=== PATIENT | male | born 1990 | race Caucasian/White ===

== ENCOUNTER 2019-08-15 08:26 | Emergency (ER) | payer MEDICARE, MEDICAID, SELFPAY ==
[2019-08-15 08:29] VITALS: BP 182/83; PULSE 82; RESP 18; TEMP 36.8; O2SAT 100; BMI 33.0
--- NOTE | 2019-08-15 08:30 | W.ED.ABDPA2 ---
HPI - Abdominal Pain General: Chief Complaint: Urogenital-Male Stated Complaint: LEFT SIDE LOW BACK PAIN Time Seen by Provider: 08/15/19 08:27 Source: patient Mode of arrival: ambulatory Limitations: no limitations History of Present Illness: HPI narrative: Patient is a nice 29-year-old male who presents to ED today with complaints of left-sided flank pain with radiation into his left abdomen that began around 5 AM this morning fairly suddenly and awoke patient from sleep. Patient tells me he does have a history of kidney stones although states this one feels abnormal. He has associated nausea without vomiting. He tells me he is having darker than normal urine and states it is difficult to urinate. He has not been running fevers. No changes in defecation habits. MD elicited complaint: abdominal pain and flank pain Pertinent past history: kidney stones Onset (ago): hour(s) Pain Consistency: constant Location: LUQ, LLQ and L flank Severity: moderate Quality: sharp Exacerbating factors: other (urinating ) Relieving factors: nothing Associated Symptoms: Reports nausea; Denies change in bowel habits, change in stool character, chills, diarrhea, dysuria, fever(s), heartburn, hematochezia, hematemesis, melena and vomiting Review of Systems Const: Denies: fever(s), chills, body aches, fatigue or malaise Card: Denies: chest pain, palpitations or lightheadedness Resp: Denies: dyspnea or chest congestion GI: Reports: abdominal pain and nausea; Denies: vomiting, hematemesis, heartburn, diarrhea, change in bowel habits, change in stool character, hematochezia or melena : Reports: flank pain, difficulty urinating and difficulty starting urination; Denies: dysuria, urinary frequency, urinary urgency, urinary hesitancy, genital pain, genital lesions, penile discharge, testicular pain or testicular mass Musc: Reports: back pain (L flank); Denies: neck pain, extremity pain, extremity swelling, joint pain or joint swelling Skin/Breast: Denies: rash Neuro: Denies: headache(s), numbness in extremities, weakness in extremities or sensory changes Physical Exam Const: COMMON NORMALS: no acute distress, patient oriented x3, no limitations and alert HENMT: COMMON NORMALS: normocephalic and atraumatic HEAD & SCALP: normocephalic and atraumatic Resp: COMMON NORMALS: normal respiratory effort and clear to auscultation bilaterally AUSCULTATION: clear to auscultation bilaterally Cardio: COMMON NORMALS: regular rate and regular rhythm RATE: regular rate RHYTHM: regular rhythm GI: COMMON NORMALS: Normal to inspection, nondistended, normoactive bowel sounds present, Soft to palpation, No hepatosplenomegaly present and no masses PALPATION: Yes Soft to palpation, Yes Tenderness to palpation present (GI) (throughout L side of abdomen) and Yes No hepatosplenomegaly present : BLADDER/KIDNEY EXAM: Yes CVA tenderness on the left Back/Pelvis: GENERAL BACK: Yes CVA tenderness Extremity: COMMON NORMALS: no clubbing, cyanosis or edema and no pedal edema Neuro: COMMON NORMALS: patient oriented x3 SENSORIUM/ORIENTATION: Yes alert Skin: COMMON NORMALS: no rashes or lesions noted GENERAL SKIN EXAM: no rashes or lesions noted Course Vital Signs: Vital signs: Vital Signs Temperature 98.2 F 08/15/19 08:29 Pulse Rate 94 08/15/19 08:52 Respiratory Rate 18 08/15/19 08:57 Blood Pressure 175/88 08/15/19 08:52 Pulse Oximetry 98 08/15/19 08:57 MDM - Abdominal Pain MDM Narrative: Medical decision making narrative: Patient here with a left 4 mm ureter stone causing moderate to severe hydroureteronephrosis. Patient will be placed on flomax and pain/nausea medications, given urinary strainer, and case management will set him up to see urology for follow-up. Return to ED precautions given. Lab Data: Labs: Lab Results 08/15/19 08/15/19 08/15/19 Range/Units 08:15 08:15 08:55 WBC 10.7 H (4.0-10.0) 10^3/ uL RBC 4.66 (4.1-5.3) 10^6/u L Hgb 14.6 (11.7-16.6) g/dL Hct 43.9 (42.0-52.0) % MCV 94.2 H (80-94) fL MCH 31.3 (28.0-34.0) pg MCHC 33.3 (30.0-36.0) g/dL RDW 11.8 L (12.1-15.1) % Plt Count 246 (130-400) 10^3/c mm MPV 9.9 (7.4-10.4) fL Neut % (Auto) 86.0 % Lymph % (Auto) 9.3 % [place] % (Auto) 3.9 % Eos % (Auto) 0.1 % Baso % (Auto) 0.2 % Neut # (Auto) 9.2 H (1.8-7.7) 10^3/u L Lymph # (Auto) 1.0 (0.8-4.8) 10^3/u L [place] # (Auto) 0.4 (0.2-0.9) 10^3/u L Eos # (Auto) 0.0 (0.0-0.8) 10^3/u L Baso # (Auto) 0.0 (0.0-0.1) 10^3/u L Nucleated RBC % (a uto) 0 % Nucleated RBCs # 0.0 /100WBC Sodium 138 (136-145) mmol/L Potassium 3.6 (3.5-5.1) mmol/L Chloride 102 (98-107) mmol/L Carbon Dioxide 24 (22-29) mmol/L Anion Gap 15.6 (5-19) BUN 16 (6-20) mg/dL Creatinine 0.9 (0.7-1.2) mg/dL GFR Calculation 101.2 (90-130) mL/min Glucose 145 H (65-115) mg/dL Calculated Osmolal ity 285 (285-295) mOsm/k g Calcium 9.5 (8.5-10.5) mg/dL Total Bilirubin 0.5 (0.15-1.2) mg/dL AST 24 (0-40) U/L ALT 35 (0-41) U/L Alkaline Phosphata se 83 (40-130) IU/L Total Protein 7.9 (6.6-8.7) g/dL Albumin 4.6 (3.5-5.2) g/dL Globulin 3.3 (1.3-4.6) g/dL Urine Color [place] (Yellow) Urine Appearance Cloudy (CLEAR) Urine pH 5.0 (5-7) Ur Specific Gravit y 1.020 (1.005-1.030) Urine Protein 1+ H (Negative) Urine Glucose (UA) Trace H (Normal) Urine Ketones 1+ H (Negative) Urine Blood 3+ H (Negative) Urine Nitrate Negative (Negative) Urine Bilirubin Neg (NEGATIVE) Urine Urobilinogen 1 H (Negative) mg/dL Ur Leukocyte Merline ase Trace H (Negative) Urine RBC >100 H (0-2) /hpf Urine WBC 5-10 H (0-5) /hpf Ur Squamous Epith Cells 5-10 H (0-5) Amorphous Sediment Not Reportable Urine Bacteria Trace (NONE) Imaging Data ^: CT Abd/Pel: Radiologist's impression: [facility] [address] [place] [address] CT Scan Report Signed Patient: George Lopez Unit #: [id number] : 1990 Age/Sex: 29 / M ADM Date: 08/15/19 Loc: ER Room/Bed: Attending Dr: Ordering Provider/Ordering MD: Karma Hillman Date of Service: 08/15/19 Procedure(s): CT kidney stone 05414 Accession Number(s): [id number] Report Number: [id number] WS: [id number] CT ABDOMEN AND PELVIS NONCONTRAST HISTORY: L flank/abdominal pain TECHNIQUE: Imaging performed through the abdomen and pelvis. Coronal and sagittal reformats are submitted. All CT scans at [facility] use at least one of these dose optimization techniques: automated exposure control; mA and/or kV adjustment per patient size (includes targeted exams where dose is matched to clinical indication); or iterative reconstruction. DLP: 1625.71 mGy.cm COMPARISON: 02/04/2017 Lower thorax: Dependent changes at the lung bases. There is also motion artifact. Heart size is normal. No hiatal hernia. Liver: Normal, no mass or intrahepatic dilatation. Gallbladder: Unremarkable. Pancreas: Normal. Spleen: Normal. Adrenal glands: Normal. Right kidney: Normal size kidney. 2 mm calcification lower pole is nonobstructing. Left kidney: Enlarged edematous kidney with moderate to severe LEFT hydroureteronephrosis. Ureter is significantly dilated secondary to a 4 mm distal LEFT ureter calcification. Calcification is approximately 2 cm from the urinary bladder. Additional nonobstructing 6 mm stone in the lower pole. Abdominal aorta and IVC are unremarkable. No free fluid, intraperitoneal air or significant lymphadenopathy. GI tract: Prior appendectomy. Mild constipation. No obstruction. Abdominal wall: Intact. Pelvis: Well-distended urinary bladder. No free fluid. Osseous structures: Unremarkable. CT/CT kidney stone [id number] IMPRESSION: 1. Moderate to severe LEFT hydroureteronephrosis secondary to a 4 mm distal ureteral calcification. 2. Additional bilateral lower pole nephrolithiasis. 3. Prior appendectomy. Dictated By: Gloria Yoder DO Signed By: Gloria Yoder DO Signed Date/Time: 08/15/19923 DD/ 9 Discharge Plan Discharge Patient Disposition: Home, Self-Care Clinical Impression: Left ureteral calculus Condition: Stable Prescriptions: New Flomax 0.4 mg capsule 0.4 mg PO DAILY Qty: 10 RF: 0 Zofran 4 mg tablet 4 mg PO Q6H PRN (Reason: nausea and vomiting) Qty: 14 RF: 0 tramadol 50 mg tablet 50 mg PO Q6H PRN (Reason: pain) Qty: 14 RF: 0 No Action citalopram 40 mg tablet 40 mg PO DAILY RF: 0 trazodone 50 mg tablet 50 mg PO BEDTIME RF: 0 Tylenol Extra Strength 500 mg Tablet 1,000 mg PO PRN RF: 0 lorazepam 0.5 mg tablet 0.5 mg PO TID RF: 0 ibuprofen 200 mg Tablet 600 mg PO PRN RF: 0 risperidone 1 mg tablet 1 mg PO BID RF: 0 atomoxetine 80 mg capsule 80 mg PO DAILY RF: 0 Vimpat 200 mg tablet 200 mg PO DAILY RF: 0 Discharge Orders: Discharge Order (Routine); Ordered 08/15/19 Ordered By: Karma Hillman Referrals: Real Catalan Jr, MD [Primary Care Provider] - Papo Topete MD [Physician] - Patient Instructions: Kidney Stones (ED), How to Strain Your Urine (ED), Flank Pain (ED), Hydronephrosis (ED) Activity Restrictions/Additional Instructions: As discussed case management should contact you shortly to set you up with your urology follow-up. Strain your urine as instructed. I have written you for pain and nausea medications you may use as needed. Please return to the emergency department for worsening pain, fevers, inability to urinate, any other concerns you may have. I hope you begin to feel better soon. 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 Care Code ED Classified Copy Control Clerk for Chg Fwd Exam Comprehensive
--- NOTE | 2019-08-15 08:38 | CT_ITS ---
WS: [id number] CT ABDOMEN AND PELVIS NONCONTRAST HISTORY: L flank/abdominal pain TECHNIQUE: Imaging performed through the abdomen and pelvis. Coronal and sagittal reformats are submi tted. All CT scans at [facility] use at least one of these dose optimization techniques: automated exposure control; mA and/or kV adjustment per patient size (includes targeted exams where d ose is matched to clinical indication); or iterative reconstruction. DLP: 1625.71 mGy.cm COMPARISON: 02/04/2017 Lower thorax: Dependent changes at the lung bases. There is also motion artifact. Heart size is saniya l. No hiatal hernia. Liver: Normal, no mass or intrahepatic dilatation. Gallbladder: Unremarkable. Pancreas: Normal. Spleen: Normal. Adrenal glands: Normal. Right kidney: Normal size kidney. 2 mm calcification lower pole is nonobstructing. Left kidney: Enlarged edematous kidney with moderate to severe LEFT hydroureteronephrosis. Ureter is significantly dilated secondary to a 4 mm distal LEFT ureter calcification. Calcification is approxim ately 2 cm from the urinary bladder. Additional nonobstructing 6 mm stone in the lower pole. Abdominal aorta and IVC are unremarkable. No free fluid, intraperitoneal air or significant lymphadenopathy. GI tract: Prior appendectomy. Mild constipation. No obstruction. Abdominal wall: Intact. Pelvis: Well-distended urinary bladder. No free fluid. Osseous structures: Unremarkable. CT/CT kidney stone [id number] IMPRESSION: 1. Moderate to severe LEFT hydroureteronephrosis secondary to a 4 mm distal ur eteral calcification. 2. Additional bilateral lower pole nephrolithiasis. 3. Prior appendectomy.
[2019-08-15 08:52] VITALS: BP 175/88; PULSE 94; RESP 18; O2SAT 96
[2019-08-15 08:57] VITALS: RESP 18; O2SAT 98
[2019-08-15 08:57] LABS: Basophils % 0.2 %; Eosinophils % 0.1 %; Hematocrit 43.9 % (42.0-52.0); Hemoglobin 14.6 g/dL (11.7-16.6); Lymphocytes % 9.3 %; Mean Corpuscular HGB Conc 33.3 g/dL (30.0-36.0); Mean Corpuscular Hemoglobin 31.3 pg (28.0-34.0); Mean Corpuscular Volume 94.2 fL (80-94); Mean Platelet Volume 9.9 fL (7.4-10.4); Monocytes # 0.4 10^3/uL (0.2-0.9); Monocytes % 3.9 %; Neutrophils # 9.2 10^3/uL (1.8-7.7); Nucleated Red Blood Cells % 0 %; Platelet Count 246 10^3/cmm (130-400); Red Blood Count 4.66 10^6/uL (4.1-5.3); Red Cell Distribution Width 11.8 % (12.1-15.1); White Blood Count 10.7 10^3/uL (4.0-10.0)
[2019-08-15] MEDS: sodium chloride 0.9% 1,000 ML 999 ML IV (08:57)
[2019-08-15] MEDS: morphine 4 mg/mL SDV 1 mL IVP (08:57)
[2019-08-15] MEDS: ondansetron 2 mg/ML SDV 2 mL 4 MG IVP (08:58)
[2019-08-15 09:09] LABS: Alanine Aminotransferase 35 U/L (0-41); Albumin Level 4.6 g/dL (3.5-5.2); Alkaline Phosphatase 83 IU/L (40-130); Anion Gap 15.6 (5-19); Aspartate Amino Transferase 24 U/L (0-40); Blood Urea Nitrogen 16 mg/dL (6-20); Calcium 9.5 mg/dL (8.5-10.5); Carbon Dioxide 24 mmol/L (22-29); Chloride 102 mmol/L (98-107); Creatinine Clr Calc Pharmacy 149.1502; Globulin 3.3 g/dL (1.3-4.6); Glomerular Filtration Rate 101.2 mL/min (90-130); Glucose 145 mg/dL (65-115); Osmolality Calculated 285 mOsm/kg (285-295); Potassium 3.6 mmol/L (3.5-5.1); Sodium 138 mmol/L (136-145); Total Bilirubin 0.5 mg/dL (0.15-1.2); Total Protein 7.9 g/dL (6.6-8.7)
[2019-08-15 09:30] LABS: Add Urine Microscopic? YES; Bilirubin Urine Neg (NEGATIVE); Blood Urine 3+ (Negative); Glucose Urine UA Trace (Normal); Ketones Urine 1+ (Negative); Leukocyte Esterase Urine Trace (Negative); Nitrate Urine Negative (Negative); Protein Urine 1+ (Negative); Urine Appearance Cloudy (CLEAR); Urine Color Amber (Yellow); Urobilinogen Urine 1 mg/dL (Negative)
[2019-08-15 09:31] LABS: Add Urine Culture? Yes; Bacteria Urine TRACE; RBC Urine >100 /hpf (0-2)
[2019-08-15 10:12] VITALS: BP 157/104; PULSE 100; RESP 18; O2SAT 97
--- NOTE | 2019-08-15 10:19 | PC.NURSE ---
informed chuyita kidd of bp of 154/107 vo to continue with dc with read back.
--- NOTE | 2019-08-16 09:59 | DCPLANNER ---
manager adult had message to schedule a follow up appointment for patient with Dr. Topete. manager adult called the office of Dr. Topete, spoke with Rafaela, gave clinic patients information. manager adult was told that patients information would be printed and reviewed. Clinic will call patient with appointment information.
--- NOTE | 2019-08-17 08:23 | DCPLANNER ---
Patient has an appointment scheduled for Saturday, August 17, [address] at 8:[address] Topete. Clinic will call patient with appointment information.
--- NOTE | 2019-08-21 11:18 | DCPLANNER ---
Patient did not attend appointment scheduled for 08.17.[address] Topete.
== END 2019-08-15 10:53 | disposition home or self-care (01) ==
PROVIDERS: Emergency Provider Physician Assistant; Family Provider Family Medicine; PCP Family Medicine
DX: N20.1 Calculus of ureter (principal)
CPT/HCPCS: 12345; 74176; 80053; 81001; 81003; 85025; 87086; 96361; 96374; 96375; 99283; J2270; J2405; J7030

== ENCOUNTER 2019-08-30 07:42 | Outpatient (CLI) | payer MEDICARE, MEDICAID, SELFPAY ==
--- NOTE | 2019-08-30 09:00 | XR_ITS ---
WS: [id number] ABDOMEN: SUPINE FILM HISTORY: STONES COMPARISON: 08/15/2019 and 10/25/2018 Moderate fecal retention. There is a large amount of bowel gas and fecal content obscuring the kidney s. Right kidney: No renal or ureteral stone identified. Left kidney: Cluster of renal calcifications projects over the LEFT kidney with the largest measuring 5 mm. Distal LEFT ureteral calcification is not identified radiographically with certainty. There ar e some calcifications in the pelvis which are phleboliths. XR/XR KUB 64745 IMPRESSION: Cannot identify the distal LEFT ureteral calcification radiographically. May be obscured by bowel gas content or extruded.
== END 2019-08-30 07:43 | disposition home or self-care (01) ==
PROVIDERS: PCP Family Medicine; Visit Provider Urology
DX: N20.1 Calculus of ureter (principal); N20.0 Calculus of kidney
CPT/HCPCS: 74018; 81001; 82365

== ENCOUNTER 2019-11-08 09:26 | Emergency (ER) | payer MEDICARE, MEDICAID, SELFPAY ==
[2019-11-08 09:28] VITALS: BP 142/67; PULSE 76; RESP 18; TEMP 36.3; O2SAT 100; BMI 30.1
--- NOTE | 2019-11-08 09:43 | ED_ITS ---
HPI - Male Genitourinary General: Chief complaint: Urogenital-Male Stated complaint: back pain Time Seen by Provider: 11/08/19 09:28 Source: patient Mode of arrival: ambulatory Limitations: no limitations History of Present Illness: HPI Narrative: Patient is a 29-year-old male who presents to ED today with a complaint of left flank pain that began yesterday. Patient tells me he had a kidney stone that was diagnosed back in August. I actually saw patient for this visit in the emergency department. Patient states he followed up with Dr. Topete and reported prior to that appointment he did pass the stone. X-ray was performed prior to appointment with Dr. Topete which did not show a stone. Patient tells me he had been feeling good until yesterday when he began developing left flank pain. He is having difficulty with urination, hematuria, urinary frequency. He has not been running fevers. No vomiting. No abdominal pain. Onset (ago): hour(s) Duration: constant Location: left flank Quality: sharp Relieving factors: none Exacerbating factors: urination Associated symptoms: Reports dysuria and hematuria; Deny nausea or vomiting Review of Systems Const: Denies: fever(s) or chills Card: Denies: chest pain Resp: Denies: dyspnea GI: Denies: abdominal pain, nausea, vomiting or diarrhea : Reports: flank pain, difficulty urinating, dysuria, urinary frequency, urinary hesitancy and hematuria; Denies: genital pain, genital lesions, penile discharge, testicular mass or scrotal swelling Musc: Denies: neck pain or back pain Neuro: Denies: headache(s) PFS ED PFSH: Medical History (Updated 11/08/19 @ 11:31 by COURTNEY Hidalgo) Autism Depression Epilepsy PTSD (post-traumatic stress disorder) Renal calculi Status post extracorporeal shock wave therapy Surgical History Hx of appendectomy Family History Unknown Adopted Social History Smoking and tobacco status: never smoked Alcohol intake: never Adopted: Yes Marital status: Single Current occupational status: employed and unemployed 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 History of recent travel: No Physical Exam Const: COMMON NORMALS: no acute distress, patient oriented x3, no limitations and alert Resp: COMMON NORMALS: normal respiratory effort and clear to auscultation bilaterally AUSCULTATION: clear to auscultation bilaterally Cardio: COMMON NORMALS: regular rate and regular rhythm RATE: regular rate RHYTHM: regular rhythm GI: COMMON NORMALS: Normal to inspection, nondistended, normoactive bowel sounds present, Soft to palpation, non-tender, No hepatosplenomegaly present and no masses PALPATION: Yes Soft to palpation and Yes No hepatosplenomegaly present : BLADDER/KIDNEY EXAM: Yes CVA tenderness on the left Back/Pelvis: GENERAL BACK: Yes CVA tenderness Extremity: COMMON NORMALS: normal to inspection and no pedal edema Neuro: COMMON NORMALS: patient oriented x3 SENSORIUM/ORIENTATION: Yes alert Skin: COMMON NORMALS: no rashes or lesions noted GENERAL SKIN EXAM: no rashes or lesions noted Course Vital Signs: Vital signs: Vital Signs Temperature 97.4 F L 11/08/19 09:28 Pulse Rate 82 11/08/19 11:42 Respiratory Rate 18 11/08/19 11:42 Blood Pressure 119/90 11/08/19 11:42 Pulse Oximetry 100 11/08/19 11:42 MDM - Male MDM Narrative: Medical decision making narrative: Patient has a 4.7 mm stone to his left distal ureter. The stone appears to be a different stone then was diagnosed back in August as he states he passed the stone and had a negative follow-up XR. Previous stone that he passed was not similar size so hopefully patient will be able to pass this one without intervention. Patient has not had any vomiting. His pain is controlled in the emergency department. He will be placed on pain medications/nausea medications and flomax and will have him follow up with Dr. Topete. Return to ED precautions given. Lab Data: Labs: Lab Results 11/08/19 11/08/19 11/08/19 Range/Units 10:11 10:11 11:00 WBC 9.1 (4.0-10.0) 10^3/ uL RBC 4.77 (4.1-5.3) 10^6/u L Hgb 14.9 (11.7-16.6) g/dL Hct 43.7 (42.0-52.0) % MCV 91.6 (80-94) fL MCH 31.2 (28.0-34.0) pg MCHC 34.1 (30.0-36.0) g/dL RDW 11.6 L (12.1-15.1) % Plt Count 248 (130-400) 10^3/c mm MPV 9.9 (7.4-10.4) fL Neut % (Auto) 84.2 % Lymph % (Auto) 11.2 % [place] % (Auto) 4.0 % Eos % (Auto) 0.1 % Baso % (Auto) 0.3 % Neut # (Auto) 7.69 (1.8-7.7) 10^3/u L Lymph # (Auto) 1.0 (0.8-4.8) 10^3/u L [place] # (Auto) 0.4 (0.2-0.9) 10^3/u L Eos # (Auto) 0.0 (0.0-0.8) 10^3/u L Baso # (Auto) 0.0 (0.0-0.1) 10^3/u L Nucleated RBC % (a uto) 0 % Nucleated RBCs # 0.0 /100WBC Sodium 135 L (136-145) mmol/L Potassium 3.4 L (3.5-5.1) mmol/L Chloride 102 (98-107) mmol/L Carbon Dioxide 21 L (22-29) mmol/L Anion Gap 15.4 (5-19) BUN 10 (6-20) mg/dL Creatinine 1.0 (0.7-1.2) mg/dL GFR Calculation 89.6 L (90-130) mL/min Glucose 174 H (65-115) mg/dL Calculated Osmolal ity 283 L (285-295) mOsm/k g Calcium 9.9 (8.5-10.5) mg/dL Total Bilirubin 0.5 (0.15-1.2) mg/dL AST 28 (0-40) U/L ALT 31 (0-41) U/L Alkaline Phosphata se 71 (40-130) IU/L Total Protein 7.5 (6.6-8.7) g/dL Albumin 4.6 (3.5-5.2) g/dL Globulin 2.9 (1.3-4.6) g/dL Urine Color Dark yellow (Yellow) Urine Appearance Cloudy (CLEAR) Urine pH 8 H (5-7) Ur Specific Gravit y 1.015 (1.005-1.030) Urine Protein Neg (Negative) Urine Glucose (UA) 1+ (Normal) Urine Ketones 1+ H (Negative) Urine Blood 3+ H (Negative) Urine Nitrate Negative (Negative) Urine Bilirubin Neg (Negative) Prot Sulfosalicyli c Acd Negative (Negative) Urine Urobilinogen Norm (Negative) mg/dL Ur Leukocyte Merline ase Negative (Negative) Urine RBC >100 H (0-2) /hpf Urine WBC 0-4 H (0-5) /hpf Ur Squamous Epith Cells 0-4 H (0-5) /hpf Amorphous Sediment Not Reportable Urine Bacteria 2+ H (NONE) /hpf Imaging Data: CT Abd/Pel: Radiologist's impression: [place] [address] CT Scan Report Signed Patient: George Lopez Unit #: [id number] : 1990 Age/Sex: 29 / M ADM Date: 11/08/19 Loc: ER Room/Bed: Attending Dr: Ordering Provider/Ordering MD: Karma Hillman Date of Service: 11/08/19 Procedure(s): CT kidney stone [id number] Accession Number(s): [id number] Report Number: [id number] WS: [id number] CT ABDOMEN AND PELVIS NONCONTRAST HISTORY: L flank pain TECHNIQUE: Imaging performed through the abdomen and pelvis. Coronal and sagittal reformats are submitted. All CT scans at [facility] use at least one of these dose optimization techniques: automated exposure control; mA and/or kV adjustment per patient size (includes targeted exams where dose is matched to clinical indication); or iterative reconstruction. DLP: 1889.86 mGy.cm COMPARISON: 08/15/2019 Lower thorax: Lung bases are clear. Visualized heart is normal. No hiatal hernia. Liver: Normal size liver. No mass or bile duct dilatation. Gallbladder: Normal gallbladder. Pancreas: Normal size and attenuation. Normal pancreatic duct. No pancreatitis or mass. Spleen: Normal. Adrenal glands: Normal. No mass. Right kidney: Nonobstructing 2 mm calcification lower pole. No mass or obstruction. Normal RIGHT ureter. Left kidney: Severe enlargement and moderate perinephric stranding. There is marked dilatation of the central pelvis and the calyces. Marked dilatation of the renal pelvis and the entire LEFT ureter. Again noted is a 4.7 mm calcification in the distal LEFT ureter. Similar in position at the 08/15/2019. LEFT ureter diameter measures 11 mm. Aorta: Normal abdominal aorta, no aneurysm or atherosclerosis. No free fluid, intraperitoneal air or significant lymphadenopathy. GI tract: Prior appendectomy. Otherwise negative GI tract. Abdominal wall: Negative. No hernia. Pelvis: Phleboliths. Normally distended urinary bladder. No ascites. Osseous structures: Unremarkable. CT/CT kidney stone [id number] IMPRESSION: 1. Severe LEFT hydroureteronephrosis secondary to a 4.7 mm calcification in the distal LEFT ureter. 2. Since the prior study LEFT kidney has become more enlarged and edematous with increasing LEFT obstructive pattern. 3. Prior appendectomy. Dictated By: Gloria Yoder DO Signed By: Gloria Yoder DO Signed Date/Time: 11/08/19 1050 DD/ 1044 Discharge Plan Discharge Patient Disposition: Home Clinical Impression: Calculus of distal left ureter Condition: Stable Prescriptions: New hydrocodone-acetaminophen 5-325 mg tablet 1 tab PO Q6H PRN (Reason: pain) Qty: 14 RF: 0 Zofran 4 mg tablet 4 mg PO Q6H PRN (Reason: nausea and vomiting) Qty: 14 RF: 0 Flomax 0.4 mg capsule 0.4 mg PO DAILY Qty: 10 RF: 0 No Action citalopram 40 mg tablet 40 mg PO DAILY RF: 0 trazodone 50 mg tablet 50 mg PO BEDTIME RF: 0 acetaminophen [Tylenol Extra Strength] 500 mg Tablet 1,000 mg PO PRN RF: 0 lorazepam 0.5 mg tablet 0.5 mg PO TID RF: 0 ibuprofen 200 mg Tablet 600 mg PO PRN RF: 0 risperidone 1 mg tablet 1 mg PO BID RF: 0 atomoxetine 80 mg capsule 80 mg PO DAILY RF: 0 Vimpat 200 mg tablet 200 mg PO DAILY RF: 0 Discharge Orders: Discharge Order (Routine); Ordered 11/08/19 Ordered By: Karma Hillman Referrals: Grace Holliday FNP [Primary Care Provider] - Papo Topete MD [Physician] - Patient Instructions: Kidney Stones (ED), Flank Pain (ED) Activity Restrictions/Additional Instructions: As discussed case management will be contacting your mother which is the number you provided to set you up with a follow-up appointment with Dr. Topete. You need to return to the emergency department for worsening pain, inability to hold down your medications, vomiting, inability to urinate, fevers greater than 100.4, or any other concerns you may have. Discharge Date/Time: 11/08/19 11:42 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 Care Code ED Pharmaceutical Specialty Representative for Chg Fwd Exam Detailed
--- NOTE | 2019-11-08 10:06 | CT_ITS ---
WS: [id number] CT ABDOMEN AND PELVIS NONCONTRAST HISTORY: L flank pain TECHNIQUE: Imaging performed through the abdomen and pelvis. Coronal and sagittal reformats are submi tted. All CT scans at [facility] use at least one of these dose optimization techniques: automated exposure control; mA and/or kV adjustment per patient size (includes targeted exams where d ose is matched to clinical indication); or iterative reconstruction. DLP: 1889.86 mGy.cm COMPARISON: 08/15/2019 Lower thorax: Lung bases are clear. Visualized heart is normal. No hiatal hernia. Liver: Normal size liver. No mass or bile duct dilatation. Gallbladder: Normal gallbladder. Pancreas: Normal size and attenuation. Normal pancreatic duct. No pancreatitis or mass. Spleen: Normal. Adrenal glands: Normal. No mass. Right kidney: Nonobstructing 2 mm calcification lower pole. No mass or obstruction. Normal RIGHT uret er. Left kidney: Severe enlargement and moderate perinephric stranding. There is marked dilatation of the central pelvis and the calyces. Marked dilatation of the renal pelvis and the entire LEFT ureter. Ag ain noted is a 4.7 mm calcification in the distal LEFT ureter. Similar in position at the 08/15/2019. L EFT ureter diameter measures 11 mm. Aorta: Normal abdominal aorta, no aneurysm or atherosclerosis. No free fluid, intraperitoneal air or significant lymphadenopathy. GI tract: Prior appendectomy. Otherwise negative GI tract. Abdominal wall: Negative. No hernia. Pelvis: Phleboliths. Normally distended urinary bladder. No ascites. Osseous structures: Unremarkable. CT/CT kidney stone [id number] IMPRESSION: 1. Severe LEFT hydroureteronephrosis secondary to a 4.7 mm calcification in th e distal LEFT ureter. 2. Since the prior study LEFT kidney has become more enlarged and edematous wi th increasing LEFT obstructive pattern. 3. Prior appendectomy.
[2019-11-08 10:21] LABS: Basophils % 0.3 %; Eosinophils % 0.1 %; Hematocrit 43.7 % (42.0-52.0); Hemoglobin 14.9 g/dL (11.7-16.6); Lymphocytes % 11.2 %; Mean Corpuscular HGB Conc 34.1 g/dL (30.0-36.0); Mean Corpuscular Hemoglobin 31.2 pg (28.0-34.0); Mean Corpuscular Volume 91.6 fL (80-94); Mean Platelet Volume 9.9 fL (7.4-10.4); Monocytes # 0.4 10^3/uL (0.2-0.9); Neutrophils # 7.69 10^3/uL (1.8-7.7); Neutrophils % 84.2 %; Nucleated Red Blood Cells % 0 %; Platelet Count 248 10^3/cmm (130-400); Red Blood Count 4.77 10^6/uL (4.1-5.3); Red Cell Distribution Width 11.6 % (12.1-15.1); White Blood Count 9.1 10^3/uL (4.0-10.0)
[2019-11-08 10:38] LABS: Alanine Aminotransferase 31 U/L (0-41); Albumin Level 4.6 g/dL (3.5-5.2); Alkaline Phosphatase 71 IU/L (40-130); Anion Gap 15.4 (5-19); Aspartate Amino Transferase 28 U/L (0-40); Blood Urea Nitrogen 10 mg/dL (6-20); Calcium 9.9 mg/dL (8.5-10.5); Carbon Dioxide 21 mmol/L (22-29); Chloride 102 mmol/L (98-107); Globulin 2.9 g/dL (1.3-4.6); Glomerular Filtration Rate 89.6 mL/min (90-130); Glucose 174 mg/dL (65-115); Osmolality Calculated 283 mOsm/kg (285-295); Potassium 3.4 mmol/L (3.5-5.1); Sodium 135 mmol/L (136-145); Total Bilirubin 0.5 mg/dL (0.15-1.2); Total Protein 7.5 g/dL (6.6-8.7)
[2019-11-08] MEDS: sodium chloride 0.9% 1,000 ML 999 ML IV (10:44)
[2019-11-08] MEDS: ondansetron 2 mg/ML SDV 2 mL 4 MG IVP (10:48)
[2019-11-08 10:50] VITALS: RESP 18; O2SAT 100
[2019-11-08] MEDS: morphine 4 mg/mL SDV 1 mL IVP (10:50)
[2019-11-08 10:54] VITALS: BP 144/94; PULSE 64; RESP 18; O2SAT 100
[2019-11-08 11:21] LABS: Add Urine Microscopic? YES; Bilirubin Urine Neg (Negative); Blood Urine 3+ (Negative); Glucose Urine UA 1+ (Normal); Ketones Urine 1+ (Negative); Leukocyte Esterase Urine Negative (Negative); Nitrate Urine Negative (Negative); Protein Urine Neg (Negative); Specific Gravity, Urine 1.015 (1.005-1.030); Sulfosalicylic Acid Urine Negative (Negative); Urine Appearance Cloudy (CLEAR); Urine Color Dark Yellow (Yellow); Urobilinogen Urine Norm (Negative); pH Urine 8 (5-7)
[2019-11-08 11:29] LABS: RBC Urine >100 /hpf (0-2)
[2019-11-08 11:30] LABS: Bacteria Urine 2+ /hpf; Squamous Epithelial Cell Urine 0-4 /hpf (0-5); WBC Urine 0-4 /hpf (0-5)
[2019-11-08 11:32] LABS: Add Urine Culture? Yes
--- NOTE | 2019-11-08 11:38 | DCPLANNER ---
manager product management was asked to schedule a follow up appointment for patient with Dr. Topete. manager product management called the office of Dr. Topete, spoke with Rafaela, gave clinic patients information. Case manger was told that patients information would be printed and reviewed. Clinic will call patient with appointment information.
[2019-11-08 11:42] VITALS: BP 119/90; PULSE 82; RESP 18; O2SAT 100
--- NOTE | 2019-11-09 13:50 | DCPLANNER ---
Patient had a follow up appointment scheduled for 11.09.[address] Topete - patient did attend appointment.
== END 2019-11-08 11:42 | disposition home or self-care (01) ==
PROVIDERS: Emergency Provider Physician Assistant; PCP Nurse Practitioner Family
DX: N20.1 Calculus of ureter (principal); F84.0 Autistic disorder; Z87.442 Personal history of urinary calculi
CPT/HCPCS: 12345; 74176; 80053; 81001; 85025; 87086; 96361; 96365; 96374; 96375; 99283; J2270; J2405; J7030

== ENCOUNTER 2019-11-09 09:26 | Outpatient (CLI) | payer MEDICAID, SELFPAY ==
--- NOTE | 2019-11-09 09:15 | XR_ITS ---
WS: [id number] KUB, 11/09/2019 Clinical Data: URETERAL STONE Comparison: KUB, 08/30/2019. Findings: There is a calcification in the region of the left ureterovesical junction which could represent a di stal left ureteral calculus. Numerous phleboliths are seen in the true pelvis bilaterally. Fecal mate rial obscures some detail over both kidneys and no definite renal calculi are seen. XR/XR KUB [id number] Impression: 1. Probable distal ureteral vesicle junction calculus. 2. No definite renal calculi are seen.
== END 2019-11-09 09:27 | disposition home or self-care (01) ==
LOC: RAD 09:26
PROVIDERS: PCP Nurse Practitioner Family; Visit Provider Urology
DX: N20.1 Calculus of ureter (principal)
CPT/HCPCS: 74018; 81001; 87635

== ENCOUNTER 2019-11-13 09:09 | Outpatient (CLI) | payer MEDICARE, MEDICAID, SELFPAY ==
--- NOTE | 2019-11-13 09:00 | XR_ITS ---
WS: [id number] XR KUB [id number] REASON FOR EXAM: URETERAL STONE FINDINGS: Compared to previous examination of 11/09/2019, the previously demonstrated left distal ureteral calcu devi is no longer identifiable along the course of the left ureter or overlying the urinary bladder. No other interval changes identified. XR/XR KUB [id number] IMPRESSION: Presumed passage of previously described distal left ureteral stone.
== END 2019-11-13 09:10 | disposition home or self-care (01) ==
LOC: RAD 09:11
PROVIDERS: PCP Nurse Practitioner Family; Visit Provider Urology
DX: N20.1 Calculus of ureter (principal)
CPT/HCPCS: 74018; 81001; 82365; 88300

== ENCOUNTER 2020-06-29 19:54 | Inpatient (IN) | payer MEDICARE, MEDICAID, SELFPAY ==
[2020-06-29 20:03] VITALS: BP 153/93; PULSE 95; RESP 16; TEMP 36.9; O2SAT 96; BMI 34.4
[2020-06-29 20:09] VITALS: PULSE 96; RESP 17; O2SAT 98
[2020-06-29 20:21] LABS: Add Urine Microscopic? NO; Charge for UA Resulting for Rev
[2020-06-29 20:25] LABS: Basophils # 0.1 10^3/uL (0.0-0.1); Basophils % 0.7 %; Eosinophils % 0.4 %; Hematocrit 41.3 % (42.0-52.0); Lymphocytes # 1.7 10^3/uL (0.8-4.8); Lymphocytes % 22.6 %; Mean Corpuscular HGB Conc 33.9 g/dL (30.0-36.0); Mean Corpuscular Hemoglobin 31.3 pg (28.0-34.0); Mean Corpuscular Volume 92.4 fL (80-94); Mean Platelet Volume 9.5 fL (7.4-10.4); Monocytes # 0.4 10^3/uL (0.2-0.9); Neutrophils # 5.11 10^3/uL (1.8-7.7); Neutrophils % 69.6 %; Nucleated Red Blood Cells % 0 %; Platelet Count 248 10^3/cmm (130-400); Red Blood Count 4.47 10^6/uL (4.1-5.3); Red Cell Distribution Width 11.8 % (12.1-15.1); White Blood Count 7.3 10^3/uL (4.0-10.0)
[2020-06-29 20:33] LABS: Bilirubin Urine Neg (Negative); Blood Urine Neg (Negative); Glucose Urine UA Norm (Normal); Ketones Urine Negative (Negative); Leukocyte Esterase Urine Negative (Negative); Nitrate Urine Negative (Negative); Protein Urine Neg (Negative); Specific Gravity, Urine 1.005 (1.005-1.030); Urine Appearance Clear (CLEAR); Urine Color Yellow (Yellow); Urobilinogen Urine Norm (Negative); pH Urine 6 (5-7)
[2020-06-29 20:42] LABS: Amphetamines Screen Urine Negative (Negative); Barbiturates Screen Urine Negative (Negative); Benzodiazepines Screen Urine Negative (Negative); Cocaine Screen Urine Negative (Negative); Opiate Screen Urine Negative (Negative); PCP Screen Urine Negative (Negative); THC Screen Urine Negative (Negative)
[2020-06-29 20:54] LABS: Acetaminophen < 5.0 ug/mL (10-30); Alanine Aminotransferase 20 U/L (0-41); Albumin Level 4.5 g/dL (3.5-5.2); Alcohol Level < 10 mg/dL (0-10); Alkaline Phosphatase 78 IU/L (40-130); Anion Gap 16.7 (5-19); Aspartate Amino Transferase 18 U/L (0-40); Blood Urea Nitrogen 8 mg/dL (6-20); Calcium 8.6 mg/dL (8.5-10.5); Carbon Dioxide 23 mmol/L (22-29); Chloride 104 mmol/L (98-107); Globulin 2.2 g/dL (1.3-4.6); Glomerular Filtration Rate 135.3 mL/min (90-130); Glucose 111 mg/dL (65-115); Osmolality Calculated 289 mOsm/kg (285-295); Potassium 3.7 mmol/L (3.5-5.1); Salicylate < 0.3 mg/dL (3-10); Sodium 140 mmol/L (136-145); Thyroid Stimulating Hormone 1.45 uIU/mL (0.27-4.20); Total Bilirubin 0.3 mg/dL (0.15-1.2); Total Protein 6.7 g/dL (6.6-8.7)
[2020-06-29 22:26] VITALS: BP 145/90; PULSE 87; RESP 17; TEMP 36.7; O2SAT 99
[2020-06-29 22:44] VITALS: BP 153/93; PULSE 97; RESP 18; TEMP 37.2; O2SAT 96
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
[2020-06-29] MEDS: LORazepam 0.5 mg Tablet PO (23:49)
[2020-06-29] MEDS: trazodone 50 mg Tablet PO (23:49)
[2020-06-30 06:00] VITALS: BP 139/86; PULSE 68; RESP 15; TEMP 36.4; O2SAT 98
[2020-06-30] MEDS: lacosamide 50 mg Tablet 200 MG PO (08:36)
[2020-06-30] MEDS: LORazepam 0.5 mg Tablet PO ×3 (08:36→21:27)
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
[2020-06-30 13:08] VITALS: BP 129/73; PULSE 99; RESP 16; TEMP 36.8; O2SAT 96
[2020-06-30 20:04] VITALS: BP 136/75; PULSE 81; RESP 16; TEMP 36.9; O2SAT 98
[2020-06-30] MEDS: trazodone 50 mg Tablet PO (21:27)
[2020-07-01 06:00] VITALS: BP 129/81; PULSE 75; RESP 15; TEMP 36.9; O2SAT 98
[2020-07-01] MEDS: LORazepam 0.5 mg Tablet PO (08:12)
[2020-07-01] MEDS: lacosamide 50 mg Tablet 200 MG PO (08:12)
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
[2020-07-01 14:51] VITALS: BP 129/81; PULSE 75; RESP 15; TEMP 36.9; O2SAT 98
== END 2020-07-01 15:20 | disposition home or self-care (01) | DRG 881 ==
LOC: ER 20:32 → NP 22:15
PROVIDERS: Admitting Provider Psychiatry & Neurology Psychiatry; Emergency Provider Family Medicine; PCP Nurse Practitioner Family; Visit Provider Psychiatry & Neurology Psychiatry
DX: F32.9 Major depressive disorder, single episode, unspecified (principal); R45.851 Suicidal ideations; R62.50 Unspecified lack of expected normal physiological development in childhood; Q86.0 Fetal alcohol syndrome (dysmorphic); F84.0 Autistic disorder; G40.909 Epilepsy, unspecified, not intractable, without status epilepticus; F43.10 Post-traumatic stress disorder, unspecified; N20.0 Calculus of kidney; F79 Unspecified intellectual disabilities
CPT/HCPCS: 80053; 80306; 80307; 81003; 84443; 85025; 99285

== ENCOUNTER 2020-07-17 17:28 | Emergency (ER) | payer MEDICARE, MEDICAID, SELFPAY ==
[2020-07-17 17:42] VITALS: BP 167/80; PULSE 79; RESP 18; TEMP 36.8; O2SAT 98; BMI 27.2
--- NOTE | 2020-07-17 17:52 | XRR_ITS ---
PROCEDURE INFORMATION: Exam: XR Left Ankle Exam date and time: 07/17/2020 5:56 PM Age: 29 years old Clinical indication: Pain; Ankle; Left TECHNIQUE: Imaging protocol: XR Left ankle. Views: 3 or more views. COMPARISON: No relevant prior studies available. FINDINGS: Bones/joints: Normal. Soft tissues: Normal. XR/XR ankle LT min 3V* [id number] IMPRESSION: No acute findings.
--- NOTE | 2020-07-17 17:53 | ED_ITS ---
HPI - Extremity Problem General: Chief complaint: Extremity Problem,Nontraumatic Stated complaint: L ANKLE PAIN Time Seen by Provider: 07/17/20 17:49 History of Present Illness: HPI Narrative: Patient says his left ankle been hurting for couple months. Denies any known injury decided to come in tonight to get checked out. Not discussed with his primary care provider at [facility]. Says he just hurts and aches on the outside hurts to walk denies any swe lling Complaint: joint pain Onset (ago): month(s) Pain Consistency: intermittent Location: left and lower extremity Severity scale (1-10): 1 Quality: aching Radiation: proximal Relieving factors: immobilization Exacerbating factors: weight bearing Associated symptoms: Reports no associated symptoms; Deny chest pain, fever(s) or rash Review of Systems Const: Denies: fever(s), chills or body aches Eyes: Denies: change in vision or blurry vision ENMT: Denies: throat pain or nasal congestion Card: Denies: chest pain or dyspnea on exertion Resp: Denies: dyspnea, productive cough or non-productive cough GI: Denies: abdominal pain, nausea or vomiting : Denies: difficulty urinating Musc: Reports: joint pain (Left ankle x2 months); Denies: extremity pain Skin/Breast: Denies: rash Neuro: Denies: headache(s) Psych: Denies: anxiety or depression Jacky/Lymph: Denies: easy bruising PFS ED PFSH: Medical History (Updated 07/02/20 @ 00:02 by ) Autism Depression Epilepsy PTSD (post-traumatic stress disorder) Renal calculi Status post extracorporeal shock wave therapy Surgical History Hx of appendectomy Family History Unknown Adopted Social History Smoking and tobacco status: never smoked Alcohol intake: never Adopted: Yes Marital status: Single Current occupational status: employed and unemployed 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 History of recent travel: No Physical Exam Const: COMMON NORMALS: no acute distress, average body habitus and patient oriented x3 HENMT: COMMON NORMALS: normocephalic HEAD & SCALP: normal to inspection and normocephalic FACE & SINUS: normal facial exam Eye: COMMON NORMALS: conjunctivae normal GENERAL EYE: appearance normal, both eyes and all related structures CONJUNCTIVA: Yes conjunctivae normal Neck/C-Spine: COMMON NORMALS: no JVD Chest: COMMONS NORMALS: normal inspection of the chest Resp: COMMON NORMALS: normal respiratory effort Cardio: COMMON NORMALS: no JVD Extremity: COMMON NORMALS: normal to inspection and full ROM LEFT LOWER EXTREMITY: Yes ankle joint (Tender lateral malleus no swelling does have full range of motion. Neurova) Neuro: COMMON NORMALS: patient oriented x3 Course Vital Signs: Vital signs: Vital Signs Temperature 98.3 F 07/17/20 17:42 Pulse Rate 79 07/17/20 17:42 Respiratory Rate 18 07/17/20 17:42 Blood Pressure 167/80 07/17/20 17:42 Pulse Oximetry 98 07/17/20 17:42 Discharge Plan Discharge Prescriptions: No Action omeprazole 20 mg Tablet,Delayed Release (Dr/Ec) 20 mg PO DAILY PRN (Reason: Heartburn) RF: 0 trazodone 50 mg tablet 50 mg PO BEDTIME RF: 0 lorazepam 0.5 mg tablet 0.5 mg PO TID RF: 0 Vimpat 200 mg tablet 200 mg PO DAILY RF: 0 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 Care Code ED Lead Neurodiagnostic Technologist for [facility] Rubin
[2020-07-17 17:57] VITALS: BP 167/80; PULSE 78; O2SAT 99
== END 2020-07-17 18:24 | disposition home or self-care (01) ==
PROVIDERS: Emergency Provider Nurse Practitioner Family; PCP Nurse Practitioner Family
DX: M25.572 Pain in left ankle and joints of left foot (principal); F84.0 Autistic disorder
CPT/HCPCS: 73610; 99282

== ENCOUNTER 2020-12-13 14:36 | Inpatient (IN) | payer MEDICARE, MEDICAID, SELFPAY ==
[2020-12-13 14:37] VITALS: BP 173/107; PULSE 95; RESP 15; TEMP 36.4; O2SAT 95; BMI 22.5
--- NOTE | 2020-12-13 14:57 | W.ED.GENADLT ---
HPI - General Adult General: Chief complaint: Psychiatric Symptoms Stated complaint: SI Time Seen by Provider: 12/13/20 14:41 History of Present Illness: HPI narrative: 30-year-old male with history depression on medicine comes into the emergency room with concerns for acute suicidal ideation and plan. Patient tells me that he would slit his wrist until he bleed to . Patient has no other focal complaints including hallucination, homicidal ideation. No other medical complaints at this time. Onset:1 day Duration:1 day Location:ongoing Severity:severe Review of Systems Narrative: Constitutional: No fever, no chills. HEENT: No vision changes CV: No chest pain, no palpitations PULM: no cough, no dyspnea. GI: No abdominal pain, no N/V/D. : No dysuria MSKEL: No muscle pain SKIN: No new rashes, no lesions. NEURO: No headache, no focal weakness. 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 History of recent travel: No Physical Exam Narrative: EXAM NARRATIVE: Head: Atraumatic Eyes: PERRL, conjunctiva without injection ENT: Mucous membrane moist NECK: Supple, ROM intact LUNGS: LCTAB, no crackles/rhonchi CV: RRR ABDOMEN: Soft, nontender in all quadrants EXTREMITY: Normal ROM SKIN: No rash or erythema NEURO: Awake and alert, no focal motor deficits PSYCH: Depressed mood, + SI Course Vital Signs: Vital signs: Vital Signs Temperature 97.6 F 12/13/20 14:37 Pulse Rate 95 12/13/20 14:37 Respiratory Rate 15 12/13/20 14:37 Blood Pressure 173/107 12/13/20 14:37 Pulse Oximetry 95 12/13/20 14:37 MDM - General Adult MDM Narrative: Medical decision making narrative: [30]yo patient w/ hx of depression presenting for SI. HDS, exam within normal limit Thoughts are linear and organized, and the patient has no AH/VH, or HI. Clinically the patient displays no overt toxidrome; they are well appearing, with low suspicion for toxic ingestion given history and exam. Symptoms unlikely 2/2 anemia, hypothyroidism, infection, or ICH. Workup: CBC, CMP, Lipase, salicylate/tylenol, serum ethanol, UDS Lab findings: wnl [3:01pm] On reassessment, labs and workup wnl. Patient is hemodynamically stable with no acute medical complaints. Case discussed with psychiatric provider Dr. Hargrove at [facility] psych inpatient with recommendation for admission Disposition: Psych Lab Data: Labs: Lab Results 12/13/20 14:56 Urine Opiates Scre en Negative ng/mL ng /mL (Negative) Ur Barbiturates Sc reen Negative ng/mL ng /mL (Negative) Ur Phencyclidine S crn Negative ng/mL ng /mL (Negative) Ur Amphetamines Sc reen Negative ng/mL ng /mL (Negative) U Benzodiazepines Scrn Positive ng/mL H ng/mL (Negative) Urine Cocaine Scre en Negative ng/mL ng /mL (Negative) U Marijuana (THC) Screen Negative ng/mL ng /mL (Negative) Discharge Plan Discharge Patient Disposition: Admitted As Inpatient Clinical Impression: Suicide ideation, Depression Condition: Stable 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 Care Code ED Electric Plater for [place]
[2020-12-13 15:33] LABS: Amphetamines Screen Urine Negative (Negative); Barbiturates Screen Urine Negative (Negative); Benzodiazepines Screen Urine Positive (Negative); Cocaine Screen Urine Negative (Negative); Opiate Screen Urine Negative (Negative); PCP Screen Urine Negative (Negative); THC Screen Urine Negative (Negative)
[2020-12-13] MEDS: LORazepam 1 mg Tablet PO (16:14)
[2020-12-13 16:21] LABS: Basophils # 0.1 10^3/uL (0.0-0.1); Basophils % 0.5 %; Eosinophils % 0.3 %; Hematocrit 42.7 % (42.0-52.0); Hemoglobin 15.1 g/dL (11.7-16.6); Lymphocytes # 1.5 10^3/uL (0.8-4.8); Lymphocytes % 13.2 %; Mean Corpuscular HGB Conc 35.4 g/dL (30.0-36.0); Mean Corpuscular Hemoglobin 31.9 pg (28.0-34.0); Mean Corpuscular Volume 90.3 fl (80-94); Mean Platelet Volume 9.4 fL (7.4-10.4); Monocytes # 0.5 10^3/uL (0.2-0.9); Monocytes % 4.2 %; Neutrophils # 8.99 10^3/uL (1.8-7.7); Neutrophils % 81.3 %; Nucleated Red Blood Cells % 0 %; Platelet Count 292 10^3/cmm (130-400); Red Blood Count 4.73 10^6/uL (4.1-5.3); Red Cell Distribution Width 11.7 % (12.1-15.1)
[2020-12-13 16:42] LABS: Anion Gap 13.8 (5-19); Blood Urea Nitrogen 12 mg/dL (6-20); Calcium 9.2 mg/dL (8.5-10.5); Carbon Dioxide 25 mmol/L (22-29); Chloride 101 mmol/L (98-107); Glomerular Filtration Rate 134.3 mL/min (90-130); Glucose 94 mg/dL (65-115); Osmolality Calculated 282 mOsm/kg (285-295); Potassium 3.8 mmol/L (3.5-5.1); Sodium 136 mmol/L (136-145)
[2020-12-13 16:45] LABS: Acetaminophen < 5.0 ug/mL (10-30); Salicylate < 0.3 mg/dL (3-10)
[2020-12-13] MEDS: trazodone 50 mg Tablet PO (20:18)
[2020-12-13 22:48] VITALS: BP 120/65; PULSE 79; RESP 18; TEMP 36.7; O2SAT 98
[2020-12-14 06:00] VITALS: BP 134/80; PULSE 70; RESP 17; TEMP 36.6; O2SAT 97
[2020-12-14] MEDS: risperiDONE 1 mg Tablet PO ×2 (08:46→18:22)
[2020-12-14] MEDS: atomoxetine 40 mg Capsule 80 MG PO (08:47)
[2020-12-14] MEDS: lacosamide 50 mg Tablet 200 MG PO (08:47)
[2020-12-14] MEDS: silver sulfadiazine cream 1% 50 gm 1 APPLIC TOPICAL ×2 (08:47→18:22)
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
[2020-12-14 14:00] VITALS: BP 118/75; PULSE 106; RESP 18; TEMP 36.3; O2SAT 98
[2020-12-14] MEDS: acetaminophen 325 mg Tablet 650 MG PO (16:17)
[2020-12-14] MEDS: trazodone 50 mg Tablet PO (20:21)
[2020-12-14 20:58] VITALS: BP 102/87; PULSE 74; RESP 15; TEMP 36.7; O2SAT 97
[2020-12-15 06:00] VITALS: BP 143/85; PULSE 105; RESP 16; TEMP 36.7; O2SAT 97
[2020-12-15] MEDS: risperiDONE 1 mg Tablet PO ×2 (08:34→20:21)
[2020-12-15] MEDS: atomoxetine 40 mg Capsule 80 MG PO (08:34)
[2020-12-15] MEDS: lacosamide 50 mg Tablet 200 MG PO (08:34)
--- NOTE | 2020-12-15 08:35 | PC.NURSE ---
refused Silvadene ointment this morning
--- NOTE | 2020-12-15 11:46 | NPU.GN ---
[facility] Topic:Stressors Psych Education Worksheet General Mood of Group: George did attend group therapy this morning. He participated with others in the group and shared experiences with others in the group and this report writer. George and this report writer discussed more about his situation and he was educated how important it is to be medication compliant with his mental psychosis. George did sign up for [facility] services with [facility] [place] as this report writer aided patient in completing the paperwork. Intake packet completed.
[2020-12-15 14:00] VITALS: BP 115/75; PULSE 103; RESP 20; TEMP 36.7; O2SAT 96
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
[2020-12-15] MEDS: acetaminophen 325 mg Tablet 650 MG PO (18:20)
[2020-12-15] MEDS: trazodone 50 mg Tablet PO (20:20)
[2020-12-15] MEDS: silver sulfadiazine cream 1% 50 gm 1 APPLIC TOPICAL (20:21)
[2020-12-15 20:48] VITALS: BP 124/74; PULSE 91; RESP 15; TEMP 36.9; O2SAT 97
[2020-12-16 05:55] VITALS: BP 116/81; PULSE 74; RESP 15; TEMP 37.1; O2SAT 97
[2020-12-16] MEDS: atomoxetine 40 mg Capsule 80 MG PO (07:47)
[2020-12-16] MEDS: risperiDONE 1 mg Tablet PO (07:47)
[2020-12-16] MEDS: lacosamide 50 mg Tablet 200 MG PO (07:47)
--- NOTE | 2020-12-16 11:20 | DCPLANNER ---
IMM completed with pt on 12/16/20 @ 11:12am. Pt given a copy of rights.
--- NOTE | 2020-12-16 11:49 | NPU.GN ---
[facility] Topic:Grounding Thoughts, Coping Skills General Mood of Group: George did very well and attended group today. George was social and in a good mood today.
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
[2020-12-16 13:01] VITALS: BP 116/81; PULSE 74; RESP 15; TEMP 37.1; O2SAT 97
== END 2020-12-16 14:15 | disposition home or self-care (01) | DRG 881 ==
LOC: ER 14:57 → NP 12-14 07:18
PROVIDERS: Admitting Provider Psychiatry & Neurology Psychiatry; Emergency Provider Emergency Medicine; PCP Nurse Practitioner Family; Visit Provider Psychiatry & Neurology Psychiatry
DX: F32.A Depression, unspecified (principal); R45.851 Suicidal ideations; F84.0 Autistic disorder; F43.10 Post-traumatic stress disorder, unspecified; G40.909 Epilepsy, unspecified, not intractable, without status epilepticus; L60.3 Nail dystrophy; Z81.3 Family history of other psychoactive substance abuse and dependence; Z62.810 Personal history of physical and sexual abuse in childhood; Z62.811 Personal history of psychological abuse in childhood; Z81.8 Family history of other mental and behavioral disorders
CPT/HCPCS: 80048; 80306; 80307; 85025; 97150; 97165; 99285

== ENCOUNTER 2021-11-30 15:40 | Emergency (ER) | payer MEDICARE, MEDICAID, SELFPAY ==
[2021-11-30 15:47] VITALS: BP 159/99; PULSE 78; RESP 16; TEMP 36.7; O2SAT 99; BMI 31.5
--- NOTE | 2021-11-30 16:18 | ED.C_ITS ---
HPI - Psych General: Chief Complaint: Psychiatric Symptoms Stated Complaint: brian crane Time Seen by Provider: 11/30/21 15:49 Source: patient Mode of arrival: ambulatory History of Present Illness: 31-year-old male presents emergency room complaining of auditory hallucinations. He says for months he has had problems with with auditory hallucinations encouraging him to do specific things. He denies any suicidal homicidal ideation. The auditory hallucinations are not encouraging him to do anything unsafe or dangerous. He is concerned that it may get worse however. Reviewing his old chart he had previously been on Risperdal and tells me he is no longer taking it. I asked him several times about any suicidal 5 and had previously been admitted for suicide he denies repeatedly. He is seen at [facility] [place]. MD complaint: other (Auditory hallucinations) Onset (ago): month(s) Duration: intermittent History of same: Yes Relieving factors: none Exacerbating factors: none Associated psychiatric symptoms: auditory hallucinations Associated symptoms: Reports auditory hallucinations; Deny visual hallucinations, delusions, depression, homicidal ideation, suicidal ideation or racing thoughts Treatments prior to arrival: none Review of Systems Const: Denies: fever(s), chills, body aches, change in appetite, fatigue or malaise ENMT: Denies: throat pain, ear or mastoid pain, nasal discharge or nasal congestion Card: Denies: chest pain, edema, dyspnea on exertion or orthopnea Resp: Denies: dyspnea, productive cough or non-productive cough GI: Denies: abdominal pain, nausea, vomiting, hematemesis, coffee ground emesis, diarrhea, constipation, bloating, hematochezia or melena : Denies: flank pain, dysuria, urinary frequency or urinary urgency Skin/Breast: Denies: rash or pruritus Psych: Reports: auditory hallucinations; Denies: depression, visual hallucinations, suicidal ideation or homicidal ideation PFS ED PFSH: Medical History Autism Depression Epilepsy Psychiatric care PTSD (post-traumatic stress disorder) Renal calculi Status post extracorporeal shock wave therapy Surgical History Hx of appendectomy Family History Unknown Adopted Social History Alcohol intake: never Adopted: Yes Marital status: Single Current occupational status: employed and unemployed 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 History of recent travel: No Physical Exam Const: GENERAL APPEARANCE: cooperative and comfortable ORIENTATION/CONSCIOUSNESS: Yes awake, Yes oriented to person, Yes oriented to place and Yes oriented to time HENMT: COMMON NORMALS: normocephalic, atraumatic and hearing grossly normal bilaterally HEAD & SCALP: normocephalic and atraumatic Resp: COMMON NORMALS: normal respiratory effort, No retractions, No use of accessory muscles and clear to auscultation bilaterally AUSCULTATION: clear to auscultation bilaterally Cardio: COMMON NORMALS: regular rate, regular rhythm and No murmurs present (Cardio) RATE: regular rate RHYTHM: regular rhythm GI: COMMON NORMALS: Soft to palpation and No hepatosplenomegaly present AUSCULTATION: Yes normoactive bowel sounds PALPATION: Yes Soft to palpation, No Tenderness to palpation present (GI), No Guarding due to palpation present (GI) and Yes No hepatosplenomegaly present Extremity: COMMON NORMALS: normal to inspection, capillary refill normal, no clubbing, cyanosis or edema, no calf tenderness and no pedal edema Neuro: SENSORIUM/ORIENTATION: Yes oriented to person, Yes oriented to place and Yes oriented to time Psych: THOUGHT CONTENT: No delusions Skin: COMMON NORMALS: no rashes or lesions noted GENERAL SKIN EXAM: no rashes or lesions noted Course Vital Signs: Vital signs: Vital Signs Temperature 98.1 F 11/30/21 15:47 Pulse Rate 78 11/30/21 15:47 Respiratory Rate 16 11/30/21 15:47 Blood Pressure 159/99 11/30/21 15:47 Pulse Oximetry 99 11/30/21 15:47 Oxygen Delivery Me thod 11/30/21 15:47 MDM - Psych Medical Decision Making No homicidal or suicidal ideation. We will restart Risperdal take 1 mg at at bedtime for the next 3 days if symptoms not improving increase to twice daily. Case management make arrangements for short-term follow-up with [facility] [place]. Medical Records I reviewed the patient's medical records. Lab Data I reviewed the patient's lab results. Discharge Plan Discharge Patient Disposition: Home Clinical Impression: Chronic psychosis, Intellectual disability, PTSD (post-traumatic stress disorder) Condition: Stable Prescriptions: New Risperdal 1 mg tablet 1 mg PO DAILY Qty: 20 0RF Rx Instructions: 1 pill nightly for 3 days if symptoms do not improve increase to 1 pill twice daily. Discontinued risperidone 1 mg tablet 1 mg PO BID No Action silver sulfadiazine 1 % cream 1 applic topical BID Qty: 50 0RF Rx Instructions: apply a 1.5 mm thickness omeprazole 20 mg Tablet,Delayed Release (Dr/Ec) 20 mg PO DAILY PRN (Reason: Heartburn) trazodone 50 mg tablet 50 mg PO BEDTIME lorazepam 0.5 mg tablet 0.5 mg PO TID PRN (Reason: Anxiety) Vimpat 200 mg tablet 200 mg PO DAILY atomoxetine 80 mg capsule 80 mg PO DAILY Discharge Orders: Discharge ED (Routine); Ordered 11/30/21 Ordered By: Salvador King Referrals: Grace Holliday FNP [Primary Care Provider] - Discharge Diet: Usual diet Discharge Activity: Resume usual activity Patient Instructions: Opioid Safety, Pain Management Activity Restrictions/Additional Instructions: Start Risperdal 1 pill at bedtime for the next 3 nights. If symptoms are not improving increase to 1 pill twice daily. Case management will make arrangements for short-term follow-up at [facility] [place]. 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 Care Code ED Electric Meter Tester Helper for Ky Conklin
== END 2021-11-30 16:30 | disposition home or self-care (01) ==
PROVIDERS: Emergency Provider Family Medicine; PCP Nurse Practitioner Family
DX: F29 Unspecified psychosis not due to a substance or known physiological condition (principal); F43.10 Post-traumatic stress disorder, unspecified; F79 Unspecified intellectual disabilities
CPT/HCPCS: 99283

== ENCOUNTER 2022-01-31 17:50 | Emergency (ER) | payer MEDICARE, MEDICAID, SELFPAY ==
[2022-01-31 18:12] VITALS: BP 137/79; PULSE 88; RESP 14; TEMP 37.1; O2SAT 97
[2022-01-31 20:43] LABS: Influenza A by IFA negative (Negative); Influenza B by IFA negative (Negative); SARS Covid-2 Antigen negative (Negative)
[2022-01-31 20:45] LABS: Rapid Strep A Test Negative (Negative)
[2022-01-31 22:03] VITALS: PULSE 65; RESP 18; O2SAT 97
--- NOTE | 2022-01-31 22:04 | W.ED.URI ---
HPI - URI/Sore Throat General: Chief Complaint: Upper Respiratory Infection Stated Complaint: FLU LIKE SYMPTOMS Time Seen by Provider: 01/31/22 20:11 Source: patient Mode of arrival: EMS (Per triage note) Limitations: no limitations History of Present Illness: Patient presents emergency department today for evaluation treatment of upper respiratory symptoms including sore throat, chest congestion, nasal congestion and chills for the last 3 days. Patient denies any other known ill contacts. He is not any vomiting or diarrhea. He reports some cough is productive and congestion with some yellow mucus. Associated symptoms: Reports ear or mastoid pain and nasal congestion Review of Systems General: Reports: 10 or more systems reviewed and unremarkable except in HPI and below ENMT: Reports: throat pain, ear or mastoid pain and nasal congestion Resp: Reports: productive cough (minimal) and chest congestion PFSH ED PFSH: Medical History (Updated 01/31/22 @ 21:38 by COURTNEY Knight) Autism Depression Epilepsy History of ADHD Major depressive disorder with psychotic features Psychiatric care PTSD (post-traumatic stress disorder) Renal calculi Status post extracorporeal shock wave therapy Surgical History Hx of appendectomy Family History Unknown Adopted Social History Alcohol intake: never Adopted: Yes Marital status: Single Current occupational status: employed and unemployed 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 Nasal passages are erythematous and boggy but no signs of significant nasal accumulation. Pharynx is nonerythematous and without exudate. Airway is patent. Eye: COMMON NORMALS: Equal, round and reactive pupils present, EOMs intact bilaterally and conjunctivae normal CONJUNCTIVA: Yes conjunctivae normal PUPIL: Yes Equal, round and reactive pupils present Neck/C-Spine: COMMON NORMALS: no JVD Lymph: LYMPHATIC: no lymphadenopathy noted Resp: COMMON NORMALS: normal respiratory effort, No retractions and No use of accessory muscles Cardio: COMMON NORMALS: no JVD and regular rate RATE: regular rate : COMMON NORMALS: Yes no CVA tenderness BLADDER/KIDNEY EXAM: Yes no CVA tenderness Back/Pelvis: COMMON NORMALS: no CVA tenderness, thoracic and lumbar spine normal to inspection and thoraco-lumbar ROM normal Extremity: COMMON NORMALS: normal to inspection, full ROM and no pedal edema Neuro: COMMON NORMALS: patient oriented x3 SENSORIUM/ORIENTATION: Yes alert Skin: COMMON NORMALS: no rashes or lesions noted and turgor normal GENERAL SKIN EXAM: no rashes or lesions noted and turgor normal Course Vital Signs: Vital signs: Vital Signs Temperature 98.8 F 01/31/22 18:12 Pulse Rate 65 01/31/22 22:03 Respiratory Rate 18 01/31/22 22:03 Blood Pressure 137/79 01/31/22 18:12 Pulse Oximetry 97 01/31/22 22:03 Oxygen Delivery Me thod 01/31/22 18:12 MDM - URI/Sore Throat Medical Decision Making Patient presented to the ER today for various upper respiratory symptoms for the last 3 days. Patient had no acute findings on his physical examination and he tested negative for flu, COVID, and strep. We discussed other viral URIs and encouraged him to continue [id number] symptomatic treatments in addition to Tylenol and ibuprofen for his discomfort but also went over the importance of him staying hydrated. He is to rest the next few days and continue to monitor his symptoms at home. Lab Data Laboratory Results Influenza Type A Ag negative (Negative) 01/31/22 20:20 Influenza Type B Ag negative (Negative) 01/31/22 20:20 SARS-CoV-2 Ag (Rapid) negative (Negative) 01/31/22 20:20 Group A Strep Rapid Negative (Negative) 01/31/22 20:20 Discharge Plan Discharge Patient Disposition: Home Clinical Impression: URI (upper respiratory infection) Condition: Stable Prescriptions: No Action silver sulfadiazine 1 % cream 1 applic topical BID Qty: 50 0RF Rx Instructions: apply a 1.5 mm thickness omeprazole 20 mg Tablet,Delayed Release (Dr/Ec) 20 mg PO DAILY PRN (Reason: Heartburn) trazodone 50 mg tablet 50 mg PO BEDTIME lorazepam 0.5 mg tablet 0.5 mg PO TID PRN (Reason: Anxiety) Vimpat 200 mg tablet 200 mg PO DAILY atomoxetine 80 mg capsule 80 mg PO DAILY Risperdal 1 mg tablet 1 mg PO DAILY Qty: 20 0RF Rx Instructions: 1 pill nightly for 3 days if symptoms do not improve increase to 1 pill twice daily. Discharge Orders: Discharge ED (Routine); Ordered 01/31/22 Ordered By: Tamiko John Referrals: Grace Holliday FNP [Primary Care Provider] - Discharge Diet: Usual diet Discharge Activity: Increase activity as tolerated Patient Instructions: Upper Respiratory Infection (ED) Activity Restrictions/Additional Instructions: You tested negative for flu, COVID, and strep throat today. Based on your symptoms, you still most likely have a viral infection and needs some time to recover. He can use [id number] cough and cold medicines as needed but I highly encourage you to use Tylenol and ibuprofen for your discomfort and to increase your clear fluid intake such as Gatorade and water for the next couple of days. Watch for any sudden influx in body temperature, productive cough green or yellow sputum, difficulty breathing, or new onset vomiting preventing you from being able to drink your fluids. If that occurs need to be seen and reevaluated. 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 Care Code ED Glass Sander Belt for Ky Conklin
== END 2022-01-31 22:04 | disposition home or self-care (01) ==
PROVIDERS: Emergency Medicine; Emergency Provider Physician Assistant; PCP Nurse Practitioner Family
DX: J06.9 Acute upper respiratory infection, unspecified (principal); Z20.822 Contact with and (suspected) exposure to COVID-19; F84.0 Autistic disorder
CPT/HCPCS: 87081; 87426; 87804; 87880; 99283

== ENCOUNTER 2022-02-15 18:52 | Emergency (ER) | payer MEDICARE, MEDICAID, SELFPAY ==
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
[2022-02-15 18:58] VITALS: BP 137/79; PULSE 72; RESP 18; TEMP 36.6; O2SAT 97; BMI 28.0
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
[2022-02-15 19:27] LABS: Basophils # 0.1 10^3/uL (0.0-0.1); Basophils % 0.7 %; Eosinophils # 0.1 10^3/uL (0.0-0.8); Eosinophils % 0.7 %; Hemoglobin 15.1 g/dL (11.7-16.6); Lymphocytes # 2.4 10^3/uL (0.8-4.8); Lymphocytes % 26.5 %; Mean Corpuscular HGB Conc 33.6 g/dL (30.0-36.0); Mean Corpuscular Hemoglobin 31.1 pg (28.0-34.0); Mean Corpuscular Volume 92.8 fl (80-94); Mean Platelet Volume 9.4 fL (7.4-10.4); Monocytes # 0.6 10^3/uL (0.2-0.9); Monocytes % 6.1 %; Neutrophils # 5.89 10^3/uL (1.8-7.7); Neutrophils % 65.6 %; Nucleated Red Blood Cells % 0 %; Platelet Count 274 10^3/cmm (130-400); Red Blood Count 4.85 10^6/uL (4.1-5.3); Red Cell Distribution Width 11.4 % (12.1-15.1)
[2022-02-15 19:43] LABS: Alanine Aminotransferase 27 U/L (0-41); Albumin Level 4.5 g/dL (3.5-5.2); Alkaline Phosphatase 75 U/L (40-130); Anion Gap 15.1 (5-19); Aspartate Amino Transferase 28 U/L (0-40); Blood Urea Nitrogen 13 mg/dL (6-20); Calcium 9.8 mg/dL (8.5-10.5); Carbon Dioxide 25 mmol/L (22-29); Chloride 102 mmol/L (98-107); Globulin 2.8 g/dL (1.3-4.6); Glomerular Filtration Rate 133.3 mL/min (90-130); Glucose 91 mg/dL (65-115); Osmolality Calculated 286 mOsm/kg (285-295); Potassium 4.1 mmol/L (3.5-5.1); Sodium 138 mmol/L (136-145); Total Bilirubin 0.5 mg/dL (0.15-1.2); Total Protein 7.3 g/dL (6.6-8.7)
[2022-02-15 19:45] LABS: Acetaminophen < 5.0 ug/mL (10-30); Salicylate < 0.3 mg/dL (3-10)
[2022-02-15 20:09] LABS: Alcohol Level < 10 mg/dL (0-10)
[2022-02-15 20:11] VITALS: PULSE 78; RESP 16; O2SAT 98
[2022-02-15 20:13] LABS: Add Urine Microscopic? NO; Charge for UA Resulting for Rev
[2022-02-15 20:15] LABS: Bilirubin Urine Neg (Negative); Blood Urine Neg (Negative); Glucose Urine UA Norm (Normal); Ketones Urine Negative (Negative); Leukocyte Esterase Urine Negative (Negative); Nitrate Urine Negative (Negative); Protein Urine Neg (Negative); Specific Gravity, Urine 1.015 (1.005-1.030); Urine Appearance Clear (CLEAR); Urine Color Colorless (Yellow); Urobilinogen Urine Neg (Negative); pH Urine 7 (5-7)
[2022-02-15 20:26] LABS: Amphetamines Screen Urine Negative (Negative); Barbiturates Screen Urine Negative (Negative); Benzodiazepines Screen Urine Negative (Negative); Cocaine Screen Urine Negative (Negative); Opiate Screen Urine Negative (Negative); PCP Screen Urine Negative (Negative); THC Screen Urine Negative (Negative)
== END 2022-02-15 20:12 | disposition left against medical advice (07) ==
LOC: ER 19:35 → NP 20:04
PROVIDERS: Emergency Provider Emergency Medicine; PCP Nurse Practitioner Family
DX: R44.0 Auditory hallucinations (principal); F32.A Depression, unspecified; Z91.14 Patient's other noncompliance with medication regimen; F84.0 Autistic disorder; Z53.21 Procedure and treatment not carried out due to patient leaving prior to being seen by health care provider
CPT/HCPCS: 73130; 73140; 80053; 80306; 80307; 81003; 85025; 99284

== ENCOUNTER 2022-03-23 17:25 | Inpatient (IN) | payer MEDICARE, MEDICAID, SELFPAY ==
[2022-03-23 17:40] VITALS: BP 153/106; PULSE 115; RESP 18; TEMP 36.5; O2SAT 98
--- NOTE | 2022-03-23 17:53 | ECG_ITS ---
[facility] Test Date: 2022-03-23 Pat Name: George Lopez Department: Room: Gender: Male [employer] Cook: : 1990 Requested By: Dariusz Phillips Order Number: [id number] Jacinda MD: Willian Santos M.D. Measurements Intervals Halliday Rate: 94 P: 49 VA: 185 QRS: 49 QRSD: 85 T: 23 QT: 323 QTc: 404 Interpretive Statements SINUS RHYTHM POSSIBLE LEFT ATRIAL ENLARGEMENT [-0.1mV P-WAVE IN V1/V2] No previous ECG available for comparison Electronically Signed On 03-23-2022 22:46:16 FIRST LINE SUPERVISOR by Willian Santos M.D. [id number]
--- NOTE | 2022-03-23 17:54 | ED.C_ITS ---
HPI - Psych General: Chief Complaint: Psychiatric Symptoms Stated Complaint: psych eval Time Seen by Provider: 03/23/22 17:45 Source: patient and family (Father) Limitations: no limitations History of Present Illness: See nursing assessment. Patient states he started feeling suicidal and had plans of harming self by cutting himself with a knife last night. He states his symptoms of depression and suicidal thoughts have continued throughout the day. Patient states he would like help with his depression. He states he is a voluntary patient at this time. He denies any hallucinations. Denies any homicidal thoughts. Possible history includes depression. He states has been no change in his routine medications. He states he is allergic to Tegretol and IV dye. Denies tobacco or alcohol use or drug use. Associated symptoms: Reports depression and suicidal ideation; Deny auditory hallucinations, visual hallucinations or homicidal ideation Review of Systems Const: Denies: fever(s) or chills Eyes: Denies: change in vision ENMT: Denies: throat pain Card: Denies: chest pain or palpitations Resp: Denies: dyspnea or wheezing GI: Denies: abdominal pain, nausea or vomiting : Denies: flank pain Musc: Denies: neck pain or back pain Skin/Breast: Denies: rash or pruritus Neuro: Denies: headache(s) or numbness in extremities Psych: Reports: depression and suicidal ideation; Denies: anxiety, panic attacks, visual hallucinations, auditory hallucinations or homicidal ideation Jacky/Lymph: Denies: enlarged lymph nodes PFSH ED PFSH: Medical History Autism Depression Epilepsy History of ADHD Major depressive disorder with psychotic features Psychiatric care PTSD (post-traumatic stress disorder) Renal calculi Status post extracorporeal shock wave therapy Surgical History Hx of appendectomy Family History Unknown Adopted Social History Alcohol intake: never Adopted: Yes Marital status: Single Current occupational status: employed and unemployed 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 History of recent travel: No Physical Exam Const: COMMON NORMALS: no acute distress, patient oriented x3, no limitations and well nourished GENERAL APPEARANCE: cooperative HENMT: COMMON NORMALS: normocephalic and atraumatic HEAD & SCALP: normocephalic and atraumatic FACE & SINUS: normal facial exam Eye: COMMON NORMALS: EOMs intact bilaterally Neck/C-Spine: COMMON NORMALS: full ROM, no lymphadenopathy, supple, no meningeal signs and Thyroid normal GENERAL: Yes normal visual inspection THYROID: Thyroid normal Lymph: LYMPHATIC: no lymphadenopathy noted Chest: COMMONS NORMALS: normal inspection of the chest and normal palpation of entire chest wall CHEST: No Ecchymosis present and No rash Resp: COMMON NORMALS: normal respiratory effort, No retractions and clear to auscultation bilaterally EFFORT & INSPECTION: No respiratory distress AUSCULTATION: clear to auscultation bilaterally Cardio: COMMON NORMALS: regular rate, regular rhythm and Peripheral pulses 2+ throughout JUGULAR VENOUS DISTENTION: no JVD RATE: regular rate RHYTHM: regular rhythm PERIPHERAL PULSES: Peripheral pulses 2+ throughout GI: COMMON NORMALS: Normal to inspection, nondistended, normoactive bowel sounds present and non-tender : COMMON NORMALS: Yes no CVA tenderness BLADDER/KIDNEY EXAM: Yes no CVA tenderness Back/Pelvis: COMMON NORMALS: no CVA tenderness Extremity: COMMON NORMALS: normal to inspection, full ROM and capillary refill normal Neuro: COMMON NORMALS: patient oriented x3, CN's II-XII intact bilaterally, no focal motor deficits and no sensory deficits noted MENINGEAL SIGNS: Yes no meningeal signs Psych: COMMON NORMALS: mental status grossly normal and Normal thought process present THOUGHT PROCESS: Normal thought process present OTHER: Patient with depression and suicidal ideations. Patient also with intent on harming himself. Skin: COMMON NORMALS: no rashes or lesions noted and no wounds GENERAL SKIN EXAM: no rashes or lesions noted Course Vital Signs: Vital signs: Vital Signs Temperature 97.7 F 03/23/22 17:40 Pulse Rate 115 H 03/23/22 17:40 Respiratory Rate 18 03/23/22 17:40 Blood Pressure 153/106 03/23/22 17:40 Pulse Oximetry 98 03/23/22 17:40 MDM - Psych Medical Decision Making Patient states he is presently suicidal and wants to harm himself by cutting himself with a knife. Affidavit was filled out by me. However, patient is presently a voluntary admission. If patient becomes involuntary admission, patient will require 96-hour involuntary hold 1943: Discussed with Dr. Sibley psychiatry. Will admit as an inpatient to behavioral health unit Lab Data 03/23/22 18:24 03/23/22 18: Laboratory Results WBC 8.4 10^3/uL (4.0-10.0) 03/23/22 18: RBC 4.75 10^6/uL (4.1-5.3) 03/23/22 18: Hgb 14.7 g/dL (11.7-16.6) 03/23/22 18: Hct 44.0 % (42.0-52.0) 03/23/22 18: MCV 92.6 fl (80-94) 03/23/22 18: MCH 30.9 pg (28.0-34.0) 03/23/22 18: MCHC 33.4 g/dL (30.0-36.0) 03/23/22 18: RDW 11.8 % (12.1-15.1) L 03/23/22: Plt Count 220 10^3/cmm (130-400) 03/23/22: MPV 9.7 fL (7.4-10.4) 03/23/22 18: Neut % (Auto) 76.1 % 03/23/22 18: Lymph % (Auto) 18.1 % 03/23/22 18: [place] % (Auto) 4.3 % 03/23/22 18: Eos % (Auto) 0.4 % 03/23/22 18: Baso % (Auto) 0.7 % 03/23/22: Neut # (Auto) 6.40 10^3/uL (1.8-7.7) 03/23/22 18: Lymph # (Auto) 1.5 10^3/uL (0.8-4.8) 03/23/22 18: [place] # (Auto) 0.4 10^3/uL (0.2-0.9) 03/23/22 18: Eos # (Auto) 0.0 10^3/uL (0.0-0.8) 02/14/23 18:24 Baso # (Auto) 0.1 10^3/uL (0.0-0.1) 03/23/22 18:24 Nucleated RBC % (auto) 0 % 03/23/22 18:24 Nucleated RBCs # 0.0 /100WBC 03/23/22 18:24 Sodium 141 mmol/L (136-145) 03/23/22 18:24 Potassium 4.3 mmol/L (3.5-5.1) 03/23/22 18:24 Chloride 103 mmol/L (98-107) 03/23/22 18:24 Carbon Dioxide 27 mmol/L (22-29) 03/23/22 18:24 Anion Gap 15.3 (5-19) 03/23/22 18:24 BUN 11 mg/dL (6-20) 03/23/22 18:24 Creatinine 0.7 mg/dL (0.7-1.2) 03/23/22 18:24 GFR Calculation 133.3 mL/min (90-130) H 03/23/22 18:24 Glucose 104 mg/dL (65-115) 03/23/22 18:24 Calculated Osmolality 292 mOsm/kg (285-295) 03/23/22 18:24 Calcium 9.7 mg/dL (8.5-10.5) 03/23/22 18:24 Total Bilirubin 0.3 mg/dL (0.15-1.2) 03/23/22 18:24 AST 33 U/L (0-40) 03/23/22 18:24 ALT 36 U/L (0-41) 03/23/22 18:24 Alkaline Phosphatase 77 U/L (40-130) 03/23/22 18:24 Total Protein 7.2 g/dL (6.6-8.7) 03/23/22 18:24 Albumin 4.4 g/dL (3.5-5.2) 03/23/22 18:24 Globulin 2.8 g/dL (1.3-4.6) 03/23/22 18:24 Urine Color Yellow (Yellow) 03/23/22 18:24 Urine Appearance Hazy (CLEAR) A 03/23/22 18:24 Urine pH 8 (5-7) H 03/23/22 18:24 Ur Specific [place] 1.015 (1.005-1.030) 03/23/22 18:24 Urine Protein Neg (Negative) 03/23/22 18:24 Urine Glucose (UA) Norm (Normal) 03/23/22 18:24 Urine Ketones Negative (Negative) 03/23/22 18:24 Urine Blood Neg (Negative) 03/23/22 18:24 Urine Nitrate Negative (Negative) 03/23/22 18:24 Urine Bilirubin Neg (Negative) 03/23/22 18:24 Prot Sulfosalicylic Acd Negative (Negative) 03/23/22 18:24 Urine Urobilinogen Neg mg/dL (Negative) 03/23/22 18:24 Ur Leukocyte Esterase Negative (Negative) 03/23/22 18:24 Urine RBC None /hpf (0-2) 03/23/22 18:24 Urine WBC None /hpf (0-5) 03/23/22 18:24 Ur Squamous Epith Cells None /hpf (0-5) 03/23/22 18:24 Amorphous Sediment 1+ /hpf 03/23/22 18:24 Urine Bacteria None /hpf (NONE) 03/23/22 18:24 Salicylates < 0.3 mg/dL (3-10) L 03/23/22 18:24 Urine Opiates Screen Negative ng/mL (Negative) 03/23/22 18:24 Acetaminophen < 5.0 ug/mL (10-30) L 03/23/22 18:24 Ur Barbiturates Screen Negative ng/mL (Negative) 03/23/22 18:24 Ur Phencyclidine Scrn Negative ng/mL (Negative) 03/23/22 18:24 Ur Amphetamines Screen Negative ng/mL (Negative) 03/23/22 18:24 U Benzodiazepines Scrn Negative ng/mL (Negative) 03/23/22 18:24 Urine Cocaine Screen Negative ng/mL (Negative) 03/23/22 18:24 U Marijuana (THC) Screen Negative ng/mL (Negative) 03/23/22 18:24 Ethyl Alcohol < 10 mg/dL (0-10) 03/23/22 18:24 Influenza Type A Ag negative (Negative) 03/23/22 18:24 Influenza Type B Ag negative (Negative) 03/23/22 18:24 SARS-CoV-2 Ag (Rapid) negative (Negative) 03/23/22 18:24 EKG Data EKG 1: I personally reviewed and interpreted this EKG as follows: EKG interpretation date: 03/23/22 EKG interpretation time: 18:45 Interpretation: Impression normal sinus rhythm heart rate 94. Normal axis, normal QRS, normal [place] interval, normal QT interval, normal P waves, normal T waves. Normal ST segment. Normal EKG. Discharge Plan Discharge Patient Disposition: Admitted As Inpatient Clinical Impression: Suicidal ideation Depression Qualifiers: Depression Type: major depressive disorder Major depression recurrence: recurrent Active/Remission status: currently active Major depression episode severity: severe Psychotic features: without psychotic features Qualified Code(s): F33.2 - Major depressive disorder, recurrent severe without psychotic features Condition: Stable 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 Care Code ED [employer]ile [employer]man for Ky Conklin
[2022-03-23 18:38] LABS: Basophils # 0.1 10^3/uL (0.0-0.1); Basophils % 0.7 %; Eosinophils % 0.4 %; Hemoglobin 14.7 g/dL (11.7-16.6); Lymphocytes # 1.5 10^3/uL (0.8-4.8); Lymphocytes % 18.1 %; Mean Corpuscular HGB Conc 33.4 g/dL (30.0-36.0); Mean Corpuscular Hemoglobin 30.9 pg (28.0-34.0); Mean Corpuscular Volume 92.6 fl (80-94); Mean Platelet Volume 9.7 fL (7.4-10.4); Monocytes # 0.4 10^3/uL (0.2-0.9); Monocytes % 4.3 %; Neutrophils % 76.1 %; Nucleated Red Blood Cells % 0 %; Platelet Count 220 10^3/cmm (130-400); Red Blood Count 4.75 10^6/uL (4.1-5.3); Red Cell Distribution Width 11.8 % (12.1-15.1); White Blood Count 8.4 10^3/uL (4.0-10.0)
[2022-03-23 18:46] LABS: Add Urine Culture? No; Add Urine Microscopic? YES; Amorphous Sediment Urine 1+ /hpf; Amphetamines Screen Urine Negative (Negative); Barbiturates Screen Urine Negative (Negative); Benzodiazepines Screen Urine Negative (Negative); Bilirubin Urine Neg (Negative); Blood Urine Neg (Negative); Cocaine Screen Urine Negative (Negative); Glucose Urine UA Norm (Normal); Ketones Urine Negative (Negative); Leukocyte Esterase Urine Negative (Negative); Nitrate Urine Negative (Negative); Opiate Screen Urine Negative (Negative); PCP Screen Urine Negative (Negative); Protein Urine Neg (Negative); Specific Gravity, Urine 1.015 (1.005-1.030); Sulfosalicylic Acid Urine Negative (Negative); THC Screen Urine Negative (Negative); Urine Appearance Hazy (CLEAR); Urine Color Yellow (Yellow); Urobilinogen Urine Neg (Negative); pH Urine 8 (5-7)
[2022-03-23 18:54] LABS: Alanine Aminotransferase 36 U/L (0-41); Albumin Level 4.4 g/dL (3.5-5.2); Alkaline Phosphatase 77 U/L (40-130); Aspartate Amino Transferase 33 U/L (0-40); Blood Urea Nitrogen 11 mg/dL (6-20); Calcium 9.7 mg/dL (8.5-10.5); Carbon Dioxide 27 mmol/L (22-29); Chloride 103 mmol/L (98-107); Globulin 2.8 g/dL (1.3-4.6); Glomerular Filtration Rate 133.3 mL/min (90-130); Glucose 104 mg/dL (65-115); Influenza A by IFA negative (Negative); Influenza B by IFA negative (Negative); Osmolality Calculated 292 mOsm/kg (285-295); SARS Covid-2 Antigen negative (Negative); Sodium 141 mmol/L (136-145); Total Bilirubin 0.3 mg/dL (0.15-1.2); Total Protein 7.2 g/dL (6.6-8.7)
[2022-03-23 18:57] LABS: Acetaminophen < 5.0 ug/mL (10-30); Alcohol Level < 10 mg/dL (0-10); Salicylate < 0.3 mg/dL (3-10)
[2022-03-23 18:58] LABS: Anion Gap 15.3 (5-19); Potassium 4.3 mmol/L (3.5-5.1)
[2022-03-23 19:28] LABS: Slide Review Slide Review Perform
[2022-03-23 20:24] VITALS: BP 145/76; PULSE 89; RESP 16; O2SAT 96
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
[2022-03-23 20:58] VITALS: BP 122/88; PULSE 104; RESP 20; TEMP 36.9; O2SAT 99
[2022-03-23] MEDS: trazodone 50 mg Tablet PO (21:07)
--- NOTE | 2022-03-23 21:10 | PC.NURSE ---
Patient given Trazodone for sleep per patient request.
[2022-03-23 21:37] LABS: Thyroid Stimulating Hormone 2.32 uIU/mL (0.27-4.20)
[2022-03-23 22:00] VITALS: BP 122/88; PULSE 104; RESP 20; TEMP 36.9; O2SAT 99
--- NOTE | 2022-03-23 23:28 | PC.NURSE ---
Patient resting quietly with no signs of distress noted. Continues with 15 minute safety checks.
[2022-03-24 06:00] VITALS: BP 154/119; PULSE 98; RESP 18; TEMP 36.3
--- NOTE | 2022-03-24 06:22 | PC.NURSE ---
pt was startled when this nurse woke him up. when recheck in 30 min after pt has been awake for awhile.
[2022-03-24 06:34] VITALS: BP 140/82
--- NOTE | 2022-03-24 06:35 | PC.NURSE ---
pt BP recheck:140/82
[2022-03-24] MEDS: lacosamide 50 mg Tablet 200 MG PO (08:42)
[2022-03-24] MEDS: citalopram 20 mg Tablet 40 MG PO (08:42)
[2022-03-24] MEDS: atomoxetine 40 mg Capsule 80 MG PO (08:42)
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
[2022-03-24] MEDS: hyDROXYzine 25 mg Capsule 50 MG PO (13:21)
[2022-03-24 14:00] VITALS: BP 140/91; PULSE 81; RESP 16; TEMP 36.5; O2SAT 96
[2022-03-24 20:40] VITALS: BP 139/87; PULSE 116; RESP 18; TEMP 36.8; O2SAT 98
[2022-03-24] MEDS: trazodone 50 mg Tablet PO (21:28)
[2022-03-24] MEDS: risperiDONE 1 mg Tablet PO (21:28)
[2022-03-25 06:00] VITALS: BP 136/91; PULSE 109; RESP 18; TEMP 36.6; O2SAT 94
[2022-03-25] MEDS: lacosamide 50 mg Tablet 200 MG PO (10:09)
[2022-03-25] MEDS: atomoxetine 40 mg Capsule 80 MG PO (10:10)
[2022-03-25] MEDS: citalopram 20 mg Tablet 40 MG PO (10:10)
[2022-03-25] MEDS: hyDROXYzine 25 mg Capsule 50 MG PO (10:12)
[2022-03-25 14:00] VITALS: BP 149/79; PULSE 99; RESP 18; TEMP 36.6; O2SAT 98
--- NOTE | 2022-03-25 15:21 | P.NPUPN_ITS ---
Subjective NPU Subjective: Haseeb is a 31-year-old white male with a history of autistic disorder along with borderline personality traits, and Psychotic Disorder NOS admitted with depressed mood and suicidal ideation. The patient had reported that he had felt much better today. And stated that he no longer felt like hu rting himself. He had reported some improvement with the auditory hallucinations with the initiation of risperidone. It appeared that the patient had not been taking the risperidone over the past month. He reported having chronic struggles with engaging in socially appropriate behaviors since ldh. He had reported feeling like he had disappointed others at not being able to manage and control his moods and attend work. He had described having significant stress while in his work situation and struggled with being around people in general. He had reported having preference to engaging in more solo activities including work situation. Mental Status Exam MSE Comments: He is a casually dressed tall white male with normal hygiene and normal gait. He was pacing throughout the rivero. There is no evidence of any abnormal involuntary motor movements tics or tremors appreciated. His speech was regular in regards to rate monotone and quality and normal in regards to volume. His eye contact was intermittent throughout the examination. There was evidence of psychomotor retardation. There is no evidence of any stereotypies. His mood was described as better. His affect was mood incongruent and restricted in range. His thought process was linear logical and goal-directed. His thought content showed evidence of suicidal ideation with no evidence of homicidal ideation. He did not appear to be responding to internal stimuli and denied any auditory hallucinations currently. He minimized any visual hallucinations. There was no clear evidence of delusional thinking. His inte lligence appeared commensurate with mild cognitive impairment. His insight was poor. His judgment is poor. His impulse control is poor as well. His attention span also appeared poor. Vitals/I&O/Wt Last Vital Signs Temp 98 F 03/25/22 14:00 Pulse 99 03/25/22 14:00 Resp 18 03/25/22 14:00 BP 149/79 03/25/22 14:00 Pulse Ox 98 03/25/22 14:00 O2 Del Method 03/25/22 14:00 Weight last 48 hrs Weight 99.79 kg Data NPU 03/23/22 18:24 03/23/22 18:24 A&P Assessment and plan (1) Depression: Qualifiers: Active/Remission status: currently active Depression Type: major depr essive disorder Major depression episode severity: severe Major depression recurrence: recurrent Psychotic features: without psychotic features Qualified Code(s): F33.2 - Major depressive disorder, recurrent severe without psychotic features (2) Generalized anxiety disorder: (3) Borderline personality disorder: (4) Psychotic disorder: (5) History of ADHD: Plan This is a 31-year-old white male with intellectual disability with borderline personality traits who reports depressed mood and suicidal ideation with past reports of auditory hallucinations. He would likely benefit from acute inpatient hospitalization while adjusting his medications. 1.Continue Risperidal 1mg at night, Strattera 80mg daily, and Celexa 40mg daily. #2. Engage patient in individual milieu and group therapy. #3. Continue every 15 minute checks for safety on the unit #4 we will attempt to gather collateral information. Involuntary Hold Information 96 Hour Hold: 96 Hour Involuntary Admission: No Attestations NPU Medical Necessity Statement*: Inpatient hospitalization is medically necessary and the clinically appropriate intervention at this time. We will monitor medications and make changes as indicated. Patient will be in the hospital over 2 midnights with a likely length of stay of 2 to 4 days. 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 Care Code Acute Code for [facility] Diagnoses Depression F33.2 Active/Remission status: currently active Depression Type: major depressive disorder Major depression episode severity: severe Major depression recurrence: recurrent Psychotic features: without psychotic features Generalized anxiety disorder F41.1 Borderline personality disorder F60.3 Psychotic disorder F29 History of ADHD Z86.59
[2022-03-25 20:25] VITALS: BP 137/85; PULSE 105; RESP 17; TEMP 36.6; O2SAT 95
[2022-03-25] MEDS: trazodone 50 mg Tablet PO (21:27)
[2022-03-25] MEDS: risperiDONE 1 mg Tablet PO (21:27)
[2022-03-26] MEDS: citalopram 20 mg Tablet 40 MG PO (09:10)
[2022-03-26] MEDS: atomoxetine 40 mg Capsule 80 MG PO (09:10)
[2022-03-26] MEDS: lacosamide 50 mg Tablet 200 MG PO (09:10)
--- NOTE | 2022-03-26 12:23 | DCPLANNER ---
Imm was given to pt and explained to guardian and copy placed in pt's file.
[2022-03-26 14:36] VITALS: BP 137/85; PULSE 105; RESP 17; TEMP 36.6; O2SAT 95
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
== END 2022-03-26 15:28 | disposition home or self-care (01) | DRG 885 ==
LOC: ER 19:45 → NP 20:12
PROVIDERS: Admitting Provider Psychiatry & Neurology Psychiatry; Emergency Provider Family Medicine; PCP Nurse Practitioner Family; Visit Provider Psychiatry & Neurology Psychiatry
DX: F33.2 Major depressive disorder, recurrent severe without psychotic features (principal); R45.851 Suicidal ideations; F90.9 Attention-deficit hyperactivity disorder, unspecified type; F79 Unspecified intellectual disabilities; F41.1 Generalized anxiety disorder; G40.909 Epilepsy, unspecified, not intractable, without status epilepticus; F84.0 Autistic disorder; F43.10 Post-traumatic stress disorder, unspecified; F60.3 Borderline personality disorder
CPT/HCPCS: 80053; 80306; 80307; 81001; 84443; 85025; 87426; 87804; 93005; 97150; 97165; 99238; 99285

== ENCOUNTER 2022-06-16 12:44 | Emergency (ER) | payer MEDICARE, MEDICAID, SELFPAY ==
[2022-06-16 12:47] VITALS: BP 154/76; PULSE 67; RESP 18; TEMP 36.9; O2SAT 100; BMI 24.3
[2022-06-16] MEDS: sodium chloride 0.9% 1,000 ML 999 ML IV (12:55)
[2022-06-16 13:09] LABS: Basophils # 0.1 10^3/uL (0.0-0.1); Basophils % 0.8 %; Eosinophils # 0.1 10^3/uL (0.0-0.8); Eosinophils % 1.8 %; Hematocrit 47.6 % (42.0-52.0); Hemoglobin 15.7 g/dL (11.7-16.6); Lymphocytes # 2.3 10^3/uL (0.8-4.8); Lymphocytes % 38.2 %; Mean Corpuscular Volume 93.9 fl (80-94); Mean Platelet Volume 9.8 fL (7.4-10.4); Monocytes # 0.4 10^3/uL (0.2-0.9); Monocytes % 6.2 %; Neutrophils # 3.23 10^3/uL (1.8-7.7); Neutrophils % 52.7 %; Nucleated Red Blood Cells % 0 %; Platelet Count 248 10^3/cmm (130-400); Red Blood Count 5.07 10^6/uL (4.1-5.3); Red Cell Distribution Width 12.1 % (12.1-15.1); White Blood Count 6.1 10^3/uL (4.0-10.0)
--- NOTE | 2022-06-16 13:13 | W.ED.DIZZY ---
HPI - Dizziness General: Chief Complaint: Dizziness Stated Complaint: dizzy Time Seen by Provider: 06/16/22 12:45 Source: patient Mode of arrival: ambulatory History of Present Illness: HPI Narrative: 31-year-old male presents to the emergency room with complaint of feeling dizzy and lightheaded. He admits to moderate anxiety as well. He is not had any fever sweats chills cough shortness of breath denies chest or abdominal pain. EMS thought they identified atrial fibrillation on his monitor prior to arrival here. He is not sinus bradycardia when he arrives he is not having any other symptoms at this time. States he is last eaten yesterday. MD elicited complaint: dizziness and lightheadedness Exacerbating factors: nothing Relieving factors: nothing Associated symptoms: Denies change in hearing, chest pain, chills, cough, diaphoresis, ear discharge, ear pressure, fevers/chills, headache(s), malaise, nausea, nasal congestion, palpitations, rash, short of breath, syncope, tinnitus, vomiting or weakness Review of Systems Const: Denies: fever(s), chills, malaise or diaphoresis ENMT: Denies: ear discharge, change in hearing, tinnitus or nasal congestion Card: Denies: chest pain, palpitations or syncope Resp: Denies: dyspnea, productive cough or non-productive cough GI: Reports: abdominal pain; Denies: nausea, vomiting or diarrhea : Denies: flank pain, dysuria, urinary frequency or urinary urgency Skin/Breast: Denies: rash or pruritus Neuro: Denies: headache(s) PFS ED PFSH: Medical History Autism Depression Epilepsy History of ADHD Major depressive disorder with psychotic features Psychiatric care PTSD (post-traumatic stress disorder) Renal calculi Status post extracorporeal shock wave therapy Surgical History Hx of appendectomy Family History Unknown Adopted Social History Alcohol intake: never Adopted: Yes Marital status: Single Current occupational status: employed and unemployed 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 Physical Exam Const: COMMON NORMALS: no acute distress GENERAL APPEARANCE: cooperative and comfortable ORIENTATION/CONSCIOUSNESS: Yes awake, Yes oriented to person, Yes oriented to place and Yes oriented to time HENMT: COMMON NORMALS: normocephalic, atraumatic and hearing grossly normal bilaterally HEAD & SCALP: normocephalic and atraumatic Resp: COMMON NORMALS: normal respiratory effort, No retractions, No use of accessory muscles and clear to auscultation bilaterally AUSCULTATION: clear to auscultation bilaterally Cardio: COMMON NORMALS: regular rate, regular rhythm and No murmurs present (Cardio) RATE: regular rate RHYTHM: regular rhythm GI: COMMON NORMALS: Soft to palpation and No hepatosplenomegaly present AUSCULTATION: Yes normoactive bowel sounds PALPATION: Yes Soft to palpation, No Tenderness to palpation present (GI), No Guarding due to palpation present (GI) and Yes No hepatosplenomegaly present Extremity: COMMON NORMALS: normal to inspection, capillary refill normal, no clubbing, cyanosis or edema, no calf tenderness and no pedal edema Neuro: SENSORIUM/ORIENTATION: Yes oriented to person, Yes oriented to place and Yes oriented to time Skin: COMMON NORMALS: no rashes or lesions noted GENERAL SKIN EXAM: no rashes or lesions noted Course Vital Signs: Vital signs: Vital Signs Temperature 98.5 F 06/16/22 12:47 Pulse Rate 90 06/16/22 14:38 Respiratory Rate 12 06/16/22 14:00 Blood Pressure 136/88 06/16/22 14:38 Pulse Oximetry 100 06/16/22 14:38 Oxygen Delivery Me thod Room Air 06/16/22 12:47 MDM - Dizziness Medical Decision Making Labs and exam unremarkable patient is stable no acute processes noted. His repeat exam is remains unremarkable vital signs good. Discharge patient home follow-up with his primary care doctor. There is no sign of A-fib while he was in the emergency room he has recurrent of symptoms can return to the emergency room or see primary care. Medical Records I reviewed the patient's medical records. Lab Data I reviewed the patient's lab results. 06/16/22 12:56 06/16/22 12:56 Laboratory Results WBC 6.1 10^3/uL (4.0-10.0) 06/16/22 12:56 RBC 5.07 10^6/uL (4.1-5.3) 06/16/22 12:56 Hgb 15.7 g/dL (11.7-16.6) 06/16/22 12:56 Hct 47.6 % (42.0-52.0) 06/16/22 12:56 MCV 93.9 fl (80-94) 06/16/22 12:56 MCH 31.0 pg (28.0-34.0) 06/16/22 12:56 MCHC 33.0 g/dL (30.0-36.0) 06/16/22 12:56 RDW 12.1 % (12.1-15.1) 06/16/22 12:56 Plt Count 248 10^3/cmm (130-400) 06/16/22 12:56 MPV 9.8 fL (7.4-10.4) 06/16/22 12:56 Neut % (Auto) 52.7 % 06/16/22 12:56 Lymph % (Auto) 38.2 % 06/16/22 12:56 [place] % (Auto) 6.2 % 06/16/22 12:56 Eos % (Auto) 1.8 % 06/16/22 12:56 Baso % (Auto) 0.8 % 06/16/22 12:56 Neut # (Auto) 3.23 10^3/uL (1.8-7.7) 06/16/22 12:56 Lymph # (Auto) 2.3 10^3/uL (0.8-4.8) 06/16/22 12:56 [place] # (Auto) 0.4 10^3/uL (0.2-0.9) 06/16/22 12:56 Eos # (Auto) 0.1 10^3/uL (0.0-0.8) 06/16/22 12:56 Baso # (Auto) 0.1 10^3/uL (0.0-0.1) 06/16/22 12:56 Nucleated RBC % (auto) 0 % 06/16/22 12:56 Nucleated RBCs # 0.0 /100WBC 06/16/22 12:56 Sodium 142 mmol/L (136-145) 06/16/22 12:56 Potassium 4.0 mmol/L (3.5-5.1) 06/16/22 12:56 Chloride 104 mmol/L (98-107) 06/16/22 12:56 Carbon Dioxide 28 mmol/L (22-29) 06/16/22 12:56 Anion Gap 14.0 (5-19) 06/16/22 12:56 BUN 9 mg/dL (6-20) 06/16/22 12:56 Creatinine 0.8 mg/dL (0.7-1.2) 06/16/22 12:56 GFR Calculation 114.3 mL/min (90-130) 06/16/22 12:56 Glucose 80 mg/dL (65-115) 06/16/22 12:56 Calculated Osmolality 292 mOsm/kg (285-295) 06/16/22 12:56 Calcium 9.9 mg/dL (8.5-10.5) 06/16/22 12:56 Total Bilirubin 0.6 mg/dL (0.15-1.2) 06/16/22 12:56 AST 18 U/L (0-40) 06/16/22 12:56 ALT 16 U/L (0-41) 06/16/22 12:56 Alkaline Phosphatase 69 U/L (40-130) 06/16/22 12:56 Total Protein 7.4 g/dL (6.6-8.7) 06/16/22 12:56 Albumin 4.6 g/dL (3.5-5.2) 06/16/22 12:56 Globulin 2.8 g/dL (1.3-4.6) 06/16/22 12:56 Urine Color Yellow (Yellow) 06/16/22 13:23 Urine Appearance Clear (CLEAR) 06/16/22 13:23 Urine pH 8 (5-7) H 06/16/22 13:23 Ur Specific [place] 1.015 (1.005-1.030) 06/16/22 13:23 Urine Protein Neg (Negative) 06/16/22 13:23 Urine Glucose (UA) Norm (Normal) 06/16/22 13:23 Urine Ketones Negative (Negative) 06/16/22 13:23 Urine Blood Neg (Negative) 06/16/22 13:23 Urine Nitrate Negative (Negative) 06/16/22 13:23 Urine Bilirubin Neg (Negative) 06/16/22 13:23 Prot Sulfosalicylic Acd Negative (Negative) 06/16/22 13:23 Urine Urobilinogen Neg mg/dL (Negative) 06/16/22 13:23 Ur Leukocyte Esterase Negative (Negative) 06/16/22 13:23 Discharge Plan Discharge Patient Disposition: Home Clinical Impression: Dizziness Condition: Stable Prescriptions: No Action ibuprofen 800 mg tablet 800 mg PO Q8H PRN (Reason: pain) Qty: 10 0RF trazodone 50 mg tablet 50 mg PO BEDTIME lacosamide [Vimpat] 200 mg tablet 200 mg PO DAILY atomoxetine 80 mg capsule 80 mg PO DAILY citalopram 40 mg Tablet 40 mg PO DAILY risperidone 1 mg Tablet 1 mg PO BEDTIME 30 Days Qty: 30 1RF Discharge Orders: Discharge ED (Routine); Ordered 06/16/22 Ordered By: Salvador King Referrals: Grace Holliday FNP [Primary Care Provider] - Discharge Diet: Usual diet Discharge Activity: Increase activity as tolerated Patient Instructions: Opioid Safety, Pain Management Activity Restrictions/Additional Instructions: You are seen today for dizziness. Your labs and exam were normal. 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
--- NOTE | 2022-06-16 13:16 | ECG_ITS ---
[facility] Test Date: 2022-06-16 Pat Name: George Lopez Department: Room: Gender: Male Family Worker: : 1990 Requested By: Salvador Faria Order Number: [id number] Jacinda MD: Halima Phillips M.D. Measurements Intervals [place] Rate: 60 P: 61 MD: 194 QRS: 55 QRSD: 92 T: 18 QT: 368 QTc: 369 Interpretive Statements SINUS RHYTHM POSSIBLE LEFT ATRIAL ENLARGEMENT [-0.1mV P-WAVE IN V1/V2] MINIMAL ST DEPRESSION [0.025+ mV ST DEPRESSION] Compared to ECG 03/23/2022 18:42:41 ST (T wave) deviation now present Electronically Signed On 06-16-2022 21:01:52 CDT by Halima Phillips M.D. [id number]
--- NOTE | 2022-06-16 13:21 | PC.NURSE ---
Pt on bedside media monitor
[2022-06-16 13:33] LABS: Add Urine Microscopic? NO; Charge for UA Resulting for Rev
--- NOTE | 2022-06-16 13:38 | PC.NURSE ---
Pt hooked up to continuous bedside cardiac monitoring.
[2022-06-16 13:39] LABS: Alanine Aminotransferase 16 U/L (0-41); Albumin Level 4.6 g/dL (3.5-5.2); Alkaline Phosphatase 69 U/L (40-130); Aspartate Amino Transferase 18 U/L (0-40); Blood Urea Nitrogen 9 mg/dL (6-20); Calcium 9.9 mg/dL (8.5-10.5); Carbon Dioxide 28 mmol/L (22-29); Chloride 104 mmol/L (98-107); Globulin 2.8 g/dL (1.3-4.6); Glomerular Filtration Rate 114.3 mL/min (90-130); Glucose 80 mg/dL (65-115); Osmolality Calculated 292 mOsm/kg (285-295); Sodium 142 mmol/L (136-145); Total Bilirubin 0.6 mg/dL (0.15-1.2); Total Protein 7.4 g/dL (6.6-8.7)
[2022-06-16 13:43] VITALS: BP 154/76; PULSE 61; RESP 15; O2SAT 97
[2022-06-16 14:00] VITALS: BP 154/76; PULSE 92; RESP 12; O2SAT 98
[2022-06-16 14:03] LABS: Blood Urine Neg (Negative); Glucose Urine UA Norm (Normal); Ketones Urine Negative (Negative); Protein Urine Neg (Negative); Specific Gravity, Urine 1.015 (1.005-1.030); Urine Appearance Clear (CLEAR); Urine Color Yellow (Yellow); pH Urine 8 (5-7)
[2022-06-16 14:04] LABS: Bilirubin Urine Neg (Negative); Leukocyte Esterase Urine Negative (Negative); Nitrate Urine Negative (Negative); Sulfosalicylic Acid Urine Negative (Negative); Urobilinogen Urine Neg (Negative)
--- NOTE | 2022-06-16 14:05 | PC.NURSE ---
Pt states he ate cereal this morning, does not remember if he ate supper last night. Provided pt with a sandwich to eat and clear soda.
[2022-06-16 14:10] VITALS: BP 146/94; BP 154/79; BP 157/86; PULSE 68; PULSE 77
[2022-06-16 14:38] VITALS: BP 136/88; PULSE 90; O2SAT 100
== END 2022-06-16 14:39 | disposition home or self-care (01) ==
PROVIDERS: Emergency Provider Family Medicine; PCP Nurse Practitioner Family
DX: R42 Dizziness and giddiness (principal); F84.0 Autistic disorder
CPT/HCPCS: 80053; 81003; 85025; 93005; 96360; 96361; 99284; J7030

== ENCOUNTER 2022-07-11 15:00 | Inpatient (IN) | payer MEDICARE, MEDICAID, SELFPAY ==
[2022-07-11 15:02] VITALS: BP 167/95; PULSE 73; RESP 16; TEMP 36.7; O2SAT 100
--- NOTE | 2022-07-11 15:18 | W.ED.PSYCHS ---
HPI - Psych General: Chief Complaint: Psychiatric Symptoms Stated Complaint: SI Time Seen by Provider: 07/11/22 15:03 History of Present Illness: Patient arrived via EMS with complaints of suicidal ideation. Patient says this started several days ago when he was plan was to slit his wrist with a pair scissors. Patient is also had these approximately 1 month ago and was hospitalized here. complaint: suicidal ideation Onset (ago): day(s) (Several days ago) Duration: constant History of same: Yes Relieving factors: none Exacerbating factors: none Associated psychiatric symptoms: suicidal ideation Associated symptoms: Reports suicidal ideation Treatments prior to arrival: none If self harm: admits thoughts of self harm and has plan Details of plan: Was going to take a pair scissors to slice his wrist Review of Systems General: Reports: 10 or more systems reviewed and unremarkable except in HPI and below Psych: Reports: suicidal ideation [facility] ED PFSH: Medical History Autism Depression Epilepsy History of ADHD Major depressive disorder with psychotic features Psychiatric care PTSD (post-traumatic stress disorder) Renal calculi Status post extracorporeal shock wave therapy Surgical History Hx of appendectomy Family History Unknown Adopted Social History Alcohol intake: never Adopted: Yes Marital status: Single Current occupational status: employed and unemployed 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 Physical Exam Const: COMMON NORMALS: no acute distress, average body habitus, patient oriented x3, no limitations, healthy appearing, alert and well nourished HENMT: COMMON NORMALS: normocephalic, atraumatic, hearing grossly normal bilaterally, external ears normal, Normal external nose present and moist oral mucous membranes HEAD & SCALP: normocephalic and atraumatic NOSE: Normal external nose present EXTERNAL EAR: Yes external ears normal Eye: COMMON NORMALS: Equal, round and reactive pupils present, EOMs intact bilaterally, conjunctivae normal and no scleral icterus CONJUNCTIVA: Yes conjunctivae normal PUPIL: Yes Equal, round and reactive pupils present Neck/C-Spine: COMMON NORMALS: full ROM, no lymphadenopathy, supple, no meningeal signs, no JVD and Thyroid normal THYROID: Thyroid normal Lymph: LYMPHATIC: no lymphadenopathy noted Chest: COMMONS NORMALS: normal inspection of the chest and normal palpation of entire chest wall Resp: COMMON NORMALS: normal respiratory effort, No retractions, No use of accessory muscles and clear to auscultation bilaterally AUSCULTATION: clear to auscultation bilaterally Cardio: COMMON NORMALS: no JVD, regular rate, regular rhythm, S1 normal heart sound present, S2 normal heart sound present, No gallops present (Cardio), No clicks present (Cardio), No murmurs present (Cardio) and No rub (Cardio) RATE: regular rate RHYTHM: regular rhythm HEART SOUNDS: S1 normal heart sound present and S2 normal heart sound present GI: COMMON NORMALS: Normal to inspection, nondistended, normoactive bowel sounds present, Soft to palpation, non-tender, No hepatosplenomegaly present and no masses PALPATION: Yes Soft to palpation and Yes No hepatosplenomegaly present : COMMON NORMALS: Yes no CVA tenderness BLADDER/KIDNEY EXAM: Yes no CVA tenderness Back/Pelvis: COMMON NORMALS: no CVA tenderness Neuro: COMMON NORMALS: patient oriented x3 SENSORIUM/ORIENTATION: Yes alert MENINGEAL SIGNS: Yes no meningeal signs Psych: COMMON NORMALS: Normal thought process present APPEARANCE: Yes grossly normal ACTIVITY/MOTOR BEHAVIOR: Yes appropriate eye contact and Yes fidgeting MOOD & AFFECT: Yes euthymic mood and Yes Flat affect present THOUGHT PROCESS: Normal thought process present THOUGHT CONTENT: Yes Suicidality present Course Vital Signs: Vital signs: Vital Signs Temperature 98.0 F 07/11/22 15:02 Pulse Rate 73 07/11/22 15:02 Respiratory Rate 16 07/11/22 15:02 Blood Pressure 167/95 07/11/22 15:02 Pulse Oximetry 100 07/11/22 15:02 Oxygen Delivery Me thod Room Air 07/11/22 15:02 MDM - Psych Medical Decision Making Patient presents to the ER with complaints of suicidal ideation. Patient went to take a pair scissors sliced his wrist. Patient has had inpatient help before and is agreeable and voluntary. Dr. Sibley was consulted who agrees to accept the patient for inpatient admission for further evaluation and treatment. Differential Diagnosis Likely suicidal ideation; Unlikely acute psychosis, chronic schizophrenia, bipolar disorder, depression, drug-induced psychotic disorder or acute anxiety Medical Records I reviewed the patient's medical records. Lab Data I reviewed the patient's lab results. 07/11/22 15:43 07/11/22 15:43 Laboratory Results WBC 8.2 10^3/uL (4.0-10.0) 07/11/22 15:43 RBC 4.68 10^6/uL (4.1-5.3) 07/11/22 15:43 Hgb 14.4 g/dL (11.7-16.6) 07/11/22 15:43 Hct 44.1 % (42.0-52.0) 07/11/22 15:43 MCV 94.2 fl (80-94) H 07/11/22 15:43 MCH 30.8 pg (28.0-34.0) 07/11/22 15:43 MCHC 32.7 g/dL (30.0-36.0) 07/11/22 15:43 RDW 11.9 % (12.1-15.1) L 07/11/22 15:43 Plt Count 235 10^3/cmm (130-400) 07/11/22 15:43 MPV 9.2 fL (7.4-10.4) 07/11/22 15:43 Neut % (Auto) 73.7 % 07/11/22 15:43 Lymph % (Auto) 19.9 % 07/11/22 15:43 [place] % (Auto) 4.9 % 07/11/22 15:43 Eos % (Auto) 0.5 % 07/11/22 15:43 Baso % (Auto) 0.6 % 07/11/22 15:43 Neut # (Auto) 6.04 10^3/uL (1.8-7.7) 07/11/22 15:43 Lymph # (Auto) 1.6 10^3/uL (0.8-4.8) 07/11/22 15:43 [place] # (Auto) 0.4 10^3/uL (0.2-0.9) 07/11/22 15:43 Eos # (Auto) 0.0 10^3/uL (0.0-0.8) 07/11/22 15:43 Baso # (Auto) 0.1 10^3/uL (0.0-0.1) 07/11/22 15:43 Nucleated RBC % (auto) 0 % 07/11/22 15:43 Nucleated RBCs # 0.0 /100WBC 07/11/22 15:43 Sodium 139 mmol/L (136-145) 07/11/22 15:43 Potassium 4.1 mmol/L (3.5-5.1) 07/11/22 15:43 Chloride 102 mmol/L (98-107) 07/11/22 15:43 Carbon Dioxide 26 mmol/L (22-29) 07/11/22 15:43 Anion Gap 15.1 (5-19) 07/11/22 15:43 BUN 9 mg/dL (6-20) 07/11/22 15:43 Creatinine 0.9 mg/dL (0.7-1.2) 07/11/22 15:43 GFR Calculation 99.8 mL/min (90-130) 07/11/22 15:43 Glucose 83 mg/dL (65-115) 07/11/22 15:43 Calculated Osmolality 286 mOsm/kg (285-295) 07/11/22 15:43 Calcium 8.8 mg/dL (8.5-10.5) 07/11/22 15:43 Total Bilirubin 0.5 mg/dL (0.15-1.2) 07/11/22 15:43 AST 19 U/L (0-40) 07/11/22 15:43 ALT 16 U/L (0-41) 07/11/22 15:43 Alkaline Phosphatase 64 U/L (40-130) 07/11/22 15:43 Total Protein 7.1 g/dL (6.6-8.7) 07/11/22 15:43 Albumin 4.4 g/dL (3.5-5.2) 07/11/22 15:43 Globulin 2.7 g/dL (1.3-4.6) 07/11/22 15:43 Urine Color Yellow (Yellow) 07/11/22 15:10 Urine Appearance Clear (CLEAR) 07/11/22 15:10 Urine pH 7 (5-7) 07/11/22 15:10 Ur Specific [place] 1.010 (1.005-1.030) 07/11/22 15:10 Urine Protein Neg (Negative) 07/11/22 15:10 Urine Glucose (UA) Norm (Normal) 07/11/22 15:10 Urine Ketones Negative (Negative) 07/11/22 15:10 Urine Blood 3+ (Negative) H 07/11/22 15:10 Urine Nitrate Negative (Negative) 07/11/22 15:10 Urine Bilirubin Neg (Negative) 07/11/22 15:10 Urine Urobilinogen Norm mg/dL (Negative) 07/11/22 15:10 Ur Leukocyte Esterase Negative (Negative) 07/11/22 15:10 Urine RBC 15-25 /hpf (0-2) H 07/11/22 15:10 Urine WBC None /hpf (0-5) 07/11/22 15:10 Ur Squamous Epith Cells None /hpf (0-5) 07/11/22 15:10 Amorphous Sediment Not Reportable 07/11/22 15:10 Urine Bacteria Trace /hpf (NONE) 07/11/22 15:10 Salicylates < 0.3 mg/dL (3-10) L 07/11/22 15:43 Urine Opiates Screen Negative ng/mL (Negative) 07/11/22 15:10 Acetaminophen < 5.0 ug/mL (10-30) L 07/11/22 15:43 Ur Barbiturates Screen Negative ng/mL (Negative) 07/11/22 15:10 Ur Phencyclidine Scrn Negative ng/mL (Negative) 07/11/22 15:10 Ur Amphetamines Screen Negative ng/mL (Negative) 07/11/22 15:10 U Benzodiazepines Scrn Negative ng/mL (Negative) 07/11/22 15:10 Urine Cocaine Screen Negative ng/mL (Negative) 07/11/22 15:10 U Marijuana (THC) Screen Negative ng/mL (Negative) 07/11/22 15:10 Ethyl Alcohol < 10 mg/dL (0-10) 07/11/22 15:43 Discharge Plan Discharge Patient Disposition: Admitted As Inpatient Clinical Impression: Suicidal ideation Condition: Stable Prescriptions: No Action ibuprofen 800 mg tablet 800 mg PO Q8H PRN (Reason: pain) Qty: 10 0RF trazodone 50 mg tablet 50 mg PO BEDTIME lacosamide [Vimpat] 200 mg tablet 200 mg PO DAILY atomoxetine 80 mg capsule 80 mg PO DAILY citalopram 40 mg Tablet 40 mg PO DAILY risperidone 1 mg Tablet 1 mg PO BEDTIME 30 Days Qty: 30 1RF Tylenol Ex Str Rapid Release 500 mg Tablet 1,000 mg PO Q6H PRN (Reason: Pain) omeprazole 20 mg capsule,delayed release(DR/EC) 20 mg PO DAILY Headache Relief ([id number]-[id number]) 250-250-65 mg Tablet 2 tab PO Q6H PRN (Reason: Migraine Headache) Referrals: Grace Holliday FNP [Primary Care Provider] - 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 Care Code ED Replenishment Associate for [facility]
--- NOTE | 2022-07-11 15:43 | PC.PHAR ---
pt states he knows most of his meds-pt states he is unsure if he takes risperidone 1mg hs ext med history shows last filled 03/26/22 30d/s [facility] not open on sundays to verify last time filled or if rx has refills on it-pt states he still takes vimpat ext med history shows last filled 10/30/22 90d/s pt said to call his dad to verify meds called pts paty jaramillo he said hes on the other side of [facility] and couldnt verify pts meds at this time-medications entered are from what the pt states he takes and from ext med history-
[2022-07-11 15:51] LABS: Basophils # 0.1 10^3/uL (0.0-0.1); Basophils % 0.6 %; Eosinophils % 0.5 %; Hematocrit 44.1 % (42.0-52.0); Hemoglobin 14.4 g/dL (11.7-16.6); Lymphocytes # 1.6 10^3/uL (0.8-4.8); Lymphocytes % 19.9 %; Mean Corpuscular HGB Conc 32.7 g/dL (30.0-36.0); Mean Corpuscular Hemoglobin 30.8 pg (28.0-34.0); Mean Corpuscular Volume 94.2 fl (80-94); Mean Platelet Volume 9.2 fL (7.4-10.4); Monocytes # 0.4 10^3/uL (0.2-0.9); Monocytes % 4.9 %; Neutrophils # 6.04 10^3/uL (1.8-7.7); Neutrophils % 73.7 %; Nucleated Red Blood Cells % 0 %; Platelet Count 235 10^3/cmm (130-400); Red Blood Count 4.68 10^6/uL (4.1-5.3); Red Cell Distribution Width 11.9 % (12.1-15.1); White Blood Count 8.2 10^3/uL (4.0-10.0)
[2022-07-11 15:59] LABS: Add Urine Culture? Yes; Add Urine Microscopic? YES; Bacteria Urine TRACE /hpf; Bilirubin Urine Neg (Negative); Blood Urine 3+ (Negative); Glucose Urine UA Norm (Normal); Ketones Urine Negative (Negative); Leukocyte Esterase Urine Negative (Negative); Nitrate Urine Negative (Negative); Protein Urine Neg (Negative); RBC Urine 15-25 /hpf (0-2); Urine Appearance Clear (CLEAR); Urine Color Yellow (Yellow); Urobilinogen Urine Norm (Negative); pH Urine 7 (5-7)
[2022-07-11 16:01] LABS: Amphetamines Screen Urine Negative (Negative); Barbiturates Screen Urine Negative (Negative); Benzodiazepines Screen Urine Negative (Negative); Cocaine Screen Urine Negative (Negative); Opiate Screen Urine Negative (Negative); PCP Screen Urine Negative (Negative); THC Screen Urine Negative (Negative)
[2022-07-11 16:09] LABS: Alanine Aminotransferase 16 U/L (0-41); Albumin Level 4.4 g/dL (3.5-5.2); Alkaline Phosphatase 64 U/L (40-130); Anion Gap 15.1 (5-19); Aspartate Amino Transferase 19 U/L (0-40); Blood Urea Nitrogen 9 mg/dL (6-20); Calcium 8.8 mg/dL (8.5-10.5); Carbon Dioxide 26 mmol/L (22-29); Chloride 102 mmol/L (98-107); Creatinine Clr Calc Pharmacy 166.9097; Globulin 2.7 g/dL (1.3-4.6); Glomerular Filtration Rate 99.8 mL/min (90-130); Glucose 83 mg/dL (65-115); Osmolality Calculated 286 mOsm/kg (285-295); Potassium 4.1 mmol/L (3.5-5.1); Sodium 139 mmol/L (136-145); Total Bilirubin 0.5 mg/dL (0.15-1.2); Total Protein 7.1 g/dL (6.6-8.7)
[2022-07-11 16:11] LABS: Acetaminophen < 5.0 ug/mL (10-30); Alcohol Level < 10 mg/dL (0-10); Salicylate < 0.3 mg/dL (3-10)
[2022-07-11 17:49] VITALS: BP 141/96; PULSE 72; RESP 18; TEMP 36.3; O2SAT 97
[2022-07-11] MEDS: ibuprofen 800 mg tablet PO (20:20)
[2022-07-11] MEDS: risperiDONE 1 mg Tablet PO (20:20)
[2022-07-11] MEDS: trazodone 50 mg Tablet PO (20:20)
[2022-07-11 22:00] VITALS: BP 127/89; PULSE 127; RESP 18; TEMP 36.8; O2SAT 97
[2022-07-12 06:00] VITALS: BP 128/86; PULSE 87; RESP 18; TEMP 36.4; O2SAT 100
[2022-07-12] MEDS: atomoxetine 40 mg Capsule 80 MG PO (08:27)
[2022-07-12] MEDS: citalopram 20 mg Tablet 40 MG PO (08:27)
[2022-07-12] MEDS: pantoprazole DR 40 mg Tablet PO (08:27)
[2022-07-12] MEDS: lacosamide 50 mg Tablet 200 MG PO (08:27)
[2022-07-12 14:00] VITALS: BP 132/82; PULSE 85; RESP 18; TEMP 36.3; O2SAT 97
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
[2022-07-12] MEDS: trazodone 50 mg Tablet PO (20:30)
[2022-07-12] MEDS: risperiDONE 1 mg Tablet PO (20:30)
[2022-07-12 20:52] VITALS: BP 127/79; PULSE 94; RESP 18; TEMP 36.9; O2SAT 97
[2022-07-13 06:00] VITALS: BP 144/89; PULSE 84; RESP 18; TEMP 36.3; O2SAT 99
[2022-07-13] MEDS: atomoxetine 40 mg Capsule 80 MG PO (08:24)
[2022-07-13] MEDS: citalopram 20 mg Tablet 40 MG PO (08:24)
[2022-07-13] MEDS: pantoprazole DR 40 mg Tablet PO (08:24)
[2022-07-13] MEDS: lacosamide 50 mg Tablet 200 MG PO (08:24)
[2022-07-13] MEDS: ibuprofen 800 mg tablet PO ×2 (12:00→20:19)
[2022-07-13 14:00] VITALS: BP 134/82; PULSE 95; RESP 18; TEMP 36.8; O2SAT 96
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
[2022-07-13] MEDS: risperiDONE 1 mg Tablet PO (20:19)
[2022-07-13] MEDS: risperiDONE 0.25 mg Tablet 0.5 MG PO (20:19)
[2022-07-13] MEDS: trazodone 50 mg Tablet PO (20:20)
[2022-07-13] MEDS: docusate sodium 100 mg Capsule PO (20:56)
[2022-07-13 22:00] VITALS: BP 128/73; PULSE 96; RESP 17; TEMP 36.7; O2SAT 98
[2022-07-14 06:00] VITALS: BP 129/80; PULSE 77; RESP 16; TEMP 36.4; O2SAT 96
[2022-07-14] MEDS: pantoprazole DR 40 mg Tablet PO (09:17)
[2022-07-14] MEDS: citalopram 20 mg Tablet 40 MG PO (09:17)
[2022-07-14] MEDS: ibuprofen 800 mg tablet PO (09:18)
[2022-07-14] MEDS: lacosamide 50 mg Tablet 200 MG PO (09:18)
[2022-07-14] MEDS: atomoxetine 40 mg Capsule 80 MG PO (09:18)
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
[2022-07-14 14:00] VITALS: BP 131/76; PULSE 102; RESP 17; TEMP 36.4; O2SAT 98
--- NOTE | 2022-07-14 15:23 | DCPLANNER ---
IMM was printed and explained and given to pt and informed his gaurdian and copy put in file.
[2022-07-14 16:52] VITALS: BP 131/76; PULSE 102; RESP 17; TEMP 36.4; O2SAT 98
== END 2022-07-14 17:28 | disposition home or self-care (01) | DRG 885 ==
LOC: ER 16:33 → NP 16:45
PROVIDERS: Admitting Provider Psychiatry & Neurology Psychiatry; Emergency Provider Emergency Medicine; PCP Nurse Practitioner Family; Visit Provider Psychiatry & Neurology Psychiatry
DX: F32.3 Major depressive disorder, single episode, severe with psychotic features (principal); R45.851 Suicidal ideations; F90.9 Attention-deficit hyperactivity disorder, unspecified type; F84.0 Autistic disorder; G40.909 Epilepsy, unspecified, not intractable, without status epilepticus; F43.10 Post-traumatic stress disorder, unspecified; F60.3 Borderline personality disorder
CPT/HCPCS: 80053; 80306; 80307; 81001; 85025; 87086; 97150; 97165; 99238; 99285

== ENCOUNTER → 2022-07-27 09:49 | Outpatient (BNVA) | payer MEDICARE, MEDICAID, SELFPAY | PROVIDERS: PCP Nurse Practitioner Family; Visit Provider Psychiatry & Neurology Psychiatry | DX: F43.10 Post-traumatic stress disorder, unspecified (principal); Z79.899 Other long term (current) drug therapy | CPT/HCPCS: 80061; 83036 ==

== ENCOUNTER 2022-08-14 16:08 | Inpatient (IN) | payer MEDICARE, MEDICAID, SELFPAY ==
[2022-07-29 13:59] VITALS: BP 125/75; BMI 27.5
[2022-08-14 16:08] VITALS: BP 154/85; PULSE 61; RESP 18; TEMP 36.9; O2SAT 99; BMI 28.0
[2022-08-14 16:20] VITALS: BP 154/85; PULSE 61; RESP 18; O2SAT 99
[2022-08-14 17:11] LABS: Add Urine Microscopic? NO; Charge for UA Resulting for Rev
[2022-08-14 17:16] LABS: Bilirubin Urine Neg (Negative); Blood Urine Neg (Negative); Glucose Urine UA Norm (Normal); Ketones Urine Negative (Negative); Leukocyte Esterase Urine Negative (Negative); Nitrate Urine Negative (Negative); Protein Urine Neg (Negative); Specific Gravity, Urine 1.005 (1.005-1.030); Urine Appearance Clear (CLEAR); Urine Color Yellow (Yellow); Urobilinogen Urine Norm (Negative); pH Urine 7 (5-7)
[2022-08-14 17:17] LABS: Basophils # 0.1 10^3/uL (0.0-0.1); Basophils % 1.2 %; Eosinophils # 0.1 10^3/uL (0.0-0.8); Eosinophils % 1.7 %; Hemoglobin 14.5 g/dL (11.7-16.6); Lymphocytes # 2.2 10^3/uL (0.8-4.8); Lymphocytes % 36.3 %; Mean Corpuscular Hemoglobin 31.2 pg (28.0-34.0); Mean Corpuscular Volume 94.6 fl (80-94); Mean Platelet Volume 9.8 fL (7.4-10.4); Monocytes # 0.4 10^3/uL (0.2-0.9); Monocytes % 6.2 %; Neutrophils # 3.25 10^3/uL (1.8-7.7); Neutrophils % 54.3 %; Nucleated Red Blood Cells % 0 %; Platelet Count 230 10^3/cmm (130-400); Red Blood Count 4.65 10^6/uL (4.1-5.3); Red Cell Distribution Width 11.9 % (12.1-15.1)
[2022-08-14 17:24] LABS: Amphetamines Screen Urine Negative (Negative); Barbiturates Screen Urine Negative (Negative); Benzodiazepines Screen Urine Negative (Negative); Cocaine Screen Urine Negative (Negative); Opiate Screen Urine Negative (Negative); PCP Screen Urine Negative (Negative); THC Screen Urine Negative (Negative)
[2022-08-14 17:45] LABS: Alanine Aminotransferase 16 U/L (0-41); Albumin Level 4.5 g/dL (3.5-5.2); Alkaline Phosphatase 68 U/L (40-130); Anion Gap 13.1 (5-19); Aspartate Amino Transferase 14 U/L (0-40); Blood Urea Nitrogen 5 mg/dL (6-20); Calcium 8.9 mg/dL (8.5-10.5); Carbon Dioxide 26 mmol/L (22-29); Chloride 101 mmol/L (98-107); Globulin 2.3 g/dL (1.3-4.6); Glomerular Filtration Rate 113.5 mL/min (90-130); Glucose 84 mg/dL (65-115); Osmolality Calculated 278 mOsm/kg (285-295); Potassium 4.1 mmol/L (3.5-5.1); Sodium 136 mmol/L (136-145); Total Bilirubin 0.5 mg/dL (0.15-1.2); Total Protein 6.8 g/dL (6.6-8.7)
[2022-08-14 17:50] LABS: Acetaminophen < 5.0 ug/mL (10-30); Salicylate < 0.3 mg/dL (3-10)
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
[2022-08-14 18:41] VITALS: BP 145/97; PULSE 70; RESP 16; TEMP 36.6; O2SAT 98
[2022-08-14 19:57] VITALS: BP 140/83; PULSE 82; RESP 18; O2SAT 98
[2022-08-14] MEDS: hyDROXYzine 25 mg Capsule 50 MG PO (20:27)
[2022-08-14] MEDS: trazodone 50 mg Tablet PO (21:57)
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
--- NOTE | 2022-08-15 01:10 | PC.NURSE ---
PT REQUESTED MEDICATION FOR ANXIETY AT THE BEGINNING OF SHIFT. VISTARIL 50 MG WAS GIVEN ORDERED, SEE MAR FOR DETAILS. APPROXIMATELY ONE HOUR LATER PT REQUESTED TRAZODONE FOR SLEEP. PT WAS GIVEN 50 MG OF TRAZODONE ORDERED FOR INSOMNIA ONE DOSE. PT HAS RESTED WELL AND MEDICATION WAS EFFECTIVE.
[2022-08-15 06:00] VITALS: BP 110/76; PULSE 84; RESP 14; O2SAT 99; BMI 28.0
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
[2022-08-15] MEDS: lacosamide 50 mg Tablet 200 MG PO (13:13)
--- NOTE | 2022-08-15 13:13 | PC.NURSE ---
vimpat administration delayed due to trying to deescalate another patient that was attempting to elope and make threats to staff
[2022-08-15 14:00] VITALS: BP 117/68; PULSE 69; RESP 16; TEMP 36.4; O2SAT 98
[2022-08-15 19:40] VITALS: BP 133/83; PULSE 80; RESP 18; TEMP 36.6; O2SAT 97
[2022-08-15] MEDS: risperiDONE 1 mg Tablet 1.5 MG PO (20:04)
[2022-08-16 06:00] VITALS: BP 112/70; PULSE 61; RESP 16; TEMP 36.6; O2SAT 98
[2022-08-16 06:30] VITALS: RESP 16
[2022-08-16] MEDS: citalopram 20 mg Tablet 40 MG PO (09:25)
[2022-08-16] MEDS: atomoxetine 40 mg Capsule 80 MG PO (09:25)
[2022-08-16] MEDS: lacosamide 50 mg Tablet 200 MG PO (09:25)
[2022-08-16] MEDS: polyethylene glycol 3350 Pkt 17 gm PO (09:29)
[2022-08-16] MEDS: acetaminophen 325 mg Tablet 650 MG PO (09:58)
[2022-08-16 14:00] VITALS: BP 127/71; PULSE 130; RESP 18; TEMP 36.6; O2SAT 97
[2022-08-16] MEDS: hyDROXYzine 25 mg Capsule 50 MG PO (14:03)
--- NOTE | 2022-08-16 16:51 | W.PM.NPUPNS ---
Subjective NPU Subjective: Haseeb is a 31-year-old white male with a history of autistic disorder along with borderline personality traits, ADHD and Psychotic Disorder NOS, autistic disorder admitted with depressed mood and suicidal ideation. The patient continued to endorse feeling depressed. He had reported having struggles with social engagement. He had stated that he continued to spend time at home isolating himself. He reported that he had been unable to maintain work. He had reported continued problems with sustaining attention. He states that his father is now his guardian and he was okay with changing his medications for depression. Patient remained isolative on the milieu. He reported some feelings of hopelessness. No evidence of seizures on the unit. Mental Status Exam MSE Comments: Patient was alert and oriented to person place and time. He appeared in mild to moderate distress. There was no evidence of any stereotypies, there was no evidence of any abnormal involuntary motor movements tics or tremors. There was some psychomotor retardation noted. His mood was described as depressed. His affect was restricted in range and mood congruent. His thought process was linear logical and goal-directed. His thought content showed no evidence of active homicidal ideation. He endorsed suicidal ideation with a plan to shoot himself. He stated he would need to go get a gun. He endorsed no homicidal ideation. His attention span appeared poor as he was easily distracted. His recent and remote memory appeared at baseline. His speech was monotone and quality but normal in regards to volume and rate. There was no clear evidence of delusional thinking. He did not appear to be responding to internal stimuli. His insight is poor. His judgment is poor. His impulse control appeared limited. Vitals/I&O/Wt Last Vital Signs Temp 97.8 F 08/16/22 14:00 Pulse 130 H 08/16/22 14:00 Resp 18 08/16/22 14:00 BP 127/71 08/16/22 14:00 Pulse Ox 97 08/16/22 14:00 O2 Del Method Room Air 08/15/22 19:40 Weight last 48 hrs Weight 104.326 kg Data NPU 08/14/22 17:10 08/14/22 17:10 A&P Assessment and plan (1) Suicidal ideation: (2) PTSD (post-traumatic stress disorder): (3) ADHD: (4) Psychotic disorder: (5) Autism: Plan This is a 32-year-old white male with a history of depression and ADHD and PTSD endorsing suicidal ideation with a plan. He would likely benefit from intense psychotherapy along with a brief hospitalization with focus on adjustment in medications to target increased irritability and impulsivity. 1.? ? Engage? patient in individual ,milieu, and group therapy ?2. ? We will attempt to gather collateral information from previous providers ?3. ? TO-15 minute checks on the unit. ?4.? Rreduce Celexa to 20mg in am with plan to initiate new antidepressant tommorow, will discuss with guardian. . Involuntary Hold Information 96 Hour Hold: 96 Hour Involuntary Admission: No Attestations NPU Medical Necessity Statement*: Inpatient hospitalization is medically necessary and deemed to be the clinically appropriate intervention at this time. We will monitor initiate medications while making changes as indicated. The patient's likely length of stay is 3 to 5 days. 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 Care Code Acute Code for [facility] Fwd Diagnoses Suicidal ideation R45.851 PTSD (post-traumatic stress disorder) F43.10 ADHD F90.9 Psychotic disorder F29 Autism F84.0
[2022-08-16 19:52] VITALS: BP 146/84; PULSE 103; RESP 18; TEMP 36.9; O2SAT 97
[2022-08-16] MEDS: risperiDONE 1 mg Tablet 1.5 MG PO (20:20)
[2022-08-17 06:00] VITALS: BP 117/73; PULSE 82; RESP 18; O2SAT 95
[2022-08-17] MEDS: lacosamide 50 mg Tablet 200 MG PO (08:50)
[2022-08-17] MEDS: citalopram 20 mg Tablet 40 MG PO (08:50)
[2022-08-17] MEDS: atomoxetine 40 mg Capsule 80 MG PO (08:50)
[2022-08-17] MEDS: acetaminophen 325 mg Tablet 650 MG PO (08:51)
[2022-08-17] MEDS: polyethylene glycol 3350 Pkt 17 gm PO (08:51)
[2022-08-17 13:35] VITALS: BP 118/68; PULSE 115; RESP 16; TEMP 36.9; O2SAT 99
--- NOTE | 2022-08-17 17:38 | W.PM.NPUPNS ---
Subjective NPU Subjective: Haseeb is a 31-year-old white male with a history of autistic disorder along with borderline personality traits, ADHD and Psychotic Disorder NOS, autistic disorder admitted with depressed mood and suicidal ideation. The patient continued to report depressed mood. He reported a lack of support and stated that he struggled with managing his mood as he stated that he felt that everyone was accusing him of inappropriate sexual behavior. He had stated having difficulties with managing intimate social relationships. He reported that he is not getting any psychotherapy at this time. The patient had reported that he had been unable to contact his father. Patient was informed that treatment team would likely want to try an alternative antidepressant given limited improvement with his anxiety and depression on Celexa. The patient was agreeable to trying a different medication for his depression. He had reported some improvement with his focus while taking Strattera at 80 mg daily. Mental Status Exam MSE Comments: Patient was alert and oriented to person place and time. He appeared in mild distress. There was no evidence of any stereotypies, there was no evidence of any abnormal involuntary motor movements tics or tremors. There was some psychomotor retardation noted. His mood remained depressed. His affect was restricted in range and mood congruent. His thought process was linear logical and goal-directed. His thought content showed no evidence of active homicidal ideation. He endorsed suicidal ideation with no plan endorsed today. He endorsed no homicidal ideation. His attention span appeared poor as he was easily distracted. His recent and remote memory appeared at baseline. His speech was monotone and quality but normal in regards to volume and rate. There was no clear evidence of delusional thinking. He did not appear to be responding to internal stimuli. His insight is poor. His judgment is poor. His impulse control appeared limited. Vitals/I&O/Wt Last Vital Signs Temp 98.4 F 08/17/22 13:35 Pulse 115 H 08/17/22 13:35 Resp 16 08/17/22 13:35 BP 118/68 08/17/22 13:35 Pulse Ox 99 08/17/22 13:35 O2 Del Method Room Air 08/17/22 06:00 Data NPU 08/14/22 17:10 08/14/22 17:10 A&P Assessment and plan (1) Generalized anxiety disorder: (2) Major depressive disorder with psychotic features: (3) Autism: (4) Psychotic disorder: Plan This is a 32-year-old white male with a history of depression and ADHD and PTSD endorsing suicidal ideation with a plan. He would likely benefit from intense psychotherapy along with a brief hospitalization with focus on adjustment in medications to target increased irritability and impulsivity. 1.? ? Engage? patient in individual ,milieu, and group therapy ?2. ? We will attempt to gather collateral information from previous providers ?3. ? TO-15 minute checks on the unit. ?4.? Continue Celexa to 20mg in am with plan to initiate new antidepressant, unable to reach guardian at this time. . Involuntary Hold Information 96 Hour Hold: 96 Hour Involuntary Admission: No Attestations NPU Medical Necessity Statement*: Inpatient hospitalization is medically necessary and deemed to be the clinically appropriate intervention at this time. We will monitor initiate medications while making changes as indicated. The patient's likely length of stay is 4-6 days. 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 Care Code Acute Code for [facility] Fwd Diagnoses Generalized anxiety disorder F41.1 Major depressive disorder with psychotic features F32.3 Autism F84.0 Psychotic disorder F29
[2022-08-17 20:18] VITALS: BP 149/83; PULSE 94; RESP 18; TEMP 36.8; O2SAT 94
[2022-08-17] MEDS: risperiDONE 1 mg Tablet 1.5 MG PO (20:33)
[2022-08-17] MEDS: OLANZapine 5 mg ODT PO (21:11)
[2022-08-18 06:00] VITALS: BP 135/95; PULSE 88; RESP 16; O2SAT 99
[2022-08-18] MEDS: atomoxetine 40 mg Capsule 80 MG PO (09:18)
[2022-08-18] MEDS: polyethylene glycol 3350 Pkt 17 gm PO (09:18)
[2022-08-18] MEDS: lacosamide 50 mg Tablet 200 MG PO (09:18)
[2022-08-18] MEDS: citalopram 20 mg Tablet PO (09:19)
[2022-08-18] MEDS: acetaminophen 325 mg Tablet 650 MG PO ×2 (11:08→20:06)
[2022-08-18 14:00] VITALS: BP 114/68; PULSE 124; RESP 15; TEMP 36.5; O2SAT 97
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
[2022-08-18] MEDS: risperiDONE 1 mg Tablet 1.5 MG PO (20:05)
[2022-08-18 21:17] VITALS: BP 126/85; PULSE 103; RESP 18; TEMP 36.8; O2SAT 97
--- NOTE | 2022-08-18 22:22 | PC.NURSE ---
IN DAY AREA ASSESSMENT COMPLETED. DENIES SI/HI AND AVH AT THIS TIME. PT REPORTS PAIN 10/10 IN RIGHT KNEE, TYLENOL GIVEN AND EFFECTIVE. PT STATES HE IS NO LONGER HAVING THOSE BAD THOUGHTS. SUPPORT VOICED.
[2022-08-19 06:00] VITALS: BP 119/84; PULSE 110; RESP 18; O2SAT 98
[2022-08-19] MEDS: fluoxetine 20 mg Capsule PO (09:26)
[2022-08-19] MEDS: polyethylene glycol 3350 Pkt 17 gm PO (09:26)
[2022-08-19] MEDS: atomoxetine 40 mg Capsule 80 MG PO (09:26)
[2022-08-19] MEDS: lacosamide 50 mg Tablet 200 MG PO (09:26)
--- NOTE | 2022-08-19 09:41 | PC.NURSE ---
patient denies all at this time. Patient didn't have any questions for me. Patient appears to be in good spirits today.
[2022-08-19] MEDS: acetaminophen 325 mg Tablet 650 MG PO ×2 (09:44→22:00)
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
[2022-08-19 14:00] VITALS: BP 124/84; PULSE 93; RESP 17; O2SAT 96
[2022-08-19] MEDS: hyDROXYzine 25 mg Capsule 50 MG PO (14:35)
--- NOTE | 2022-08-19 14:36 | PC.NURSE ---
This nurse spent about 10 minutes talking with patient after patient expressed desire to vent . This nurse listened to patient. Patient still experiencing anxiety. This nurse administered Vistaril 50mg PO to patient. Will continue to support and monitor as needed.
[2022-08-19 20:54] VITALS: BP 139/83; PULSE 93; RESP 18; TEMP 36.7; O2SAT 97
[2022-08-19] MEDS: risperiDONE 1 mg Tablet 1.5 MG PO (20:54)
[2022-08-20 06:00] VITALS: BP 121/74; PULSE 86; RESP 18; TEMP 36.3; O2SAT 100
[2022-08-20] MEDS: atomoxetine 40 mg Capsule 80 MG PO (09:28)
[2022-08-20] MEDS: lacosamide 50 mg Tablet 200 MG PO (09:28)
[2022-08-20] MEDS: fluoxetine 20 mg Capsule PO (09:28)
[2022-08-20] MEDS: polyethylene glycol 3350 Pkt 17 gm PO (09:28)
[2022-08-20 14:00] VITALS: BP 130/83; PULSE 87; RESP 16; TEMP 36.6; O2SAT 97
--- NOTE | 2022-08-20 18:35 | W.PM.NPUPNS ---
Subjective NPU Subjective: Patient presented today reporting that he is feeling much better. He reports that his dad reports that the exparte is finally in place and he feels better about his safety when he leaves. He reports he is tolerating the change of the medications fine and we discussed the plan for discharge in the morning. Mental Status Exam MSE Comments: This is an overweight white male in hospital scrubs with adequate grooming and intermittent eye contact. Lateral movement except mild psychomotor retardation. Cooperative with exam in mild distress. Speech was normal rate decreased volume. Mood described as better, affect slightly subdued. Thought process organized. Thought content: Patient denied suicidal or homicidal ideation, there were no delusions reported noted, he denied any auditory or visual hallucinations. Attention concentration appeared intact and memory was mostly reliable but none were formally tested. He alert and oriented x3. Insight and judgment limited impulse control limited. Intellectual ability likely limited. Vitals/I&O/Wt Last Vital Signs Temp 98 F 08/20/22 14:00 Pulse 87 08/20/22 14:00 Resp 16 08/20/22 14:00 BP 130/83 08/20/22 14:00 Pulse Ox 97 08/20/22 14:00 O2 Del Method Room Air 08/20/22 14:00 Data NPU 08/14/22 17:10 08/14/22 17:10 A&P Assessment and plan (1) Generalized anxiety disorder: (2) Major depressive disorder with psychotic features: (3) Autism: (4) Psychotic disorder: Plan This is a 32-year-old white male with a history of depression and ADHD and PTSD endorsing suicidal ideation with a plan. He would likely benefit from intense psychotherapy along with a brief hospitalization with focus on adjustment in medications to target increased irritability and impulsivity. 1.? ? Engage? patient in individual ,milieu, and group therapy ?2. ? We will attempt to gather collateral information from previous providers ?3. ? TO-15 minute checks on the unit. ?4.? D/C'd celexa and began Prozac 20mg daily. Continue risperidal 1.5mg at night, continue strattera 80mg daily. Involuntary Hold Information 96 Hour Hold: 96 Hour Involuntary Admission: No Attestations NPU Medical Necessity Statement*: Inpatient hospitalization is medically necessary and deemed to be the clinically appropriate intervention at this time. We will monitor initiate medications while making changes as indicated. The patient's likely length of stay is 1-3 days. 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 Care Code Acute Code for Chg Fwd Diagnoses Generalized anxiety disorder F41.1 Major depressive disorder with psychotic features F32.3 Autism F84.0 Psychotic disorder F29
[2022-08-20] MEDS: risperiDONE 1 mg Tablet 1.5 MG PO (20:30)
[2022-08-20 20:58] VITALS: BP 131/86; PULSE 95; RESP 17; TEMP 36.6; O2SAT 97
[2022-08-21 06:00] VITALS: BP 131/87; PULSE 89; RESP 17; O2SAT 98
[2022-08-21 08:42] VITALS: BP 131/87; PULSE 89; RESP 17; O2SAT 98
[2022-08-21] MEDS: atomoxetine 40 mg Capsule 80 MG PO (08:51)
[2022-08-21] MEDS: lacosamide 50 mg Tablet 200 MG PO (08:51)
[2022-08-21] MEDS: fluoxetine 20 mg Capsule PO (08:51)
[2022-08-21] MEDS: polyethylene glycol 3350 Pkt 17 gm PO (08:55)
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
== END 2022-08-21 11:09 | disposition home or self-care (01) | DRG 881 ==
LOC: ER 17:56 → NP 17:59
PROVIDERS: Admitting Provider Psychiatry & Neurology Psychiatry; Emergency Provider Family Medicine; PCP Nurse Practitioner Family; Visit Provider Psychiatry & Neurology Psychiatry
DX: F32.A Depression, unspecified (principal); R45.851 Suicidal ideations; G40.802 Other epilepsy, not intractable, without status epilepticus; F84.0 Autistic disorder; F43.10 Post-traumatic stress disorder, unspecified; F90.9 Attention-deficit hyperactivity disorder, unspecified type; F29 Unspecified psychosis not due to a substance or known physiological condition; F41.1 Generalized anxiety disorder
CPT/HCPCS: 36415; 80053; 80306; 80307; 81003; 85025; 97150; 97165; 99238; 99285

== ENCOUNTER 2022-09-25 20:29 | Inpatient (IN) | payer MEDICARE, MEDICAID, SELFPAY ==
[2022-07-29 13:59] VITALS: BP 125/75; BMI 27.5
[2022-09-25 20:31] VITALS: BP 133/81; PULSE 89; RESP 18; TEMP 36.6; O2SAT 97; BMI 30.4
[2022-09-25 21:01] LABS: Basophils # 0.1 10^3/uL (0.0-0.1); Basophils % 1.1 %; Eosinophils # 0.1 10^3/uL (0.0-0.8); Eosinophils % 1.8 %; Hematocrit 41.6 % (42.0-52.0); Hemoglobin 14.5 g/dL (11.7-16.6); Lymphocytes % 32.2 %; Mean Corpuscular HGB Conc 34.9 g/dL (30.0-36.0); Mean Corpuscular Hemoglobin 31.2 pg (28.0-34.0); Mean Corpuscular Volume 89.5 fl (80-94); Mean Platelet Volume 9.1 fL (7.4-10.4); Monocytes # 0.5 10^3/uL (0.2-0.9); Neutrophils # 3.57 10^3/uL (1.8-7.7); Neutrophils % 56.7 %; Nucleated Red Blood Cells % 0 %; Platelet Count 249 10^3/cmm (130-400); Red Blood Count 4.65 10^6/uL (4.1-5.3); Red Cell Distribution Width 11.8 % (12.1-15.1); White Blood Count 6.3 10^3/uL (4.0-10.0)
--- NOTE | 2022-09-25 21:12 | ED.C_ITS ---
HPI - Psych General: Chief Complaint: Psychiatric Symptoms Stated Complaint: SI Time Seen by Provider: 09/25/22 20:38 Source: patient Mode of arrival: ambulatory History of Present Illness: 32-year-old male presents to the emergency room with complaint of suicidal ideation. He is depressed and suicidal stating he may slit his wrist because he went to a friend's houses ex-girlfriend was there there was a little bit of interaction he became upset and went home and began to get suicidal. He has been admitted several times in the past he seen at [facility]. He states he has been taking all of his medications regularly feels like they do not work. He has not missed any doses or changing doses and not do anything to harm himself up to this point. MD complaint: suicidal ideation Relieving factors: none Exacerbating factors: other (Relationship issues) Associated symptoms: Reports depression and suicidal ideation; Deny auditory hallucinations, visual hallucinations, delusions, homicidal ideation or racing thoughts If self harm: admits thoughts of self harm and has plan Review of Systems Const: Denies: fever(s), chills, fatigue or malaise Card: Denies: chest pain, edema, dyspnea on exertion or orthopnea Resp: Denies: dyspnea, productive cough or non-productive cough GI: Denies: abdominal pain, nausea, vomiting, hematemesis, coffee ground emesis, diarrhea, constipation, bloating, hematochezia or melena : Denies: flank pain, dysuria, urinary frequency or urinary urgency Skin/Breast: Denies: rash or pruritus Psych: Reports: depression and suicidal ideation; Denies: visual hallucinations, auditory hallucinations or homicidal ideation [facility] ED PFSH: Medical History Autism Depression Depression Epilepsy History of ADHD Major depressive disorder with psychotic features Psychiatric care PTSD (post-traumatic stress disorder) Renal calculi Status post extracorporeal shock wave therapy Surgical History Hx of appendectomy Family History Unknown Adopted Social History Smoking and tobacco status: former smoker Quit status (tobacco): has quit using tobacco Former quit date comment: quit about 2 months ago Second hand smoke exposure: No Alcohol intake: current Alcohol intake frequency: other Substance/Drug Use: current Substance/Drug use frequency: daily Adopted: Yes Caregiver/support person: Yes (cleans his house, set up meds, general assessment) Lives independently: Yes Household members: none Marital status: Single Highest education level completed: High School Graduate service: No Current occupational status: disabled Pets and animals: No Leisure activites: games and other Estella/Holiness: Episcopal Special estella needs: No Agree to transfusion: Yes Financial difficulty paying for basics: Not Very Hard Physical Exam Const: GENERAL APPEARANCE: cooperative and comfortable ORIENTATION/CONSCIOUSNESS: Yes awake, Yes oriented to person, Yes oriented to place and Yes oriented to time HENMT: COMMON NORMALS: normocephalic, atraumatic and hearing grossly normal bilaterally HEAD & SCALP: normocephalic and atraumatic Resp: COMMON NORMALS: normal respiratory effort, No retractions, No use of accessory muscles and clear to auscultation bilaterally AUSCULTATION: clear to auscultation bilaterally Cardio: COMMON NORMALS: regular rate, regular rhythm and No murmurs present (Cardio) RATE: regular rate RHYTHM: regular rhythm GI: COMMON NORMALS: Soft to palpation and No hepatosplenomegaly present AUSCULTATION: Yes normoactive bowel sounds PALPATION: Yes Soft to palpation, No Tenderness to palpation present (GI), No Guarding due to palpation present (GI) and Yes No hepatosplenomegaly present Extremity: COMMON NORMALS: normal to inspection, capillary refill normal, no clubbing, cyanosis or edema, no calf tenderness and no pedal edema Neuro: SENSORIUM/ORIENTATION: Yes oriented to person, Yes oriented to place and Yes oriented to time Psych: THOUGHT CONTENT: No delusions Skin: COMMON NORMALS: no rashes or lesions noted GENERAL SKIN EXAM: no rashes or lesions noted Course Vital Signs: Vital signs: Vital Signs Temperature 98.7 F 09/26/22 20:12 Pulse Rate 71 09/26/22 20:12 Respiratory Rate 18 09/26/22 20:12 Blood Pressure 111/72 09/26/22 20:12 Pulse Oximetry 98 09/26/22 20:12 Oxygen Delivery Me thod Room Air 09/25/22 23:36 MDM - Psych Medical Decision Making Suicidal ideation with depression. Placed on a 96-hour hold discussed Dr. Sibley admit MPU Medical Records I reviewed the patient's medical records. Lab Data I reviewed the patient's lab results. 09/25/22 20:56 09/25/22 20:56 Laboratory Results WBC 6.3 10^3/uL (4.0-10.0) 09/25/22 20:56 RBC 4.65 10^6/uL (4.1-5.3) 09/25/22 20:56 Hgb 14.5 g/dL (11.7-16.6) 09/25/22 20:56 Hct 41.6 % (42.0-52.0) L 09/25/22 20:56 MCV 89.5 fl (80-94) 09/25/22 20:56 MCH 31.2 pg (28.0-34.0) 09/25/22 20:56 MCHC 34.9 g/dL (30.0-36.0) 09/25/22 20:56 RDW 11.8 % (12.1-15.1) L 09/25/22 20:56 Plt Count 249 10^3/cmm (130-400) 09/25/22 20:56 MPV 9.1 fL (7.4-10.4) 09/25/22 20:56 Neut % (Auto) 56.7 % 09/25/22 20:56 Lymph % (Auto) 32.2 % 09/25/22 20:56 [place] % (Auto) 8.0 % 09/25/22 20:56 Eos % (Auto) 1.8 % 09/25/22 20:56 Baso % (Auto) 1.1 % 09/25/22 20:56 Neut # (Auto) 3.57 10^3/uL (1.8-7.7) 09/25/22 20:56 Lymph # (Auto) 2.0 10^3/uL (0.8-4.8) 09/25/22 20:56 [place] # (Auto) 0.5 10^3/uL (0.2-0.9) 09/25/22 20:56 Eos # (Auto) 0.1 10^3/uL (0.0-0.8) 09/25/22 20:56 Baso # (Auto) 0.1 10^3/uL (0.0-0.1) 09/25/22 20:56 Nucleated RBC % (auto) 0 % 09/25/22 20:56 Nucleated RBCs # 0.0 /100WBC 09/25/22 20:56 Sodium 140 mmol/L (136-145) 09/25/22 20:56 Potassium 4.0 mmol/L (3.5-5.1) 09/25/22 20:56 Chloride 103 mmol/L (98-107) 09/25/22 20:56 Carbon Dioxide 27 mmol/L (22-29) 09/25/22 20:56 Anion Gap 14.0 (5-19) 09/25/22 20:56 BUN 10 mg/dL (6-20) 09/25/22 20:56 Creatinine 0.8 mg/dL (0.7-1.2) 09/25/22 20:56 GFR Calculation 113.5 mL/min (90-130) 09/25/22 20:56 Glucose 89 mg/dL (65-115) 09/25/22 20:56 Calculated Osmolality 289 mOsm/kg (285-295) 09/25/22 20:56 Calcium 9.2 mg/dL (8.5-10.5) 09/25/22 20:56 Total Bilirubin 0.4 mg/dL (0.15-1.2) 09/25/22 20:56 AST 15 U/L (0-40) 09/25/22 20:56 ALT 17 U/L (0-41) 09/25/22 20:56 Alkaline Phosphatase 75 U/L (40-130) 09/25/22 20:56 Total Protein 7.0 g/dL (6.6-8.7) 09/25/22 20:56 Albumin 4.4 g/dL (3.5-5.2) 09/25/22 20:56 Globulin 2.6 g/dL (1.3-4.6) 09/25/22 20:56 Salicylates < 0.3 mg/dL (3-10) L 09/25/22 20:56 Acetaminophen < 5.0 ug/mL (10-30) L 09/25/22 20:56 Discharge Plan Discharge Patient Disposition: Admitted As Inpatient Admit Provider: Macr Sibley Clinical Impression: Suicidal ideation, Depression, Autism Condition: Stable Discharge Diet: Regular Discharge Activity: Resume usual activity 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 Care Code ED [facility] for [facility]
[2022-09-25 21:21] LABS: Alanine Aminotransferase 17 U/L (0-41); Albumin Level 4.4 g/dL (3.5-5.2); Alkaline Phosphatase 75 U/L (40-130); Aspartate Amino Transferase 15 U/L (0-40); Blood Urea Nitrogen 10 mg/dL (6-20); Calcium 9.2 mg/dL (8.5-10.5); Carbon Dioxide 27 mmol/L (22-29); Chloride 103 mmol/L (98-107); Globulin 2.6 g/dL (1.3-4.6); Glomerular Filtration Rate 113.5 mL/min (90-130); Glucose 89 mg/dL (65-115); Osmolality Calculated 289 mOsm/kg (285-295); Sodium 140 mmol/L (136-145); Total Bilirubin 0.4 mg/dL (0.15-1.2)
[2022-09-25 21:23] LABS: Acetaminophen < 5.0 ug/mL (10-30); Salicylate < 0.3 mg/dL (3-10)
[2022-09-25 23:43] VITALS: BP 128/57; PULSE 67; RESP 18; TEMP 36.8; O2SAT 99
[2022-09-26 06:00] VITALS: RESP 15
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
[2022-09-26] MEDS: acetaminophen 325 mg Tablet 650 MG PO (13:48)
[2022-09-26 14:00] VITALS: BP 94/57; PULSE 90; RESP 17; TEMP 36.8; O2SAT 97
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
[2022-09-26 19:34] VITALS: BP 111/72; PULSE 71; RESP 18; TEMP 37.1; O2SAT 98
[2022-09-26 20:12] VITALS: BP 111/72; PULSE 71; RESP 18; TEMP 37.1; O2SAT 98
== END 2022-09-26 20:12 | disposition home or self-care (01) | DRG 881 ==
LOC: ER 21:15 → NP 22:58
PROVIDERS: Admitting Provider Psychiatry & Neurology Psychiatry; Emergency Provider Family Medicine; PCP Nurse Practitioner Family; Visit Provider Psychiatry & Neurology Psychiatry
DX: F32.A Depression, unspecified (principal); R45.851 Suicidal ideations; F84.0 Autistic disorder; Z87.891 Personal history of nicotine dependence
CPT/HCPCS: 36415; 80053; 80307; 85025; 99239; 99285

== ENCOUNTER → 2022-10-22 15:30 | Outpatient (BNVA) | payer MEDICARE, MEDICAID, SELFPAY ==
[2022-07-29 13:59] VITALS: BP 125/75; BMI 27.5
== END ==
PROVIDERS: PCP Nurse Practitioner Family; Visit Provider Emergency Medicine
DX: J02.9 Acute pharyngitis, unspecified (principal); R05.9 Cough, unspecified; U07.1 COVID-19
CPT/HCPCS: 87071; 87426; 87880

== ENCOUNTER 2022-11-01 22:00 | Emergency (ER) | payer MEDICARE, MEDICAID, SELFPAY ==
[2022-07-29 13:59] VITALS: BP 125/75; BMI 27.5
[2022-11-01 22:03] VITALS: BP 148/89; PULSE 71; RESP 16; TEMP 36.6; O2SAT 98; BMI 23.7
--- NOTE | 2022-11-01 22:06 | W.ED.EXTPRO ---
HPI - Extremity Problem General: Chief complaint: Extremity Injury, Lower Stated complaint: LEG PAIN Time Seen by Provider: 11/01/22 22:06 History of Present Illness: 32-year-old male patient comes in today with complaints of pain to the right calf. Patient reports he was climbing into the truck of his friend when he felt a pop in the calf muscle of his right leg. Patient since then has had increased pain and discomfort to the calf. Patient appears nontoxic. Patient appears in mild to moderate pain. Patient has a history of headaches and autism spectrum disorder. Review of Systems General: Reports: 10 or more systems reviewed and unremarkable except in HPI and below Musc: Reports: extremity pain PFSH ED PFSH: Medical History Autism Depression Depression Epilepsy History of ADHD Major depressive disorder with psychotic features Psychiatric care PTSD (post-traumatic stress disorder) Renal calculi Status post extracorporeal shock wave therapy Surgical History Hx of appendectomy Family History Unknown Adopted Social History Smoking and tobacco status: former smoker Quit status (tobacco): has quit using tobacco Former quit date comment: quit about 2 months ago Second hand smoke exposure: No Alcohol intake: current Alcohol intake frequency: other Substance/Drug Use: current Substance/Drug use frequency: daily Adopted: Yes Caregiver/support person: Yes (cleans his house, set up meds, general assessment) Lives independently: Yes Household members: none Marital status: Single Highest education level completed: High School Graduate service: No Current occupational status: disabled Pets and animals: No Leisure activites: games and other Estella/Mormonism: Gnosticist Special estella needs: No Agree to transfusion: Yes Financial difficulty paying for basics: Not Very Hard Physical Exam Const: COMMON NORMALS: alert HENMT: COMMON NORMALS: atraumatic HEAD & SCALP: atraumatic Neck/C-Spine: COMMON NORMALS: full ROM Resp: COMMON NORMALS: normal respiratory effort Cardio: COMMON NORMALS: regular rate RATE: regular rate Back/Pelvis: COMMON NORMALS: thoracic and lumbar spine normal to inspection Extremity: RIGHT LOWER EXTREMITY: Yes lower leg (Right posterior leg pain soft tissue tenderness. No bony abnormality) Neuro: SENSORIUM/ORIENTATION: Yes alert Skin: COMMON NORMALS: turgor normal GENERAL SKIN EXAM: turgor normal Course Vital Signs: Vital signs: Vital Signs Temperature 97.9 F 11/01/22 22:03 Pulse Rate 71 11/01/22 22:03 Respiratory Rate 16 11/01/22 22:03 Blood Pressure 148/89 11/01/22 22:03 Pulse Oximetry 98 11/01/22 22:03 Oxygen Delivery Me thod Room Air 11/01/22 22:03 MDM - Extremity (Nontraumatic) Medical Decision Making Gait [id number] male patient comes in today with reported injury to the right calf. Patient reports he was climbing up into a vehicle and felt a pop in his right calf muscle. Since then he had pain with discomfort with walking which prompted him to call EMS for further evaluation and treatment. Patient was brought into the ER and has some soft tissue tenderness in the right calf muscle. No significant swelling or redness is noted. Distal pulses sensation are intact. Differential diagnosis includes sprain, strain, rupture of muscle/tendon, fracture, compartment syndrome. No sign of compartment syndrome is noted on exam. X-ray noted no fractures. With patient with recommendation for treatment and follow-up. Patient reported understanding agreed to plan. XR interpretation done by ED provider, pending radiology final review Discharge Plan Discharge Patient Disposition: Home Clinical Impression: Strain of right calf muscle Condition: Stable Prescriptions: No Action ibuprofen 800 mg tablet 800 mg PO Q8H PRN (Reason: pain) Qty: 10 0RF ibuprofen 600 mg tablet 600 mg PO Q8H PRN (Reason: pain) Qty: 60 0RF polyethylene glycol 3350 [Miralax] 17 gram/dose powder 4 g PO DAILY PRN (Reason: constipation) atomoxetine 80 mg capsule 80 mg PO DAILY Qty: 30 1RF trazodone 50 mg tablet 50 mg PO BEDTIME Qty: 30 1RF risperidone 1 mg tablet 1.5 mg PO BEDTIME Qty: 45 1RF fluoxetine 20 mg capsule 20 mg PO DAILY 30 Days Qty: 30 1RF acetaminophen 500 mg Tablet 1,000 mg PO Q6H PRN (Reason: Pain) Headache Relief (UDC-[id number]) 250-250-65 mg Tablet 2 tab PO Q6H PRN (Reason: Migraine Headache) omeprazole 20 mg capsule,delayed release(DR/EC) 20 mg PO DAILY PRN (Reason: Heartburn) lacosamide 200 mg tablet 200 mg PO DAILY 30 Days Qty: 30 1RF Discharge Orders: Discharge ED (Routine); Ordered 11/01/22 Ordered By: Eduardo Oakley Referrals: Grace Holliday FNP [Primary Care Provider] - Discharge Diet: Usual diet Discharge Activity: Increase activity as tolerated Patient Instructions: Muscle Strain (ED) Activity Restrictions/Additional Instructions: Activity as tolerated. Increase activity over the next 2 days. Use ice to the area for further comfort. Use acetaminophen ibuprofen for pain as needed. Drink plenty of water with medications. Follow-up with primary care in 3 to 5 days for recheck. Return to ED for new concerns. Stand Alone Forms: Work/School Release 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 Care Code ED Actuarial Assistant for Ky Conklin
--- NOTE | 2022-11-01 22:11 | XRR_ITS ---
PROCEDURE INFORMATION: Exam: XR Right Tibia and Fibula Exam date and time: 11/01/2022 10:17 PM Age: 32 years old Clinical indication: Injury or trauma; Other: Stepped wrong; Sprain or strain; Lower leg; Right TECHNIQUE: Imaging protocol: Radiologic exam of the right tibia and fibula. Views: 2 views. COMPARISON: No relevant prior studies available. FINDINGS: Bones/joints: There is no acute fracture or dislocation. If symptoms persist, follow-up imaging in several days may be useful to exclude an occult or subtle fracture. No other significant acute bone or joint abnormality. Soft tissues: No significant acute finding. XR/XR tibia fibula RT 2V [id number] IMPRESSION: No acute fracture or dislocation.
[2022-11-01] MEDS: ibuprofen 600 mg Tablet PO (22:42)
== END 2022-11-01 23:00 | disposition home or self-care (01) ==
PROVIDERS: Emergency Provider Nurse Practitioner Family; PCP Nurse Practitioner Family
DX: S86.111A Strain of other muscle(s) and tendon(s) of posterior muscle group at lower leg level, right leg, initial encounter (principal); X50.9XXA Other and unspecified overexertion or strenuous movements or postures, initial encounter; F84.0 Autistic disorder; Z87.891 Personal history of nicotine dependence
CPT/HCPCS: 73590; 99283

== ENCOUNTER 2022-11-26 10:50 | Emergency (ER) | payer MEDICARE, MEDICAID, SELFPAY ==
[2022-07-29 13:59] VITALS: BP 125/75; BMI 27.5
[2022-11-26 11:03] VITALS: BP 147/92; PULSE 57; RESP 16; TEMP 36.6; O2SAT 100; BMI 26.7
[2022-11-26 11:07] VITALS: BP 143/97; PULSE 61; RESP 15; O2SAT 100
--- NOTE | 2022-11-26 12:17 | USCV_ITS ---
George Lopez Age: 32 Gender: M : 1990 Exam Date: 11/26/2022 12:51 Ordering Phys: Tamiko John Technologist: Jagdish Rodriguez Exam Location: [facility]_ Indication: right calf pain PROCEDURES: Venous duplex imaging was performed in only the right lower extremity. The following venous structures were evaluated: common femoral vein, profunda vein, proximal portion of the greater saphenous vein, superficial femoral vein, and the popliteal vein. In addition, the posterior tibial and peroneal trunk were evaluated. Serial compression, augmentation maneuvers, and spectral Doppler flow evaluation were performed. FINDINGS: Normal 2-D Doppler and augmentation and compressibility throughout the lower extremity venous structures. Additional imaging through the proximal calf veins also reveals no thrombus. Limited evaluation of the greater saphenous vein is patent with no thrombus. CONCLUSIONS No DVT right lower extremity. Dr. Gloria Yoder DO (Electronically Signed) Final Date: 26 November 2022 15:43 S
--- NOTE | 2022-11-26 13:18 | ED_ITS ---
HPI - Extremity Problem General: Chief complaint: Extremity Injury, Lower Stated complaint: right leg pain Source: patient Mode of arrival: ambulatory Limitations: no limitations History of Present Illness: Patient presents to the emergency department today for evaluation treatment of continued right calf pain. Per patient report and on chart review, patient had injured his right calf region by trying to climb up into a truck. He states that while getting into the vehicle he felt a pop in his right calf and states a knot developed. He has been seen and evaluated prior for this injury without any acute findings. He was given at home RICE therapy recommendations as well as follow-up. Patient has not had any follow-up but states he has been treating conservatively at home without noticeable improvement. He reports he can still palpate a knot in the calf and reports pain with ambulation. He states he was told to be seen and reevaluated if it did not improve. Review of Systems General: Reports: 10 or more systems reviewed and unremarkable except in HPI and below PFSH ED PFSH: Medical History Autism Depression Depression Epilepsy History of ADHD Major depressive disorder with psychotic features Psychiatric care PTSD (post-traumatic stress disorder) Renal calculi Status post extracorporeal shock wave therapy Surgical History Hx of appendectomy Family History Unknown Adopted Social History Smoking and tobacco/nicotine status: former use of tobacco/nicotine Quit status (tobacco/nicotine): has quit using Former quit date comment: quit about 2 months ago Second hand smoke exposure: No Alcohol intake: current Alcohol intake frequency: other Substance/Drug Use: current Substance/Drug use frequency: daily Adopted: Yes Caregiver/support person: Yes (cleans his house, set up meds, general assessment) Lives independently: Yes Household members: none Marital status: Single Highest education level completed: High School Graduate service: No Current occupational status: disabled Pets and animals: No Leisure activites: games and other Estella/Restorationist: Yazidism Special estella needs: No Agree to transfusion: Yes Physical Exam Const: COMMON NORMALS: no acute distress, patient oriented x3 and alert HENMT: COMMON NORMALS: normocephalic, atraumatic and hearing grossly normal bilaterally HEAD & SCALP: normocephalic and atraumatic Eye: COMMON NORMALS: Equal, round and reactive pupils present, EOMs intact bilaterally and conjunctivae normal CONJUNCTIVA: Yes conjunctivae normal PUPIL: Yes Equal, round and reactive pupils present Neck/C-Spine: COMMON NORMALS: full ROM and no JVD Lymph: LYMPHATIC: no lymphadenopathy noted Resp: COMMON NORMALS: normal respiratory effort, No retractions and No use of accessory muscles Cardio: COMMON NORMALS: no JVD and regular rate RATE: regular rate Extremity: OTHER: Patient is independently ambulatory and weightbearing here in the emergency department. Patient is tender on palpation to the right calf with pain on palp ation with plantar and dorsiflexion of the right foot. No obvious calf swelling. No edema. No signs of wound. No signs of increased varicosities. Neuro: COMMON NORMALS: patient oriented x3 SENSORIUM/ORIENTATION: Yes alert Psych: COMMON NORMALS: mental status grossly normal, Normal thought process present, cooperative and normal affect THOUGHT PROCESS: Normal thought process present Skin: COMMON NORMALS: no rashes or lesions noted and turgor normal GENERAL SKIN EXAM: no rashes or lesions noted and turgor normal Course Vital Signs: Vital signs: Vital Signs Temperature 97.9 F 11/26/22 11:03 Pulse Rate 61 11/26/22 11:07 Respiratory Rate 15 11/26/22 11:07 Blood Pressure 143/97 11/26/22 11:07 Pulse Oximetry 100 11/26/22 11:07 Oxygen Delivery Me thod Room Air 11/26/22 11:07 MDM - Extremity (Nontraumatic) Medical Decision Making Patient ultrasound does not show any signs of any vascular clot or signs of abscess/hematoma in the soft tissues. Splane to the patient that this is still mostly muscular in nature and given that it has been sometime since he has been treated for this pain, did provide him a refill on NSAIDs as well as a topical NSAID for pain relief. Explained to him the importance of following up with primary care for continued monitoring as he may need outpatient evaluation, imaging, or testing as needed. Patient verbalized understanding and agreement to treatment plan. Differential Diagnosis Unlikely herpes zoster, gout, cellulitis, superficial thrombophlebitis, lower extremity edema or deep vein thrombosis of lower extremity XR interpretation done by ED provider, pending radiology final review (Notified by solid waste landfill technician that there were no signs of clots and all veins were compressible.) Discharge Plan Discharge Patient Disposition: Home Clinical Impression: Myalgia, lower leg Condition: Stable Prescriptions: George Kee Arthritis Pain 1 % gel 4 g topical QID Qty: 100 0RF Rx Instructions: apply to single knee, ankle, foot; for foot includes sole/toes/top of foot naproxen 500 mg tablet 500 mg PO BID PRN (Reason: pain) Qty: 20 0RF No Action ibuprofen 800 mg tablet 800 mg PO Q8H PRN (Reason: pain) Qty: 10 0RF polyethylene glycol 3350 [Miralax] 17 gram/dose powder 4 g PO DAILY PRN (Reason: constipation) atomoxetine 80 mg capsule 80 mg PO DAILY Qty: 30 1RF trazodone 50 mg tablet 50 mg PO BEDTIME Qty: 30 1RF fluoxetine 20 mg capsule 20 mg PO DAILY 30 Days Qty: 30 1RF risperidone 1 mg tablet See Rx Instructions .ROUTE .COMPLEX Qty: 45 1RF Dose Instruction: TAKE 1 AND 1/2 TABLETS BY MOUTH AT BEDTIME Rx Instructions: TAKE 1 AND 1/2 TABLETS BY MOUTH AT BEDTIME acetaminophen 500 mg Tablet 1,000 mg PO Q6H PRN (Reason: Pain) Headache Relief (GUY-[id number]) 250-250-65 mg Tablet 2 tab PO Q6H PRN (Reason: Migraine Headache) omeprazole 20 mg capsule,delayed release(DR/EC) 20 mg PO DAILY PRN (Reason: Heartburn) citalopram 40 mg tablet 40 mg PO DAILY Discharge Orders: Discharge ED (Routine); Ordered 11/26/22 Ordered By: Tamiko John Referrals: Grace Holliday FNP [Primary Care Provider] - Discharge Diet: Usual diet Discharge Activity: Increase activity as tolerated Activity Restrictions/Additional Instructions: Ultrasound today showed no signs of any continued or acute findings of injury, blood clot, or fluid accumulation in this area muscle. I am getting you back on some medication to help with pain in this area but it is extremely important that you follow-up with your primary care doctor for further work-up of this injury. You may require some physical therapy, outpatient imaging, or further testing on an outpatient basis to address the continued issues and pain you have in this area. 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 Care Code ED Acid Dumper for Ky Conklin
[2022-11-26 14:01] VITALS: BP 143/97; PULSE 61; RESP 15; O2SAT 100
== END 2022-11-26 14:08 | disposition home or self-care (01) ==
PROVIDERS: Emergency Provider Physician Assistant; PCP Nurse Practitioner Family
DX: M79.18 Myalgia, other site (principal); F84.0 Autistic disorder; Z87.891 Personal history of nicotine dependence
CPT/HCPCS: 93971; 99284

== ENCOUNTER 2022-12-04 22:12 | Inpatient (IN) | payer MEDICARE, MEDICAID, SELFPAY ==
[2022-07-29 13:59] VITALS: BP 125/75; BMI 27.5
[2022-12-04 22:16] VITALS: BP 185/111; PULSE 83; RESP 18; TEMP 37.1; O2SAT 99; BMI 30.4
[2022-12-04 22:40] VITALS: BP 130/72; PULSE 90; RESP 14
[2022-12-04 22:45] LABS: Add Urine Microscopic? NO; Charge for UA Resulting for Rev
[2022-12-04 22:45] LABS: Basophils # 0.1 10^3/uL (0.0-0.1); Basophils % 0.9 %; Eosinophils # 0.1 10^3/uL (0.0-0.8); Eosinophils % 0.7 %; Hematocrit 43.4 % (37-53); Lymphocytes # 2.5 10^3/uL (0.8-4.8); Lymphocytes % 28.9 %; Mean Corpuscular HGB Conc 34.8 g/dL (30-55); Mean Corpuscular Hemoglobin 31.7 pg (27-33); Mean Platelet Volume 9.5 fL (7.4-10.4); Monocytes # 0.5 10^3/uL (0.2-0.9); Monocytes % 5.5 %; Neutrophils # 5.39 10^3/uL (1.8-7.7); Neutrophils % 63.8 %; Nucleated Red Blood Cells % 0 %; Platelet Count 293 10^3/cmm (157-399); Red Blood Count 4.77 10^6/uL (3.85-5.65); Red Cell Distribution Width 11.5 % (12.1-15.1); White Blood Count 8.47 10^3/uL (3.29-11.43)
[2022-12-04 22:53] LABS: Bilirubin Urine Neg (Negative); Blood Urine Neg (Negative); Glucose Urine UA Norm (Normal); Ketones Urine Negative (Negative); Leukocyte Esterase Urine Negative (Negative); Nitrate Urine Negative (Negative); Protein Urine Neg (Negative); Urine Appearance Clear (CLEAR); Urine Color Yellow (Yellow); Urobilinogen Urine 1 mg/dL (Negative); pH Urine 7 (5-7)
[2022-12-04 22:56] LABS: Amphetamines Screen Urine Negative (Negative); Barbiturates Screen Urine Negative (Negative); Benzodiazepines Screen Urine Negative (Negative); Cocaine Screen Urine Negative (Negative); Opiate Screen Urine Negative (Negative); PCP Screen Urine Negative (Negative); THC Screen Urine Negative (Negative)
[2022-12-04 23:04] LABS: Alanine Aminotransferase 15 U/L (0-41); Albumin Level 4.7 g/dL (3.5-5.2); Alkaline Phosphatase 68 U/L (40-130); Anion Gap 15.4 (5-19); Aspartate Amino Transferase 15 U/L (0-40); Blood Urea Nitrogen 8 mg/dL (6-20); Calcium 9.1 mg/dL (8.5-10.5); Carbon Dioxide 23 mmol/L (22-29); Chloride 104 mmol/L (98-107); Globulin 2.7 g/dL (1.3-4.6); Glomerular Filtration Rate 113.5 mL/min (90-130); Glucose 127 mg/dL (65-115); Osmolality Calculated 288 mOsm/kg (285-295); Potassium 3.4 mmol/L (3.5-5.1); Sodium 139 mmol/L (136-145); Total Bilirubin 0.7 mg/dL (0.15-1.2); Total Protein 7.4 g/dL (6.6-8.7)
[2022-12-04 23:05] LABS: Acetaminophen < 5.0 ug/mL (10-30); Alcohol Level < 10 mg/dL (0-10); Salicylate < 0.3 mg/dL (3-10)
--- NOTE | 2022-12-04 23:18 | ED.C_ITS ---
HPI - Psych General: Chief Complaint: Psychiatric Symptoms Stated Complaint: SI, Hopeless Time Seen by Provider: 12/04/22 22:19 History of Present Illness: 32-year-old male with a history of depression with psychosis. He presents with worsening depression and feeling hopeless. He is having suicidal thoughts tonight, and had a plan to slit his wrist with a pocket knife. He shows up willingly for help with this. He wishes for admission. No substance use. No other health problems. He has not been ill lately. Review of Systems Const: Denies: fever(s), chills or body aches Eyes: Denies: change in vision Card: Denies: chest pain or palpitations Resp: Denies: dyspnea, productive cough, non-productive cough or wheezing GI: Denies: abdominal pain, nausea, vomiting, diarrhea or hematochezia Skin/Breast: Denies: rash Neuro: Denies: headache(s), weakness in extremities, dizziness or confusion PFSH ED PFSH: Medical History Autism Depression Depression Epilepsy History of ADHD Major depressive disorder with psychotic features Psychiatric care PTSD (post-traumatic stress disorder) Renal calculi Status post extracorporeal shock wave therapy Surgical History Hx of appendectomy Family History Unknown Adopted Social History Smoking and tobacco/nicotine status: former use of tobacco/nicotine Quit status (tobacco/nicotine): has quit using Former quit date comment: quit about 2 months ago Second hand smoke exposure: No Alcohol intake: current Alcohol intake frequency: other Substance/Drug Use: current Substance/Drug use frequency: daily Adopted: Yes Caregiver/support person: Yes (cleans his house, set up meds, general assessment) Lives independently: Yes Household members: none Marital status: Single Highest education level completed: High School Graduate service: No Current occupational status: disabled Pets and animals: No Leisure activites: games and other Estella/Religious: Adventist Special estella needs: No Agree to transfusion: Yes Physical Exam Const: COMMON NORMALS: no acute distress GENERAL APPEARANCE: cooperative; not ill appearing and not frail appearing HENMT: COMMON NORMALS: normocephalic, atraumatic and Normal external nose present HEAD & SCALP: normocephalic and atraumatic FACE & SINUS: normal facial exam and face symmetric NOSE: Normal external nose present Eye: COMMON NORMALS: Equal, round and reactive pupils present and EOMs intact bilaterally PUPIL: Yes Equal, round and reactive pupils present Neck/C-Spine: GENERAL: Yes trachea midline Chest: CHEST: Yes Symmetrical chest wall rise Resp: COMMON NORMALS: normal respiratory effort, No retractions, No use of accessory muscles and clear to auscultation bilaterally AUSCULTATION: clear to auscultation bilaterally Cardio: COMMON NORMALS: regular rate and regular rhythm RATE: regular rate RHYTHM: regular rhythm GI: COMMON NORMALS: Normal to inspection, nondistended, normoactive bowel sounds present Extremity: COMMON NORMALS: no pedal edema Neuro: SANDI COMA SCALE: document GCS findings [place] coma scale eye opening: Spontaneous Sandi coma scale verbal response: Orientated [place] coma scale motor response: Obey commands Sandi coma scale total score: 15 SENSORY EXAM: Yes extremities (intact) Psych: COMMON NORMALS: speech normal SPEECH: Yes normal speech Skin: COMMON NORMALS: no rashes or lesions noted GENERAL SKIN EXAM: no rashes or lesions noted Course Consultations: Consultation #1: Toñito Time: 23:23 Vital Signs: Vital signs: Vital Signs Temperature 98.7 F 12/04/22 22:16 Pulse Rate 90 12/04/22 22:40 Respiratory Rate 14 12/04/22 22:40 Blood Pressure 130/72 12/04/22 22:40 Pulse Oximetry 99 12/04/22 22:16 Oxygen Delivery Me thod Room Air 12/04/22 22:16 MDM - Psych Medical Decision Making 32-year-old medically stable male. Here with suicidal ideation. Labs are nonremarkable. Urinalysis is negative. Urine drug screen and alcohol are negative. He will be admitted. Lab Data 12/04/22 22:35 12/04/22 22:35 Laboratory Results WBC 8.47 10^3/uL (3.29-11.43) 12/04/22 22:35 RBC 4.77 10^6/uL (3.85-5.65) 12/04/22 22:35 Hgb 15.10 g/dL (11.27-16.99) 12/04/22 22: Hct 43.4 % (37-53) 12/04/22 22: MCV 91.0 fl (82-101) 12/04/22 22: MCH 31.7 pg (27-33) 12/04/22 22: MCHC 34.8 g/dL (30-55) 12/04/22 22: RDW 11.5 % (12.1-15.1) L 12/04/22 22: Plt Count 293 10^3/cmm (157-399) 12/04/22 22: MPV 9.5 fL (7.4-10.4) 12/04/22 22: Neut % (Auto) 63.8 % 12/04/22 22: Lymph % (Auto) 28.9 % 12/04/22 22:35 [place] % (Auto) 5.5 % 12/04/22 22: Eos % (Auto) 0.7 % 12/04/22 22: Baso % (Auto) 0.9 % 12/04/22 22: Neut # (Auto) 5.39 10^3/uL (1.8-7.7) 12/04/22 22:35 Lymph # (Auto) 2.5 10^3/uL (0.8-4.8) 12/04/22 22:35 [place] # (Auto) 0.5 10^3/uL (0.2-0.9) 12/04/22 22:35 Eos # (Auto) 0.1 10^3/uL (0.0-0.8) 12/04/22 22: Baso # (Auto) 0.1 10^3/uL (0.0-0.1) 12/04/22 22: Nucleated RBC % (auto) 0 % 12/04/22: Nucleated RBCs # 0.0 /100WBC 12/04/22 22:35 Sodium 139 mmol/L (136-145) 12/04/22 22:35 Potassium 3.4 mmol/L (3.5-5.1) L 12/04/22 22:35 Chloride 104 mmol/L (98-107) 12/04/22 22: Carbon Dioxide 23 mmol/L (22-29) 12/04/22 22:35 Anion Gap 15.4 (5-19) 12/04/22 22:35 BUN 8 mg/dL (6-20) 12/04/22 22:35 Creatinine 0.8 mg/dL (0.7-1.2) 12/04/22 22:35 GFR Calculation 113.5 mL/min (90-130) 12/04/22 22: Glucose 127 mg/dL (65-115) H 12/04/22 22:35 Calculated Osmolality 288 mOsm/kg (285-295) 12/04/22 22: Calcium 9.1 mg/dL (8.5-10.5) 12/04/22 22: Total Bilirubin 0.7 mg/dL (0.15-1.2) 12/04/22 22:35 AST 15 U/L (0-40) 12/04/22 22:35 ALT 15 U/L (0-41) 12/04/22 22:35 Alkaline Phosphatase 68 U/L (40-130) 12/04/22 22:35 Total Protein 7.4 g/dL (6.6-8.7) 12/04/22 22:35 Albumin 4.7 g/dL (3.5-5.2) 12/04/22 22:35 Globulin 2.7 g/dL (1.3-4.6) 12/04/22 22:35 Urine Color Yellow (Yellow) 12/04/22 22: Urine Appearance Clear (CLEAR) 12/04/22 22: Urine pH 7 (5-7) 12/04/22 22: Ur Specific [place] 1.010 (1.005-1.030) 12/04/22 22: Urine Protein Neg (Negative) 12/04/22 22: Urine Glucose (UA) Norm (Normal) 12/04/22 22: Urine Ketones Negative (Negative) 12/04/22: Urine Blood Neg (Negative) 12/04/22: Urine Nitrate Negative (Negative) 12/04/22 22: Urine Bilirubin Neg (Negative) 12/04/22 22: Urine Urobilinogen 1 mg/dL (Negative) H 12/04/22 22: Ur Leukocyte Esterase Negative (Negative) 12/04/22 22: Salicylates < 0.3 mg/dL (3-10) L 12/04/22 22:35 Urine Opiates Screen Negative ng/mL (Negative) 12/04/22 22:27 Acetaminophen < 5.0 ug/mL (10-30) L 12/04/22 22:35 Ur Barbiturates Screen Negative ng/mL (Negative) 12/04/22 22:27 Ur Phencyclidine Scrn Negative ng/mL (Negative) 12/04/22 22:27 Ur Amphetamines Screen Negative ng/mL (Negative) 12/04/22 22:27 U Benzodiazepines Scrn Negative ng/mL (Negative) 12/04/22 22:27 Urine Cocaine Screen Negative ng/mL (Negative) 12/04/22 22:27 U Marijuana (THC) Screen Negative ng/mL (Negative) 12/04/22 22:27 Ethyl Alcohol < 10 mg/dL (0-10) 12/04/22 22:35 No radiology studies performed this visit Discharge Plan Discharge Patient Disposition: Admitted As Inpatient Clinical Impression: Depression, Suicidal ideation Condition: Stable Prescriptions: No Action ibuprofen 800 mg tablet 800 mg PO Q8H PRN (Reason: pain) Qty: 10 0RF polyethylene glycol 3350 [Miralax] 17 gram/dose powder 4 g PO DAILY PRN (Reason: constipation) atomoxetine 80 mg capsule 80 mg PO DAILY Qty: 30 1RF trazodone 50 mg tablet 50 mg PO BEDTIME Qty: 30 1RF fluoxetine 20 mg capsule 20 mg PO DAILY 30 Days Qty: 30 1RF risperidone 1 mg tablet See Rx Instructions .ROUTE .COMPLEX Qty: 45 1RF Dose Instruction: TAKE 1 AND 1/2 TABLETS BY MOUTH AT BEDTIME Rx Instructions: TAKE 1 AND 1/2 TABLETS BY MOUTH AT BEDTIME acetaminophen 500 mg Tablet 1,000 mg PO Q6H PRN (Reason: Pain) Headache Relief (QIX-[id number]) 250-250-65 mg Tablet 2 tab PO Q6H PRN (Reason: Migraine Headache) omeprazole 20 mg capsule,delayed release(DR/EC) 20 mg PO DAILY PRN (Reason: Heartburn) citalopram 40 mg tablet 40 mg PO DAILY Voltaren Arthritis Pain 1 % gel 4 g topical QID Qty: 100 0RF Rx Instructions: apply to single knee, ankle, foot; for foot includes sole/toes/top of foot naproxen 500 mg tablet 500 mg PO BID PRN (Reason: pain) Qty: 20 0RF Referrals: Grace Holliday FNP [Primary Care Provider] - 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 Care Code ED Crimping Press Operator for Ky Conklin
[2022-12-04 23:50] VITALS: RESP 16
[2022-12-05] MEDS: trazodone 50 mg Tablet PO (00:23)
[2022-12-05 00:28] VITALS: BP 157/98; PULSE 72; RESP 16; TEMP 36.7; O2SAT 97
--- NOTE | 2022-12-05 00:37 | PC.ADMIT ---
[email or web address] Admission Note: The patient,George Lopez,32 y/o, was given written information regarding hospital policies, unit procedures and contact persons. Patient's smoking status: former smoker. VAPES DAILY Vital Signs - 8 hr 12/04/22 22:16 12/04/22 22:40 12/04/22 23:50 Temperature 98.7 F Pulse Rate 83 90 Respiratory Rate 18 14 16 Blood Pressure 185/111 130/72 Pulse Oximetry 99 Oxygen Delivery Method Room Air 12/04/22 23:51 12/05/22 00:28 Temperature 98.0 F Pulse Rate 72 Respiratory Rate 16 Blood Pressure 157/98 Pulse Oximetry 97 Oxygen Delivery Method Room Air Room Air ADMITTED FROM ER AT 2345, PT IS VOLUNTARY WITH GUARDIAN WHO IS HIS FATHER AZALIA NUÑEZ WHO WAS NOTIFIED IN THE ER. PT STATES HE IS HERE DUE TO HAVING THOUGHTS OF TAKING A KNIFE TO MY WRIST AND KILLING MYSELF, I STOPPED TAKING MY MEDS OVER A MONTH AGO, PT IS CURRENTLY STILL ENDORSING SUICIDAL THOUGHTS WITH NO PLAN TO HURT MYSELF WHEN I'M IN HERE. PT EDUCATED TO COME AND SPEAK TO STAFF IF THOUGHTS CONTINUE OR FEELS LIKE ACTING ON THEM. PT VERBALIZES UNDERSTANDING. PT WAS DRESSED OUT, SKIN ASSESSMENT UNREMARKABLE, HAS ONE TATTOO TO LEFT FOREARM. PT WAS WANDED PER PROTOCOL. DECLINES FLU SHOT. PT DENIES PAIN. DENIES HI AND AVH AT THIS TIME. PT WAS ORIENTATED TO UNIT, ROOM, SAFETY RULES ETC. VERBALIZED UNDERSTANDING. ALL QUESTIONS ANSWERED AND SUPPORT WAS VOICED.
[2022-12-05 06:00] VITALS: BP 124/82; PULSE 61; RESP 14; TEMP 36.4; O2SAT 97
[2022-12-05] MEDS: acetaminophen 325 mg Tablet 650 MG PO (12:34)
[2022-12-05 14:00] VITALS: BP 118/79; PULSE 70; RESP 16; TEMP 36.6; O2SAT 98
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
[2022-12-05] MEDS: lacosamide 50 mg Tablet 100 MG PO (17:08)
[2022-12-05] MEDS: paliperidone ER 3 mg Tablet PO (20:21)
[2022-12-05 20:47] VITALS: BP 118/69; PULSE 56; RESP 18; TEMP 36.7; O2SAT 96
[2022-12-06 06:00] VITALS: BP 122/82; PULSE 70; RESP 16; O2SAT 99
[2022-12-06] MEDS: lacosamide 50 mg Tablet 100 MG PO ×2 (09:00→17:54)
[2022-12-06] MEDS: escitalopram 10 mg Tablet PO (09:00)
[2022-12-06 13:34] VITALS: BP 107/71; PULSE 84; RESP 16; TEMP 36.9; O2SAT 96
--- NOTE | 2022-12-06 15:34 | W.PM.NPUPNS ---
Subjective NPU Subjective: 32-year-old male with autistic disorder with psychotic features admitted with and major depressive disorder with worsening depression along with auditory hallucinations of command nature. The patient had been noncompliant with his medications for the past 2 months. Patient was restarted on his Vimpat and started back on Invega and Lexapro. He continued to report depressed mood. He reported having continued suicidal thoughts and reported that the voices continue to tell him to hurt himself. He described the voices as being Satan. Patient was isolative on the milieu. He had limited interaction with peers or staff. Mental Status Exam MSE Comments: Patient was alert and oriented to person place and time. He appeared in moderate distress. There was no evidence of any stereotypies, there was no evidence of any abnormal involuntary motor movements tics or tremors. There was some mild psychomotor retardation noted. His mood was described as depressed. His affect was restricted in range and mood congruent. His thought process was linear logical and goal-directed. His thought content showed no evidence of active homicidal ideation. He endorsed suicidal ideation with a plan to slash his wrist. He endorsed no homicidal ideation. His attention span appeared poor as he was easily distracted. His recent and remote memory appeared adequate. His speech was monotone and quality but normal in regards to volume and rate. He did not appear to be responding to internal stimuli although he reported command auditory hallucination of satan telling him to kill himself. His insight is poor. His judgment is poor. His impulse control appeared limited. Vitals/I&O/Wt Last Vital Signs Temp 98.5 F 12/06/22 13:34 Pulse 84 12/06/22 13:34 Resp 16 12/06/22 13:34 BP 107/71 12/06/22 13:34 Pulse Ox 96 12/06/22 13:34 O2 Del Method Room Air 12/06/22 13:34 Weight last 48 hrs Weight 102.058 kg Weight 113.398 kg Data NPU 12/04/22 22:35 12/04/22 22:35 A&P Assessment and plan (1) Major depressive disorder, recurrent severe without psychotic features: (2) PTSD (post-traumatic stress disorder): (3) Suicidal ideation: (4) Autism: (5) Borderline personality disorder: (6) ADHD: Plan This is a 32-year-old white male with a history of major depression with psychotic features, PTSD, Borderline Personality disorder and autism endorsing suicidal ideation with command auditory hallucinations. He has been reporting decline in functioning without his medication for several weeks. 1.? ? Engage? patient in individual ,milieu, and group therapy ?2. ? We will attempt to gather collateral information from previous providers ?3. ? TO-15 minute checks on the unit. ?4.? Continue Lacosamide, INvega 3mg at night and Lexapro at 10mg daily. . Involuntary Hold Information 96 Hour Hold: 96 Hour Involuntary Admission: No Attestations NPU Medical Necessity Statement*: Inpatient hospitalization is medically necessary and deemed to be the clinically appropriate intervention at this time. We will monitor initiate medications while making changes as indicated. He will be in hospital for over 2 midnights. The patient's likely length of stay is 3 to 5 days. 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 Care Code Acute Code for [facility] Fwd Diagnoses Major depressive disorder, recurrent severe without psychotic features F33.2 PTSD (post-traumatic stress disorder) F43.10 Suicidal ideation R45.851 Autism F84.0 Borderline personality disorder F60.3 ADHD F90.9
[2022-12-06] MEDS: trazodone 50 mg Tablet PO (19:57)
[2022-12-06] MEDS: paliperidone ER 3 mg Tablet PO (19:58)
[2022-12-06 20:59] VITALS: BP 121/84; PULSE 70; RESP 18; TEMP 36.7; O2SAT 98
[2022-12-07 06:00] VITALS: BP 144/84; PULSE 80; RESP 16; TEMP 36.5; O2SAT 98
[2022-12-07] MEDS: lacosamide 50 mg Tablet 100 MG PO ×2 (08:29→17:56)
[2022-12-07] MEDS: escitalopram 10 mg Tablet PO (08:29)
[2022-12-07 14:00] VITALS: BP 118/78; PULSE 77; RESP 16; TEMP 36.8; O2SAT 98
--- NOTE | 2022-12-07 16:40 | W.PM.NPUPNS ---
Subjective NPU Subjective: 32-year-old male with autistic disorder with psychotic features admitted with and major depressive disorder with worsening depression along with auditory hallucinations of command nature. The patient today reported that he was having no side effects from his medication. He reported that he was no longer hearing the voice of Satan telling him to hurt himself. He had not contacted his father yet since he had arrived. He reported no feelings of hopelessness, but reports continued depressed mood. Patient reports struggles with concentration and reports chronic problems with completing tasks, low motivation and low energy. He reports struggles with focus and endorsed chronic untreated ADHD. Mental Status Exam MSE Comments: Patient was alert and oriented to person place and time. He appeared in moderate distress. There was no evidence of any stereotypies, there was no evidence of any abnormal involuntary motor movements tics or tremors. There was some mild psychomotor retardation noted. His mood described as better. His affect remained flat. His thought process was linear logical and goal-directed. His thought content showed no evidence of active homicidal ideation or suicidal ideation. His recent and remote memory appeared adequate. His speech was monotone and quality but normal in regards to volume and rate. He did not appear to be responding to internal stimuli and denies any auditory or visual hallucinations. His insight is poor. His judgment is limited. His impulse control appeared poor as well. His attention span was variable as he was easily distracted. Vitals/I&O/Wt Last Vital Signs Temp 98.3 F 12/07/22 14:00 Pulse 77 12/07/22 14:00 Resp 16 12/07/22 14:00 BP 118/78 12/07/22 14:00 Pulse Ox 98 12/07/22 14:00 O2 Del Method Room Air 12/07/22 14:00 Data NPU 12/04/22 22:35 12/04/22 22:35 A&P Assessment and plan (1) Major depressive disorder, recurrent severe without psychotic features: (2) PTSD (post-traumatic stress disorder): (3) Suicidal ideation: (4) Autism: (5) Borderline personality disorder: (6) ADHD: Plan This is a 32-year-old white male with a history of major depression with psychotic features, PTSD, Borderline Personality disorder and autism endorsing suicidal ideation with command auditory hallucinations. He has been reporting decline in functioning without his medication for several weeks. 1.? ? Engage? patient in individual ,milieu, and group therapy ?2. ? We will attempt to gather collateral information from previous providers ?3. ? TO-15 minute checks on the unit. ?4.? Continue Lacosamide, INvega 3mg at night and Lexapro at 10mg daily. . Involuntary Hold Information 96 Hour Hold: 96 Hour Involuntary Admission: No Attestations NPU Medical Necessity Statement*: Inpatient hospitalization is medically necessary and deemed to be the clinically appropriate intervention at this time. We will monitor initiate medications while making changes as indicated. The patient's likely length of stay is 3 to 5 days. 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 Care Code Acute Code for g Fwd Diagnoses Major depressive disorder, recurrent severe without psychotic features F33.2 PTSD (post-traumatic stress disorder) F43.10 Suicidal ideation R45.851 Autism F84.0 Borderline personality disorder F60.3 ADHD F90.9
[2022-12-07] MEDS: paliperidone ER 3 mg Tablet PO (20:16)
[2022-12-07 21:24] VITALS: BP 148/86; PULSE 95; RESP 18; TEMP 36.3; O2SAT 99
[2022-12-08 06:00] VITALS: BP 145/94; PULSE 71; RESP 18; TEMP 36.2; O2SAT 97
[2022-12-08] MEDS: escitalopram 10 mg Tablet PO (09:13)
[2022-12-08] MEDS: acetaminophen 325 mg Tablet 650 MG PO (09:13)
[2022-12-08] MEDS: lacosamide 50 mg Tablet 100 MG PO (09:14)
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
--- NOTE | 2022-12-08 13:25 | DCPLANNER ---
Imm was printed and given to pt with rights explained and place in discharge packet for guardian and copy placed in pts file.
[2022-12-08 13:27] VITALS: BP 145/94; PULSE 71; RESP 18; TEMP 36.2; O2SAT 97
== END 2022-12-08 16:06 | disposition home or self-care (01) | DRG 885 ==
LOC: ER 23:24 → NP 23:33
PROVIDERS: Admitting Provider Psychiatry & Neurology Psychiatry; Emergency Provider Emergency Medicine; PCP Nurse Practitioner Family; Visit Provider Psychiatry & Neurology Psychiatry
DX: F33.2 Major depressive disorder, recurrent severe without psychotic features (principal); R45.851 Suicidal ideations; F84.0 Autistic disorder; G40.909 Epilepsy, unspecified, not intractable, without status epilepticus; F90.9 Attention-deficit hyperactivity disorder, unspecified type; F43.10 Post-traumatic stress disorder, unspecified; Z87.891 Personal history of nicotine dependence; F60.3 Borderline personality disorder; F41.1 Generalized anxiety disorder; F79 Unspecified intellectual disabilities; Z62.810 Personal history of physical and sexual abuse in childhood; Z62.811 Personal history of psychological abuse in childhood
CPT/HCPCS: 80053; 80306; 80307; 81003; 85025; 97150; 97165; 99285

== ENCOUNTER 2023-01-08 17:51 | Emergency (ER) | payer MEDICARE, MEDICAID, SELFPAY ==
[2022-07-29 13:59] VITALS: BP 125/75; BMI 27.5
--- NOTE | 2023-01-08 18:59 | XRR_ITS ---
PROCEDURE INFORMATION: Exam: XR Right Hand Exam date and time: 01/08/2023 8:12 PM Age: 32 years old Clinical indication: Finger(s); Right; Patient HX: C/O of pain to RT third digit afer punching a wall. ; Additional info: 3rd mcp pain TECHNIQUE: Imaging protocol: Radiologic exam of the right hand. Views: 3 or more views. COMPARISON: CR ( EX, ) 02/15/2022 7:07 PM FINDINGS: Bones/joints: Old healed 5th metacarpal fracture. No acute fracture. Soft tissues: Normal. XR/XR hand RT min 3V* [id number] IMPRESSION: No acute findings.
--- NOTE | 2023-01-08 19:00 | W.ED.UPPEXIN ---
HPI - Extremity Injury (Upper) General: Chief Complaint: Extremity Injury, Upper Stated Complaint: MIDDLE RIGHT FINGER PAIN Time Seen by Provider: 01/08/23 18:56 Source: patient Mode of arrival: ambulatory Limitations: no limitations History of Present Illness: This patient presents to the emergency room because of pain in his middle finger have his right, dominant hand. He states that he became upset and struck a wall with his closed fist with his right hand. He states he did not injure himself in any other fashion. complaint: injury to: right, hand and finger (middle) Handedness: right Severity: mild Context: direct blow (hit wall) Associated symptoms: Denies weakness in extremities Review of Systems Const: Denies: fever(s) or chills Musc: Reports: extremity pain and joint pain Skin/Breast: Denies: rash or pruritus Neuro: Denies: numbness in extremities or weakness in extremities Jacky/Lymph: Denies: easy bruising or easy bleeding PFS ED PFSH: Medical History Major depressive disorder with psychotic features History of [facility] Psychiatric care Depression Renal calculi PTSD (post-traumatic stress disorder) Autism Depression Epilepsy Status post extracorporeal shock wave therapy Surgical History Hx of appendectomy Family History Unknown Adopted Social History Smoking and tobacco/nicotine status: former use of tobacco/nicotine Quit status (tobacco/nicotine): has quit using Former quit date comment: quit about 2 months ago Second hand smoke exposure: No Alcohol intake: current Alcohol intake frequency: other Substance/Drug Use: current Substance/Drug use frequency: daily Adopted: Yes Caregiver/support person: Yes (cleans his house, set up meds, general assessment) Lives independently: Yes Household members: none Marital status: Single Highest education level completed: High School Graduate service: No Current occupational status: disabled Pets and animals: No Leisure activites: games and other Estella/Spiritism: Mandaeism Special estella needs: No Agree to transfusion: Yes Physical Exam Narrative: EXAM NARRATIVE: He is alert, makes good eye contact, answers all questions in a goal-directed fashion. Const: COMMON NORMALS: no acute distress, average body habitus and patient oriented x3 GENERAL APPEARANCE: cooperative HENMT: COMMON NORMALS: normocephalic and atraumatic HEAD & SCALP: normocephalic and atraumatic Eye: COMMON NORMALS: Equal, round and reactive pupils present PUPIL: Yes Equal, round and reactive pupils present Neck/C-Spine: COMMON NORMALS: full ROM Cardio: COMMON NORMALS: Peripheral pulses 2+ throughout PERIPHERAL PULSES: Peripheral pulses 2+ throughout Back/Pelvis: COMMON NORMALS: thoraco-lumbar ROM normal Extremity: COMMON NORMALS: capillary refill normal NARRATIVE EXTREMITY EXAM: Examination of the right upper extremity reveals grossly normal in appearance without any obvious deformity, ecchymosis, skin laceration etc. Palpation over the hand and wrist reveals no focal tenderness other than slight tenderness to AP pressure over the MCP of the middle finger. He has normal extension and flexion strength of that finger in addition to normal findings of the remainder of his hand he has intact neurovascular sensation to the middle finger. He does have slightly decreased flexion at extreme flexion at the MCP approximately 90% to that of the other fingers of that hand. Neuro: COMMON NORMALS: patient oriented x3, moves all extremities and no focal motor deficits Psych: COMMON NORMALS: mental status grossly normal Skin: COMMON NORMALS: no rashes or lesions noted and no wounds GENERAL SKIN EXAM: no rashes or lesions noted Course Vital Signs: Vital signs: Vital Signs Temperature 98 F 01/08/23 19:20 Pulse Rate 80 01/08/23 19:20 Respiratory Rate 18 01/08/23 19:20 Blood Pressure 143/76 01/08/23 19:20 Pulse Oximetry 98 01/08/23 19:20 MDM - Extremity Injury (Upper) Medical Decision Making Patient presented to our emergency department for evaluation of his right hand. He apparently hit a wall with a closed fist and anger. He states he had pain in the area of his middle finger. No other injuries claimed. His clinical examination is reassuring without evidence of deformity ecchymosis, skin lacerations or other abnormalities. He had minimal tenderness over the metacarpal phalangeal joint of the middle finger and had approximately 90% of normal range of motion with some limitations to extreme flexion. Neurovascular intact and otherwise reassuring. Radiographs obtained and interpreted by me prior to final radiology evaluation revealed no evidence of fracture dislocation etc. Patient was reassured and advised to practice mindfulness or other techniques to help reduce the likelihood of self-induced trauma. Lab Data I reviewed the patient's lab results. XR interpretation done by ED provider, pending radiology final review (No obvious fracture, dislocation right hand-suggestion of a prior well-healed fifth metacarpal fracture) Discharge Plan Discharge Patient Disposition: Home Clinical Impression: Contusion of hand, right Qualifiers: Encounter type: initial encounter Qualified Code(s): S60.221A - Contusion of right hand, initial encounter Condition: Stable Prescriptions: No Action polyethylene glycol 3350 [Miralax] 17 gram/dose powder 4 g PO DAILY PRN (Reason: constipation) acetaminophen 500 mg Tablet 1,000 mg PO Q6H PRN (Reason: Pain) Headache Relief ([id number]) 250-250-65 mg Tablet 2 tab PO Q6H PRN (Reason: Migraine Headache) diclofenac sodium [Voltaren Arthritis Pain] 1 % gel 4 g topical QID Qty: 100 0RF Rx Instructions: apply to single knee, ankle, foot; for foot includes sole/toes/top of foot escitalopram oxalate 10 mg Tablet 10 mg PO DAILY Qty: 30 1RF Vimpat 50 mg Tablet 100 mg PO BID 30 Days Qty: 120 1RF paliperidone 3 mg Tablet Extended Release 24 Hr 3 mg PO BEDTIME 30 Days Qty: 30 1RF Discharge Orders: Discharge ED (Routine); Ordered 01/08/23 Ordered By: Tank Chung Referrals: Grace Holliday FNP [Primary Care Provider] - Discharge Diet: Usual diet Discharge Activity: Increase activity as tolerated Patient Instructions: Opioid Safety, Pain Management Activity Restrictions/Additional Instructions: As we discussed while you are in the emergency department there was no evidence to suggest a broken hand or dislocation or other serious injury to your hand this evening. We recommend using ice to the area for any swelling or discomfort or Tylenol to help with any pain. If after 5-7 days she still have pain or discomfort we recommend reevaluation of your hand to ensure that there is no new evidence of possible injury. 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 Care Code ED [employer] for [facility] [employer]klin
[2023-01-08 19:20] VITALS: BP 143/76; PULSE 80; RESP 18; TEMP 36.6; O2SAT 98; BMI 24.3
== END 2023-01-08 19:54 | disposition home or self-care (01) ==
PROVIDERS: Emergency Provider Emergency Medicine; PCP Nurse Practitioner Family
DX: S60.221A Contusion of right hand, initial encounter (principal); Z87.891 Personal history of nicotine dependence; F84.0 Autistic disorder; W22.8XXA Striking against or struck by other objects, initial encounter
CPT/HCPCS: 73130; 99283

== ENCOUNTER 2023-03-22 20:18 | Emergency (ER) | payer MEDICARE, MEDICAID, SELFPAY ==
[2022-07-29 13:59] VITALS: BP 125/75; BMI 27.5
[2023-03-22 22:04] VITALS: BP 130/82; PULSE 70; RESP 16; TEMP 36.6; O2SAT 99
[2023-03-22 23:26] LABS: Basophils # 0.1 10^3/uL (0.0-0.1); Basophils % 0.8 %; Eosinophils # 0.1 10^3/uL (0.0-0.8); Eosinophils % 1.5 %; Hematocrit 43.9 % (37-53); Lymphocytes # 3.4 10^3/uL (0.8-4.8); Lymphocytes % 38.1 %; Mean Corpuscular HGB Conc 33.5 g/dL (30-55); Mean Corpuscular Hemoglobin 31.1 pg (27-33); Mean Platelet Volume 9.2 fL (7.4-10.4); Monocytes # 0.6 10^3/uL (0.2-0.9); Neutrophils # 4.64 10^3/uL (1.8-7.7); Neutrophils % 52.2 %; Nucleated Red Blood Cells % 0 %; Platelet Count 272 10^3/cmm (157-399); Red Blood Count 4.72 10^6/uL (3.85-5.65); Red Cell Distribution Width 11.9 % (12.1-15.1); White Blood Count 8.89 10^3/uL (3.29-11.43)
[2023-03-22 23:37] LABS: Alanine Aminotransferase 16 U/L (0-41); Albumin Level 4.3 g/dL (3.5-5.2); Alkaline Phosphatase 61 U/L (40-130); Anion Gap 14.8 (5-19); Aspartate Amino Transferase 17 U/L (0-40); Blood Urea Nitrogen 12 mg/dL (6-20); Calcium 8.7 mg/dL (8.5-10.5); Carbon Dioxide 25 mmol/L (22-29); Chloride 104 mmol/L (98-107); Globulin 2.9 g/dL (1.3-4.6); Glomerular Filtration Rate 132.4 mL/min (90-130); Glucose 89 mg/dL (65-115); Magnesium 1.9 mg/dL (1.7-2.3); Osmolality Calculated 289 mOsm/kg (285-295); Potassium 3.8 mmol/L (3.5-5.1); Sodium 140 mmol/L (136-145); Total Bilirubin 0.7 mg/dL (0.15-1.2); Total Protein 7.2 g/dL (6.6-8.7)
--- NOTE | 2023-03-23 00:46 | ED_ITS ---
HPI - Extremity Problem 2 General: Chief complaint: Extremity Injury, Lower Stated complaint: Rt Leg Injury Time Seen by Provider: 03/22/23 22:37 History of Present Illness: 32-year-old male presents emergency depa rtment with complaints of right calf pain. He states he rolled over in bed tonight and then felt his calf cramp he states he had a hard time getting it to stop cramping and now it is continuing to hurt. He states the pain is a 3 out of 10 and aching. He states that pushing or rubbing on the calf makes the pain worse. He denies nausea vomiting chest pain or shortness of breath. He denies known trauma or physical injury to his calf. Review of Systems 2 General: Reports: 10 or more systems reviewed and unremarkable except in HPI and below Musc: Reports: extremity pain PFSH ED 2 PFSH: Medical History Major depressive disorder with psychotic features History of ADHD Psychiatric care Depression Renal calculi PTSD (post-traumatic stress disorder) Autism Depression Epilepsy Status post extracorporeal shock wave therapy Surgical History Hx of appendectomy Family History Unknown Adopted Social History Smoking and tobacco/nicotine status: former use of tobacco/nicotine Quit status (tobacco/nicotine): has quit using Former quit date comment: quit about 2 months ago Second hand smoke exposure: No Alcohol intake: current Alcohol intake frequency: other Substance/Drug Use: current Substance/Drug use frequency: daily Adopted: Yes Caregiver/support person: Yes (cleans his house, set up meds, general assessment) Lives independently: Yes Household members: none Marital status: Single Highest education level completed: High School Graduate service: No Current occupational status: disabled Pets and animals: No Leisure activites: games and other Estella/Scientologist: Roman Catholic Special estella needs: No Agree to transfusion: Yes Physical Exam 2 Narrative: EXAM NARRATIVE: Constitutional: the patient appears well nourished and of normal development. Vital signs as documented. No acute distress at present. Alert and oriented-to person, place, time and situation. Head, eyes, ears, nose, mouth, throat: Normocephalic, atraumatic. Pupils-equal, round, reactive to light. No scleral icterus. Normal-appearing external ears. Normal appearing nasal turbinates, no drainage. Neck: Supple, trachea is midline, no lymphadenopathy, no jugular venous distension, thyromegaly, or carotid bruits. Carotid upstrokes are brisk bilaterally. Lungs: clear to auscultation to all lung samaniego. Symmetrical rise and fall of chest, no obvious signs of increased work of breathing at present. Cardiac: Regular rate and rhythm, positive S1, S2. No murmurs, rubs or gallops that I can appreciate Abdomen: Soft, non-tender to palpation, normal active bowel sounds to all quadrants. No palpable masses, no organomegaly and abdominal bruits. Extremities: 2+ pulses in the upper extremities that are equal bilaterally, 2+ pulses in the lower extremities that are equal bilaterally. Non-edematous. Moves all extremities well, sensation to all extremities are noted. Skin: Warm, dry, intact. Course 2 Vital Signs: Vital signs: Vital Signs Temperature 98 F 03/22/23 22:04 Pulse Rate 70 03/22/23 22:04 Respiratory Rate 16 03/22/23 22:04 Blood Pressure 130/82 03/22/23 22:04 Pulse Oximetry 99 03/22/23 22:04 Oxygen Delivery Me thod Room Air 03/22/23 22:04 MDM - Extremity (Nontraumatic) Medical Decision Making Physical exam completed and documented I did obtain a CBC and CMP to evaluate electrolyte status. I have provided the patient intramuscular Toradol and have advised him to alternate Tylenol and ibuprofen and drink plenty of water. I will have him follow-up with his primary care provider. Medical Records I reviewed the patient's medical records. Lab Data I reviewed the patient's lab results. 03/22/23 23:04 03/22/23 23:04 Laboratory Results WBC 8.89 10^3/uL (3.29-11.43) 03/22/23 23:04 RBC 4.72 10^6/uL (3.85-5.65) 03/22/23 23:04 Hgb 14.70 g/dL (11.27-16.99) 03/22/23 23:04 Hct 43.9 % (37-53) 03/22/23 23:04 MCV 93.0 fl (82-101) 03/22/23 23:04 MCH 31.1 pg (27-33) 03/22/23 23:04 MCHC 33.5 g/dL (30-55) 03/22/23 23:04 RDW 11.9 % (12.1-15.1) L 03/22/23 23:04 Plt Count 272 10^3/cmm (157-399) 03/22/23 23:04 MPV 9.2 fL (7.4-10.4) 03/22/23 23:04 Neut % (Auto) 52.2 % 03/22/23 23:04 Lymph % (Auto) 38.1 % 03/22/23 23:04 Benson % (Auto) 7.0 % 03/22/23 23:04 Eos % (Auto) 1.5 % 03/22/23 23:04 Baso % (Auto) 0.8 % 03/22/23 23:04 Neut # (Auto) 4.64 10^3/uL (1.8-7.7) 03/22/23 23:04 Lymph # (Auto) 3.4 10^3/uL (0.8-4.8) 03/22/23 23:04 Benson # (Auto) 0.6 10^3/uL (0.2-0.9) 03/22/23 23:04 Eos # (Auto) 0.1 10^3/uL (0.0-0.8) 03/22/23 23:04 Baso # (Auto) 0.1 10^3/uL (0.0-0.1) 03/22/23 23:04 Nucleated RBC % (auto) 0 % 03/22/23 23:04 Nucleated RBCs # 0.0 /100WBC 03/22/23 23:04 Sodium 140 mmol/L (136-145) 03/22/23 23:04 Potassium 3.8 mmol/L (3.5-5.1) 03/22/23 23:04 Chloride 104 mmol/L (98-107) 03/22/23 23:04 Carbon Dioxide 25 mmol/L (22-29) 03/22/23 23:04 Anion Gap 14.8 (5-19) 03/22/23 23:04 BUN 12 mg/dL (6-20) 03/22/23 23:04 Creatinine 0.7 mg/dL (0.7-1.2) 03/22/23 23:04 GFR Calculation 132.4 mL/min (90-130) H 03/22/23 23:04 Glucose 89 mg/dL (65-115) 03/22/23 23:04 Calculated Osmolality 289 mOsm/kg (285-295) 03/22/23 23:04 Calcium 8.7 mg/dL (8.5-10.5) 03/22/23 23:04 Magnesium 1.9 mg/dL (1.7-2.3) 03/22/23 23:04 Total Bilirubin 0.7 mg/dL (0.15-1.2) 03/22/23 23:04 AST 17 U/L (0-40) 03/22/23 23:04 ALT 16 U/L (0-41) 03/22/23 23:04 Alkaline Phosphatase 61 U/L (40-130) 03/22/23 23:04 Total Protein 7.2 g/dL (6.6-8.7) 03/22/23 23:04 Albumin 4.3 g/dL (3.5-5.2) 03/22/23 23:04 Globulin 2.9 g/dL (1.3-4.6) 03/22/23 23:04 No radiology studies performed this visit Discharge Plan Discharge Patient Disposition: Home Clinical Impression: Muscle cramping Condition: Stable Prescriptions: No Action polyethylene glycol 3350 [Miralax] 17 gram/dose powder 4 g PO DAILY PRN (Reason: constipation) acetaminophen 500 mg Tablet 1,000 mg PO Q6H PRN (Reason: Pain) Headache Relief ([id number]) 250-250-65 mg Tablet 2 tab PO Q6H PRN (Reason: Migraine Headache) diclofenac sodium [Voltaren Arthritis Pain] 1 % gel 4 g topical QID Qty: 100 0RF Rx Instructions: apply to single knee, ankle, foot; for foot includes sole/toes/top of foot escitalopram oxalate 10 mg Tablet 10 mg PO DAILY Qty: 30 1RF Vimpat 50 mg Tablet 100 mg PO BID 30 Days Qty: 120 1RF paliperidone 3 mg Tablet Extended Release 24 Hr 3 mg PO BEDTIME 30 Days Qty: 30 1RF Discharge Orders: Discharge ED (Routine); Ordered 03/23/23 Ordered By: Enoc Martin Referrals: Grace Holliday FNP [Primary Care Provider] - Discharge Diet: Usual diet Discharge Activity: Resume usual activity Patient Instructions: Opioid Safety, Pain Management Activity Restrictions/Additional Instructions: Activity Restrictions/Additional Instructions: Thank you for choosing [facility] for your healthcare needs today. Please realize that you were seen in the Emergency Department and that we are providing you with an emergency medical screening exam and this may not be a complete and all inclusive of all the testing and or medical work-up that you may need to determine your ailment or severity of your illness. It is very important that you follow-up as instructed with your Primary care provider or Specialist for additional evaluation and to discuss your medical treatment plan. 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 Care Code ED [employer]inter for Ky Conklin
[2023-03-23] MEDS: ketorolac 60 mg/2 mL INJ IM (00:53)
[2023-03-23 01:01] VITALS: BP 130/82; PULSE 70; RESP 16; TEMP 36.6; O2SAT 99
== END 2023-03-23 01:02 | disposition home or self-care (01) ==
PROVIDERS: Emergency Provider Internal Medicine; PCP Nurse Practitioner Family
DX: R25.2 Cramp and spasm (principal); Z87.891 Personal history of nicotine dependence; F84.0 Autistic disorder
CPT/HCPCS: 36415; 80053; 83735; 85025; 96372; 99284; J1885

== ENCOUNTER 2023-04-16 19:39 | Emergency (ER) | payer MEDICARE, MEDICAID, SELFPAY ==
[2022-07-29 13:59] VITALS: BP 125/75; BMI 27.5
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
[2023-04-16 19:45] VITALS: BP 131/79; PULSE 83; RESP 16; TEMP 37.1; O2SAT 97; BMI 26.7
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
[2023-04-16] MEDS: tetanus-dipt-pertussis 0.5 mL SDV IM (20:06)
[2023-04-16 20:22] VITALS: BP 131/79; PULSE 83; RESP 16; TEMP 37.1; O2SAT 97
== END 2023-04-16 20:24 | disposition home or self-care (01) ==
PROVIDERS: Emergency Provider Emergency Medicine; PCP Nurse Practitioner Family
DX: S60.512A Abrasion of left hand, initial encounter (principal); W22.8XXA Striking against or struck by other objects, initial encounter; F84.0 Autistic disorder; Z87.891 Personal history of nicotine dependence; Z23 Encounter for immunization
CPT/HCPCS: 73130; 90471; 90715; 99283

== ENCOUNTER 2023-04-29 18:14 | Emergency (ER) | payer MEDICARE, MEDICAID, SELFPAY ==
[2022-07-29 13:59] VITALS: BP 125/75; BMI 27.5
[2023-04-29 18:29] VITALS: BP 150/89; PULSE 83; RESP 18; TEMP 37; O2SAT 100
[2023-04-29 19:02] LABS: Basophils # 0.1 10^3/uL (0.0-0.1); Basophils % 0.9 %; Eosinophils # 0.1 10^3/uL (0.0-0.8); Eosinophils % 1.5 %; Hematocrit 47.2 % (37-53); Lymphocytes # 2.9 10^3/uL (0.8-4.8); Lymphocytes % 33.1 %; Mean Corpuscular HGB Conc 34.1 g/dL (30-55); Mean Corpuscular Hemoglobin 31.8 pg (27-33); Mean Corpuscular Volume 93.3 fl (82-101); Mean Platelet Volume 9.4 fL (7.4-10.4); Monocytes # 0.5 10^3/uL (0.2-0.9); Monocytes % 5.4 %; Neutrophils # 5.06 10^3/uL (1.8-7.7); Neutrophils % 58.6 %; Nucleated Red Blood Cells % 0 %; Platelet Count 279 10^3/cmm (157-399); Red Blood Count 5.06 10^6/uL (3.85-5.65); Red Cell Distribution Width 11.8 % (12.1-15.1); White Blood Count 8.64 10^3/uL (3.29-11.43)
[2023-04-29 19:26] LABS: Alanine Aminotransferase 17 U/L (0-41); Albumin Level 4.8 g/dL (3.5-5.2); Alkaline Phosphatase 76 U/L (40-130); Anion Gap 12.4 (5-19); Aspartate Amino Transferase 17 U/L (0-40); Blood Urea Nitrogen 11 mg/dL (6-20); Calcium 9.4 mg/dL (8.5-10.5); Carbon Dioxide 30 mmol/L (22-29); Chloride 103 mmol/L (98-107); Creatinine Clr Calc Pharmacy 175.6868; Glomerular Filtration Rate 113.5 mL/min (90-130); Glucose 81 mg/dL (65-115); Osmolality Calculated 290 mOsm/kg (285-295); Potassium 4.4 mmol/L (3.5-5.1); Sodium 141 mmol/L (136-145); Total Bilirubin 0.5 mg/dL (0.15-1.2); Total Protein 7.8 g/dL (6.6-8.7)
[2023-04-29] MEDS: sodium chloride 0.9% 1,000 ML 999 ML IV (21:31)
[2023-04-29] MEDS: acetaminophen 500 mg Tablet 1000 MG PO (21:32)
--- NOTE | 2023-04-29 21:42 | ED_ITS ---
HPI - Back Pain/Injury 2 General: Chief Complaint: Back Pain/Injury Stated Complaint: rt hamstring pain Time Seen by Provider: 04/29/23 18:15 History of Present Illness: 32-year-old male presents emerged depart ment via EMS personnel. He states that his right leg has been bothering him for the last 2 days. The patient states that the pain radiates down from his buttocks down to the lateral aspect of his right leg. Patient believes he may have strained a muscle at work when he was lifting something up. Currently he states the pain is a 10 out of 10. He states that attempting to walk or put weight on his leg makes the pain worse. He denies numbness or tingling to the extremity. Review of Systems 2 General: Reports: 10 or more systems reviewed and unremarkable except in HPI and below Musc: Reports: extremity pain and joint pain PFSH ED 2 PFSH: Medical History Major depressive disorder with psychotic features History of ADHD Psychiatric care Depression Renal calculi PTSD (post-traumatic stress disorder) Autism Depression Epilepsy Status post extracorporeal shock wave therapy Surgical History Hx of appendectomy Family History Unknown Adopted Social History Smoking and tobacco/nicotine status: former use of tobacco/nicotine Quit status (tobacco/nicotine): has quit using Former quit date comment: quit about 2 months ago Second hand smoke exposure: No Alcohol intake: current Alcohol intake frequency: other Substance/Drug Use: current Substance/Drug use frequency: daily Adopted: Yes Caregiver/support person: Yes (cleans his house, set up meds, general assessment) Lives independently: Yes Household members: none Marital status: Single Highest education level completed: High School Graduate service: No Current occupational status: disabled Pets and animals: No Leisure activites: games and other Estlela/Congregational: Orthodoxy Special estella needs: No Agree to transfusion: Yes Physical Exam 2 Narrative: EXAM NARRATIVE: Constitutional: the patient appears well nourished and with normal development. Vital signs reviewed as documented. HENMT: Normocephalic, atraumatic. External ears normal appearance without drainage. Nose without drainage, normal appearance. Mucus membranes moist. Neck is supple, No jugular venous distension, trachea is midline, no appreciable carotid bruits. No lymphadenopathy. No meningeal signs. Flexion, extension and lateral rotation is without pain. Eyes: Pupils are equal, round, reactive to light and accommodation. No scleral icterus. Extra-ocular movement are intact. Thorax is symmetrical and with equal rise and fall with respirations. Resp: Lungs are clear to auscultation. No wheezes, rales, crackles or ronchi at present. Cardio: Regular rate and rhythm. Positive S1, S2. No appreciable murmurs, rubs or gallops. GI: Abdominal exam reveals normal bowel sounds to all quadrants. No organomegaly. No obvious palpable masses noted. No hepatomegally appreciated. Soft, non-tender to palpation. Extremity: Extremities are non-edematous and both femoral and pedal pulses are 2+ and equal bilaterally. Moves all extremities well, sensation in all extremities. Neuro: Alert and oriented x4, person, place, time and situation. Cranial nerves II through XII are grossly intact, there is no focal neurological deficits that I can appreciate at present. Sensation intact to all extremities. 2-point discrimination intact. Light touch intact to all extremities. Motor strength in the upper and lower extremities are equal and bilateral 5/5. Psych: Cooperative, calm, normal thought process, appropriate judgment. Skin: No lesions, rashes. No gross abnormalities noted. Back: Symmetrical, no obvious deformity, No CVA tenderness. Tenderness to palpation to the right gluteal region specifically the piriformis and it does reproduce the pain down the lateral and posterior aspect consistent with sciatica. Course 2 Vital Signs: Vital signs: Vital Signs Temperature 98.6 F 04/29/23 18:29 Pulse Rate 57 L 04/29/23 22:44 Respiratory Rate 18 04/29/23 18:29 Blood Pressure 107/72 04/29/23 22:44 Pulse Oximetry 98 04/29/23 22:44 Oxygen Delivery Me thod Room Air 04/29/23 18:29 MDM - Back Pain/Injury Medical Decision Making Physical exam completed document I did provide the patient IV fluid rehydration as well as Tylenol and steroid injection as well as Toradol for pain relief. I will prescribe him written prescription for muscle relaxer and requested he follow-up with his occupational medicine physician or human resources. Medical Records I reviewed the patient's medical records. Labs I reviewed the patient's lab results. 04/29/23 18:43 04/29/23 18:43 Radiology Impressions Lumbar Spine X-Ray 04/29/23 21:45 IMPRESSION: No acute findings. Laboratory Results WBC 8.64 10^3/uL (3.29-11.43) 04/29/23 18:43 RBC 5.06 10^6/uL (3.85-5.65) 04/29/23 18:43 Hgb 16.10 g/dL (11.27-16.99) 04/29/23 18:43 Hct 47.2 % (37-53) 04/29/23 18:43 MCV 93.3 fl (82-101) 04/29/23 18:43 MCH 31.8 pg (27-33) 04/29/23 18:43 MCHC 34.1 g/dL (30-55) 04/29/23 18:43 RDW 11.8 % (12.1-15.1) L 04/29/23 18:43 Plt Count 279 10^3/cmm (157-399) 04/29/23 18:43 MPV 9.4 fL (7.4-10.4) 04/29/23 18:43 Neut % (Auto) 58.6 % 04/29/23 18:43 Lymph % (Auto) 33.1 % 04/29/23 18:43 [place] % (Auto) 5.4 % 04/29/23 18:43 Eos % (Auto) 1.5 % 04/29/23 18:43 Baso % (Auto) 0.9 % 04/29/23 18:43 Neut # (Auto) 5.06 10^3/uL (1.8-7.7) 04/29/23 18:43 Lymph # (Auto) 2.9 10^3/uL (0.8-4.8) 04/29/23 18:43 [place] # (Auto) 0.5 10^3/uL (0.2-0.9) 04/29/23 18:43 Eos # (Auto) 0.1 10^3/uL (0.0-0.8) 04/29/23 18:43 Baso # (Auto) 0.1 10^3/uL (0.0-0.1) 04/29/23 18:43 Nucleated RBC % (auto) 0 % 04/29/23 18:43 Nucleated RBCs # 0.0 /100WBC 04/29/23 18:43 Sodium 141 mmol/L (136-145) 04/29/23 18:43 Potassium 4.4 mmol/L (3.5-5.1) 04/29/23 18:43 Chloride 103 mmol/L (98-107) 04/29/23 18:43 Carbon Dioxide 30 mmol/L (22-29) H 04/29/23 18:43 Anion Gap 12.4 (5-19) 04/29/23 18:43 BUN 11 mg/dL (6-20) 04/29/23 18:43 Creatinine 0.8 mg/dL (0.7-1.2) 04/29/23 18:43 GFR Calculation 113.5 mL/min (90-130) 04/29/23 18:43 Glucose 81 mg/dL (65-115) 04/29/23 18:43 Calculated Osmolality 290 mOsm/kg (285-295) 04/29/23 18:43 Calcium 9.4 mg/dL (8.5-10.5) 04/29/23 18:43 Total Bilirubin 0.5 mg/dL (0.15-1.2) 04/29/23 18:43 AST 17 U/L (0-40) 04/29/23 18:43 ALT 17 U/L (0-41) 04/29/23 18:43 Alkaline Phosphatase 76 U/L (40-130) 04/29/23 18:43 Total Protein 7.8 g/dL (6.6-8.7) 04/29/23 18:43 Albumin 4.8 g/dL (3.5-5.2) 04/29/23 18:43 Globulin 3.0 g/dL (1.3-4.6) 04/29/23 18:43 All radiology interpretation(s) finalized by discharge Discharge Plan Discharge Patient Disposition: Home Clinical Impression: Musculoskeletal strain, Sciatica of right side Condition: Stable Prescriptions: New naproxen 500 mg tablet 500 mg PO Q12H PRN (Reason: pain) Qty: 20 0RF cyclobenzaprine 10 mg tablet 10 mg PO Q8H Qty: 14 0RF prednisone 20 mg tablet 40 mg PO DAILY 5 Days Qty: 10 0RF No Action polyethylene glycol 3350 [Miralax] 17 gram/dose powder 4 g PO DAILY PRN (Reason: constipation) acetaminophen 500 mg Tablet 1,000 mg PO Q6H PRN (Reason: Pain) Headache Relief ([id number]) 250-250-65 mg Tablet 2 tab PO Q6H PRN (Reason: Migraine Headache) diclofenac sodium [Voltaren Arthritis Pain] 1 % gel 4 g topical QID Qty: 100 0RF Rx Instructions: apply to single knee, ankle, foot; for foot includes sole/toes/top of foot escitalopram oxalate 10 mg Tablet 10 mg PO DAILY Qty: 30 1RF Vimpat 50 mg Tablet 100 mg PO BID 30 Days Qty: 120 1RF paliperidone 3 mg Tablet Extended Release 24 Hr 3 mg PO BEDTIME 30 Days Qty: 30 1RF Discharge Orders: Discharge ED (Routine); Ordered 04/29/23 Ordered By: Enoc Martin Referrals: Grace Holliday FNP [Primary Care Provider] - Discharge Diet: Usual diet Discharge Activity: Resume usual activity Patient Instructions: Opioid Safety, Pain Management Activity Restrictions/Additional Instructions: Activity Restrictions/Additional Instructions: Thank you for choosing [facility] for your healthcare needs today. Please realize that you were seen in the Emergency Department and that we are providing you with an emergency medical screening exam and this may not be a complete and all inclusive of all the testing and or medical work-up that you may need to determine your ailment or severity of your illness. It is very important that you follow-up as instructed with your Primary care provider or Specialist for additional evaluation and to discuss your medical treatment plan. Y Follow-up with your occupational medicine physician or human resources department for additional evaluation treatment and care recommendations. 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 Care Code ED Fire Sprinkler Designer for Ky Conklin
--- NOTE | 2023-04-29 21:45 | XRR_ITS ---
PROCEDURE INFORMATION: Exam: XR Lumbosacral Spine Exam date and time: 04/29/2023 9:54 PM Age: 32 years old Clinical indication: Low back pain TECHNIQUE: Imaging protocol: Radiologic exam of the lumbosacral spine. Views: 2 or 3 views. COMPARISON: CT kidney stone [id number] 11/08/2019 10:27 AM FINDINGS: Bones/joints: Normal. No acute fracture. Normal alignment. Soft tissues: Unremarkable. XR/XR lumbar spine 2-3V* [id number] IMPRESSION: No acute findings.
[2023-04-29] MEDS: orphenadrine 30 mg/mL Inj 2 mL 60 MG IVP (21:53)
[2023-04-29] MEDS: ketorolac 30 mg/mL INJ IVP (21:53)
[2023-04-29 22:44] VITALS: BP 107/72; PULSE 57; O2SAT 98
[2023-04-29] MEDS: ondansetron 2 mg/ML SDV 2 mL 4 MG IVP (23:29)
== END 2023-04-29 23:36 | disposition home or self-care (01) ==
PROVIDERS: Emergency Provider Internal Medicine; PCP Nurse Practitioner Family
DX: M54.31 Sciatica, right side (principal); T14.8XXA Other injury of unspecified body region, initial encounter; F84.0 Autistic disorder; Z87.891 Personal history of nicotine dependence; X50.0XXA Overexertion from strenuous movement or load, initial encounter; Y99.0 Civilian activity done for income or pay
CPT/HCPCS: 36415; 72100; 80053; 85025; 96374; 96375; 99284; J1885; J2360; J2405; J7030

== ENCOUNTER 2023-06-05 19:32 | Inpatient (IN) | payer MEDICARE, MEDICAID, SELFPAY ==
[2022-07-29 13:59] VITALS: BP 125/75; BMI 27.5
[2023-06-05 19:36] VITALS: BP 159/91; PULSE 72; RESP 20; TEMP 36.6; O2SAT 100; BMI 28.1
[2023-06-05 20:05] LABS: Add Urine Microscopic? NO; Charge for UA Resulting for Rev
[2023-06-05 20:12] LABS: Bilirubin Urine Neg (Negative); Blood Urine Neg (Negative); Glucose Urine UA Norm (Normal); Ketones Urine Negative (Negative); Leukocyte Esterase Urine Negative (Negative); Nitrate Urine Negative (Negative); Protein Urine Neg (Negative); Urine Appearance Clear (CLEAR); Urine Color Colorless (Yellow); Urobilinogen Urine Neg (Negative); pH Urine 6.5 (5-7)
[2023-06-05 20:20] LABS: Amphetamines Screen Urine Negative (Negative); Barbiturates Screen Urine Negative (Negative); Benzodiazepines Screen Urine Negative (Negative); Cocaine Screen Urine Negative (Negative); Opiate Screen Urine Negative (Negative); PCP Screen Urine Negative (Negative); THC Screen Urine Negative (Negative)
[2023-06-05 21:13] LABS: Basophils # 0.1 10^3/uL (0.0-0.1); Basophils % 0.9 %; Eosinophils # 0.2 10^3/uL (0.0-0.8); Eosinophils % 3.3 %; Lymphocytes # 1.9 10^3/uL (0.8-4.8); Lymphocytes % 33.9 %; Mean Corpuscular HGB Conc 33.7 g/dL (30-55); Mean Corpuscular Hemoglobin 31.7 pg (27-33); Mean Corpuscular Volume 94.3 fl (82-101); Mean Platelet Volume 9.6 fL (7.4-10.4); Monocytes # 0.4 10^3/uL (0.2-0.9); Monocytes % 7.4 %; Neutrophils # 3.09 10^3/uL (1.8-7.7); Neutrophils % 54.1 %; Nucleated Red Blood Cells % 0 %; Platelet Count 222 10^3/cmm (157-399); Red Blood Count 4.35 10^6/uL (3.85-5.65)
--- NOTE | 2023-06-05 21:14 | ED.C_ITS ---
HPI - Psych 2 General: Chief Complaint: Psychiatric Symptoms Stated Complaint: SI Time Seen by Provider: 06/05/23 19:43 History of Present Illness: 32-year-old male with a history of depre ssion. He presents with increased depression recently, and suicidal thoughts as of yesterday and today. He notes that he has a plan, although he did not share his plan. He has been admitted for psychiatric reasons before. He has a distant history of seizure disorder, but has not had a seizure in a very long time. No other health problems. No substance abuse recently he says. Review of Systems 2 Const: Denies: fever(s), chills or body aches Eyes: Denies: change in vision Card: Denies: chest pain or palpitations Resp: Denies: dyspnea, productive cough, non-productive cough or wheezing GI: Denies: abdominal pain, nausea, vomiting, diarrhea or hematochezia Skin/Breast: Denies: rash Neuro: Denies: headache(s), weakness in extremities, dizziness or confusion PFSH ED 2 PFSH: Medical History Major depressive disorder with psychotic features History of ADHD Psychiatric care Depression Renal calculi PTSD (post-traumatic stress disorder) Autism Depression Epilepsy Status post extracorporeal shock wave therapy Surgical History Hx of appendectomy Family History Unknown Adopted Social History Smoking and tobacco/nicotine status: former use of tobacco/nicotine Quit status (tobacco/nicotine): has quit using Former quit date comment: quit about 2 months ago Second hand smoke exposure: No Alcohol intake: current Alcohol intake frequency: other Substance/Drug Use: current Substance/Drug use frequency: daily Adopted: Yes Caregiver/support person: Yes (cleans his house, set up meds, general assessment) Lives independently: Yes Household members: none Marital status: Single Highest education level completed: High School Graduate service: No Current occupational status: disabled Pets and animals: No Leisure activites: games and other Estella/Voodoo: Oriental Orthodox Special estella needs: No Agree to transfusion: Yes Physical Exam 2 Const: COMMON NORMALS: no acute distress GENERAL APPEARANCE: cooperative; not ill appearing and not frail appearing HENMT: COMMON NORMALS: normocephalic, atraumatic and Normal external nose present HEAD & SCALP: normocephalic and atraumatic FACE & SINUS: normal facial exam and face symmetric NOSE: Normal external nose present Eye: COMMON NORMALS: Equal, round and reactive pupils present and EOMs intact bilaterally PUPIL: Yes Equal, round and reactive pupils present Neck/C-Spine: GENERAL: Yes trachea midline Chest: CHEST: Yes Symmetrical chest wall rise Resp: COMMON NORMALS: normal respiratory effort, No retractions, No use of accessory muscles and clear to auscultation bilaterally AUSCULTATION: clear to auscultation bilaterally Cardio: COMMON NORMALS: regular rate and regular rhythm RATE: regular rate RHYTHM: regular rhythm GI: COMMON NORMALS: Normal to inspection, nondistended, normoactive bowel sounds present Extremity: COMMON NORMALS: no pedal edema Neuro: SANDI COMA SCALE: document GCS findings Hood coma scale eye opening: Spontaneous Hood coma scale verbal response: Orientated Sandi coma scale motor response: Obey commands Hood coma scale total score: 15 S ENSORY EXAM: Yes extremities (intact) Psych: COMMON NORMALS: speech normal SPEECH: Yes normal speech Skin: COMMON NORMALS: no rashes or lesions noted GENERAL SKIN EXAM: no rashes or lesions noted Course 2 Vital Signs: Vital signs: Vital Signs Temperature 97.9 F 06/05/23 22:01 Pulse Rate 72 06/05/23 22:01 Respiratory Rate 20 H 06/05/23 22:01 Blood Pressure 159/91 06/05/23 22:01 Pulse Oximetry 100 06/05/23 22:01 Oxygen Delivery Me thod Room Air 06/05/23 21:33 [facility] - Psych Medical Decision Making Patient is medically stable. He has been calm here, requiring no medication. He is respectful. Spoke with psychiatry. Willing to admit. He is completely voluntary. Lab Data 06/05/23 20:54 06/05/23 20:54 Laboratory Results WBC 5.70 10^3/uL (3.29-11.43) 06/05/23 20:54 RBC 4.35 10^6/uL (3.85-5.65) 06/05/23 20:54 Hgb 13.80 g/dL (11.27-16.99) 06/05/23 20:54 Hct 41.0 % (37-53) 06/05/23 20:54 MCV 94.3 fl (82-101) 06/05/23 20:54 MCH 31.7 pg (27-33) 06/05/23 20:54 MCHC 33.7 g/dL (30-55) 06/05/23 20:54 RDW 12.0 % (12.1-15.1) L 06/05/23 20:54 Plt Count 222 10^3/cmm (157-399) 06/05/23 20:54 MPV 9.6 fL (7.4-10.4) 06/05/23 20:54 Neut % (Auto) 54.1 % 06/05/23 20:54 Lymph % (Auto) 33.9 % 06/05/23 20:54 [place] % (Auto) 7.4 % 06/05/23 20:54 Eos % (Auto) 3.3 % 06/05/23 20:54 Baso % (Auto) 0.9 % 06/05/23 20:54 Neut # (Auto) 3.09 10^3/uL (1.8-7.7) 06/05/23 20:54 Lymph # (Auto) 1.9 10^3/uL (0.8-4.8) 06/05/23 20:54 [place] # (Auto) 0.4 10^3/uL (0.2-0.9) 06/05/23 20:54 Eos # (Auto) 0.2 10^3/uL (0.0-0.8) 06/05/23 20:54 Baso # (Auto) 0.1 10^3/uL (0.0-0.1) 06/05/23 20:54 Nucleated RBC % (auto) 0 % 06/05/23 20:54 Nucleated RBCs # 0.0 /100WBC 06/05/23 20:54 Sodium 140 mmol/L (136-145) 06/05/23 20:54 Potassium 4.0 mmol/L (3.5-5.1) 06/05/23 20:54 Chloride 105 mmol/L (98-107) 06/05/23 20:54 Carbon Dioxide 25 mmol/L (22-29) 06/05/23 20:54 Anion Gap 14.0 (5-19) 06/05/23 20:54 BUN 10 mg/dL (6-20) 06/05/23 20:54 Creatinine 0.6 mg/dL (0.7-1.2) L 06/05/23 20:54 GFR Calculation 158.2 mL/min (90-130) H 06/05/23 20:54 Glucose 100 mg/dL (65-115) 06/05/23 20:54 Calculated Osmolality 289 mOsm/kg (285-295) 06/05/23 20:54 Calcium 8.2 mg/dL (8.5-10.5) L 06/05/23 20:54 Total Bilirubin 0.4 mg/dL (0.15-1.2) 06/05/23 20:54 AST 14 U/L (0-40) 06/05/23 20:54 ALT 14 U/L (0-41) 06/05/23 20:54 Alkaline Phosphatase 67 U/L (40-130) 06/05/23 20:54 Total Protein 6.4 g/dL (6.6-8.7) L 06/05/23 20:54 Albumin 4.0 g/dL (3.5-5.2) 06/05/23 20:54 Globulin 2.4 g/dL (1.3-4.6) 06/05/23 20:54 Urine Color Colorless (Yellow) 06/05/23 19:52 Urine Appearance Clear (CLEAR) 06/05/23 19:52 Urine pH 6.5 (5-7) 06/05/23 19:52 Ur Specific [place] 1.010 (1.005-1.030) 06/05/23 19:52 Urine Protein Neg (Negative) 06/05/23 19:52 Urine Glucose (UA) Norm (Normal) 06/05/23 19:52 Urine Ketones Negative (Negative) 06/05/23 19:52 Urine Blood Neg (Negative) 06/05/23 19:52 Urine Nitrate Negative (Negative) 06/05/23 19:52 Urine Bilirubin Neg (Negative) 06/05/23 19:52 Urine Urobilinogen Neg mg/dL (Negative) 06/05/23 19:52 Ur Leukocyte Esterase Negative (Negative) 06/05/23 19:52 Salicylates < 0.3 mg/dL (3-10) L 06/05/23 20:54 Urine Opiates Screen Negative ng/mL (Negative) 06/05/23 19:52 Acetaminophen < 5.0 ug/mL (10-30) L 06/05/23 20:54 Ur Barbiturates Screen Negative ng/mL (Negative) 06/05/23 19:52 Ur Phencyclidine Scrn Negative ng/mL (Negative) 06/05/23 19:52 Ur Amphetamines Screen Negative ng/mL (Negative) 06/05/23 19:52 U Benzodiazepines Scrn Negative ng/mL (Negative) 06/05/23 19:52 Urine Cocaine Screen Negative ng/mL (Negative) 06/05/23 19:52 U Marijuana (THC) Screen Negative ng/mL (Negative) 06/05/23 19:52 Ethyl Alcohol < 10 mg/dL (0-10) 06/05/23 20:54 No radiology studies performed this visit Discharge Plan Discharge Patient Disposition: Admitted As Inpatient Admit Provider: Marc Sibley Clinical Impression: Major depressive disorder, recurrent severe without psychotic features, Suicidal ideation Condition: Stable 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 Care Code ED Operator Receptionist for Ky Conklin
[2023-06-05 21:30] LABS: Alanine Aminotransferase 14 U/L (0-41); Alkaline Phosphatase 67 U/L (40-130); Aspartate Amino Transferase 14 U/L (0-40); Blood Urea Nitrogen 10 mg/dL (6-20); Calcium 8.2 mg/dL (8.5-10.5); Carbon Dioxide 25 mmol/L (22-29); Chloride 105 mmol/L (98-107); Creatinine Clr Calc Pharmacy 233.0452; Globulin 2.4 g/dL (1.3-4.6); Glomerular Filtration Rate 158.2 mL/min (90-130); Glucose 100 mg/dL (65-115); Osmolality Calculated 289 mOsm/kg (285-295); Sodium 140 mmol/L (136-145); Total Bilirubin 0.4 mg/dL (0.15-1.2); Total Protein 6.4 g/dL (6.6-8.7)
[2023-06-05 21:35] LABS: Salicylate < 0.3 mg/dL (3-10)
[2023-06-05 21:36] LABS: Acetaminophen < 5.0 ug/mL (10-30); Alcohol Level < 10 mg/dL (0-10)
[2023-06-05 22:00] VITALS: BP 136/85; PULSE 67; RESP 18; TEMP 36.6; O2SAT 100
[2023-06-05 22:01] VITALS: BP 159/91; PULSE 72; RESP 20; TEMP 36.6; O2SAT 100
[2023-06-05] MEDS: cyclobenzaprine 10 mg Tablet PO (22:58)
[2023-06-06 06:00] VITALS: BP 125/76; PULSE 62; RESP 16; O2SAT 99
[2023-06-06] MEDS: escitalopram 10 mg Tablet PO (09:10)
[2023-06-06] MEDS: cyclobenzaprine 10 mg Tablet PO ×3 (09:10→20:33)
[2023-06-06] MEDS: lacosamide 50 mg Tablet 100 MG PO ×2 (09:10→18:37)
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
[2023-06-06 14:00] VITALS: BP 124/77; PULSE 92; RESP 17; TEMP 36.8; O2SAT 98
[2023-06-06 19:33] VITALS: BP 128/82; PULSE 95; RESP 18; TEMP 37.1; O2SAT 98
[2023-06-06] MEDS: docusate sodium 100 mg Capsule PO (20:33)
[2023-06-07 06:00] VITALS: BP 134/82; PULSE 92; RESP 16; TEMP 36.5; O2SAT 99
[2023-06-07] MEDS: polyethylene glycol 3350 Pkt 17 gm PO (08:57)
[2023-06-07] MEDS: cyclobenzaprine 10 mg Tablet PO ×3 (08:57→21:32)
[2023-06-07] MEDS: lacosamide 50 mg Tablet 100 MG PO ×2 (08:57→18:51)
[2023-06-07] MEDS: escitalopram 10 mg Tablet PO (08:57)
[2023-06-07 14:00] VITALS: BP 120/64; PULSE 90; RESP 20; TEMP 36.6; O2SAT 98
--- NOTE | 2023-06-07 14:50 | P.NPUPN_ITS ---
Subjective NPU 2 Subjective: Patient presented today reporting that he is feeling so-so. He denied any significant improvement but denied that things have worsened. We discussed his psychosocial circumstances especially living alone. He reports that he could not likely get along with a roommate but does appreciate the need for increased social interaction as he does not really enjoy being home/living alone. We discussed the possibility of increasing his Lexapro to help with his depression and discussed the risk benefits alternatives of making this a abbreviated visit and he understood and agreed to proceed as is documented in this note. Mental Status Exam 2 MSE Comments: This is an overweight versus obese white male in hospital scrubs with limited grooming and eye contact. No abnormal movements except for mild psychomotor retardation. Cooperative with exam and mild distress. Speech was slightly decreased rate and volume. Mood described as depressed, affect congruent and subdued. His thought process was linear logical and goal-directed. Thought content: Patient was somewhat equivocal in endorsing suicidal ideation but suggesting it was not as intense as yesterday but denied homicidal ideation, there were no delusions reported or noted, he denied any auditory or visual hallucinations. Attention and concentration were limited and memory appeared mostly reliable but none were formally tested. He was alert and oriented times person and place. Insight and judgment are limited and impulse control is limited. Intellectual ability appears limited. Vitals/I&O/Wt Last Vital Signs Temp 97.7 F 06/07/23 06:00 Pulse 92 06/07/23 06:00 Resp 16 06/07/23 06:00 BP 134/82 06/07/23 06:00 Pulse Ox 99 06/07/23 06:00 O2 Del Method Room Air 06/07/23 06:00 Weight last 48 hrs Weight 102.058 kg Data NPU 06/05/23 20:54 06/05/23 20:54 A&P Assessment and plan (1) Generalized anxiety disorder: (2) Major depressive disorder with psychotic features: (3) Autism: (4) Psychotic disorder: Plan This is a 32-year-old white male with a history of depression and ADHD and PTSD who has been seen on the unit multiple times who presents once again with suicidal ideation against the backdrop of a possible break-up with a girlfriend with a history of having significant distress surrounding relationships. 1.? Continue current medication. Consider increasing Lexapro. 2. Encourage individual, group and milieu therapy. 3. Continue every 15 minute checks for safety. 4. Get collateral information from guardian and discussed increasing Lexapro prior to discharge. Involuntary Hold Information 2 96 Hour Hold: 96 Hour Involuntary Admission: No Attestations NPU 2 Medical Necessity Statement*: Inpatient hospitalization is medically necessary and the clinically appropriate intervention at this time. We will monitor/initiate medications and make changes as indicated. Patient's likely length of stay is 2-4 days. 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 Care Code Acute Code for [facility] Fwd Diagnoses Generalized anxiety disorder F41.1 Major depressive disorder with psychotic features F32.3 Autism F84.0 Psychotic disorder F29
[2023-06-07 20:01] VITALS: BP 126/81; PULSE 93; RESP 16; TEMP 37.1; O2SAT 100
[2023-06-07] MEDS: docusate sodium 100 mg Capsule PO (21:32)
[2023-06-08] MEDS: acetaminophen 500 mg Tablet 1000 MG PO (03:13)
[2023-06-08 06:00] VITALS: BP 129/72; PULSE 87; RESP 16; TEMP 36.6; O2SAT 98
--- NOTE | 2023-06-08 09:00 | PC.NURSE ---
IN BED RESTING AROUSES TO VOICE. DENIES SI/HI AND AVH AT THIS TIME. DENIES PAIN.. REPORTS CONSTIPATION, SENNA ORDER RECEIVED FROM DR. KIDD AND GIVEN TO PT ORDERED. RATES ANXIETY AND DEPRESSION 11/16 AND REQUEST PRN MEDICATIONS, MED NURSE NOTIFIED. PT REPORTS HE SLEPT GOOD LAST NIGHT. CONTINUES TO HAVE FLAT AFFECT AND DEPRESSED MOOD. ALL QUESTIONS ANSWERED AND SUPPORT WS VOICED.
[2023-06-08] MEDS: hyDROXYzine 25 mg Capsule 50 MG PO (09:09)
[2023-06-08] MEDS: cyclobenzaprine 10 mg Tablet PO ×3 (09:09→21:25)
[2023-06-08] MEDS: lacosamide 50 mg Tablet 100 MG PO ×2 (09:09→18:01)
[2023-06-08] MEDS: escitalopram 10 mg Tablet PO (09:09)
[2023-06-08] MEDS: sennosides-docusate Tablet 1 TAB PO (09:09)
--- NOTE | 2023-06-08 12:31 | PC.NURSE ---
PT REPORTS HE IS COUGHING AND CONGESTED AND REQUESTS COUGH MEDICINE. NEW ORDERS RECEIVED FROM DR. KIDD TO GIVEN ROBITUSSIN 200 MG PO Q 4HOUR COUGH AND CONGESTION PRN. PT EDUCATED AND VERBALIZED UNDERSTANDING, SUPPORT VOICED.
[2023-06-08 14:00] VITALS: BP 133/76; PULSE 109; RESP 18; TEMP 36.6; O2SAT 97
[2023-06-08] MEDS: guaiFENesin 100 mg/5 mL UDC 10 mL 200 MG PO (14:47)
[2023-06-08] MEDS: nicotine 2 mg Gum BUCCAL (16:49)
--- NOTE | 2023-06-08 19:49 | P.NPUPN_ITS ---
Subjective NPU 2 Subjective: Patient presented today reporting that he was feeling a little better and doing okay. He reports that he did talk to his dad and talk to the social work team and is feeling optimistic about being able to discharge without any major challenges. He denied any side effects to his medications and we agreed to a plan for discharge tomorrow. Mental Status Exam 2 MSE Comments: This is an overweight versus obese white male in hospital scrubs with limited grooming and eye contact. No abnormal movements except for mild psychomotor retardation. Cooperative with exam and mild distress. Speech was slightly decreased rate and volume. Mood described as feeling a little better, affect congruent and less subdued. His thought process was linear logical and goal- directed. Thought content: Patient was somewhat equivocal in endorsing suicidal ideation but suggesting it was not as intense as yesterday but denied homicidal ideation, there were no delusions reported or noted, he denied any auditory or visual hallucinations. Attention and concentration were limited and memory appeared mostly reliable but none were formally tested. He was alert and oriented times person and place. Insight and judgment are limited and impulse control is limited. Intellectual ability appears limited. Vitals/I&O/Wt Last Vital Signs Temp 97.9 F 06/08/23 14:00 Pulse 109 H 06/08/23 14:00 Resp 18 06/08/23 14:00 BP 133/76 06/08/23 14:00 Pulse Ox 97 06/08/23 14:00 O2 Del Method Room Air 06/07/23 06:00 Data NPU 06/05/23 20:54 06/05/23 20:54 A&P Assessment and plan (1) Generalized anxiety disorder: (2) Major depressive disorder with psychotic features: (3) Autism: (4) Psychotic disorder: Plan This is a 32-year-old white male with a history of depression and ADHD and PTSD who has been seen on the unit multiple times who presents once again with suicidal ideation against the backdrop of a possible break-up with a girlfriend with a history of having significant distress surrounding relationships. 1.? Continue current medication. Consider increasing Lexapro. 2. Encourage individual, group and milieu therapy. 3. Continue every 15 minute checks for safety. 4. Get collateral information from guardian for any medication changes. Involuntary Hold Information 2 96 Hour Hold: 96 Hour Involuntary Admission: No Attestations NPU 2 Medical Necessity Statement*: Inpatient hospitalization is medically necessary and the clinically appropriate intervention at this time. We will monitor/initiate medications and make changes as indicated. Patient's likely length of stay is 1-3 days. 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 Care Code Acute Code for [facility] Fwd Diagnoses Generalized anxiety disorder F41.1 Major depressive disorder with psychotic features F32.3 Autism F84.0 Psychotic disorder F29
[2023-06-08 20:22] VITALS: BP 117/71; PULSE 101; RESP 16; TEMP 36.8; O2SAT 98
[2023-06-08] MEDS: trazodone 50 mg Tablet PO (21:25)
[2023-06-09 06:00] VITALS: BP 130/84; PULSE 90; RESP 15; TEMP 36.6; O2SAT 98
[2023-06-09] MEDS: lacosamide 50 mg Tablet 100 MG PO (09:04)
[2023-06-09] MEDS: escitalopram 10 mg Tablet PO (09:04)
[2023-06-09] MEDS: cyclobenzaprine 10 mg Tablet PO ×2 (09:04→15:04)
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
[2023-06-09 10:35] VITALS: BP 130/84; PULSE 90; RESP 15; TEMP 36.6; O2SAT 98
--- NOTE | 2023-06-09 12:26 | DCPLANNER ---
IMM completed 06/09/23 @ 0856. Pt was given a copy of rights and he stated he understood his rights.
== END 2023-06-09 15:13 | disposition home or self-care (01) | DRG 885 ==
LOC: ER 21:20 → NP 21:30
PROVIDERS: Admitting Provider Psychiatry & Neurology Psychiatry; Emergency Provider Emergency Medicine; PCP Nurse Practitioner Family; Visit Provider Psychiatry & Neurology Psychiatry
DX: F32.3 Major depressive disorder, single episode, severe with psychotic features (principal); R45.851 Suicidal ideations; F41.1 Generalized anxiety disorder; F84.0 Autistic disorder; F90.9 Attention-deficit hyperactivity disorder, unspecified type; F43.12 Post-traumatic stress disorder, chronic; Z63.0 Problems in relationship with spouse or partner; G40.909 Epilepsy, unspecified, not intractable, without status epilepticus; Z72.0 Tobacco use
CPT/HCPCS: 36415; 80053; 80306; 80307; 81003; 85025; 97150; 97165; 99285

== ENCOUNTER 2023-06-18 16:50 | Emergency (ER) | payer MEDICAID, SELFPAY ==
[2022-07-29 13:59] VITALS: BP 125/75; BMI 27.5
[2023-06-18 17:28] VITALS: BP 135/76; PULSE 82; RESP 17; TEMP 36.8; O2SAT 96; BMI 24.7
[2023-06-18 18:36] LABS: Add Urine Microscopic? NO; Charge for UA Resulting for Rev
--- NOTE | 2023-06-18 18:43 | ED_ITS ---
HPI - Male Genitourinary 2 General: Chief complaint: Urogenital-Male Stated complaint: pain when urinate Time Seen by Provider: 06/18/23 18:05 History of Present Illness: George is a 32-year-old male who presents to the emergency department with concerns for STI. Patient believes that his ex-girlfriend gave him a sexually transmitted infection. He has had a clear drainage from his urethra for the last week. He denies any lesions to his penis, testicles, or scrotum. He does report itching around his genitalia and the pubic hair. He reports small red bumps in and around his pubis Associated symptoms: Deny nausea or vomiting Review of Systems 2 Const: Denies: fever(s), chills or body aches Eyes: Denies: change in vision Card: Denies: chest pain or palpitations Resp: Denies: dyspnea, productive cough, non-productive cough or wheezing GI: Denies: abdominal pain, nausea, vomiting, diarrhea or hematochezia Skin/Breast: Denies: rash Neuro: Denies: headache(s), weakness in extremities, dizziness or confusion PFSH ED 2 PFSH: Medical History Major depressive disorder with psychotic features History of ADHD Psychiatric care Depression Renal calculi PTSD (post-traumatic stress disorder) Autism Depression Epilepsy Status post extracorporeal shock wave therapy Surgical History Hx of appendectomy Family History Unknown Adopted Social History Smoking and tobacco/nicotine status: former use of tobacco/nicotine Quit status (tobacco/nicotine): has quit using Former quit date comment: quit about 2 months ago Second hand smoke exposure: No Alcohol intake: current Alcohol intake frequency: other Substance/Drug Use: current Substance/Drug use frequency: daily Adopted: Yes Caregiver/support person: Yes (cleans his house, set up meds, general assessment) Lives independently: Yes Household members: none Marital status: Single Highest education level completed: High School Graduate service: No Current occupational status: disabled Pets and animals: No Leisure activites: games and other Estella/Baptism: Restorationist Special estella needs: No Agree to transfusion: Yes Physical Exam 2 Const: COMMON NORMALS: no acute distress GENERAL APPEARANCE: cooperative; not ill appearing and not frail appearing HENMT: COMMON NORMALS: normocephalic, atraumatic and Normal external nose present HEAD & SCALP: normocephalic and atraumatic FACE & SINUS: normal facial exam and face symmetric NOSE: Normal external nose present Eye: COMMON NORMALS: Equal, round and reactive pupils present and EOMs intact bilaterally PUPIL: Yes Equal, round and reactive pupils present Neck/C-Spine: GENERAL: Yes trachea midline Chest: CHEST: Yes Symmetrical chest wall rise Resp: COMMON NORMALS: normal respiratory effort, No retractions, No use of accessory muscles and clear to auscultation bilaterally AUSCULTATION: clear to auscultation bilaterally Cardio: COMMON NORMALS: regular rate and regular rhythm RATE: regular rate RHYTHM: regular rhythm GI: COMMON NORMALS: Normal to inspection, nondistended, normoactive bowel sounds present Extremity: COMMON NORMALS: no pedal edema Psych: COMMON NORMALS: speech normal SPEECH: Yes normal speech Skin: SKIN IMAGES (MALE): 1. Folliculitis v dermatitis Course 2 Vital Signs: Vital signs: Vital Signs Temperature 98.3 F 06/18/23 17:28 Pulse Rate 82 06/18/23 17:28 Respiratory Rate 17 06/18/23 17:28 Blood Pressure 135/76 06/18/23 17:28 Pulse Oximetry 96 06/18/23 17:28 Oxygen Delivery Me thod Room Air 06/18/23 17:28 [facility] - Male Medical Decision Making Patient was evaluated in the emergency department today for concerns of STI. I have treated him with Flagyl, azithromycin, ceftriaxone. I did obtain cultures and symptoms all. I also obtained a urinalysis to rule out UTI. Urinalysis negative Lab Data Laboratory Results Urine Color Yellow (Yellow) 06/18/23 17:45 Urine Appearance Clear (CLEAR) 06/18/23 17:45 Urine pH 6 (5-7) 06/18/23 17:45 Ur Specific [place] 1.010 (1.005-1.030) 06/18/23 17:45 Urine Protein Neg (Negative) 06/18/23 17:45 Urine Glucose (UA) Norm (Normal) 06/18/23 17:45 Urine Ketones 1+ (Negative) H 06/18/23 17:45 Urine Blood Neg (Negative) 06/18/23 17:45 Urine Nitrate Negative (Negative) 06/18/23 17:45 Urine Bilirubin Neg (Negative) 06/18/23 17:45 Urine Urobilinogen 1 mg/dL (Negative) H 06/18/23 17:45 Ur Leukocyte Esterase Negative (Negative) 06/18/23 17:45 No radiology studies performed this visit Discharge Plan Discharge Patient Disposition: Home Clinical Impression: Sexually transmitted disease exposure Condition: Stable Prescriptions: No Action polyethylene glycol 3350 [Miralax] 17 gram/dose powder 4 g PO DAILY PRN (Reason: constipation) acetaminophen 500 mg Tablet 1,000 mg PO Q6H PRN (Reason: Pain) Headache Relief ([id number]) 250-250-65 mg Tablet 2 tab PO Q6H PRN (Reason: Migraine Headache) escitalopram oxalate 10 mg Tablet 10 mg PO DAILY Qty: 30 1RF lacosamide [Vimpat] 50 mg Tablet 100 mg PO BID 30 Days Qty: 120 1RF cyclobenzaprine 10 mg tablet 10 mg PO Q8H Qty: 14 0RF Discharge Orders: Discharge ED (Routine); Ordered 06/18/23 Ordered By: Denise Serra Referrals: Grace Holliday FNP [Primary Care Provider] - Discharge Diet: Advance as tolerated Discharge Activity: Resume usual activity Patient Instructions: Safe Sex Practices (ED) Activity Restrictions/Additional Instructions: You were treated here today for sexually transmitted infections. Your cultures are still pending but we thought it best to just treat you. I have given you 3 medications to cover 3 different sexually transmitted infections. These include gonorrhea, chlamydia, trichomoniasis. One of the medications called Flagyl Flagyl interacts poorly with alcohol. Please avoid alcohol for the next 48 hours. Please practice safe sex with the use of condoms. Please return to the emergency department as needed for new concerning or worsening symptoms. If you are further concerned about other sexually transmitted infections such as HIV, herpes, syphilis, etc., you need to follow- up with the health department or your primary care provider. 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 Care Code ED [employer] Work[employer] for [facility]
[2023-06-18 18:46] LABS: Urine Color Yellow (Yellow)
[2023-06-18 18:47] LABS: Bilirubin Urine Neg (Negative); Blood Urine Neg (Negative); Glucose Urine UA Norm (Normal); Ketones Urine 1+ (Negative); Leukocyte Esterase Urine Negative (Negative); Nitrate Urine Negative (Negative); Protein Urine Neg (Negative); Urine Appearance Clear (CLEAR); Urobilinogen Urine 1 mg/dL (Negative); pH Urine 6 (5-7)
[2023-06-18] MEDS: metroNIDAZOLE 500 MG Tablet 2000 MG PO (19:08)
[2023-06-18] MEDS: cefTRIAXone 500 MG in water for injection-sterile 1 ML 0.100000000000000006 MG IM (19:09)
[2023-06-18] MEDS: azithromycin 250 mg Tablet 1000 MG PO (19:09)
[2023-06-18 19:51] VITALS: BP 128/74; PULSE 79; RESP 16; TEMP 36.8; O2SAT 97
[2023-06-23 05:09] LABS: Chlamydia Trachomatis RNA TMA Not Detected (Not Detected); Neisseria Gonorrhoeae RNA, TMA Not Detected (Not Detected)
[2023-07-07 09:53] LABS: Trichomonas Vaginalis QL TMA Not Detected
== END 2023-06-18 19:47 | disposition home or self-care (01) ==
PROVIDERS: Emergency Medicine; Emergency Provider Nurse Practitioner; PCP Nurse Practitioner Family
DX: Z20.2 Contact with and (suspected) exposure to infections with a predominantly sexual mode of transmission (principal); F84.0 Autistic disorder; Z87.891 Personal history of nicotine dependence
CPT/HCPCS: 81003; 87491; 87591; 87661; 96372; 99284; J0696; Q0144

== ENCOUNTER 2023-06-25 21:44 | Emergency (ER) | payer MEDICAID, SELFPAY ==
[2022-07-29 13:59] VITALS: BP 125/75; BMI 27.5
[2023-06-25 21:44] VITALS: BP 134/94; PULSE 68; RESP 16; TEMP 36.7; O2SAT 68; BMI 24.7
--- NOTE | 2023-06-25 22:13 | ED.C_ITS ---
Documented by User: COURTNEY Galvez 06/26/23 00:59 HPI - Psych 2 General: Chief Complaint: Psychiatric Symptoms Stated Complaint: SI Time Seen by Provider: 06/25/23 21:48 Source: patient Mode of arrival: ambulatory Limitations: no limitations History of Present Illness: Patient is a 32-year-old male presenting to the emergency department planing of suicidal ideation onset today. Patient has extensive psychiatric history and was recently discharged from the [facility]. Patient notes to me that he has not been taking his medications as prescribed. He notes that tonight he attempted to cut his left wrist, and this was the first time he is ever acted on suicidal thoughts. He does state to me his plan is to cut himself until he bleeds out. Denies any homicidal ideations or hallucinations. Denies any alcohol use or substance abuse. He does state he lives alone and gets along very, and has been talking to his dad about feelings of worthlessness and hopelessness stating that he does not want to be around anymore and just wants to . He does note his girlfriend recently broke up with him, otherwise no significant stressors noted. He currently states he is still suicidal, and prior to today has never acted on his thoughts. Patient did arrive by ambulance after calling suicide hotline and ambulance being sent on his behalf. He has no medical symptoms to report at this time. MD complaint: suicidal ideation Onset (ago): hour(s) Duration: constant History of same: Yes Relieving factors: none Context: not taking psychiatric medications Associated symptoms: Reports depression and suicidal ideation; Deny auditory hallucinations, visual hallucinations or homicidal ideation Review of Systems 2 General: Reports: 10 or more systems reviewed and unremarkable except in HPI and below Const: Denies: fever(s), chills or fatigue Eyes: Denies: change in vision ENMT: Denies: throat pain, ear or mastoid pain or nasal discharge Card: Denies: chest pain, palpitations, swelling of feet/ankles or lightheadedness Resp: Denies: dyspnea, productive cough or wheezing GI: Denies: abdominal pain, nausea, vomiting, diarrhea or constipation : Denies: flank pain, difficulty urinating, dysuria or urinary frequency Musc: Denies: neck pain, back pain or joint pain Skin/Breast: Denies: rash Neuro: Denies: headache(s), numbness in extremities or weakness in extremities Psych: Reports: depression, hopelessness, loss of interest and suicidal ideation; Denies: visual hallucinations, auditory hallucinations, tactile hallucinations or homicidal ideation PFSH ED 2 PFSH: Medical History Major depressive disorder with psychotic features History of ADHD Psychiatric care Depression Renal calculi PTSD (post-traumatic stress disorder) Autism Depression Epilepsy Status post extracorporeal shock wave therapy Surgical History Hx of appendectomy Family History Unknown Adopted Social History Smoking and tobacco/nicotine status: former use of tobacco/nicotine Quit status (tobacco/nicotine): has quit using Former quit date comment: quit about 2 months ago Second hand smoke exposure: No Alcohol intake: current Alcohol intake frequency: other Substance/Drug Use: current Substance/Drug use frequency: daily Adopted: Yes Caregiver/support person: Yes (cleans his house, set up meds, general assessment) Lives independently: Yes Household members: none Marital status: Single Highest education level completed: High School Graduate service: No Current occupational status: disabled Pets and animals: No Leisure activites: games and other Estella/Confucianist: Yarsanism Special estella needs: No Agree to transfusion: Yes Physical Exam 2 Const: COMMON NORMALS: no acute distress, patient oriented x3 and no limitations GENERAL APPEARANCE: cooperative, comfortable and well developed ORIENTATION/CONSCIOUSNESS: Yes awake, Yes oriented to person, Yes oriented to place and Yes oriented to time HENMT: COMMON NORMALS: normocephalic, atraumatic and hearing grossly normal bilaterally HEAD & SCALP: normocephalic and atraumatic Eye: COMMON NORMALS: Equal, round and reactive pupils present, EOMs intact bilaterally and conjunctivae normal CONJUNCTIVA: Yes conjunctivae normal P UPIL: Yes Equal, round and reactive pupils present Neck/C-Spine: COMMON NORMALS: full ROM, supple and no JVD Resp: COMMON NORMALS: normal respiratory effort, No retractions, No use of accessory muscles and clear to auscultation bilaterally AUSCULTATION: clear to auscultation bilaterally Cardio: COMMON NORMALS: no JVD, regular rate, regular rhythm, No clicks present (Cardio), No murmurs present (Cardio) and No rub (Cardio) RATE: r egular rate RHYTHM: regular rhythm GI: COMMON NORMALS: Normal to inspection, nondistended, normoactive bowel sounds present, Soft to palpation and non-tender AUSCULTATION: Yes normoactive bowel sounds PALPATION: Yes Soft to palpation RECTAL EXAM: Yes deferred Extremity: COMMON NORMALS: normal to inspection, full ROM and capillary refill normal Neuro: COMMON NORMALS: patient oriented x3, CN's II-XII intact bilaterally, moves all extremities, no focal motor deficits and no sensory deficits noted SENSORIUM/ORIENTATION: Yes oriented to person, Yes oriented to place and Yes oriented to time Psych: COMMON NORMALS: mental status grossly normal, Normal thought process present and speech normal APPEARANCE: Yes grossly normal ATTITUDE: Yes calm ACTIVITY/MOTOR BEHAVIOR: Yes psychomotor agitation SPEECH: Yes normal speech MOOD & AFFECT: Yes depressed mood THOUGHT PROCESS: Normal thought process present THOUGHT CONTENT: Yes Suicidality present A TTENTION/CONCENTRATION: Yes attention grossly intact MEMORY/COGNITION: Yes memory grossly intact Skin: COMMON NORMALS: no rashes or lesions noted GENERAL SKIN EXAM: no rashes or lesions noted Course 2 Vital Signs: Vital signs: Vital Signs Temperature 98.0 F 06/25/23 21:44 Pulse Rate 78 06/26/23 01:02 Respiratory Rate 18 06/26/23 01:02 Blood Pressure 129/88 06/26/23 01:02 Pulse Oximetry 97 06/26/23 01:02 Oxygen Delivery Me thod Room Air 06/26/23 00:11 [facility] - Psych Medical Decision Making Patient presents for suicidal ideations, as hotline called him and via ambulance. Patient has been in the psych unit multiple times here for similar incidences, has been attempted to be medicated though is historically noncompliant. He was noting that he attempted suicide with cutting himself and attempting to bleed out, though there is no evidence of lacerations or abrasions noted on examination. Basic psychiatric workup labs were performed and medically he was cleared. I called on-call psychiatrist, Dr. Sibley, to discuss patient's case and current findings. Due to his noncompliance with medication, history of recent discharge from the hospital, and now reporting that he is no longer feeling suicidal, patient will be treated outpatient through the crisis center. I then subsequently had conversation with the patient and asked if this would be something he is okay with, and he states yes and that he will take his medications now as prescribed and will follow-up with [facility] on Tuesday. He states that he feels safe to go home tonight and medicate at home. I then had an extensive conversation with the patient in regards to reasons to return, including any whatsoever worsening of his suicidal thoughts, feelings of self-harm, homicidal ideations, or any hallucinations. He endorses understanding and states he will come back if these pop up again, again stating that currently he feels okay and safe to go home. Patient discharged home. Lab Data 06/25/23 22:12 06/25/23 22:12 Laboratory Results WBC 6.18 10^3/uL (3.29-11.43) 06/25/23 22:12 RBC 4.42 10^6/uL (3.85-5.65) 06/25/23 22:12 Hgb 14.10 g/dL (11.27-16.99) 06/25/23 22:12 Hct 41.5 % (37-53) 06/25/23 22:12 MCV 93.9 fl (82-101) 06/25/23 22:12 MCH 31.9 pg (27-33) 06/25/23 22:12 MCHC 34.0 g/dL (30-55) 06/25/23 22:12 RDW 11.9 % (12.1-15.1) L 06/25/23 22:12 Plt Count 243 10^3/cmm (157-399) 06/25/23 22:12 MPV 9.4 fL (7.4-10.4) 06/25/23 22:12 Neut % (Auto) 47.6 % 06/25/23 22:12 Lymph % (Auto) 42.2 % 06/25/23 22:12 [place] % (Auto) 7.0 % 06/25/23 22:12 Eos % (Auto) 2.1 % 06/25/23 22:12 Baso % (Auto) 0.8 % 06/25/23 22:12 Neut # (Auto) 2.94 10^3/uL (1.8-7.7) 06/25/23 22:12 Lymph # (Auto) 2.6 10^3/uL (0.8-4.8) 06/25/23 22:12 [place] # (Auto) 0.4 10^3/uL (0.2-0.9) 06/25/23 22:12 Eos # (Auto) 0.1 10^3/uL (0.0-0.8) 06/25/23 22:12 Baso # (Auto) 0.1 10^3/uL (0.0-0.1) 06/25/23 22:12 Nucleated RBC % (auto) 0 % 06/25/23 22:12 Nucleated RBCs # 0.0 /100WBC 06/25/23 22:12 Sodium 138 mmol/L (136-145) 06/25/23 22:12 Potassium 3.9 mmol/L (3.5-5.1) 06/25/23 22:12 Chloride 104 mmol/L (98-107) 06/25/23 22:12 Carbon Dioxide 26 mmol/L (22-29) 06/25/23 22:12 Anion Gap 11.9 (5-19) 06/25/23 22:12 BUN 10 mg/dL (6-20) 06/25/23 22:12 Creatinine 0.8 mg/dL (0.7-1.2) 06/25/23 22:12 GFR Calculation 113.5 mL/min (90-130) 06/25/23 22:12 Glucose 86 mg/dL (65-115) 06/25/23 22:12 Calculated Osmolality 284 mOsm/kg (285-295) L 06/25/23 22:12 Calcium 8.5 mg/dL (8.5-10.5) 06/25/23 22:12 Total Bilirubin 0.5 mg/dL (0.15-1.2) 06/25/23 22:12 AST 26 U/L (0-40) 06/25/23 22:12 ALT 24 U/L (0-41) 06/25/23 22:12 Alkaline Phosphatase 58 U/L (40-130) 06/25/23 22:12 Total Protein 6.9 g/dL (6.6-8.7) 06/25/23 22:12 Albumin 4.1 g/dL (3.5-5.2) 06/25/23 22:12 Globulin 2.8 g/dL (1.3-4.6) 06/25/23 22:12 Salicylates < 0.3 mg/dL (3-10) L 06/25/23 22:12 Urine Opiates Screen Negative ng/mL (Negative) 06/25/23 22:12 Acetaminophen < 5.0 ug/mL (10-30) L 06/25/23 22:12 Ur Barbiturates Screen Negative ng/mL (Negative) 06/25/23 22:12 Ur Phencyclidine Scrn Negative ng/mL (Negative) 06/25/23 22:12 Ur Amphetamines Screen Negative ng/mL (Negative) 06/25/23 22:12 U Benzodiazepines Scrn Negative ng/mL (Negative) 06/25/23 22:12 Urine Cocaine Screen Negative ng/mL (Negative) 06/25/23 22:12 U Marijuana (THC) Screen Positive ng/mL (Negative) H 06/25/23 22:12 Ethyl Alcohol < 10 mg/dL (0-10) 06/25/23 22:12 No radiology studies performed this visit Discharge Plan Discharge Patient Disposition: Home Clinical Impression: Anxiety and depression Condition: Stable Prescriptions: No Action polyethylene glycol 3350 [Miralax] 17 gram/dose powder 4 g PO DAILY PRN (Reason: constipation) acetaminophen 500 mg Tablet 1,000 mg PO Q6H PRN (Reason: Pain) Headache Relief ([id number]) 250-250-65 mg Tablet 2 tab PO Q6H PRN (Reason: Migraine Headache) escitalopram oxalate 10 mg Tablet 10 mg PO DAILY Qty: 30 1RF lacosamide [Vimpat] 50 mg Tablet 100 mg PO BID 30 Days Qty: 120 1RF cyclobenzaprine 10 mg tablet 10 mg PO Q8H Qty: 14 0RF Discharge Orders: Discharge ED (Routine); Ordered 06/26/23 Ordered By: Moisés Jeter Referrals: Grace Holliday FNP [Primary Care Provider] - Discharge Diet: Usual diet Discharge Activity: Increase activity as tolerated Patient Instructions: Depression (ED), Anxiety (ED) Activity Restrictions/Additional Instructions: [facility]. If you develop any worsening thoughts of wanting to harm yourself or others, or develop any hallucinations, please return immediately for reevaluation. Please continue taking your medications as prescribed. 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 [employer] Documented by User: Salvador King, 06/26/23 07:19 HPI - Psych 2 General: Chief Complaint: Psychiatric Symptoms Stated Complaint: SI Time Seen by Provider: 06/25/23 21:48 PFSH ED 2 PFSH: Medical History Major depressive disorder with psychotic features History of ADHD Psychiatric care Depression Renal calculi PTSD (post-traumatic stress disorder) Autism Depression Epilepsy Status post extracorporeal shock wave therapy Surgical History Hx of appendectomy Family History Unknown Adopted Social History Smoking and tobacco/nicotine status: former use of tobacco/nicotine Quit status (tobacco/nicotine): has quit using Former quit date comment: quit about 2 months ago Second hand smoke exposure: No Alcohol intake: current Alcohol intake frequency: other Substance/Drug Use: current Substance/Drug use frequency: daily Adopted: Yes Caregiver/support person: Yes (cleans his house, set up meds, general assessment) Lives independently: Yes Household members: none Marital status: Single Highest education level completed: High School Graduate service: No Current occupational status: disabled Pets and animals: No Leisure activites: games and other Estella/Confucianist: Yarsanism Special estella needs: No Agree to transfusion: Yes Course 2 Vital Signs: Vital signs: Vital Signs Temperature 98.0 F 06/25/23 21:44 Pulse Rate 78 06/26/23 01:02 Respiratory Rate 18 06/26/23 01:02 Blood Pressure 129/88 06/26/23 01:02 Pulse Oximetry 97 06/26/23 01:02 Oxygen Delivery Me thod Room Air 06/26/23 00:11 [facility] - Psych Medical Decision Making Patient presents for suicidal ideations, as hotline called him and via ambulance. Patient has been in the psych unit multiple times here for similar incidences, has been attempted to be medicated though is historically noncompliant. He was noting that he attempted suicide with cutting himself and attempting to bleed out, though there is no evidence of lacerations or abrasions noted on examination. Basic psychiatric workup labs were performed and medically he was cleared. I called on-call psychiatrist, Dr. Sibley, to discuss patient's case and current findings. Due to his noncompliance with medication, history of recent discharge from the hospital, and now reporting that he is no longer feeling suicidal, patient will be treated outpatient through the crisis center. I then subsequently had conversation with the patient and asked if this would be something he is okay with, and he states yes and that he will take his medications now as prescribed and will follow-up with [facility] on Tuesday. He states that he feels safe to go home tonight and medicate at home. I then had an extensive conversation with the patient in regards to reasons to return, including any whatsoever worsening of his suicidal thoughts, feelings of self-harm, homicidal ideations, or any hallucinations. He endorses understanding and states he will come back if these pop up again, again stating that currently he feels okay and safe to go home. Patient discharged home. Chart reviewed Lab Data 06/25/23 22:12 06/25/23 22:12 Laboratory Results WBC 6.18 10^3/uL (3.29-11.43) 06/25/23 22:12 RBC 4.42 10^6/uL (3.85-5.65) 06/25/23 22:12 Hgb 14.10 g/dL (11.27-16.99) 06/25/23 22:12 Hct 41.5 % (37-53) 06/25/23 22:12 MCV 93.9 fl (82-101) 06/25/23 22:12 MCH 31.9 pg (27-33) 06/25/23 22:12 MCHC 34.0 g/dL (30-55) 06/25/23 22:12 RDW 11.9 % (12.1-15.1) L 06/25/23 22:12 Plt Count 243 10^3/cmm (157-399) 06/25/23 22:12 MPV 9.4 fL (7.4-10.4) 06/25/23 22:12 Neut % (Auto) 47.6 % 06/25/23 22:12 Lymph % (Auto) 42.2 % 06/25/23 22:12 [place] % (Auto) 7.0 % 06/25/23 22:12 Eos % (Auto) 2.1 % 06/25/23 22:12 Baso % (Auto) 0.8 % 06/25/23 22:12 Neut # (Auto) 2.94 10^3/uL (1.8-7.7) 06/25/23 22:12 Lymph # (Auto) 2.6 10^3/uL (0.8-4.8) 06/25/23 22:12 [place] # (Auto) 0.4 10^3/uL (0.2-0.9) 06/25/23 22:12 Eos # (Auto) 0.1 10^3/uL (0.0-0.8) 06/25/23 22:12 Baso # (Auto) 0.1 10^3/uL (0.0-0.1) 06/25/23 22:12 Nucleated RBC % (auto) 0 % 06/25/23 22:12 Nucleated RBCs # 0.0 /100WBC 06/25/23 22:12 Sodium 138 mmol/L (136-145) 06/25/23 22:12 Potassium 3.9 mmol/L (3.5-5.1) 06/25/23 22:12 Chloride 104 mmol/L (98-107) 06/25/23 22:12 Carbon Dioxide 26 mmol/L (22-29) 06/25/23 22:12 Anion Gap 11.9 (5-19) 06/25/23 22:12 BUN 10 mg/dL (6-20) 06/25/23 22:12 Creatinine 0.8 mg/dL (0.7-1.2) 06/25/23 22:12 GFR Calculation 113.5 mL/min (90-130) 06/25/23 22:12 Glucose 86 mg/dL (65-115) 06/25/23 22:12 Calculated Osmolality 284 mOsm/kg (285-295) L 06/25/23 22:12 Calcium 8.5 mg/dL (8.5-10.5) 06/25/23 22:12 Total Bilirubin 0.5 mg/dL (0.15-1.2) 06/25/23 22:12 AST 26 U/L (0-40) 06/25/23 22:12 ALT 24 U/L (0-41) 06/25/23 22:12 Alkaline Phosphatase 58 U/L (40-130) 06/25/23 22:12 Total Protein 6.9 g/dL (6.6-8.7) 06/25/23 22:12 Albumin 4.1 g/dL (3.5-5.2) 06/25/23 22:12 Globulin 2.8 g/dL (1.3-4.6) 06/25/23 22:12 Salicylates < 0.3 mg/dL (3-10) L 06/25/23 22:12 Urine Opiates Screen Negative ng/mL (Negative) 06/25/23 22:12 Acetaminophen < 5.0 ug/mL (10-30) L 06/25/23 22:12 Ur Barbiturates Screen Negative ng/mL (Negative) 06/25/23 22:12 Ur Phencyclidine Scrn Negative ng/mL (Negative) 06/25/23 22:12 Ur Amphetamines Screen Negative ng/mL (Negative) 06/25/23 22:12 U Benzodiazepines Scrn Negative ng/mL (Negative) 06/25/23 22:12 Urine Cocaine Screen Negative ng/mL (Negative) 06/25/23 22:12 U Marijuana (THC) Screen Positive ng/mL (Negative) H 06/25/23 22:12 Ethyl Alcohol < 10 mg/dL (0-10) 06/25/23 22:12 Discharge Plan Discharge Patient Disposition: Home Clinical Impression: Anxiety and depression Condition: Stable Prescriptions: No Action polyethylene glycol 3350 [Miralax] 17 gram/dose powder 4 g PO DAILY PRN (Reason: constipation) acetaminophen 500 mg Tablet 1,000 mg PO Q6H PRN (Reason: Pain) Headache Relief ([id number]) 250-250-65 mg Tablet 2 tab PO Q6H PRN (Reason: Migraine Headache) escitalopram oxalate 10 mg Tablet 10 mg PO DAILY Qty: 30 1RF lacosamide [Vimpat] 50 mg Tablet 100 mg PO BID 30 Days Qty: 120 1RF cyclobenzaprine 10 mg tablet 10 mg PO Q8H Qty: 14 0RF Discharge Orders: Discharge ED (Routine); Ordered 06/26/23 Ordered By: Moisés Jeter Referrals: Grace Holliday FNP [Primary Care Provider] - Discharge Diet: Usual diet Discharge Activity: Increase activity as tolerated Patient Instructions: Depression (ED), Anxiety (ED) Activity Restrictions/Additional Instructions: [facility]. If you develop any worsening thoughts of wanting to harm yourself or others, or develop any hallucinations, please return immediately for reevaluation. Please continue taking your medications as prescribed. 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
[2023-06-25 22:18] LABS: Basophils # 0.1 10^3/uL (0.0-0.1); Basophils % 0.8 %; Eosinophils # 0.1 10^3/uL (0.0-0.8); Eosinophils % 2.1 %; Hematocrit 41.5 % (37-53); Lymphocytes # 2.6 10^3/uL (0.8-4.8); Lymphocytes % 42.2 %; Mean Corpuscular Hemoglobin 31.9 pg (27-33); Mean Corpuscular Volume 93.9 fl (82-101); Mean Platelet Volume 9.4 fL (7.4-10.4); Monocytes # 0.4 10^3/uL (0.2-0.9); Neutrophils # 2.94 10^3/uL (1.8-7.7); Neutrophils % 47.6 %; Nucleated Red Blood Cells % 0 %; Platelet Count 243 10^3/cmm (157-399); Red Blood Count 4.42 10^6/uL (3.85-5.65); Red Cell Distribution Width 11.9 % (12.1-15.1); White Blood Count 6.18 10^3/uL (3.29-11.43)
[2023-06-25 22:44] LABS: Acetaminophen < 5.0 ug/mL (10-30); Alanine Aminotransferase 24 U/L (0-41); Albumin Level 4.1 g/dL (3.5-5.2); Alcohol Level < 10 mg/dL (0-10); Alkaline Phosphatase 58 U/L (40-130); Amphetamines Screen Urine Negative (Negative); Anion Gap 11.9 (5-19); Aspartate Amino Transferase 26 U/L (0-40); Barbiturates Screen Urine Negative (Negative); Benzodiazepines Screen Urine Negative (Negative); Blood Urea Nitrogen 10 mg/dL (6-20); Calcium 8.5 mg/dL (8.5-10.5); Carbon Dioxide 26 mmol/L (22-29); Chloride 104 mmol/L (98-107); Cocaine Screen Urine Negative (Negative); Creatinine Clr Calc Pharmacy 183.5931; Globulin 2.8 g/dL (1.3-4.6); Glomerular Filtration Rate 113.5 mL/min (90-130); Glucose 86 mg/dL (65-115); Opiate Screen Urine Negative (Negative); Osmolality Calculated 284 mOsm/kg (285-295); PCP Screen Urine Negative (Negative); Potassium 3.9 mmol/L (3.5-5.1); Salicylate < 0.3 mg/dL (3-10); Sodium 138 mmol/L (136-145); THC Screen Urine Positive (Negative); Total Bilirubin 0.5 mg/dL (0.15-1.2); Total Protein 6.9 g/dL (6.6-8.7)
[2023-06-26 00:11] VITALS: BP 140/91; PULSE 79; RESP 18; O2SAT 97
[2023-06-26 01:02] VITALS: BP 129/88; PULSE 78; RESP 18; O2SAT 97
== END 2023-06-26 01:04 | disposition home or self-care (01) ==
PROVIDERS: Emergency Provider Physician Assistant; PCP Nurse Practitioner Family
DX: F41.9 Anxiety disorder, unspecified (principal); F32.A Depression, unspecified; F84.0 Autistic disorder; Z87.891 Personal history of nicotine dependence
CPT/HCPCS: 80053; 80306; 80307; 85025; 99283

== ENCOUNTER 2023-07-07 21:21 | Emergency (ER) | payer MEDICARE, MEDICAID, SELFPAY ==
[2022-07-29 13:59] VITALS: BP 125/75; BMI 27.5
[2023-07-07 21:22] VITALS: BP 133/69; PULSE 73; RESP 14; TEMP 37; O2SAT 93
--- NOTE | 2023-07-07 21:32 | CTR_ITS ---
PROCEDURE INFORMATION: Exam: CT Abdomen And Pelvis Without Contrast Exam date and time: 07/07/2023 9:41 PM Age: 32 years old Clinical indication: Abdominal pain; Flank; Left; Additional info: Left flank pain TECHNIQUE: Imaging protocol: Computed tomography of the abdomen and pelvis without contrast. Radiation optimization: All CT scans at this facility use at least one of these dose optimization techniques: automated exposure control; mA and/or kV adjustment per patient size (includes targeted exams where dose is matched to clinical indication); or iterative reconstruction. COMPARISON: CT kidney stone [id number] 11/08/2019 10:27 AM RADIATION DOSE METRICS: Total DLP (mGy-cm): 710.6 FINDINGS: Liver: Liver is unremarkable. Gallbladder and bile ducts: No calcified gallstones, pericholecystic inflammatory change, or biliary ductal dilation. Pancreas: Pancreas is unremarkable. No main duct dilation. Spleen: Spleen is unremarkable. Adrenal glands: No nodules. Kidneys and ureters: Small nonobstructing renal calculi bilaterally. No hydroureteronephrosis. Simple left renal cyst. Stomach and bowel: Moderate colonic stool burden. No bowel obstruction. Appendix: No evidence of appendicitis. Intraperitoneal space: No free air. No significant fluid collection. Vasculature: Limited evaluation without IV contrast. No aneurysm. Lymph nodes: No enlarged lymph nodes. Urinary bladder: Circumferential bladder wall thickening, may be related to underdistention, nonspecific cystitis, and/or chronic outlet obstruction. Reproductive: Mild prostatomegaly. Bones/joints: No acute fracture. No aggressive osseous lesions. Soft tissues: Tiny fat containing umbilical hernia. CT/CT kidney stone [id number] IMPRESSION: 1. Small nonobstructing bilateral renal calculi. No hydroureteronephrosis. 2. Circumferential bladder wall thickening, may be related to underdistention, nonspecific cystitis, and/or chronic outlet obstruction. COMMENTS: Consistent with the [employer]'s Incidental Findings Committee white paper (J Am Jarocho Radiol 2018): Any incidental renal lesion less than 1 cm or classified as too small to characterize, or any incidental cystic renal lesion characterized as simple-appearing, is likely benign. No follow-up imaging is recommended for these lesions per consensus recommendations based on imaging criteria.
--- NOTE | 2023-07-07 21:33 | ED_ITS ---
HPI - Back Pain/Injury General: Chief Complaint: Back Pain/Injury Stated Complaint: Back pain Time Seen by Provider: 07/07/23 21:23 History of Present Illness: 32-year-old male patient comes in today with left flank pain. Patient believes that he may have a kidney stone. Patient reports pain 5 out of 10. Patient appears nontoxic. Patient does report some nausea. Review of Systems General: Reports: 10 or more systems reviewed and unremarkable except in HPI and below : Reports: flank pain PFSH ED PFSH: Medical History Major depressive disorder with psychotic features History of ADHD Psychiatric care Depression Renal calculi PTSD (post-traumatic stress disorder) Autism Depression Epilepsy Status post extracorporeal shock wave therapy Surgical History Hx of appendectomy Family History Unknown Adopted Social History Smoking and tobacco/nicotine status: former use of tobacco/nicotine Quit status (tobacco/nicotine): has quit using Former quit date comment: quit about 2 months ago Second hand smoke exposure: No Alcohol intake: current Alcohol intake frequency: other Substance/Drug Use: current Substance/Drug use frequency: daily Adopted: Yes Caregiver/support person: Yes (cleans his house, set up meds, general assessme nt) Lives independently: Yes Household members: none Marital status: Single Highest education level completed: High School Graduate service: No Current occupational status: disabled Pets and animals: No Leisure activites: games and other Estella/Latter-Day: Mormonism Special estella needs: No Agree to transfusion: Yes Physical Exam Const: COMMON NORMALS: alert HENMT: COMMON NORMALS: normocephalic HEAD & SCALP: normocephalic Neck/C-Spine: COMMON NORMALS: full ROM Resp: COMMON NORMALS: normal respiratory effort Cardio: COMMON NORMALS: regular rate RATE: regular rate GI: COMMON NORMALS: non-tender : BLADDER/KIDNEY EXAM: Yes CVA tenderness on the left Back/Pelvis: COMMON NORMALS: thoracic and lumbar spine normal to inspection GENERAL BACK: Yes CVA tenderness Extremity: COMMON NORMALS: no pedal edema Neuro: SENSORIUM/ORIENTATION: Yes alert Skin: COMMON NORMALS: turgor normal GENERAL SKIN EXAM: turgor normal Course Vital Signs: Vital signs: Vital Signs Temperature 98.6 F 07/07/23 21:22 Pulse Rate 72 07/07/23 22:01 Respiratory Rate 14 07/07/23 21:22 Blood Pressure 131/68 07/07/23 22:01 Pulse Oximetry 97 07/07/23 22:01 Oxygen Delivery Me thod Room Air 07/07/23 21:22 MDM - Back Pain/Injury Medical Decision Making 32-year-old male patient comes in today with complaints of left flank pain. Patient reports pain and discomfort starting this afternoon with nausea. Digna ent reports a history of kidney stones. Patient appears in mild to no pain. Patient endorses some left flank pain on percussion. Abdomen soft nontender. Vital signs are normal. Differential diagnosis includes renal calculi, muscle strain, malingering, intervertebral disc disease, facet arthropathy. CT of the abdomen and pelvis noted some renal calculi without any obstruction or hydronephrosis. Patient did have some mild bladder wall thickening. Urinalysis had trace of blood. Reviewed exam with patient with recommendations for treatment for musculoskeletal pain. Discussed need for return for signs of infection. Patient reports understanding and agreed to plan. Labs Radiology Impressions Abdomen/Pelvis CT 07/07/23 21:32 IMPRESSION: 1. Small nonobstructing bilateral renal calculi. No hydroureteronephrosis. 2. Circumferential bladder wall thickening, may be related to underdistention, nonspecific cystitis, and/or chronic outlet obstruction. COMMENTS: Consistent with the [employer]'s Incidental Findings Committee white paper (J Am Jarocho Radiol 2018): Any incidental renal lesion less than 1 cm or classified as too small to characterize, or any incidental cystic renal lesion characterized as simple-appearing, is likely benign. No follow-up imaging is recommended for these lesions per consensus recommendations based on imaging criteria. Laboratory Results Urine Color Yellow (Yellow) 07/07/23 21:40 Urine Appearance Clear (CLEAR) 07/07/23 21:40 Urine pH 7 (5-7) 07/07/23 21:40 Ur Specific Arley 1.010 (1.005-1.030) 07/07/23 21:40 Urine Protein Neg (Negative) 07/07/23 21:40 Urine Glucose (UA) Norm (Normal) 07/07/23 21:40 Urine Ketones Negative (Negative) 07/07/23 21:40 Urine Blood 2+ (Negative) H 07/07/23 21:40 Urine Nitrate Negative (Negative) 07/07/23 21:40 Urine Bilirubin Neg (Negative) 07/07/23 21:40 Urine Urobilinogen Neg mg/dL (Negative) 07/07/23 21:40 Ur Leukocyte Esterase Negative (Negative) 07/07/23 21:40 Urine RBC 5-10 /hpf (0-2) H 07/07/23 21:40 Urine WBC None /hpf (0-5) 07/07/23 21:40 Ur Squamous Epith Cells None /hpf (0-5) 07/07/23 21:40 Amorphous Sediment Not Reportable 07/07/23 21:40 Urine Bacteria None /hpf (NONE) 07/07/23 21:40 All radiology interpretation(s) finalized by discharge Discharge Plan Discharge Patient Disposition: Home Clinical Impression: Acute left flank pain, Renal calculi Condition: Stable Prescriptions: No Action polyethylene glycol 3350 [Miralax] 17 gram/dose powder 4 g PO DAILY PRN (Reason: constipation) acetaminophen 500 mg Tablet 1,000 mg PO Q6H PRN (Reason: Pain) Headache Relief ([id number]) 250-250-65 mg Tablet 2 tab PO Q6H PRN (Reason: Migraine Headache) escitalopram oxalate 10 mg Tablet 10 mg PO DAILY Qty: 30 1RF lacosamide [Vimpat] 50 mg Tablet 100 mg PO BID 30 Days Qty: 120 1RF cyclobenzaprine 10 mg tablet 10 mg PO Q8H Qty: 14 0RF Discharge Orders: Discharge ED (Routine); Ordered 07/07/23 Ordered By: Eduardo Oakley Referrals: Grace Holliday FNP [Primary Care Provider] - Discharge Diet: Usual diet Discharge Activity: Increase activity as tolerated Patient Instructions: Back Pain (ED) Activity Restrictions/Additional Instructions: Activity as tolerated. Use acetaminophen or ibuprofen for pain. Use ice or heat for further pain relief. Continue with routine medications as prescribed. Follow-up with primary care. Return to ED for worsening symptoms such as uncontrolled pain, fever greater than 100.4, or increased blood in urine. 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 Care Code ED Individualized Education Plan Aide for Ky Conklin
[2023-07-07] MEDS: ketorolac 10 mg Tablet PO (21:38)
[2023-07-07] MEDS: ondansetron 4 MG Tablet PO (21:39)
[2023-07-07 21:59] LABS: Add Urine Microscopic? YES; Bilirubin Urine Neg (Negative); Blood Urine 2+ (Negative); Glucose Urine UA Norm (Normal); Ketones Urine Negative (Negative); Leukocyte Esterase Urine Negative (Negative); Nitrate Urine Negative (Negative); Protein Urine Neg (Negative); Urine Appearance Clear (CLEAR); Urine Color Yellow (Yellow); Urobilinogen Urine Neg (Negative); pH Urine 7 (5-7)
[2023-07-07 22:00] LABS: Add Urine Culture? No
[2023-07-07 22:01] VITALS: BP 131/68; PULSE 72; O2SAT 97
[2023-07-07 22:50] VITALS: BP 124/54; PULSE 71; O2SAT 94
== END 2023-07-07 22:45 | disposition home or self-care (01) ==
PROVIDERS: Emergency Provider Nurse Practitioner Family; PCP Nurse Practitioner Family
DX: N20.0 Calculus of kidney (principal); Z87.891 Personal history of nicotine dependence; F84.0 Autistic disorder
CPT/HCPCS: 74176; 81001; 99284; Q0162

== ENCOUNTER 2023-07-09 19:52 | Emergency (ER) | payer MEDICARE, MEDICAID, SELFPAY ==
[2022-07-29 13:59] VITALS: BP 125/75; BMI 27.5
[2023-07-09 20:09] VITALS: BP 132/82; PULSE 67; RESP 17; TEMP 36.8; O2SAT 97; BMI 28.2
--- NOTE | 2023-07-09 20:43 | XRR_ITS ---
PROCEDURE INFORMATION: Exam: XR Right Tibia and Fibula Exam date and time: 07/09/2023 8:51 PM Age: 32 years old Clinical indication: Lower leg; Right; Patient HX: RT lower ext pain; No known injury; Additional info: Mid leg pain TECHNIQUE: Imaging protocol: Radiologic exam of the right tibia and fibula. Views: 2 views. COMPARISON: CR XR tibia fibula RT 2V 11220 11/01/2022 10:17 PM FINDINGS: Bones/joints: No acute fracture or dislocation. Cortical thickening along the lateral aspect of the fibular diaphysis. Soft tissues: Unremarkable. XR/XR tibia fibula RT 2V [id number] IMPRESSION: 1. No acute fracture or dislocation. 2. Cortical thickening along the lateral aspect of the fibular diaphysis, indeterminate, may reflect chronic stress related injury in the appropriate clinical context. If clinically indicated, this could be further evaluated with outpatient MRI.
--- NOTE | 2023-07-09 20:48 | W.ED.EXTPRO ---
Documented by User: COURTNEY Galvez 07/09/23 21:36 HPI - Extremity Problem General: Chief complaint: Extremity Problem,Nontraumatic Stated complaint: Right leg pain Time Seen by Provider: 07/09/23 20:21 Source: patient Mode of arrival: ambulatory Limitations: no limitations History of Present Illness: Patient is a 32-year-old male with multiple prior visits to the ED who presents complaining of right calf pain chronically. Patient states he was seen for this 2 months ago and was told to come back if it worsened. He states it has persisted and is worse with ambulation. He points that swelling to his right calf when asked where pain is, which appears to just be his calf muscle. No bruising, deformities, or overlying skin changes reported. Patient has not taken anything for pain. MD Complaint: extremity pain Onset (ago): month(s) Pain Consistency: constant Location: right Associated symptoms: Deny chest pain, fever(s) or rash Review of Systems General: Reports: 10 or more systems reviewed and unremarkable except in HPI and below Const: Denies: fever(s), chills or fatigue Eyes: Denies: change in vision ENMT: Denies: throat pain, ear or mastoid pain or nasal discharge Card: Denies: chest pain, palpitations, swelling of feet/ankles or lightheadedness Resp: Denies: dyspnea, productive cough or wheezing GI: Denies: abdominal pain, nausea, vomiting, diarrhea or constipation : Denies: flank pain, difficulty urinating, dysuria or urinary frequency Musc: Reports: extremity pain; Denies: neck pain, back pain or joint pain Skin/Breast: Denies: rash Neuro: Denies: headache(s), numbness in extremities or weakness in extremities PFS ED PFSH: Medical History Major depressive disorder with psychotic features History of ADHD Psychiatric care Depression Renal calculi PTSD (post-traumatic stress disorder) Autism Depression Epilepsy Status post extracorporeal shock wave therapy Surgical History Hx of appendectomy Family History Unknown Adopted Social History Smoking and tobacco/nicotine status: former use of tobacco/nicotine Quit status (tobacco/nicotine): has quit using Former quit date comment: quit about 2 months ago Second hand smoke exposure: No Alcohol intake: current Alcohol intake frequency: other Substance/Drug Use: current Substance/Drug use frequency: daily Adopted: Yes Caregiver/support person: Yes (cleans his house, set up meds, general assessment) Lives independently: Yes Household members: none Marital status: Single Highest education level completed: High School Graduate service: No Current occupational status: disabled Pets and animals: No Leisure activites: games and other Estella/Presybeterian: Hinduism Special estella needs: No Agree to transfusion: Yes Physical Exam Const: COMMON NORMALS: no acute distress, patient oriented x3 and no limitations GENERAL APPEARANCE: cooperative, comfortable and well developed ORIENTATION/CONSCIOUSNESS: Yes awake, Yes oriented to person, Yes oriented to place and Yes oriented to time Resp: COMMON NORMALS: normal respiratory effort, No retractions, No use of accessory muscles and clear to auscultation bilaterally AUSCULTATION: clear to auscultation bilaterally Cardio: COMMON NORMALS: regular rate, regular rhythm, No clicks present (Cardio), No murmurs present (Cardio) and No rub (Cardio) RATE: regular rate RHYTHM: regular rhythm Extremity: COMMON NORMALS: normal to inspection, full ROM and capillary refill normal NARRATIVE EXTREMITY EXAM: Very minimal reproducible tenderness palpation about the right calf. No deformities, bruising, edema, or other signs of trauma noted. No unilateral swelling. Gait normal. Neuro: COMMON NORMALS: patient oriented x3, moves all extremities, no focal motor deficits and no sensory deficits noted SENSORIUM/ORIENTATION: Yes oriented to person, Yes oriented to place and Yes oriented to time Psych: COMMON NORMALS: mental status grossly normal and Normal thought process present THOUGHT PROCESS: Normal thought process present Skin: COMMON NORMALS: no rashes or lesions noted GENERAL SKIN EXAM: no rashes or lesions noted Course Vital Signs: Vital signs: Vital Signs Temperature 98.2 F 07/09/23 21:44 Pulse Rate 59 L 07/09/23 21:44 Respiratory Rate 16 07/09/23 21:44 Blood Pressure 133/73 07/09/23 21:44 Pulse Oximetry 98 07/09/23 21:44 Oxygen Delivery Me thod Room Air 07/09/23 20:09 MDM - Extremity (Nontraumatic) Medical Decision Making Patient presented with right calf pain, acute on chronic. Had been seen for this 2 months ago and was told to return if it did not improve. There were no obvious deformities on examination and rest of exam unremarkable. X-ray of the right tib-fib did not demonstrate any acute abnormalities. Due to location and patient's reported and significant water intake, I believe patient is dealing with intermittent spasms of the right leg. He has muscle relaxers at home that he will take as needed and he will increase his fluid intake. He will take Tylenol or ibuprofen for any residual pain. Reasons to return discussed. Lab Data Radiology Impressions Tibia/Fibula X-Ray 07/09/23 20:43 IMPRESSION: 1. No acute fracture or dislocation. 2. Cortical thickening along the lateral aspect of the fibular diaphysis, indeterminate, may reflect chronic stress related injury in the appropriate clinical context. If clinically indicated, this could be further evaluated with outpatient MRI. XR interpretation done by ED provider, pending radiology final review Discharge Plan Discharge Patient Disposition: Home Clinical Impression: Muscle spasm of right leg Condition: Stable Prescriptions: Continued cyclobenzaprine 10 mg tablet 10 mg PO Q8H Qty: 14 0RF No Action polyethylene glycol 3350 [Miralax] 17 gram/dose powder 4 g PO DAILY PRN (Reason: constipation) acetaminophen 500 mg Tablet 1,000 mg PO Q6H PRN (Reason: Pain) Headache Relief (YSJ-[id number]) 250-250-65 mg Tablet 2 tab PO Q6H PRN (Reason: Migraine Headache) escitalopram oxalate 10 mg Tablet 10 mg PO DAILY Qty: 30 1RF lacosamide [Vimpat] 50 mg Tablet 100 mg PO BID 30 Days Qty: 120 1RF Discharge Orders: Discharge ED (Routine); Ordered 07/09/23 Ordered By: Moisés Jeter Referrals: Grace Holliday FNP [Primary Care Provider] - Discharge Diet: As Directed Discharge Activity: Increase activity as tolerated Patient Instructions: Muscle Spasm (ED) Activity Restrictions/Additional Instructions: Increase your fluid intake. Muscle relaxers that you have at home. Ibuprofen/Tylenol. Follow-up with primary care. Return with any new or worsening. 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 Care Code ED Network Controller for Chg Fwd Documented by User: Salvador King DO 07/11/23 16:56 HPI - Extremity Problem General: Chief complaint: Extremity Problem,Nontraumatic Stated complaint: Right leg pain Time Seen by Provider: 07/09/23 20:21 PFSH ED PFSH: Medical History Major depressive disorder with psychotic features History of ADHD Psychiatric care Depression Renal calculi PTSD (post-traumatic stress disorder) Autism Depression Epilepsy Status post extracorporeal shock wave therapy Surgical History Hx of appendectomy Family History Unknown Adopted Social History Smoking and tobacco/nicotine status: former use of tobacco/nicotine Quit status (tobacco/nicotine): has quit using Former quit date comment: quit about 2 months ago Second hand smoke exposure: No Alcohol intake: current Alcohol intake frequency: other Substance/Drug Use: current Substance/Drug use frequency: daily Adopted: Yes Caregiver/support person: Yes (cleans his house, set up meds, general assessment) Lives independently: Yes Household members: none Marital status: Single Highest education level completed: High School Graduate service: No Current occupational status: disabled Pets and animals: No Leisure activites: games and other Estella/Presybeterian: Hinduism Special estella needs: No Agree to transfusion: Yes Course Vital Signs: Vital signs: Vital Signs Temperature 98.2 F 07/09/23 21:44 Pulse Rate 59 L 07/09/23 21:44 Respiratory Rate 16 07/09/23 21:44 Blood Pressure 133/73 07/09/23 21:44 Pulse Oximetry 98 07/09/23 21:44 Oxygen Delivery Me thod Room Air 07/09/23 20:09 MDM - Extremity (Nontraumatic) Medical Decision Making Patient presented with right calf pain, acute on chronic. Had been seen for this 2 months ago and was told to return if it did not improve. There were no obvious deformities on examination and rest of exam unremarkable. X-ray of the right tib-fib did not demonstrate any acute abnormalities. Due to location and patient's reported and significant water intake, I believe patient is dealing with intermittent spasms of the right leg. He has muscle relaxers at home that he will take as needed and he will increase his fluid intake. He will take Tylenol or ibuprofen for any residual pain. Reasons to return discussed. Chart reviewed Lab Data Radiology Impressions Tibia/Fibula X-Ray 07/09/23 20:43 IMPRESSION: 1. No acute fracture or dislocation. 2. Cortical thickening along the lateral aspect of the fibular diaphysis, indeterminate, may reflect chronic stress related injury in the appropriate clinical context. If clinically indicated, this could be further evaluated with outpatient MRI. Discharge Plan Discharge Patient Disposition: Home Clinical Impression: Muscle spasm of right leg Condition: Stable Prescriptions: Continued cyclobenzaprine 10 mg tablet 10 mg PO Q8H Qty: 14 0RF No Action polyethylene glycol 3350 [Miralax] 17 gram/dose powder 4 g PO DAILY PRN (Reason: constipation) acetaminophen 500 mg Tablet 1,000 mg PO Q6H PRN (Reason: Pain) Headache Relief (YBH-[id number]) 250-250-65 mg Tablet 2 tab PO Q6H PRN (Reason: Migraine Headache) escitalopram oxalate 10 mg Tablet 10 mg PO DAILY Qty: 30 1RF lacosamide [Vimpat] 50 mg Tablet 100 mg PO BID 30 Days Qty: 120 1RF Discharge Orders: Discharge ED (Routine); Ordered 07/09/23 Ordered By: Moisés Jeter Referrals: Grace Holliday FNP [Primary Care Provider] - Discharge Diet: As Directed Discharge Activity: Increase activity as tolerated Patient Instructions: Muscle Spasm (ED) Activity Restrictions/Additional Instructions: Increase your fluid intake. Muscle relaxers that you have at home. Ibuprofen/Tylenol. Follow-up with primary care. Return with any new or worsening. 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 Care Code ED Network Controller for Ky Conklin
[2023-07-09] MEDS: ketorolac 60 mg/2 mL INJ IM (21:12)
[2023-07-09 21:44] VITALS: BP 133/73; PULSE 59; RESP 16; TEMP 36.8; O2SAT 98
== END 2023-07-09 21:57 | disposition home or self-care (01) ==
PROVIDERS: Emergency Provider Physician Assistant; PCP Nurse Practitioner Family
DX: M62.831 Muscle spasm of calf (principal); F84.0 Autistic disorder; Z87.891 Personal history of nicotine dependence
CPT/HCPCS: 73590; 96372; 99284; J1885

== ENCOUNTER 2023-07-11 19:37 | Inpatient (IN) | payer MEDICARE, MEDICAID, SELFPAY ==
[2022-07-29 13:59] VITALS: BP 125/75; BMI 27.5
[2023-07-11 19:42] VITALS: BP 143/98; PULSE 79; RESP 18; TEMP 36.7; O2SAT 98; BMI 25.7
[2023-07-11 20:05] LABS: Basophils # 0.1 10^3/uL (0.0-0.1); Basophils % 0.8 %; Eosinophils # 0.1 10^3/uL (0.0-0.8); Eosinophils % 1.1 %; Hematocrit 44.7 % (37-53); Lymphocytes # 3.3 10^3/uL (0.8-4.8); Lymphocytes % 41.3 %; Mean Corpuscular HGB Conc 33.6 g/dL (30-55); Mean Corpuscular Hemoglobin 31.7 pg (27-33); Mean Corpuscular Volume 94.5 fl (82-101); Mean Platelet Volume 9.8 fL (7.4-10.4); Monocytes # 0.4 10^3/uL (0.2-0.9); Neutrophils # 4.06 10^3/uL (1.8-7.7); Neutrophils % 51.5 %; Nucleated Red Blood Cells % 0 %; Platelet Count 268 10^3/cmm (157-399); Red Blood Count 4.73 10^6/uL (3.85-5.65); Red Cell Distribution Width 11.9 % (12.1-15.1); White Blood Count 7.87 10^3/uL (3.29-11.43)
[2023-07-11 20:14] LABS: Amphetamines Screen Urine Negative (Negative); Barbiturates Screen Urine Negative (Negative); Benzodiazepines Screen Urine Negative (Negative); Cocaine Screen Urine Negative (Negative); Opiate Screen Urine Negative (Negative); PCP Screen Urine Negative (Negative); THC Screen Urine Positive (Negative)
[2023-07-11 20:32] LABS: Alanine Aminotransferase 21 U/L (0-41); Albumin Level 4.8 g/dL (3.5-5.2); Alkaline Phosphatase 68 U/L (40-130); Anion Gap 14.1 (5-19); Aspartate Amino Transferase 25 U/L (0-40); Blood Urea Nitrogen 18 mg/dL (6-20); Carbon Dioxide 27 mmol/L (22-29); Chloride 104 mmol/L (98-107); Glomerular Filtration Rate 113.5 mL/min (90-130); Glucose 83 mg/dL (65-115); Osmolality Calculated 293 mOsm/kg (285-295); Potassium 4.1 mmol/L (3.5-5.1); Sodium 141 mmol/L (136-145); Total Bilirubin 0.7 mg/dL (0.15-1.2); Total Protein 7.8 g/dL (6.6-8.7)
[2023-07-11 20:33] LABS: Acetaminophen < 5.0 ug/mL (10-30); Alcohol Level < 10 mg/dL (0-10); Salicylate < 0.3 mg/dL (3-10)
[2023-07-11 20:57] LABS: Calcium 9.3 mg/dL (8.5-10.5)
[2023-07-11 21:05] VITALS: BP 141/90; PULSE 70; RESP 18; O2SAT 97
--- NOTE | 2023-07-11 21:10 | ED.C_ITS ---
HPI - Psych 2 General: Chief Complaint: Psychiatric Symptoms Stated Complaint: SI cutting Time Seen by Provider: 07/11/23 19:40 Source: patient Limitations: no limitations History of Present Illness: 32-year-old male who is well-known to [facility] has been seen here multiple times for psychiatric issues he states he has not been taking his meds since he was discharged from the psych [facility] has been having increasing suicidal thoughts he had a plan to cut his wrist with a knife. He denies any worsening improving factors. He wants to get help. Associated symptoms: Reports depression and suicidal ideation Review of Systems 2 Const: Denies: fever(s), chills, body aches or change in appetite ENMT: Denies: throat pain or dental pain Card: Denies: chest pain Resp: Denies: dyspnea GI: Denies: abdominal pain, nausea, vomiting or diarrhea Musc: Denies: neck pain or back pain Skin/Breast: Denies: rash Neuro: Denies: headache(s) Psych: Reports: depression and suicidal ideation PFS ED 2 PFSH: Medical History Major depressive disorder with psychotic features History of ADHD Psychiatric care Depression Renal calculi PTSD (post-traumatic stress disorder) Autism Depression Epilepsy Status post extracorporeal shock wave therapy Surgical History Hx of appendectomy Family History Unknown Adopted Social History Smoking and tobacco/nicotine status: former use of tobacco/nicotine Quit status (tobacco/nicotine): has quit using Former quit date comment: quit about 2 months ago Second hand smoke exposure: No Alcohol intake: current Alcohol intake frequency: other Substance/Drug Use: current Substance/Drug use frequency: daily Adopted: Yes Caregiver/support person: Yes (cleans his house, set up meds, general assessment) Lives independently: Yes Household members: none Marital status: Single Highest education level completed: High School Graduate service: No Current occupational status: disabled Pets and animals: No Leisure activites: games and other Estella/Christian: [employer]aritan Special estella needs: No Agree to transfusion: Yes Physical Exam 2 Const: COMMON NORMALS: no acute distress, patient oriented x3 and healthy appearing HENMT: COMMON NORMALS: normocephalic and atraumatic HEAD & SCALP: n ormocephalic and atraumatic Neck/C-Spine: COMMON NORMALS: full ROM and supple Chest: COMMONS NORMALS: normal inspection of the chest Resp: COMMON NORMALS: normal respiratory effort Cardio: COMMON NORMALS: regular rate, regular rhythm and No murmurs present (Cardio) RATE: regular rate RHYTHM: regular rhythm Extremity: COMMON NORMALS: full ROM NARRATIVE EXTREMITY EXAM: Superficial lacerations to the left forearm Neuro: COMMON NORMALS: patient oriented x3, moves all extremities and no focal motor deficits Psych: COMMON NORMALS: mental status grossly normal, Normal thought process present and cooperative MOOD & AFFECT: Yes depressed mood THOUGHT PROCESS: Normal thought process present THOUGHT CONTENT: Yes Suicidality present Skin: COMMON NORMALS: no rashes or lesions noted and no wounds GENERAL SKIN EXAM: no rashes or lesions noted Course 2 Vital Signs: Vital signs: Vital Signs Temperature 98.1 F 07/11/23 19:42 Pulse Rate 70 07/11/23 21:05 Respiratory Rate 18 07/11/23 21:05 Blood Pressure 141/90 07/11/23 21:05 Pulse Oximetry 97 07/11/23 21:05 Oxygen Delivery Me thod Room Air 07/11/23 19:42 [facility] - Psych Medical Decision Making Patient presents for suicidal ideations he is medically cleared I spoke to Dr. Sibley will admit to the psych buenrost[facility] at this time. Medical Records I reviewed the patient's medical records. Lab Data I reviewed the patient's lab results. 07/11/23 19:58 07/11/23 19:58 Laboratory Results WBC 7.87 10^3/uL (3.29-11.43) 07/11/23 19:58 RBC 4.73 10^6/uL (3.85-5.65) 07/11/23 19:58 Hgb 15.00 g/dL (11.27-16.99) 07/11/23 19:58 Hct 44.7 % (37-53) 07/11/23 19:58 MCV 94.5 fl (82-101) 07/11/23 19:58 MCH 31.7 pg (27-33) 07/11/23 19:58 MCHC 33.6 g/dL (30-55) 07/11/23 19:58 RDW 11.9 % (12.1-15.1) L 07/11/23 19:58 Plt Count 268 10^3/cmm (157-399) 07/11/23 19:58 MPV 9.8 fL (7.4-10.4) 07/11/23 19:58 Neut % (Auto) 51.5 % 07/11/23 19:58 Lymph % (Auto) 41.3 % 07/11/23 19:58 [facility] % (Auto) 5.0 % 07/11/23 19:58 Eos % (Auto) 1.1 % 07/11/23 19:58 Baso % (Auto) 0.8 % 07/11/23 19:58 Neut # (Auto) 4.06 10^3/uL (1.8-7.7) 07/11/23 19:58 Lymph # (Auto) 3.3 10^3/uL (0.8-4.8) 07/11/23 19:58 [facility] # (Auto) 0.4 10^3/uL (0.2-0.9) 07/11/23 19:58 Eos # (Auto) 0.1 10^3/uL (0.0-0.8) 07/11/23 19:58 Baso # (Auto) 0.1 10^3/uL (0.0-0.1) 07/11/23 19:58 Nucleated RBC % (auto) 0 % 07/11/23 19:58 Nucleated RBCs # 0.0 /100WBC 07/11/23 19:58 Sodium 141 mmol/L (136-145) 07/11/23 19:58 Potassium 4.1 mmol/L (3.5-5.1) 07/11/23 19:58 Chloride 104 mmol/L (98-107) 07/11/23 19:58 Carbon Dioxide 27 mmol/L (22-29) 07/11/23 19:58 Anion Gap 14.1 (5-19) 07/11/23 19:58 BUN 18 mg/dL (6-20) 07/11/23 19:58 Creatinine 0.8 mg/dL (0.7-1.2) 07/11/23 19:58 GFR Calculation 113.5 mL/min (90-130) 07/11/23 19:58 Glucose 83 mg/dL (65-115) 07/11/23 19:58 Calculated Osmolality 293 mOsm/kg (285-295) 07/11/23 19:58 Calcium 9.3 mg/dL (8.5-10.5) 07/11/23 19:58 Total Bilirubin 0.7 mg/dL (0.15-1.2) 07/11/23 19:58 AST 25 U/L (0-40) 07/11/23 19:58 ALT 21 U/L (0-41) 07/11/23 19:58 Alkaline Phosphatase 68 U/L (40-130) 07/11/23 19:58 Total Protein 7.8 g/dL (6.6-8.7) 07/11/23 19:58 Albumin 4.8 g/dL (3.5-5.2) 07/11/23 19:58 Globulin 3.0 g/dL (1.3-4.6) 07/11/23 19:58 Salicylates < 0.3 mg/dL (3-10) L 07/11/23 19:58 Urine Opiates Screen Negative ng/mL (Negative) 07/11/23 19:50 Acetaminophen < 5.0 ug/mL (10-30) L 07/11/23 19:58 Ur Barbiturates Screen Negative ng/mL (Negative) 07/11/23 19:50 Ur Phencyclidine Scrn Negative ng/mL (Negative) 07/11/23 19:50 Ur Amphetamines Screen Negative ng/mL (Negative) 07/11/23 19:50 U Benzodiazepines Scrn Negative ng/mL (Negative) 07/11/23 19:50 Urine Cocaine Screen Negative ng/mL (Negative) 07/11/23 19:50 U Marijuana (THC) Screen Positive ng/mL (Negative) H 07/11/23 19:50 Ethyl Alcohol < 10 mg/dL (0-10) 07/11/23 19:58 No radiology studies performed this visit Discharge Plan Discharge Patient Disposition: Admitted As Inpatient Admit Provider: Marc Sibley Clinical Impression: Suicidal ideation Condition: Stable 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 Care Code ED Doctor Of Nurse Anesthesia Practice for Ky Conklni
--- NOTE | 2023-07-11 21:38 | PC.NURSE ---
[facility] Pt served with copy of 96 [facility] by this RN and security. Pt A&Ox3 - no questions asked.
[2023-07-11 21:48] VITALS: BP 126/86; PULSE 75; RESP 17; TEMP 36.7; O2SAT 100
[2023-07-11] MEDS: trazodone 50 mg Tablet PO (22:45)
[2023-07-11] MEDS: hyDROXYzine 25 mg Capsule 50 MG PO (22:45)
--- NOTE | 2023-07-11 23:19 | PC.NURSE ---
Admission Note Pt arrived to [facility] by wheelchair at 2138 on a 96 hour hold. Pt states that he is here because he has been feeling suicidal recently and tried to cut his wrist with a pocket knife. Pt stated that he feels suicidal because life has been stressing him out, he stated that he has felt this way since mothers day. Pt denies si/hi during assessment. Pt endorses hearing voicing whispering to him. Pt was dressed into [facility] scrubs and no skin issues were noted. Pt was orientated to the unit and was given Trazodone 50 mg for sleep and Vistaril 50 mg for anxiety. pt is now observed resting in bed quietly with eyes closed.
[2023-07-12 06:00] VITALS: BP 129/79; PULSE 75; RESP 18; TEMP 36.4; O2SAT 98
[2023-07-12] MEDS: nicotine 2 mg Gum BUCCAL (12:06)
[2023-07-12 13:54] VITALS: BP 134/81; PULSE 102; RESP 16; TEMP 36.6; O2SAT 98
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
[2023-07-12 20:04] VITALS: BP 122/82; PULSE 60; RESP 17; TEMP 36.7; O2SAT 98
[2023-07-13 06:00] VITALS: BP 107/71; PULSE 77; RESP 17; TEMP 36.5; O2SAT 98
[2023-07-13] MEDS: acetaminophen 325 mg Tablet 650 MG PO (13:44)
[2023-07-13 14:00] VITALS: BP 129/80; PULSE 77; RESP 17; TEMP 36.3; O2SAT 97
--- NOTE | 2023-07-13 16:30 | P.NPUPN_ITS ---
Subjective NPU 2 Subjective: 32-year-old male with history of autism, psychosis, and depression admitted with suicidal ideation with plans to cut himself. Patient had reported that he continued to feel suicidal. He had reported feeling depressed and lonely. He had acknowledged that he had stopped all of his medications for the last 3 weeks including his Lexapro and his seizure medication. He had reported being unable to care for himself regarding compliance with his medications. He had reported no recent seizures. He had been isolative on the milieu. Mental Status Exam 2 MSE Comments: This is an overweight versus obese white male in hospital scrubs with poor grooming and minimal eye contact. No abnormal involuntary motor movements except for moderate psychomotor retardation. He was minimally cooperative with exam with moderate distress. Speech was decreased in rate, and volume with monotone quality of speech. Mood endorsed as depressed. ,His affect was odd and subdued. His thought process waslinear but superficial. Thought content: Patient endorsed suicidal ideation with thoughts of cutting his wrists. He minimized auditory or visual hallucinations but appeared to be responding to internal stimuli while having a conversation with someone that did not appear present in the room. There was no evidence of delusional thinking. Attention and concentration were limited and memory appeared mostly reliable but none were formally tested. He was alert and oriented times person and place. Insight and judgment are limited and impulse control is limited. Intellectual ability appears commensurate with mild cognitive impairement. Vitals/I&O/Wt Last Vital Signs Temp 97.3 F L 07/13/23 14:00 Pulse 77 07/13/23 14:00 Resp 17 07/13/23 14:00 BP 129/80 07/13/23 14:00 Pulse Ox 97 07/13/23 14:00 O2 Del Method Room Air 07/13/23 06:00 Weight last 48 hrs Weight 90.718 kg Data NPU 07/11/23 19:58 07/11/23 19:58 A&P Assessment and plan (1) PTSD (post-traumatic stress disorder): (2) Suicidal ideation: (3) Autism: (4) Borderline personality disorder: (5) ADHD: (6) Acute psychosis: (7) MDD (major depressive disorder), recurrent, severe, with psychosis: Plan This is a 32-year-old white male with a history of major depression with psychotic features, PTSD, Borderline Personality disorder and autism endorsing suicidal ideation. He continues to endorse a decline in functioning with no improvement reported with patient's medication regimen since last discharge. 1.? ? Engage? patient in individual ,milieu, and group therapy ?2. ? We will attempt to gather collateral information. ?3. ? TO-15 minute checks on the unit. ?4.? Restart lexapro 10mg daily, vimpat 100mg bid, and initiate invega 3mg at night to target psychosis. 5. ASQ to be filled. . Involuntary Hold Information 2 96 Hour Hold: 96 Hour Involuntary Admission: Yes 96 Hour Hold Ending Date: 07/15/23 96 Hour Hold Ending Time: 21:15 Attestations NPU 2 Medical Necessity Statement*: Inpatient hospitalization is medically necessary and the clinically appropriate intervention at this time. We will monitor/initiate medications and make changes as indicated. Patient's likely length of stay is 4-6 days. 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 Care Code Acute Code for [facility] Fwd Diagnoses PTSD (post-traumatic stress disorder) F43.10 Suicidal ideation R45.851 Autism F84.0 Borderline personality disorder F60.3 ADHD F90.9 Acute psychosis F23 MDD (major depressive disorder), recurrent, severe, with psychosis F33.3
[2023-07-13] MEDS: lacosamide 50 mg Tablet 100 MG PO (17:31)
[2023-07-13 21:10] VITALS: BP 118/77; PULSE 70; RESP 18; TEMP 36.3; O2SAT 98
[2023-07-13] MEDS: hyDROXYzine 25 mg Capsule 50 MG PO (21:13)
[2023-07-13] MEDS: trazodone 50 mg Tablet PO (21:13)
[2023-07-13] MEDS: paliperidone ER 3 mg Tablet PO (21:13)
[2023-07-14 06:00] VITALS: BP 145/67; PULSE 87; RESP 18; TEMP 36.3; O2SAT 98
[2023-07-14] MEDS: lacosamide 50 mg Tablet 100 MG PO ×2 (08:57→17:33)
[2023-07-14] MEDS: escitalopram 10 mg Tablet PO (08:57)
--- NOTE | 2023-07-14 09:02 | PC.NURSE ---
During assessment, patient denies SI, HI, AVH. Patient stated that his depression has decreased since arrival to the unit. Calm and cooperative during assessment.
[2023-07-14 14:00] VITALS: BP 129/84; PULSE 86; RESP 20; TEMP 36.8; O2SAT 96
--- NOTE | 2023-07-14 16:50 | P.NPUPN_ITS ---
Subjective NPU 2 Subjective: 32-year-old male with history of autism, psychosis, and depression admitted with suicidal ideation with plans to cut himself. Patient had appeared preoccupied by his thoughts and continued to have conversations with himself when no one was in the room. He had stated that he was simply talking to himself. He had reported that he had quit his medications several weeks ago. He had reported that despite his father being his guardian that he had been held responsible with taking his medications. He had stated that he had previously had a nurse in the home that came in once a week to assure that he was taking his pills but stated that she had not been present in several weeks. He continued to isolate himself on the milieu. He had reported that he was feeling better today. He had continued to report having thoughts of hurting himself Mental Status Exam 2 MSE Comments: This is an overweight versus obese white male in hospital scrubs with poor grooming and minimal eye contact. No abnormal involuntary motor movements except for moderate psychomotor retardation. He was more cooperative with exam with mild distress. Speech was decreased in rate, and normal in volume with monotone quality of speech. Mood endorsed as depressed. ,His affect was flat. His thought process was linear but superficial. Thought content: Patient endorsed suicidal ideation with thoughts of cutting his wrists. He minimized auditory or visual hallucinations but was responding to internal stimuli. There was no evidence of delusional thinking. Attention and concentration were limited and memory appeared mostly reliable but none were formally tested. He was alert and oriented times person and place. Insight and judgment are limited and impulse control is limited. Intellectual ability appears commensurate with mild cognitive impairment. Vitals/I&O/Wt Last Vital Signs Temp 98.2 F 07/14/23 14:00 Pulse 86 07/14/23 14:00 Resp 20 H 07/14/23 14:00 BP 129/84 07/14/23 14:00 Pulse Ox 96 07/14/23 14:00 O2 Del Method Room Air 07/14/23 14:00 Data NPU 07/11/23 19:58 07/11/23 19:58 A&P Assessment and plan (1) PTSD (post-traumatic stress disorder): (2) Suicidal ideation: (3) Autism: (4) Borderline personality disorder: (5) ADHD: (6) Acute psychosis: (7) MDD (major depressive disorder), recurrent, severe, with psychosis: Plan This is a 32-year-old white male with a history of major depression with psychotic features, PTSD, Borderline Personality disorder and autism endorsing suicidal ideation. He continues to endorse a decline in functioning with no improvement reported with patient's medication regimen since last discharge. 1.? ? Engage? patient in individual ,milieu, and group therapy ?2. ? We will attempt to gather collateral information. ?3. ? TO-15 minute checks on the unit. ?4.? Restarted lexapro 10mg daily, vimpat 100mg bid, and initiated invega 3mg at night to target psychosis. 5. ASQ to be filled. . Involuntary Hold Information 2 96 Hour Hold: 96 Hour Involuntary Admission: Yes 96 Hour Hold Ending Date: 07/15/23 96 Hour Hold Ending Time: 21:15 Attestations NPU 2 Medical Necessity Statement*: Inpatient hospitalization is medically necessary and the clinically appropriate intervention at this time. We will monitor/initiate medications and make changes as indicated. Patient's likely length of stay is 4-6 days. 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 Care Code Acute Code for [facility] Fwd Diagnoses PTSD (post-traumatic stress disorder) F43.10 Suicidal ideation R45.851 Autism F84.0 Borderline personality disorder F60.3 ADHD F90.9 Acute psychosis F23 MDD (major depressive disorder), recurrent, severe, with psychosis F33.3
[2023-07-14 19:20] VITALS: BP 145/82; PULSE 76; RESP 17; TEMP 36.7; O2SAT 96
[2023-07-14] MEDS: trazodone 50 mg Tablet PO (20:40)
[2023-07-14] MEDS: paliperidone ER 3 mg Tablet PO (20:40)
[2023-07-15 06:00] VITALS: BP 125/75; PULSE 74; RESP 15; TEMP 36.3; O2SAT 98
[2023-07-15] MEDS: escitalopram 10 mg Tablet PO (08:36)
[2023-07-15] MEDS: lacosamide 50 mg Tablet 100 MG PO (08:36)
[2023-07-15] MEDS: hydrocortisone 1% cream 28 gm 1 APPLIC TOPICAL (13:23)
[2023-07-15 13:44] VITALS: BP 131/77; PULSE 77; RESP 16; TEMP 36.8; O2SAT 98
--- NOTE | 2023-07-15 15:17 | W.PM.NPUDCS ---
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 19:50 Acetaminophen < 5.0 ug/mL (10-3 0) L 07/11/23 19:58 Ur Barbiturates Sc reen Negative ng/mL (N egative) 07/11/23 19:50 Ur Phencyclidine S crn Negative ng/mL (N egative) 07/11/23 19:50 Ur Amphetamines Sc reen Negative ng/mL (N egative) 07/11/23 19:50 U Benzodiazepines Scrn Negative ng/mL (N egative) 07/11/23 19:50 Urine Cocaine Scre en Negative ng/mL (N egative) 07/11/23 19:50 U Marijuana (THC) Screen Positive ng/mL (N egative) H 07/11/23 19:50 Ethyl Alcohol < 10 mg/dL (0-10) 07/11/23 19:58 Vitals: Last Vital Signs Temp 98.3 F 07/15/23 13:44 Pulse 77 07/15/23 13:44 Resp 16 07/15/23 13:44 BP 131/77 07/15/23 13:44 Pulse Ox 98 07/15/23 13:44 O2 Del Method Room Air 07/15/23 13:44 Discharge Plan Discharge Patient Disposition: Home Condition: Stable Prescriptions: New paliperidone 3 mg Tablet Extended Release 24hr 3 mg PO BEDTIME 30 Days Qty: 30 1RF Vimpat 50 mg Tablet 100 mg PO BID 30 Days Qty: 120 1RF escitalopram oxalate 10 mg Tablet 10 mg PO DAILY 30 Days Qty: 30 1RF Continued polyethylene glycol 3350 [Miralax] 17 gram/dose powder 4 g PO DAILY PRN (Reason: constipation) acetaminophen 500 mg Tablet 1,000 mg PO Q6H PRN (Reason: Pain) Headache Relief ([id number]) 250-250-65 mg Tablet 2 tab PO Q6H PRN (Reason: Migraine Headache) cyclobenzaprine 10 mg tablet 10 mg PO Q8H Qty: 14 0RF Discharge Orders: Discharge Order (Routine); Ordered 07/15/23 Ordered By: Glen Theodore Referrals: Grace Holliday FNP [Primary Care Provider] - Discharge Diet: Usual diet Discharge Activity: Resume usual activity Patient Instructions: Opioid Safety Discharge Attestations NPU Time Spent in Discharge Care*: less than 30 min Specific Discharge Activities: Specific discharge activities: educating patient, discussing with telephonic nurse case manager/social workers/dc planners and documenting/other paperwork 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 Care Code Acute Code for Chg Fwd Diagnoses PTSD (post-traumatic stress disorder) F43.10 MDD (major depressive disorder), recurrent, severe, with psychosis F33.3 Borderline personality disorder F60.3 Suicidal ideation R45.851 Autism F84.0 ADHD F90.9 Acute psychosis F23
[2023-07-15 16:03] VITALS: BP 131/77; PULSE 77; RESP 16; TEMP 36.8; O2SAT 98
[2023-07-15] MEDS: hyDROXYzine 25 mg Capsule 50 MG PO (16:09)
--- NOTE | 2023-07-15 16:25 | DCPLANNER ---
IMM was printed and given to guardian and placed in file.
== END 2023-07-15 16:49 | disposition home or self-care (01) | DRG 885 ==
LOC: ER 20:01 → NP 21:04
PROVIDERS: Admitting Provider Psychiatry & Neurology Psychiatry; Emergency Provider Emergency Medicine; PCP Nurse Practitioner Family; Visit Provider Psychiatry & Neurology Psychiatry
DX: F33.3 Major depressive disorder, recurrent, severe with psychotic symptoms (principal); R45.851 Suicidal ideations; F43.10 Post-traumatic stress disorder, unspecified; F84.0 Autistic disorder; F60.3 Borderline personality disorder; F90.9 Attention-deficit hyperactivity disorder, unspecified type; Z91.148 Patient's other noncompliance with medication regimen for other reason
CPT/HCPCS: 36415; 73590; 80053; 80306; 80307; 85025; 96372; 97150; 97165; 99284; 99285; J1885

== ENCOUNTER 2023-07-24 16:13 | Emergency (ER) | payer MEDICARE, MEDICAID, SELFPAY ==
[2022-07-29 13:59] VITALS: BP 125/75; BMI 27.5
[2023-07-24] VITALS (7 sets, daily range): BP systolic 118–142; BP diastolic 71–83; PULSE 50–72; RESP 16–17; TEMP 36.8; O2SAT 96–99; BMI 27.9
--- NOTE | 2023-07-24 17:43 | ED_ITS ---
HPI - Abdominal Pain 2 General: Chief Complaint: Abdominal Pain Stated Complaint: bloody urine Time Seen by Provider: 07/24/23 17:35 History of Present Illness: 32-year-old man who presents to the [facility] room with lower abdominal pain and flank pain. More on the left. He had some hematuria as well. Some nausea. No vomiting. Review of Systems 2 Narrative: Constitutional symptoms: Negative except as documented in HPI. Skin symptoms: Negative except as documented in HPI. Eye symptoms: Negative except as documented in HPI. ENMT symptoms: Negative except as documented in HPI. Respiratory symptoms: Negative except as documented in HPI. Cardiovascular symptoms: Negative except as documented in HPI. Gastrointestinal symptoms: Negative except as documented in HPI. Genitourinary symptoms: Negative except as documented in HPI. Musculoskeletal symptoms: Negative except as documented in HPI. Neurologic symptoms: Negative except as documented in HPI. Psychiatric symptoms: Negative except as documented in HPI. Endocrine symptoms: Negative except as documented in HPI. PFSH ED 2 PFSH: Medical History Major depressive disorder with psychotic features History of [facility] Psychiatric care Depression Renal calculi PTSD (post-traumatic stress disorder) Autism Depression Epilepsy Status post extracorporeal shock wave therapy Surgical History Hx of appendectomy Family History Unknown Adopted Social History Smoking and tobacco/nicotine status: former use of tobacco/nicotine Quit status (tobacco/nicotine): has quit using Former quit date comment: quit about 2 months ago Second hand smoke exposure: No Alcohol intake: current Alcohol intake frequency: other Substance/Drug Use: current Substance/Drug use frequency: daily Adopted: Yes Caregiver/support person: Yes (cleans his house, set up meds, general assessment) Lives independently: Yes Household members: none Marital status: Single Highest education level completed: High School Graduate service: No Current occupational status: disabled Pets and animals: No Leisure activites: games and other Estella/Sikhism: Shinto Special estella needs: No Agree to transfusion: Yes Physical Exam 2 Narrative: EXAM NARRATIVE: General: Alert, no acute distress. Skin: Warm, dry. Head: Normocephalic, atraumatic. Neck: Supple, trachea midline. Eye: Extraocular movements are intact. Ears, nose, mouth and throat: mucosa moist. Cardiovascular: Regular, Normal peripheral perfusion. Respiratory: Lungs are clear to auscultation, respirations are non-labored, breath sounds are equal, Symmetrical chest wall expansion. Gastrointestinal: Soft, Nontender, Non distended, Normal bowel sounds. Musculoskeletal: Normal ROM, no deformity. Neurological: Alert and oriented, No focal neurological deficit observed. Psychiatric: Cooperative, appropriate mood & affect. Course 2 Vital Signs: Vital signs: Vital Signs Temperature 98.3 F 07/24/23 16:16 Pulse Rate 50 L 07/24/23 20:00 Respiratory Rate 16 07/24/23 19:30 Blood Pressure 118/71 07/24/23 20:00 Pulse Oximetry 99 07/24/23 20:00 Oxygen Delivery Me thod Room Air 07/24/23 20:00 MDM - Abdominal Pain Medical Decision Making Medical decision making: Differential diagnosis including but not limited to and based on the above HPI, review of systems and physical exam: Ureterolithiasis. Urinary tract infection. Appendicitis. Cholecystis. Musculoskeletal / back pain. Pyelonephritis Orders placed to evaluate differential diagnosis based on the above differential, HPI and physical exam Lab Review: Laboratory results were reviewed and interpreted by myself the emergency room physician. Urinalysis notable for hematuria. No renal failure. No anemia. No leukocytosis. CT of the abdomen pelvis without contrast: There is a proximal left 4 mm ureteral stone. I see no other abdominal abnormalities. This was reviewed and interpreted by myself the emergency room physician. I reviewed the patient's medical record. Reexamination: Patient appears somewhat improved after pain medications and fluids. No altered mental status. No increased work of breathing. Assessment and plan: Ureteral stone. -IV normal saline bolus, IV Toradol, IV Dilaudid and IV Zofran. - Discharged home - Discussed plan with patient. Answered any questions. - Evaluation and treatment of this problem were appropriate in the emergency setting. Lab Data 07/24/23 18:27 07/24/23 18:27 Labs/Radiology: Laboratory Results WBC 8.07 10^3/uL (3.29-11.43) 07/24/23 18:27 RBC 4.48 10^6/uL (3.85-5.65) 07/24/23 18: Hgb 14.10 g/dL (11.27-16.99) 07/24/23 18: Hct 41.8 % (37-53) 07/24/23 18: MCV 93.3 fl (82-101) 07/24/23 18: MCH 31.5 pg (27-33) 07/24/23 18: MCHC 33.7 g/dL (30-55) 07/24/23 18: RDW 12.0 % (12.1-15.1) L 07/24/23: Plt Count 260 10^3/cmm (157-399) 07/24/23: MPV 9.4 fL (7.4-10.4) 07/24/23 18: Neut % (Auto) 66.8 % 07/24/23 18: Lymph % (Auto) 25.9 % 07/24/23 18: [place] % (Auto) 5.9 % 07/24/23: Eos % (Auto) 0.4 % 07/24/23 18: Baso % (Auto) 0.5 % 07/24/23: Neut # (Auto) 5.39 10^3/uL (1.8-7.7) 07/24/23 Lymph # (Auto) 2.1 10^3/uL (0.8-4.8) 07/24/23: [place] # (Auto) 0.5 10^3/uL (0.2-0.9) 07/24/23: Eos # (Auto) 0.0 10^3/uL (0.0-0.8) 07/24/23: Baso # (Auto) 0.0 10^3/uL (0.0-0.1) 07/24/23 Nucleated RBC % (auto) 0 % 07/24/23 Nucleated RBCs # 0.0 /100WBC 07/24/23 18: Sodium 140 mmol/L (136-145) 07/24/23 18: Potassium 3.9 mmol/L (3.5-5.1) 07/24/23: Chloride 104 mmol/L (98-107) 07/24/23 18:27 Carbon Dioxide 26 mmol/L (22-29) 07/24/23 18:27 Anion Gap 13.1 (5-19) 07/24/23 18:27 BUN 5 mg/dL (6-20) L 07/24/23 18:27 Creatinine 0.7 mg/dL (0.7-1.2) 07/24/23 18:27 GFR Calculation 132.4 mL/min (90-130) H 07/24/23 18:27 Glucose 93 mg/dL (65-115) 07/24/23 18:27 Calculated Osmolality 283 mOsm/kg (285-295) L 07/24/23 18:27 Calcium 9.3 mg/dL (8.5-10.5) 07/24/23 18: Total Bilirubin 0.6 mg/dL (0.15-1.2) 07/24/23 18:27 AST 22 U/L (0-40) 07/24/23 18: ALT 29 U/L (0-41) 07/24/23 18: Alkaline Phosphatase 76 U/L (40-130) 07/24/23 18:27 Total Protein 6.9 g/dL (6.6-8.7) 07/24/23 18:27 Albumin 4.5 g/dL (3.5-5.2) 07/24/23 18:27 Globulin 2.4 g/dL (1.3-4.6) 07/24/23 18:27 Urine Color Yellow (Yellow) 07/24/23 17:51 Urine Appearance Clear (CLEAR) 07/24/23 17:51 Urine pH 8 (5-7) H 07/24/23 17:51 Ur Specific Dodson 1.010 (1.005-1.030) 07/24/23 17:51 Urine Protein Neg (Negative) 07/24/23 17:51 Urine Glucose (UA) Norm (Normal) 07/24/23 17:51 Urine Ketones Negative (Negative) 07/24/23 17:51 Urine Blood 3+ (Negative) H 07/24/23 17:51 Urine Nitrate Negative (Negative) 07/24/23 17:51 Urine Bilirubin Neg (Negative) 07/24/23 17:51 Prot Sulfosalicylic Acd Negative (Negative) 07/24/23 17:51 Urine Urobilinogen Norm mg/dL (Negative) 07/24/23 17:51 Ur Leukocyte Esterase Negative (Negative) 07/24/23 17:51 Urine RBC 40-50 /hpf (0-2) H 07/24/23 17:51 Urine WBC 5-10 /hpf (0-5) H 07/24/23 17:51 Ur Squamous Epith Cells None /hpf (0-5) 07/24/23 17:51 Amorphous Sediment Not Reportable 07/24/23 17:51 Urine Bacteria Trace /hpf (NONE) 07/24/23 17:51 XR interpretation done by ED provider, pending radiology final review Discharge Plan Discharge Patient Disposition: Home Clinical Impression: Ureterolithiasis Condition: Stable Prescriptions: New hydrocodone-acetaminophen 5-325 mg tablet 1 tab PO Q6H PRN (Reason: pain) Qty: 20 0RF ondansetron 8 mg tablet,disintegrating 8 mg PO .q6 PRN (Reason: nausea and vomiting) Qty: 14 0RF polyethylene glycol 3350 [Miralax] 17 gram/dose powder 17 g PO DAILY Qty: 510 0RF Rx Instructions: Take 1 scoop daily while taking pain medications. tamsulosin [Flomax] 0.4 mg capsule 0.4 mg PO DAILY Qty: 30 0RF No Action polyethylene glycol 3350 [Miralax] 17 gram/dose powder 4 g PO DAILY PRN (Reason: constipation) acetaminophen 500 mg Tablet 1,000 mg PO Q6H PRN (Reason: Pain) Headache Relief ([id number]) 250-250-65 mg Tablet 2 tab PO Q6H PRN (Reason: Migraine Headache) cyclobenzaprine 10 mg tablet 10 mg PO Q8H Qty: 14 0RF paliperidone 3 mg Tablet Extended Release 24hr 3 mg PO BEDTIME 30 Days Qty: 30 1RF Vimpat 50 mg Tablet 100 mg PO BID 30 Days Qty: 120 1RF escitalopram oxalate 10 mg Tablet 10 mg PO DAILY 30 Days Qty: 30 1RF Discharge Orders: Discharge ED (Routine); Ordered 07/24/23 Ordered By: Omaira Blanco Referrals: Jai Rivers [Referring] - 4-7 days (Please call for an appointment with Dr. Rivers or urologist of your choice for follow-up) Grace Holliday FNP [Primary Care Provider] - 4-7 days Discharge Diet: Usual diet Discharge Activity: Increase activity as tolerated Patient Instructions: Ureteral Stones (ED) Activity Restrictions/Additional Instructions: Call for appointment with urology. If fever (temp >100.4) develops return to the emergency room immediately, as this is an emergency. Take nausea medication prior to taking pain medications. You have been screened and evaluated and felt safe for discharge. Health conditions do change or evolve sometimes and as such it is important that you follow up with your Primary Doctor to be re checked, 3-5 days is a general good time frame for follow up. You are always welcome to return to the ED for re assessment if your symptoms are worsening or you have new concerns 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 Care Code ED Family Service Worker for Ky Conklin
[2023-07-24 18:07] LABS: Add Urine Microscopic? YES; Bilirubin Urine Neg (Negative); Blood Urine 3+ (Negative); Glucose Urine UA Norm (Normal); Ketones Urine Negative (Negative); Leukocyte Esterase Urine Negative (Negative); Nitrate Urine Negative (Negative); Protein Urine Neg (Negative); Sulfosalicylic Acid Urine Negative (Negative); Urine Appearance Clear (CLEAR); Urine Color Yellow (Yellow); Urobilinogen Urine Norm (Negative); pH Urine 8 (5-7)
[2023-07-24 18:08] LABS: Add Urine Culture? Yes; Bacteria Urine TRACE /hpf; RBC Urine 40-50 /hpf (0-2)
--- NOTE | 2023-07-24 18:41 | CTR_ITS ---
PROCEDURE INFORMATION: Exam: CT Abdomen And Pelvis Without Contrast Exam date and time: 07/24/2023 6:57 PM Age: 32 years old Clinical indication: Abdominal pain; Prior surgery; Surgery date: 6+ months; Surgery type: Appy; Patient HX: Left flank pain with hematuria TECHNIQUE: Imaging protocol: Computed tomography of the abdomen and pelvis without contrast. Radiation optimization: All CT scans at this facility use at least one of these dose optimization techniques: automated exposure control; mA and/or kV adjustment per patient size (includes targeted exams where dose is matched to clinical indication); or iterative reconstruction. COMPARISON: CT kidney stone [id number] 07/07/2023 9:41 PM RADIATION DOSE METRICS: Total DLP (mGy-cm): 691.66 FINDINGS: Limitations: Evaluation of solid organs and vasculature is limited without intravenous contrast. This is standard protocol for evaluation of possible urolithiasis. Lungs: Visualized lungs are clear. Pleural spaces: No pleural effusion. Heart: Visualized portions of the heart are unremarkable. Liver: The liver is unremarkable. Gallbladder and bile ducts: The gallbladder is unremarkable. No biliary ductal dilatation. Pancreas: The pancreas is unremarkable. No pancreatic ductal dilatation. Spleen: The spleen is unremarkable. Adrenal glands: The right and left adrenal glands are unremarkable. Kidneys and ureters: Nonobstructing stones in both right and left kidneys. Right kidney stone measures 3.6 mm (series 3, image 76). Left kidney stone measures 2.4 mm (series 3, image 86). The right ureter is unremarkable. 3.6 mm stone at the left proximal ureter (series 3, image 100). Mild left hydronephrosis and proximal hydroureter to the level of the stone. Simple cyst in the left kidney measuring 1.7 cm. Stomach and bowel: No obstruction. No mucosal thickening. Appendix: The appendix is visualized and is unremarkable. No findings to suggest acute appendicitis. Intraperitoneal space: No free intraperitoneal air. No ascites. No loculated fluid collections to suggest an abscess. Vasculature: No evidence for aortic aneurysm. Lymph nodes: No lymphadenopathy. Urinary bladder: Diffuse, mild bladder wall thickening. Reproductive: Nonspecific parenchymal calcifications in the prostate gland. Bones/joints: No acute fracture. Soft tissues: No acute abnormality in the extra-abdominal soft tissues. CT/CT kidney stone [id number] IMPRESSION: 1. 3.6 mm stone at the left proximal ureter. Mild left hydronephrosis and proximal hydroureter to the level of the stone. 2. Bilateral nonobstructing renal stones. 3. Diffuse, mild bladder wall thickening. In the correct clinical setting, this may suggest cystitis. Recommend correlation with laboratory findings. Alternatively, this may be secondary to chronic outlet obstruction. 4. Incidental/nonacute findings are listed in the report. COMMENTS: Consistent with the [employer]'s Incidental Findings Committee white paper (J Am Jarocho Radiol 2018): Any incidental renal lesion less than 1 cm or classified as too small to characterize, or any incidental cystic renal lesion characterized as simple-appearing, is likely benign. No follow-up imaging is recommended for these lesions per consensus recommendations based on imaging criteria.
[2023-07-24 18:53] LABS: Basophils % 0.5 %; Eosinophils % 0.4 %; Hematocrit 41.8 % (37-53); Lymphocytes # 2.1 10^3/uL (0.8-4.8); Lymphocytes % 25.9 %; Mean Corpuscular HGB Conc 33.7 g/dL (30-55); Mean Corpuscular Hemoglobin 31.5 pg (27-33); Mean Corpuscular Volume 93.3 fl (82-101); Mean Platelet Volume 9.4 fL (7.4-10.4); Monocytes # 0.5 10^3/uL (0.2-0.9); Monocytes % 5.9 %; Neutrophils # 5.39 10^3/uL (1.8-7.7); Neutrophils % 66.8 %; Nucleated Red Blood Cells % 0 %; Platelet Count 260 10^3/cmm (157-399); Red Blood Count 4.48 10^6/uL (3.85-5.65); White Blood Count 8.07 10^3/uL (3.29-11.43)
[2023-07-24 19:08] LABS: Alanine Aminotransferase 29 U/L (0-41); Albumin Level 4.5 g/dL (3.5-5.2); Alkaline Phosphatase 76 U/L (40-130); Chloride 104 mmol/L (98-107); Potassium 3.9 mmol/L (3.5-5.1); Sodium 140 mmol/L (136-145)
[2023-07-24 19:15] LABS: Anion Gap 13.1 (5-19); Aspartate Amino Transferase 22 U/L (0-40); Blood Urea Nitrogen 5 mg/dL (6-20); Calcium 9.3 mg/dL (8.5-10.5); Carbon Dioxide 26 mmol/L (22-29); Creatinine Clr Calc Pharmacy 193.8113; Globulin 2.4 g/dL (1.3-4.6); Glomerular Filtration Rate 132.4 mL/min (90-130); Glucose 93 mg/dL (65-115); Osmolality Calculated 283 mOsm/kg (285-295); Total Bilirubin 0.6 mg/dL (0.15-1.2); Total Protein 6.9 g/dL (6.6-8.7)
[2023-07-24] MEDS: sodium chloride 0.9% 1,000 ML 999 ML IV (19:29)
[2023-07-24] MEDS: ketorolac 30 mg/mL INJ IVP (19:30)
[2023-07-24] MEDS: ondansetron 2 mg/ML SDV 2 mL 4 MG IVP (20:12)
[2023-07-24] MEDS: HYDROmorphone 1 mg/mL INJ 1 mL IVP (20:13)
[2023-07-24] MEDS: HYDROcodone-acetaminophen 10-325 mg Tablet 1 TAB PO (20:21)
== END 2023-07-24 20:27 | disposition home or self-care (01) ==
PROVIDERS: Emergency Medicine; Emergency Provider Emergency Medicine; PCP Nurse Practitioner Family
DX: N20.1 Calculus of ureter (principal); Z87.891 Personal history of nicotine dependence; F84.0 Autistic disorder; Z87.442 Personal history of urinary calculi
CPT/HCPCS: 36415; 74176; 80053; 81001; 85025; 87086; 96374; 96375; 99285; J1170; J1885; J2405; J7030

== ENCOUNTER 2023-07-29 11:49 | Emergency (ER) | payer MEDICARE, MEDICAID, SELFPAY ==
[2022-07-29 13:59] VITALS: BP 125/75; BMI 27.5
[2023-07-29 11:59] VITALS: BP 117/70; PULSE 55; RESP 14; TEMP 37.1; O2SAT 97
--- NOTE | 2023-07-29 13:04 | ED_ITS ---
HPI - Wound/Laceration General: Chief Complaint: Wound/Laceration Stated Complaint: finger lac Time Seen by Provider: 07/29/23 12:58 Source: patient Mode of arrival: EMS Limitations: no limitations History of Present Illness: Patient is a 32-year-old male who presents to ED today via EMS for evaluation of a laceration to his left index finger that he sustained just prior to arrival after accidentally cut it with a pocket knife. Patient states last tetanus is unknown however nurse was able to look into his chart and he has had one within the last year. Onset (ago): hour(s) Extremity Location: Left: hand (index finger) Place: home Patient tetanus UTD: Yes Context: accidental Associated symptoms: Reports no associated symptoms Treatments prior to arrival: bandage Review of Systems Musc: Reports: extremity pain (L index finger) Skin/Breast: Reports: other (laceration) PFS ED PFSH: Medical History ADHD Major depressive disorder with psychotic features History of ADHD Psychiatric care Depression Renal calculi PTSD (post-traumatic stress disorder) Autism Depression Epilepsy Status post extracorporeal shock wave therapy Surgical History Hx of appendectomy Family History Unknown Adopted Social History Smoking and tobacco/nicotine status: former use of tobacco/nicotine Quit status (tobacco/nicotine): has quit using Former quit date comment: quit about 2 months ago Second hand smoke exposure: No Alcohol intake: current Alcohol intake frequency: other Substance/Drug Use: current Substance/Drug use frequency: daily Adopted: Yes Caregiver/support person: Yes (cleans his house, set up meds, general assessment) Lives independently: Yes Household members: none Marital status: Single Highest education level completed: High School Graduate service: No Current occupational status: disabled Pets and animals: No Leisure activites: games and other Estella/Synagogue: Muslim Special estella needs: No Agree to transfusion: Yes Physical Exam Const: COMMON NORMALS: no acute distress, no limitations and well nourished Extremity: COMMON NORMALS: full ROM and capillary refill normal GENERAL: Yes normal exam except as noted LEFT UPPER EXTREMITY: Yes hand & digits Left hand and digits: Yes ROM (normal) and Yes neurovascular exam (normal) OTHER: pt has a very minor skin avulsion/flap laceration to edge of L index fingernail; no nail involvement; skin flap approximates well on its own and does not require repair at this time Neuro: COMMON NORMALS: moves all extremities, no focal motor deficits and no sensory deficits noted Skin: NARRATIVE SKIN EXAM: small flap laceration/skin avulsion Course Vital Signs: Vital signs: Vital Signs Temperature 98.8 F 07/29/23 11:59 Pulse Rate 55 L 07/29/23 11:59 Respiratory Rate 14 07/29/23 11:59 Blood Pressure 117/70 07/29/23 11:59 Pulse Oximetry 97 07/29/23 11:59 Oxygen Delivery Me thod Room Air 07/29/23 11:59 MDM - Wound/Laceration Medical Decision Making Wound approximates well on its own. There is no indication for closure at this time. Wound care/infection precautions discussed. Medical Records I reviewed the patient's medical records. No radiology studies performed this visit Discharge Plan Discharge Patient Disposition: Home Clinical Impression: Avulsion of skin of index finger Condition: Stable Prescriptions: No Action polyethylene glycol 3350 [Miralax] 17 gram/dose powder 4 g PO DAILY PRN (Reason: constipation) acetaminophen 500 mg Tablet 1,000 mg PO Q6H PRN (Reason: Pain) Headache Relief ([id number]) 250-250-65 mg Tablet 2 tab PO Q6H PRN (Reason: Migraine Headache) cyclobenzaprine 10 mg tablet 10 mg PO Q8H Qty: 14 0RF paliperidone 3 mg Tablet Extended Release 24hr 3 mg PO BEDTIME 30 Days Qty: 30 1RF Vimpat 50 mg Tablet 100 mg PO BID 30 Days Qty: 120 1RF escitalopram oxalate 10 mg Tablet 10 mg PO DAILY 30 Days Qty: 30 1RF hydrocodone-acetaminophen 5-325 mg tablet 1 tab PO Q6H PRN (Reason: pain) Qty: 20 0RF ondansetron 8 mg tablet,disintegrating 8 mg PO .q6 PRN (Reason: nausea and vomiting) Qty: 14 0RF Miralax 17 gram/dose powder 17 g PO DAILY Qty: 510 0RF Rx Instructions: Take 1 scoop daily while taking pain medications. Flomax 0.4 mg capsule 0.4 mg PO DAILY Qty: 30 0RF Discharge Orders: Discharge ED (Routine); Ordered 07/29/23 Ordered By: Karma Hillman Referrals: Grace Holliday FNP [Primary Care Provider] - Activity Restrictions/Additional Instructions: As we discussed please keep wound clean with warm soap and water and monitor for signs of infection such as redness, swelling, streaking up your hand or arm, fevers, drainage, or any other concerns you may have. Please seek medical reevaluation if these occur. 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 Care Code ED Internal Communications Intern for Ky Conklin
[2023-07-29 13:14] VITALS: BP 115/72; PULSE 57; RESP 16; TEMP 37.1; O2SAT 98
== END 2023-07-29 13:11 | disposition home or self-care (01) ==
PROVIDERS: Emergency Provider Physician Assistant; PCP Nurse Practitioner Family
DX: S61.211A Laceration without foreign body of left index finger without damage to nail, initial encounter (principal); W26.0XXA Contact with knife, initial encounter; F84.0 Autistic disorder; Z87.891 Personal history of nicotine dependence
CPT/HCPCS: 99283

== ENCOUNTER 2023-09-24 20:02 | Emergency (ER) | payer MEDICARE, MEDICAID, SELFPAY ==
[2022-07-29 13:59] VITALS: BP 125/75; BMI 27.5
[2023-09-24 20:21] VITALS: BP 137/79; PULSE 71; RESP 17; TEMP 36.6; O2SAT 99; BMI 25.7
--- NOTE | 2023-09-24 21:26 | W.ED.BACK ---
Documented by User: COURTNEY Galvez 09/24/23 22:00 HPI - Back Pain/Injury General: Chief Complaint: Back Pain/Injury Stated Complaint: severe back pain Time Seen by Provider: 09/24/23 20:37 Source: patient Mode of arrival: ambulatory Limitations: no limitations History of Present Illness: Patient is a 33-year-old male who is known to this emergency department with multiple prior visits, stating he has had atraumatic back pain for the past few days after helping his dad move furniture. States he felt a pop in his low back and is having pain radiating up his entire spine. No red flag back symptoms reported at this time, including no bowel or bladder incontinence or distal numbness/tingling/paresthesias. His vitals are normal on arrival, and he appears in no acute distress on physical examination. No other symptoms reported at this time. Has not taken anything for pain. MD elicited complaint: back pain Onset (ago): day(s) Timing: constant Severity: mild Location: lumbar spine and thoracic spine Exacerbating factors: movement and walking Relieving factors: immobilization Context: while lifting Associated symptoms: Deny abdominal pain, chills, fever(s), nausea or vomiting Related Data Home Medications Medication Instructions Recorded Confirmed acetaminophen 500 mg tablet 1,000 mg PO Q6H PRN Pain 07/11/22 07/11/23 [id number]-szngbkdsvpfzz-llbbqnzf 250 2 tab PO Q6H PRN Migraine Headache 07/11/22 07/11/23 mg-250 mg-65 mg tablet (Headache Relief (LWT-cafpwsjpersh-hftupmpx)) polyethylene glycol 3350 17 4 g PO DAILY PRN constipation 07/29/22 07/11/23 gram/dose oral powder (Miralax) Previous Rx's Medication Instructions Recorded escitalopram oxalate 10 mg tablet 10 mg PO DAILY 30 days #30 tabs 07/15/23 lacosamide 50 mg tablet (Vimpat) 100 mg (2 x 50 mg) PO BID 30 days 07/15/23 #120 tabs paliperidone 3 mg tablet,extended 3 mg PO BEDTIME 30 days #30 tabs 07/15/23 release 24 hr hydrocodone 5 mg-acetaminophen 325 1 tab PO Q6H PRN pain #20 tabs 07/24/23 mg tablet ondansetron 8 mg disintegrating 8 mg PO .q6 PRN nausea and 07/24/23 tablet vomiting #14 tabs polyethylene glycol 3350 17 17 g PO DAILY #510 grams 07/24/23 gram/dose oral powder (Miralax) tamsulosin 0.4 mg capsule (Flomax) 0.4 mg PO DAILY #30 caps 07/24/23 methocarbamol 750 mg tablet 750 mg PO Q8H 5 days #15 tabs 09/24/23 Allergies Allergy/AdvReac Type Severity Reaction Status Date / Time carbamazepine [From Tegretol] Allergy ALGY-Hives Verified 09/24/23 20:24 Iodinated Contrast Media Allergy ALGY-Rash Verified 09/24/23 20:24 Review of Systems General: Reports: 10 or more systems reviewed and unremarkable except in HPI and below Const: Denies: fever(s) or chills Card: Denies: chest pain Resp: Denies: dyspnea or productive cough GI: Denies: abdominal pain, nausea, vomiting or diarrhea : Denies: flank pain Musc: Reports: back pain; Denies: neck pain, extremity pain, extremity swelling, joint pain, joint swelling, joint redness, joint warmth, limited range of motion or muscle weakness Skin/Breast: Denies: rash Neuro: Denies: headache(s), numbness in extremities or weakness in extremities PFSH ED PFSH: Medical History ADHD Major depressive disorder with psychotic features History of ADHD Psychiatric care Depression Renal calculi PTSD (post-traumatic stress disorder) Autism Depression Epilepsy Status post extracorporeal shock wave therapy Surgical History Hx of appendectomy Family History Unknown Adopted Social History Smoking and tobacco/nicotine status: former use of tobacco/nicotine Quit status (tobacco/nicotine): has quit using Former quit date comment: quit about 2 months ago Second hand smoke exposure: No Alcohol intake: current Alcohol intake frequency: other Substance/Drug Use: current Substance/Drug use frequency: daily Adopted: Yes Caregiver/support person: Yes (cleans his house, set up meds, general assessment) Lives independently: Yes Household members: none Marital status: Single Highest education level completed: High School Graduate service: No Current occupational status: disabled Pets and animals: No Leisure activites: games and other Estella/Christian: Tenriism Special estella needs: No Agree to transfusion: Yes Physical Exam Const: COMMON NORMALS: no acute distress, patient oriented x3, no limitations, healthy appearing, alert and well nourished HENMT: COMMON NORMALS: normocephalic and atraumatic HEAD & SCALP: normocephalic and atraumatic Neck/C-Spine: COMMON NORMALS: full ROM, supple and no meningeal signs Resp: COMMON NORMALS: normal respiratory effort, No use of accessory muscles and clear to auscultation bilaterally AUSCULTATION: clear to auscultation bilaterally Cardio: COMMON NORMALS: regular rate and regular rhythm RATE: regular rate RHYTHM: regular rhythm Back/Pelvis: OTHER: No signs of trauma the patient's back. No reproducible spinous process tenderness. No paralumbar, parathoracic, or paracervical spasms or tenderness to palpation. Pain with range of motion, specifically lateral rotation at the lumbar spine. Extremity: COMMON NORMALS: normal to inspection, full ROM, capillary refill normal, no joint enlargement and no clubbing, cyanosis or edema Neuro: COMMON NORMALS: patient oriented x3, moves all extremities, no focal motor deficits and no sensory deficits noted SENSORIUM/ORIENTATION: Yes alert MENINGEAL SIGNS: Yes no meningeal signs Skin: COMMON NORMALS: no rashes or lesions noted GENERAL SKIN EXAM: no rashes or lesions noted Course Vital Signs: Vital signs: Vital Signs Temperature 97.9 F 09/24/23 22:20 Pulse Rate 69 09/24/23 22:20 Respiratory Rate 16 09/24/23 22:20 Blood Pressure 131/76 09/24/23 22:20 Pulse Oximetry 100 09/24/23 22:20 Oxygen Delivery Me thod Room Air 09/24/23 20:21 MDM - Back Pain/Injury Medical Decision Making The patient presented with atraumatic back pain after lifting something heavy earlier this week. Pain was worsened with walking and movement. He did receive injections of steroid, muscle relaxer and Toradol here and reports relief. Will send home with muscle relaxers and return precautions given. No radiology studies performed this visit Discharge Plan Discharge Patient Disposition: Home Clinical Impression: Spasm of back muscles Condition: Stable Prescriptions: New methocarbamol 750 mg tablet 750 mg PO Q8H 5 Days Qty: 15 0RF Discontinued cyclobenzaprine 10 mg tablet 10 mg PO Q8H Qty: 14 0RF No Action polyethylene glycol 3350 [Miralax] 17 gram/dose powder 4 g PO DAILY PRN (Reason: constipation) acetaminophen 500 mg Tablet 1,000 mg PO Q6H PRN (Reason: Pain) Headache Relief (SVC-pfed-guc) 250-250-65 mg Tablet 2 tab PO Q6H PRN (Reason: Migraine Headache) paliperidone 3 mg Tablet Extended Release 24hr 3 mg PO BEDTIME 30 Days Qty: 30 1RF Vimpat 50 mg Tablet 100 mg PO BID 30 Days Qty: 120 1RF escitalopram oxalate 10 mg Tablet 10 mg PO DAILY 30 Days Qty: 30 1RF hydrocodone-acetaminophen 5-325 mg tablet 1 tab PO Q6H PRN (Reason: pain) Qty: 20 0RF ondansetron 8 mg tablet,disintegrating 8 mg PO .q6 PRN (Reason: nausea and vomiting) Qty: 14 0RF Miralax 17 gram/dose powder 17 g PO DAILY Qty: 510 0RF Rx Instructions: Take 1 scoop daily while taking pain medications. Flomax 0.4 mg capsule 0.4 mg PO DAILY Qty: 30 0RF Discharge Orders: Discharge ED (Routine); Ordered 09/24/23 Ordered By: Moisés Jeter Referrals: Grace Holliday FNP [Primary Care Provider] - Discharge Diet: Usual diet Discharge Activity: Increase activity as tolerated Patient Instructions: Muscle Spasm (ED) Activity Restrictions/Additional Instructions: Muscle relaxers as prescribed. Gentle range of motion exercises as tolerated. Back exercises. Follow-up with your primary care provider. Return with any new or worsening. 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 Care Code ED Inspectors And Regulatory Officers for [facility] Documented by User: Adrien Jasso DO 09/25/23 02:02 HPI - Back Pain/Injury General: Chief Complaint: Back Pain/Injury Stated Complaint: severe back pain Time Seen by Provider: 09/24/23 20:37 Related Data Home Medications Medication Instructions Recorded Confirmed acetaminophen 500 mg tablet 1,000 mg PO Q6H PRN Pain 07/11/22 07/11/23 hynnujz-dezujiyprokyr-jiggeibz 250 2 tab PO Q6H PRN Migraine Headache 07/11/22 07/11/23 mg-250 mg-65 mg tablet (Headache Relief (MRY-zlbqkixdqpql-iwhhpwmc)) polyethylene glycol 3350 17 4 g PO DAILY PRN constipation 07/29/22 07/11/23 gram/dose oral powder (Miralax) Previous Rx's Medication Instructions Recorded escitalopram oxalate 10 mg tablet 10 mg PO DAILY 30 days #30 tabs 07/15/23 lacosamide 50 mg tablet (Vimpat) 100 mg (2 x 50 mg) PO BID 30 days 07/15/23 #120 tabs paliperidone 3 mg tablet,extended 3 mg PO BEDTIME 30 days #30 tabs 07/15/23 release 24 hr hydrocodone 5 mg-acetaminophen 325 1 tab PO Q6H PRN pain #20 tabs 07/24/23 mg tablet ondansetron 8 mg disintegrating 8 mg PO .q6 PRN nausea and 07/24/23 tablet vomiting #14 tabs polyethylene glycol 3350 17 17 g PO DAILY #510 grams 07/24/23 gram/dose oral powder (Miralax) tamsulosin 0.4 mg capsule (Flomax) 0.4 mg PO DAILY #30 caps 07/24/23 methocarbamol 750 mg tablet 750 mg PO Q8H 5 days #15 tabs 09/24/23 Allergies Allergy/AdvReac Type Severity Reaction Status Date / Time carbamazepine [From Tegretol] Allergy ALGY-Hives Verified 09/24/23 20:24 Iodinated Contrast Media Allergy ALGY-Rash Verified 09/24/23 20:24 PFSH ED PFSH: Medical History ADHD Major depressive disorder with psychotic features History of ADHD Psychiatric care Depression Renal calculi PTSD (post-traumatic stress disorder) Autism Depression Epilepsy Status post extracorporeal shock wave therapy Surgical History Hx of appendectomy Family History Unknown Adopted Social History Smoking and tobacco/nicotine status: former use of tobacco/nicotine Quit status (tobacco/nicotine): has quit using Former quit date comment: quit about 2 months ago Second hand smoke exposure: No Alcohol intake: current Alcohol intake frequency: other Substance/Drug Use: current Substance/Drug use frequency: daily Adopted: Yes Caregiver/support person: Yes (cleans his house, set up meds, general assessment) Lives independently: Yes Household members: none Marital status: Single Highest education level completed: High School Graduate service: No Current occupational status: disabled Pets and animals: No Leisure activites: games and other Estella/Christian: Tenriism Special estella needs: No Agree to transfusion: Yes Course Vital Signs: Vital signs: Vital Signs Temperature 97.9 F 09/24/23 22:20 Pulse Rate 69 09/24/23 22:20 Respiratory Rate 16 09/24/23 22:20 Blood Pressure 131/76 09/24/23 22:20 Pulse Oximetry 100 09/24/23 22:20 Oxygen Delivery Me thod Room Air 09/24/23 20:21 MDM - Back Pain/Injury Medical Decision Making The patient presented with atraumatic back pain after lifting something heavy earlier this week. Pain was worsened with walking and movement. He did receive injections of steroid, muscle relaxer and Toradol here and reports relief. Will send home with muscle relaxers and return precautions given. This patient was originally seen by Mr. Steffany PA-C.? I agree with his history, evaluation, and treatment. Discharge Plan Discharge Patient Disposition: Home Clinical Impression: Spasm of back muscles Condition: Stable Prescriptions: New methocarbamol 750 mg tablet 750 mg PO Q8H 5 Days Qty: 15 0RF Discontinued cyclobenzaprine 10 mg tablet 10 mg PO Q8H Qty: 14 0RF No Action polyethylene glycol 3350 [Miralax] 17 gram/dose powder 4 g PO DAILY PRN (Reason: constipation) acetaminophen 500 mg Tablet 1,000 mg PO Q6H PRN (Reason: Pain) Headache Relief (BUB-ggrx-txd) 250-250-65 mg Tablet 2 tab PO Q6H PRN (Reason: Migraine Headache) paliperidone 3 mg Tablet Extended Release 24hr 3 mg PO BEDTIME 30 Days Qty: 30 1RF Vimpat 50 mg Tablet 100 mg PO BID 30 Days Qty: 120 1RF escitalopram oxalate 10 mg Tablet 10 mg PO DAILY 30 Days Qty: 30 1RF hydrocodone-acetaminophen 5-325 mg tablet 1 tab PO Q6H PRN (Reason: pain) Qty: 20 0RF ondansetron 8 mg tablet,disintegrating 8 mg PO .q6 PRN (Reason: nausea and vomiting) Qty: 14 0RF Miralax 17 gram/dose powder 17 g PO DAILY Qty: 510 0RF Rx Instructions: Take 1 scoop daily while taking pain medications. Flomax 0.4 mg capsule 0.4 mg PO DAILY Qty: 30 0RF Discharge Orders: Discharge ED (Routine); Ordered 09/24/23 Ordered By: Moisés Jeter Referrals: Grace Holliday FNP [Primary Care Provider] - Discharge Diet: Usual diet Discharge Activity: Increase activity as tolerated Patient Instructions: Muscle Spasm (ED) Activity Restrictions/Additional Instructions: Muscle relaxers as prescribed. Gentle range of motion exercises as tolerated. Back exercises. Follow-up with your primary care provider. Return with any new or worsening. 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 Care Code ED Inspectors And Regulatory Officers for [place] [facility]
[2023-09-24] MEDS: orphenadrine 30 mg/mL Inj 2 mL 60 MG IM (21:30)
[2023-09-24] MEDS: dexamethasone 10 mg/mL INJ IM (21:31)
[2023-09-24] MEDS: ketorolac 60 mg/2 mL INJ IM (21:31)
[2023-09-24 22:20] VITALS: BP 131/76; PULSE 69; RESP 16; TEMP 36.6; O2SAT 100
== END 2023-09-24 22:21 | disposition home or self-care (01) ==
PROVIDERS: Emergency Provider Physician Assistant; PCP Nurse Practitioner Family
DX: M62.830 Muscle spasm of back (principal)
CPT/HCPCS: 96372; 99284; J1100; J1885; J2360

== ENCOUNTER 2023-10-26 20:58 | Inpatient (IN) | payer MEDICARE, MEDICAID, SELFPAY ==
[2023-10-03 11:24] VITALS: BP 125/75; BMI 27.5
[2023-10-26 20:59] VITALS: BP 154/88; PULSE 90; RESP 16; TEMP 37.2; O2SAT 95; BMI 25.7
--- NOTE | 2023-10-26 21:05 | ECG_ITS ---
[facility] Test Date: 2023-10-26 Pat Name: George Lopez Department: Room: 128 Gender: Male Stem Frazer: : 1990 Requested By: Tegan Tong Order Number: [id number] Jacinda MD: Halima Phillips M.D. Measurements Intervals [place] Rate: 68 P: 57 SC: 204 QRS: 70 QRSD: 94 T: 30 QT: 367 QTc: 392 Interpretive Statements SINUS RHYTHM MODERATE VOLTAGE CRITERIA FOR LVH, CONSIDER NORMAL VARIANT [MEETS CRITERIA IN ONE OF: R(aVL), S(V1), R(V5), R(V5/V6)+S(V1)] REPOL ABNORMALITY PROBABLY SECONDARY TO LVH Compared to ECG 06/16/2022 13:16:39 ST (T wave) deviation no longer present Electronically Signed On 10-27-2023 22:31:13 CDT by Halima Phillips M.D. [id number]
--- NOTE | 2023-10-26 21:06 | W.ED.PSYCHS ---
HPI - Psych General: Chief Complaint: Psychiatric Symptoms Stated Complaint: Si with plan Time Seen by Provider: 10/26/23 21:00 Source: patient and EMS Mode of arrival: EMS Limitations: no limitations History of Present Illness: 33-year-old male has a history of depression states that he has been out of his meds for months states been having increasing depression feels like dying he states he feels like there will be better off if he was . He does have a plan of cutting his wrist denies any worsening proving factors. Associated symptoms: Reports depression and suicidal ideation Related Data Home Medications Medication Instructions Recorded Confirmed acetaminophen 500 mg tablet 1,000 mg PO Q6H PRN Pain 07/11/22 07/11/23 fyoamao-fvpsjmfzglxht-fphclebl 250 2 tab PO Q6H PRN Migraine Headache 07/11/22 07/11/23 mg-250 mg-65 mg tablet (Headache Relief (MKZ-hoiqxjaourtl-gkqlcawg)) polyethylene glycol 3350 17 4 g PO DAILY PRN constipation 07/29/22 07/11/23 gram/dose oral powder (Miralax) Previous Rx's Medication Instructions Recorded escitalopram oxalate 10 mg tablet 10 mg PO DAILY 30 days #30 tabs 07/15/23 lacosamide 50 mg tablet (Vimpat) 100 mg (2 x 50 mg) PO BID 30 days 07/15/23 #120 tabs paliperidone 3 mg tablet,extended 3 mg PO BEDTIME 30 days #30 tabs 07/15/23 release 24 hr hydrocodone 5 mg-acetaminophen 325 1 tab PO Q6H PRN pain #20 tabs 07/24/23 mg tablet ondansetron 8 mg disintegrating 8 mg PO .q6 PRN nausea and 07/24/23 tablet vomiting #14 tabs polyethylene glycol 3350 17 17 g PO DAILY #510 grams 07/24/23 gram/dose oral powder (Miralax) tamsulosin 0.4 mg capsule (Flomax) 0.4 mg PO DAILY #30 caps 07/24/23 Allergies Allergy/AdvReac Type Severity Reaction Status Date / Time carbamazepine [From Tegretol] Allergy ALGY-Hives Verified 09/24/23 20:24 Iodinated Contrast Media Allergy ALGY-Rash Verified 09/24/23 20:24 Review of Systems Const: Denies: fever(s), chills, body aches or change in appetite ENMT: Denies: throat pain or dental pain Card: Denies: chest pain Resp: Denies: dyspnea GI: Denies: abdominal pain, nausea, vomiting or diarrhea Musc: Denies: neck pain or back pain Skin/Breast: Denies: rash Neuro: Denies: headache(s) Psych: Reports: depression and suicidal ideation PFSH ED PFSH: Medical History ADHD Major depressive disorder with psychotic features History of ADHD Psychiatric care Depression Renal calculi PTSD (post-traumatic stress disorder) Autism Depression Epilepsy Status post extracorporeal shock wave therapy Surgical History Hx of appendectomy Family History Unknown Adopted Social History Smoking and tobacco/nicotine status: former use of tobacco/nicotine Quit status (tobacco/nicotine): has quit using Former quit date comment: quit about 2 months ago Second hand smoke exposure: No Alcohol intake: current Alcohol intake frequency: other Substance/Drug Use: current Substance/Drug use frequency: daily Adopted: Yes Caregiver/support person: Yes (cleans his house, set up meds, general assessment) Lives independently: Yes Household members: none Marital status: Single Highest education level completed: High School Graduate service: No Current occupational status: disabled Pets and animals: No Leisure activites: games and other Estella/Adventist: Orthodoxy Special estella needs: No Agree to transfusion: Yes Physical Exam Const: COMMON NORMALS: no acute distress, patient oriented x3 and healthy appearing HENMT: COMMON NORMALS: normocephalic and atraumatic HEAD & SCALP: normocephalic and atraumatic Eye: COMMON NORMALS: conjunctivae normal CONJUNCTIVA: Yes conjunctivae normal Neck/C-Spine: COMMON NORMALS: full ROM and supple Chest: COMMONS NORMALS: normal inspection of the chest Resp: COMMON NORMALS: normal respiratory effort Cardio: COMMON NORMALS: regular rate, regular rhythm and No murmurs present (Cardio) RATE: regular rate RHYTHM: regular rhythm Extremity: COMMON NORMALS: normal to inspection and full ROM Neuro: COMMON NORMALS: patient oriented x3, moves all extremities and no focal motor deficits Psych: COMMON NORMALS: mental status grossly normal, Normal thought process present and cooperative THOUGHT PROCESS: Normal thought process present THOUGHT CONTENT: Yes Suicidality present Skin: COMMON NORMALS: no rashes or lesions noted and no wounds GENERAL SKIN EXAM: no rashes or lesions noted Course Vital Signs: Vital signs: Vital Signs Temperature 99.0 F 10/26/23 20:59 Pulse Rate 90 10/26/23 20:59 Respiratory Rate 16 10/26/23 20:59 Blood Pressure 154/88 10/26/23 20:59 Pulse Oximetry 95 10/26/23 20:59 MDM - Psych Medical Decision Making Patient presents for suicidal ideations he is placed on a 96-hour hold medically cleared will admit at this time Medical Records I reviewed the patient's medical records. Lab Data I reviewed the patient's lab results. No radiology studies performed this visit Discharge Plan Discharge Prescriptions: No Action polyethylene glycol 3350 [Miralax] 17 gram/dose powder 4 g PO DAILY PRN (Reason: constipation) acetaminophen 500 mg Tablet 1,000 mg PO Q6H PRN (Reason: Pain) Headache Relief (IQH-aive-adi) 250-250-65 mg Tablet 2 tab PO Q6H PRN (Reason: Migraine Headache) paliperidone 3 mg Tablet Extended Release 24hr 3 mg PO BEDTIME 30 Days Qty: 30 1RF Vimpat 50 mg Tablet 100 mg PO BID 30 Days Qty: 120 1RF escitalopram oxalate 10 mg Tablet 10 mg PO DAILY 30 Days Qty: 30 1RF hydrocodone-acetaminophen 5-325 mg tablet 1 tab PO Q6H PRN (Reason: pain) Qty: 20 0RF ondansetron 8 mg tablet,disintegrating 8 mg PO .q6 PRN (Reason: nausea and vomiting) Qty: 14 0RF Miralax 17 gram/dose powder 17 g PO DAILY Qty: 510 0RF Rx Instructions: Take 1 scoop daily while taking pain medications. Flomax 0.4 mg capsule 0.4 mg PO DAILY Qty: 30 0RF Referrals: Grace Holliday FNP [Primary Care Provider] - 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 Care Code ED Electric Crane Operator for [place]
[2023-10-26 21:12] VITALS: BP 154/88; PULSE 90; TEMP 37.2; O2SAT 95
--- NOTE | 2023-10-26 21:32 | PC.NURSE ---
96 Hour Involuntary Hold Patient Rights have been read to the patient and a copy of the same has been given to him. Plasterer Stucco Mook was present at bedside at the time of presentation of Rights. Patient verbalizes understanding of Rights.
[2023-10-26 21:37] LABS: Basophils # 0.1 10^3/uL (0.0-0.1); Basophils % 0.7 %; Eosinophils # 0.1 10^3/uL (0.0-0.8); Eosinophils % 1.6 %; Hematocrit 43.9 % (37-53); Lymphocytes % 40.7 %; Mean Corpuscular HGB Conc 33.9 g/dL (30-55); Mean Corpuscular Hemoglobin 31.5 pg (27-33); Mean Corpuscular Volume 92.8 fl (82-101); Monocytes # 0.5 10^3/uL (0.2-0.9); Monocytes % 6.8 %; Neutrophils # 3.73 10^3/uL (1.8-7.7); Neutrophils % 49.9 %; Nucleated Red Blood Cells % 0 %; Platelet Count 222 10^3/cmm (157-399); Red Blood Count 4.73 10^6/uL (3.85-5.65); Red Cell Distribution Width 11.7 % (12.1-15.1); White Blood Count 7.47 10^3/uL (3.29-11.43)
[2023-10-26 21:47] LABS: Alanine Aminotransferase 14 U/L (0-41); Albumin Level 4.5 g/dL (3.5-5.2); Alkaline Phosphatase 67 U/L (40-130); Aspartate Amino Transferase 18 U/L (0-40); Blood Urea Nitrogen 12 mg/dL (6-20); Calcium 9.1 mg/dL (8.5-10.5); Carbon Dioxide 28 mmol/L (22-29); Chloride 106 mmol/L (98-107); Creatinine Clr Calc Pharmacy 143.9998; Globulin 2.6 g/dL (1.3-4.6); Glomerular Filtration Rate 98.4 mL/min (90-130); Glucose 93 mg/dL (65-115); Osmolality Calculated 295 mOsm/kg (285-295); Sodium 143 mmol/L (136-145); Total Bilirubin 0.8 mg/dL (0.15-1.2); Total Protein 7.1 g/dL (6.6-8.7)
[2023-10-26 21:49] LABS: Acetaminophen < 5.0 ug/mL (10-30); Alcohol Level < 10 mg/dL (0-10); Salicylate < 0.3 mg/dL (3-10)
[2023-10-26 21:50] LABS: Amphetamines Screen Urine Negative (Negative); Barbiturates Screen Urine Negative (Negative); Benzodiazepines Screen Urine Negative (Negative); Cocaine Screen Urine Negative (Negative); Opiate Screen Urine Negative (Negative); PCP Screen Urine Negative (Negative); THC Screen Urine Positive (Negative)
[2023-10-26 21:55] VITALS: BP 154/88; PULSE 90; O2SAT 98
[2023-10-26 22:05] VITALS: BP 143/85; PULSE 66; RESP 18; TEMP 37.1; O2SAT 99
[2023-10-26 23:40] VITALS: PULSE 66
[2023-10-27] MEDS: OLANZapine 5 mg ODT PO (00:07)
[2023-10-27] MEDS: trazodone 50 mg Tablet PO ×2 (00:07→20:14)
[2023-10-27 06:00] VITALS: BP 116/69; PULSE 94; RESP 18; TEMP 36.4; O2SAT 96
[2023-10-27] MEDS: lacosamide 50 mg Tablet 100 MG PO ×2 (08:56→16:59)
--- NOTE | 2023-10-27 13:27 | W.PM.NPUH&PS ---
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 and oriented times person and place. Insight and judgment are limited and impulse control is limited. Intellectual ability appears limited. Vitals/I&O/Wt Last Vital Signs Temp 97.6 F 10/27/23 06:00 Pulse 94 10/27/23 06:00 Resp 18 10/27/23 06:00 BP 116/69 10/27/23 06:00 Pulse Ox 96 10/27/23 06:00 O2 Del Method Room Air 10/27/23 06:00 Weight last 48 hrs Weight 90.718 kg Data NPU 10/26/23 21:18 10/26/23 21:18 A&P Assessment and plan (1) PTSD (post-traumatic stress disorder): (2) Suicidal ideation: (3) Autism: (4) Borderline personality disorder: (5) ADHD: (6) Acute psychosis: (7) MDD (major depressive disorder), recurrent, severe, with psychosis: Plan This is a 33-year-old white male with a history of major depression with psychotic features, PTSD, Borderline Personality disorder and autism presenting as he often does endorse reporting relationship problems and being stressed out with suicidal ideation. 1.? Encourage individual, group, and milieu therapy 2. ?We will gather collateral information. 3. ?Continue every 15 minute observation for safety. 4.? Continue current medication. 5. Work with social work team and guardian for likely placement at the [facility] in [place]. . Involuntary Hold Information 96 Hour Hold: 96 Hour Involuntary Admission: Yes 96 Hour Hold Ending Date: 11/01/23 96 Hour Hold Ending Time: 20:58 Attestations NPU Medical Necessity Statement*: Inpatient hospitalization is medically necessary and the clinically appropriate intervention at this time. We will monitor/initiate medications and make changes as indicated. He will be in hospital for over 2 midnights. Patient's likely length of stay is 3 to 5 days. 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 Care Code Acute Code for g Fwd Diagnoses PTSD (post-traumatic stress disorder) F43.10 Suicidal ideation R45.851 Autism F84.0 Borderline personality disorder F60.3 ADHD F90.9 Acute psychosis F23 MDD (major depressive disorder), recurrent, severe, with psychosis F33.3
[2023-10-27 14:00] VITALS: BP 113/79; PULSE 68; RESP 16; TEMP 36.7; O2SAT 98
[2023-10-27 19:21] VITALS: BP 93/57; PULSE 76; RESP 18; TEMP 36.4; O2SAT 99
[2023-10-28 05:50] VITALS: BP 100/55; PULSE 72; RESP 18; TEMP 36.4; O2SAT 99
[2023-10-28] MEDS: lacosamide 50 mg Tablet 100 MG PO ×2 (08:18→18:39)
[2023-10-28 14:00] VITALS: BP 129/91; PULSE 94; RESP 18; TEMP 36.6; O2SAT 97
--- NOTE | 2023-10-28 16:24 | P.NPUPN_ITS ---
Subjective NPU 2 Subjective: Patient presents today reporting that he is feeling okay. He is feeling very optimistic about the [facility] in [place] and the opportunities that would bring. He identifies that it seems to speak to a lot of the difficulties that he has been having at home and that have led to him having these amorphous hospitalizations. We discussed the process we needed to undertake to get this in place. We discussed the fact that we did not know how long he would be here but that we would at the very least initiate the level 2 paperwork and then consider things from there. He denies any side effects to the medication. Mental Status Exam 2 MSE Comments: This is a well-nourished, well-developed white male in hospital scrubs with limited grooming and eye contact. No abnormal movements except for mild psychomotor retardation. Cooperative with exam in mild distress. Speech was slightly decreased rate and volume. Mood described as depressed, affect congruent and subdued. His thought process was linear. Thought content: Patient endorsed suicidal ideation but denied homicidal ideation, there were no delusions reported or noted, he denied any auditory or visual hallucinations. Attention and concentration were mostly intact and memory appeared mostly reliable but none were formally tested. He was alert and oriented times person and place. Insight and judgment are limited and impulse control is limited. Intellectual ability appears limited. Vitals/I&O/Wt Last Vital Signs Temp 98 F 10/28/23 14:00 Pulse 94 10/28/23 14:00 Resp 18 10/28/23 14:00 BP 129/91 10/28/23 14:00 Pulse Ox 97 10/28/23 14:00 O2 Del Method Room Air 10/28/23 05:50 Weight last 48 hrs Weight 90.718 kg Data NPU 10/26/23 21:18 10/26/23 21:18 A&P Assessment and plan (1) PTSD (post-traumatic stress disorder): (2) Suicidal ideation: (3) Autism: (4) Borderline personality disorder: (5) ADHD: (6) Acute psychosis: (7) MDD (major depressive disorder), recurrent, severe, with psychosis: Plan This is a 33-year-old white male with a history of major depression with psychotic features, PTSD, Borderline Personality disorder and autism presenting as he often does endorse reporting relationship problems and being stressed out with suicidal ideation. 1.? Encourage individual, group, and milieu therapy 2. ?We will gather collateral information. 3. ?Continue every 15 minute observation for safety. 4.? Continue current medication. 5. Work with social work team and guardian for likely placement at the [facility] in [place]. Father is guardian and in agreement. . Involuntary Hold Information 2 96 Hour Hold: 96 Hour Involuntary Admission: Yes 96 Hour Hold Ending Date: 11/01/23 96 Hour Hold Ending Time: 20:58 Attestations NPU 2 Medical Necessity Statement*: Inpatient hospitalization is medically necessary and the clinically appropriate intervention at this time. We will monitor/initiate medications and make changes as indicated. Patient's likely length of stay is 3 to 5 days. 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 Care Code Acute Code for g Fwd Diagnoses PTSD (post-traumatic stress disorder) F43.10 Suicidal ideation R45.851 Autism F84.0 Borderline personality disorder F60.3 ADHD F90.9 Acute psychosis F23 MDD (major depressive disorder), recurrent, severe, with psychosis F33.3
[2023-10-28 20:57] VITALS: BP 126/83; PULSE 105; RESP 18; TEMP 36.7; O2SAT 98
[2023-10-28] MEDS: trazodone 50 mg Tablet PO (21:23)
[2023-10-28] MEDS: ibuprofen 600 mg Tablet PO (21:25)
[2023-10-29 06:00] VITALS: BP 99/54; PULSE 68; RESP 17; TEMP 36.4; O2SAT 97
--- NOTE | 2023-10-29 08:07 | P.NPUPN_ITS ---
Subjective NPU 2 Subjective: Patient presented today reporting that he is doing okay. Endorse some sadness because his dad did not come to visit him as he did suggest that he would. He acknowledges that he knows that his frustrated and done with be. We discussed the benefits of our plan to move his situation to the [facility] and their programming. We discussed him taking this small step back to take a big step forward. And the fact that he would be making new friends and be in a social situation. He denied any side effects to his medication. Mental Status Exam 2 MSE Comments: This is a well-nourished, well-developed white male in hospital scrubs with limited grooming and eye contact. No abnormal movements except for mild psychomotor retardation. Cooperative with exam in mild distress. Speech was slightly decreased rate and volume. Mood described as depressed, affect congruent and subdued and a little tearful. His thought process was linear. Thought content: Patient endorsed suicidal ideation but denied homicidal ideation, there were no delusions reported or noted, he denied any auditory or visual hallucinations. Attention and concentration were mostly intact and memory appeared mostly reliable but none were formally tested. He was alert and oriented times person and place. Insight and judgment are limited and impulse control is limited. Intellectual ability appears limited. Vitals/I&O/Wt Last Vital Signs Temp 97.5 F L 10/29/23 06:00 Pulse 68 10/29/23 06:00 Resp 17 10/29/23 06:00 BP 99/54 10/29/23 06:00 Pulse Ox 97 10/29/23 06:00 O2 Del Method Room Air 10/28/23 05:50 Data NPU 10/26/23 21:18 10/26/23 21:18 A&P Assessment and plan (1) PTSD (post-traumatic stress disorder): (2) Suicidal ideation: (3) Autism: (4) Borderline personality disorder: (5) ADHD: (6) Acute psychosis: (7) MDD (major depressive disorder), recurrent, severe, with psychosis: Plan This is a 33-year-old white male with a history of major depression with psychotic features, PTSD, Borderline Personality disorder and autism presenting as he often does endorse reporting relationship problems and being stressed out with suicidal ideation. 1.? Encourage individual, group, and milieu therapy 2. ?We will gather collateral information. 3. ?Continue every 15 minute observation for safety. 4.? Continue current medication. 5. Work with social work team and guardian for likely placement at the [facility] in [place]. Father is guardian and in agreement. We will assist with level 2 initiation and consider discharge after completed. Involuntary Hold Information 2 96 Hour Hold: 96 Hour Involuntary Admission: Yes 96 Hour Hold Ending Date: 11/01/23 96 Hour Hold Ending Time: 20:58 Attestations NPU 2 Medical Necessity Statement*: Inpatient hospitalization is medically necessary and the clinically appropriate intervention at this time. We will monitor/initiate medications and make changes as indicated. Patient's likely length of stay is 4-6 days. 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 Care Code Acute Code for [facility] Fwd Diagnoses PTSD (post-traumatic stress disorder) F43.10 Suicidal ideation R45.851 Autism F84.0 Borderline personality disorder F60.3 ADHD F90.9 Acute psychosis F23 MDD (major depressive disorder), recurrent, severe, with psychosis F33.3
[2023-10-29] MEDS: lacosamide 50 mg Tablet 100 MG PO (08:21)
[2023-10-29 14:00] VITALS: BP 117/80; PULSE 66; RESP 16; TEMP 36.7; O2SAT 98
--- NOTE | 2023-10-29 18:21 | PC.NURSE ---
Patient refused his 1800 vimpat. Patient said that he normally does not take this medication when he is at home and does not have seizures. Patient said, I don't take any of my meds! I don't believe in all the hype of them. This nurse attempted to educate patient on importance of medication compliance. understanding verbalized. Patient still refusing. Dr. Sibley notified.
[2023-10-29 20:48] VITALS: BP 143/87; PULSE 79; RESP 18; TEMP 36.8; O2SAT 99
[2023-10-29] MEDS: trazodone 50 mg Tablet PO (21:15)
[2023-10-30 06:00] VITALS: BP 115/66; PULSE 77; RESP 18; TEMP 36.6; O2SAT 98
[2023-10-30] MEDS: lacosamide 50 mg Tablet 100 MG PO ×2 (08:58→18:10)
[2023-10-30 13:54] VITALS: BP 142/78; PULSE 94; RESP 16; TEMP 36.6; O2SAT 96
--- NOTE | 2023-10-30 18:03 | P.NPUPN_ITS ---
Subjective NPU 2 Subjective: 33-year-old male with history of autism, psychosis, and depression admitted with suicidal ideation. The patient had reported that he had discontinued his medications at least 2 months ago. He reported that it had been helpful as he stated that he no longer had hallucinations. He reported that he was interested in consideration of the [facility] as he stated that he did not want to be a burden on his father and stated that he continued to struggle with living independently. He reported having occasional periods of depression but stated that he had not felt that it had been as helpful with medications to manage his mood. He had stated that he had not received weekly therapy despite his hope that it would be helpful for managing his mood and anxiety problems. He did not report having any thoughts of hurting himself. Mental Status Exam 2 MSE Comments: This is a well-nourished, well-developed white male in hospital scrubs with limited grooming and eye contact. No abnormal movements except for mild psychomotor retardation. Cooperative with exam in mild distress. Speech was slightly decreased rate and volume. Mood described as okay. His affect was mood incongruent and subdued. His thought process was linear. Thought content: Patient endorsed no suicidal ideation and denied homicidal ideation, There were no delusions reported or noted, he denied any auditory or visual hallucinations. Attention and concentration were mostly intact and memory appeared mostly reliable but none were formally tested. He was alert and oriented times person and place. Insight and judgment are limited and impulse control is limited. Intellectual ability appears limited. Vitals/I&O/Wt Last Vital Signs Temp 98 F 10/30/23 13:54 Pulse 94 10/30/23 13:54 Resp 16 10/30/23 13:54 BP 142/78 10/30/23 13:54 Pulse Ox 96 10/30/23 13:54 O2 Del Method Room Air 10/30/23 13:54 Weight last 48 hrs Weight 101.151 kg Data NPU 10/26/23 21:18 10/26/23 21:18 A&P Assessment and plan (1) PTSD (post-traumatic stress disorder): (2) Suicidal ideation: (3) Autism: (4) Borderline personality disorder: (5) ADHD: (6) Acute psychosis: (7) MDD (major depressive disorder), recurrent, severe, with psychosis: Plan This is a 33-year-old white male with a history of major depression with psychotic features, PTSD, Borderline Personality disorder and autism presenting as he often does endorse reporting relationship problems and being stressed out with suicidal ideation. 1.? Encourage individual, group, and milieu therapy 2. ?We will gather collateral information. 3. ?Continue every 15 minute observation for safety. 4.? Continue current outpatient medications. 5. Work with social work team and guardian for likely placement at the [facility] in [place]. Father is guardian and in agreement. We will assist with level 2 initiation and consider discharge after completed. Involuntary Hold Information 2 96 Hour Hold: 96 Hour Involuntary Admission: Yes 96 Hour Hold Ending Date: 11/01/23 96 Hour Hold Ending Time: 20:58 Attestations NPU 2 Medical Necessity Statement*: Inpatient hospitalization is medically necessary and the clinically appropriate intervention at this time. We will monitor/initiate medications and make changes as indicated. Patient's likely length of stay is 4-6 days. 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 Care Code Acute Code for [facility] Fwd Diagnoses PTSD (post-traumatic stress disorder) F43.10 Suicidal ideation R45.851 Autism F84.0 Borderline personality disorder F60.3 ADHD F90.9 Acute psychosis F23 MDD (major depressive disorder), recurrent, severe, with psychosis F33.3
[2023-10-30] MEDS: trazodone 50 mg Tablet PO (20:14)
[2023-10-30] MEDS: polyethylene glycol 3350 Pkt 17 gm PO (20:14)
[2023-10-30 20:16] VITALS: BP 124/76; PULSE 86; RESP 18; TEMP 36.8; O2SAT 98
[2023-10-31 06:00] VITALS: BP 128/65; PULSE 79; RESP 18; TEMP 36.4; O2SAT 100
[2023-10-31] MEDS: lacosamide 50 mg Tablet 100 MG PO ×2 (08:29→17:43)
[2023-10-31 14:00] VITALS: BP 136/76; PULSE 71; RESP 16; TEMP 36.6; O2SAT 96
--- NOTE | 2023-10-31 17:24 | P.NPUPN_ITS ---
Subjective NPU 2 Subjective: 33-year-old male with history of autism, psychosis, and depression admitted with suicidal ideation. The patient had admitted that he has had depression. He had reported not having as much aggression. He had stated that he was hopeful about going to the [facility] and was willing to speak with members of their staff while here. He had reported stress at managing his care as he reported struggles with self-care and problems with managing social situations that had been described as being worse over the past few months. He reports that he had recently lost his job and continue to struggle with feelings of inadequacy and stating that he was uncertain as to whether he was going to be able to work in the future. Mental Status Exam 2 MSE Comments: This is a well-nourished, well-developed white male in hospital scrubs with limited grooming and eye contact. No abnormal movements except for mild psychomotor retardation. Cooperative with exam in mild distress. Speech was slightly decreased rate and volume. Mood described as allright. His affect was mood incongruent and subdued. His thought process was linear. Thought content: Patient endorsed no suicidal ideation and denied homicidal ideation, There were no delusions reported or noted, he denied any auditory or visual hallucinations. Attention and concentration were mostly intact and memory appeared mostly reliable but none were formally tested. He was alert and oriented times person and place. Insight and judgment are limited and impulse control is limited. Intellectual ability appears limited. Vitals/I&O/Wt Last Vital Signs Temp 98 F 10/31/23 14:00 Pulse 71 10/31/23 14:00 Resp 16 10/31/23 14:00 BP 136/76 10/31/23 14:00 Pulse Ox 96 10/31/23 14:00 O2 Del Method Room Air 10/31/23 14:00 Weight last 48 hrs Weight 101.151 kg Data NPU 10/26/23 21:18 10/26/23 21:18 A&P Assessment and plan (1) PTSD (post-traumatic stress disorder): (2) Suicidal ideation: (3) Autism: (4) Borderline personality disorder: (5) ADHD: (6) Acute psychosis: (7) MDD (major depressive disorder), recurrent, severe, with psychosis: Plan This is a 33-year-old white male with a history of major depression with psychotic features, PTSD, Borderline Personality disorder and autism presenting as he often does endorse reporting relationship problems and being stressed out with suicidal ideation. 1.? Encourage individual, group, and milieu therapy 2. ?We will gather collateral information. 3. ?Continue every 15 minute observation for safety. 4.? Continue current outpatient medications. Patient agreeable to restarting antidepressant treatment, lexapro 10mg daily. 5. Work with social work team and guardian for likely placement at the [facility] in [place]. Father is guardian and in agreement. We will assist with level 2 initiation and consider discharge after completed. Involuntary Hold Information 2 96 Hour Hold: 96 Hour Involuntary Admission: Yes 96 Hour Hold Ending Date: 11/01/23 96 Hour Hold Ending Time: 20:58 Attestations NPU 2 Medical Necessity Statement*: Inpatient hospitalization is medically necessary and the clinically appropriate intervention at this time. We will monitor/initiate medications and make changes as indicated. Patient's likely length of stay is 4-6 days. 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 Care Code Acute Code for [facility] Fwd Diagnoses PTSD (post-traumatic stress disorder) F43.10 Suicidal ideation R45.851 Autism F84.0 Borderline personality disorder F60.3 ADHD F90.9 Acute psychosis F23 MDD (major depressive disorder), recurrent, severe, with psychosis F33.3
[2023-10-31] MEDS: escitalopram 10 mg Tablet PO (17:43)
[2023-10-31 19:40] VITALS: BP 119/80; PULSE 83; RESP 18; TEMP 37.1; O2SAT 98
[2023-10-31] MEDS: trazodone 50 mg Tablet PO (20:08)
[2023-11-01 06:00] VITALS: BP 120/71; PULSE 69; RESP 18; TEMP 36.3; O2SAT 99
[2023-11-01] MEDS: lacosamide 50 mg Tablet 100 MG PO ×2 (09:05→17:48)
[2023-11-01] MEDS: escitalopram 10 mg Tablet PO (09:05)
[2023-11-01] MEDS: ibuprofen 600 mg Tablet PO (11:05)
[2023-11-01 14:00] VITALS: BP 137/78; PULSE 75; RESP 17; TEMP 36.7; O2SAT 96
--- NOTE | 2023-11-01 16:48 | P.NPUPN_ITS ---
Subjective NPU 2 Subjective: 33-year-old male with history of autism, psychosis, and depression admitted with suicidal ideation. The patient reported having t less suicidal thoughts. He had reported that he had felt less anxious with the addition of Lexapro. He had continued to express motivation with possibly going to live at the [facility] to help him with social skills building and eventually having more independence. He reported continued stress and struggles with engaging with his peers. He had been less isolative on the milieu and reported improved energy. No sleep disturbance noted. He continued to express increased ongoing conflict with father. Mental Status Exam 2 MSE Comments: This is a well-nourished, well-developed white male in hospital scrubs with limited grooming and eye contact. No abnormal movements except for mild psychomotor retardation. He was cooperative with exam in mild distress. Speech was slightly decreased rate and volume. Mood described as okay. His affect was restricted and mood incongruent. His thought process was linear. Thought content: Patient endorsed no suicidal ideation and denied homicidal ideation, There were no delusions reported or noted, he denied any auditory or visual hallucinations. Attention and concentration were mostly intact and memory appeared mostly reliable but none were formally tested. He was alert and oriented times person and place. Insight and judgment are limited and impulse control is limited. Intellectual ability appears limited. Vitals/I&O/Wt Last Vital Signs Temp 98.0 F 11/01/23 14:00 Pulse 75 11/01/23 14:00 Resp 17 11/01/23 14:00 BP 137/78 11/01/23 14:00 Pulse Ox 96 11/01/23 14:00 O2 Del Method Room Air 11/01/23 06:00 Data NPU 10/26/23 21:18 10/26/23 21:18 A&P Assessment and plan (1) MDD (major depressive disorder), recurrent, severe, with psychosis: (2) PTSD (post-traumatic stress disorder): (3) Suicidal ideation: (4) Autism: (5) Borderline personality disorder: (6) ADHD: (7) Acute psychosis: Plan This is a 33-year-old white male with a history of major depression with psychotic features, PTSD, Borderline Personality disorder and autism presenting as he often does endorse reporting relationship problems and being stressed out with suicidal ideation. 1.? Encourage individual, group, and milieu therapy 2. ?We will gather collateral information. 3. ?Continue every 15 minute observation for safety. 4.? Continue current outpatient medications. Patient agreeable to restarting antidepressant treatment, lexapro 10mg daily. 5. Work with social work team and guardian for likely placement at the [facility] in [place]. Father is guardian and in agreement. We will assist with level 2 initiation and consider discharge after completed along with attempting to arrange interview at the [facility]. Involuntary Hold Information 2 96 Hour Hold: 96 Hour Involuntary Admission: Yes 96 Hour Hold Ending Date: 11/01/23 96 Hour Hold Ending Time: 20:58 Attestations NPU 2 Medical Necessity Statement*: Inpatient hospitalization is medically necessary and the clinically appropriate intervention at this time. We will monitor/initiate medications and make changes as indicated. Patient's likely length of stay is 2-3 days. 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 Care Code Acute Code for g Fwd Diagnoses MDD (major depressive disorder), recurrent, severe, with psychosis F33.3 PTSD (post-traumatic stress disorder) F43.10 Suicidal ideation R45.851 Autism F84.0 Borderline personality disorder F60.3 ADHD F90.9 Acute psychosis F23
[2023-11-01 19:20] VITALS: BP 148/92; PULSE 75; RESP 18; TEMP 36.2; O2SAT 98
[2023-11-01] MEDS: nicotine 2 mg Gum BUCCAL (19:41)
[2023-11-01] MEDS: trazodone 50 mg Tablet PO (20:03)
[2023-11-02 06:00] VITALS: BP 137/75; PULSE 84; RESP 18; TEMP 36.5; O2SAT 99
[2023-11-02] MEDS: lacosamide 50 mg Tablet 100 MG PO ×2 (08:24→18:21)
[2023-11-02] MEDS: escitalopram 10 mg Tablet PO (08:24)
[2023-11-02 14:00] VITALS: BP 136/89; PULSE 75; RESP 17; TEMP 36.3; O2SAT 99
--- NOTE | 2023-11-02 15:37 | P.NPUPN_ITS ---
Subjective NPU 2 Subjective: 33-year-old male with history of autism, psychosis, anxiety and depression admitted with suicidal ideation. The patient unfortunately does not appear to have a potential placement immediately at the [facility]. He had appeared content stating that he was okay with being put on the waiting list. He had reported that he had felt better and stated that he was working to try to improve his relationship with his father. He stated that his mood felt lifted with the restarting of his Lexapro. He had reported having no thoughts of harming himself currently. He had been less isolative on the unit but continue to report struggles with engaging with his peers of similar age. . Mental Status Exam 2 MSE Comments: This is a well-nourished, well-developed white male in hospital scrubs with limited grooming and eye contact. No abnormal movements except for mild psychomotor retardation. He was cooperative with exam in mild distress. Speech was slightly decreased rate and normal in volume. Mood described as better. His affect was less restricted. His thought process was linear. Thought content: Patient endorsed no suicidal ideation and denied homicidal ideation, There were no delusions reported or noted, he denied any auditory or visual hallucinations. Attention and concentration were mostly intact and memory appeared mostly reliable but none were formally tested. He was alert and oriented times person and place. Insight and judgment are limited and impulse control is limited. Intellectual ability appears limited. Vitals/I&O/Wt Last Vital Signs Temp 97.4 F L 11/02/23 14:00 Pulse 75 11/02/23 14:00 Resp 17 11/02/23 14:00 BP 136/89 11/02/23 14:00 Pulse Ox 99 11/02/23 14:00 O2 Del Method Room Air 11/02/23 06:00 Data NPU 10/26/23 21:18 10/26/23 21:18 A&P Assessment and plan (1) MDD (major depressive disorder), recurrent, severe, with psychosis: (2) PTSD (post-traumatic stress disorder): (3) Suicidal ideation: (4) Autism: (5) Borderline personality disorder: (6) ADHD: (7) Acute psychosis: Plan This is a 33-year-old white male with a history of major depression with psychotic features, PTSD, Borderline Personality disorder and autism presenting as he often does endorse reporting relationship problems and being stressed out with suicidal ideation. 1.? Encourage individual, group, and milieu therapy 2. ?We will gather collateral information. 3. ?Continue every 15 minute observation for safety. 4.? Continue current outpatient medications. Patient agreeable to restarting antidepressant treatment, lexapro 10mg daily. 5. Work with social work team and guardian for likely placement at the [facility] in [place]. Father is guardian and in agreement. We will assist with level 2 initiation and consider discharge after completed along with attempting to arrange interview at the [facility]. Involuntary Hold Information 2 96 Hour Hold: 96 Hour Involuntary Admission: Yes 96 Hour Hold Ending Date: 11/01/23 96 Hour Hold Ending Time: 20:58 Attestations NPU 2 Medical Necessity Statement*: Inpatient hospitalization is medically necessary and the clinically appropriate intervention at this time. We will monitor/initiate medications and make changes as indicated. Patient's likely length of stay is 1-2 days. 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 Care Code Acute Code for [facility] Fwd Diagnoses MDD (major depressive disorder), recurrent, severe, with psychosis F33.3 PTSD (post-traumatic stress disorder) F43.10 Suicidal ideation R45.851 Autism F84.0 Borderline personality disorder F60.3 ADHD F90.9 Acute psychosis F23
[2023-11-02] MEDS: ibuprofen 600 mg Tablet PO (20:20)
[2023-11-02] MEDS: trazodone 50 mg Tablet PO (20:22)
[2023-11-02 20:41] VITALS: BP 129/87; PULSE 76; RESP 18; O2SAT 98
[2023-11-03 06:00] VITALS: BP 115/62; PULSE 72; RESP 15; TEMP 36.7; O2SAT 99
[2023-11-03] MEDS: escitalopram 10 mg Tablet PO (08:08)
[2023-11-03] MEDS: lacosamide 50 mg Tablet 100 MG PO (08:08)
[2023-11-03 13:55] VITALS: BP 115/62; PULSE 72; RESP 15; TEMP 36.7; O2SAT 99
--- NOTE | 2023-11-03 14:20 | DCPLANNER ---
IMM completed 11/03/23 @ 2:17pm and pt was given a copy of his rights.
--- NOTE | 2023-11-03 16:12 | W.PM.NPUDCS ---
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 is fair and impulse control is fair. Intellectual ability appears low-average. Discharge Data Studies Completed and Pending: Laboratory Results WBC 7.47 10^3/uL (3.2 9-11.43) 10/26/23 21:18 RBC 4.73 10^6/uL (3.8 5-5.65) 10/26/23 21:18 Hgb 14.90 g/dL (11.27 -16.99) 10/26/23 21:18 Hct 43.9 % (37-53) 10/26/23 21:18 MCV 92.8 fl (82-101) 10/26/23 21:18 MCH 31.5 pg (27-33) 10/26/23 21:18 MCHC 33.9 g/dL (30-55) 10/26/23 21:18 RDW 11.7 % (12.1-15.1 ) L 10/26/23 21:18 Plt Count 222 10^3/cmm (157 -399) 10/26/23 21:18 MPV 10.0 fL (7.4-10.4 ) 10/26/23 21:18 Neut % (Auto) 49.9 % 10/26/23 21:18 Lymph % (Auto) 40.7 % 10/26/23 21:18 [place] % (Auto) 6.8 % 10/26/23 21:18 Eos % (Auto) 1.6 % 10/26/23 21:18 Baso % (Auto) 0.7 % 10/26/23 21:18 Neut # (Auto) 3.73 10^3/uL (1.8 -7.7) 10/26/23 21:18 Lymph # (Auto) 3.0 10^3/uL (0.8- 4.8) 10/26/23 21:18 [place] # (Auto) 0.5 10^3/uL (0.2- 0.9) 10/26/23 21:18 Eos # (Auto) 0.1 10^3/uL (0.0- 0.8) 10/26/23 21:18 Baso # (Auto) 0.1 10^3/uL (0.0- 0.1) 10/26/23 21:18 Nucleated RBC % (a uto) 0 % 10/26/23 21:18 Nucleated RBCs # 0.0 /100WBC 10/26/23 21:18 Sodium 143 mmol/L (136-1 45) 10/26/23 21:18 Potassium 4.0 mmol/L (3.5-5 .1) 10/26/23 21:18 Chloride 106 mmol/L (98-10 7) 10/26/23 21:18 Carbon Dioxide 28 mmol/L (22-29) 10/26/23 21:18 Anion Gap 13.0 (5-19) 10/26/23 21:18 BUN 12 mg/dL (6-20) 10/26/23 21:18 Creatinine 0.9 mg/dL (0.7-1. 2) 10/26/23 21:18 GFR Calculation 98.4 mL/min (90-1 30) 10/26/23 21:18 Glucose 93 mg/dL (65-115) 10/26/23 21:18 Calculated Osmolal ity 295 mOsm/kg (285- 295) 10/26/23 21:18 Calcium 9.1 mg/dL (8.5-10 .5) 10/26/23 21:18 Total Bilirubin 0.8 mg/dL (0.15-1 .2) 10/26/23 21:18 AST 18 U/L (0-40) 10/26/23 21:18 ALT 14 U/L (0-41) 10/26/23 21:18 Alkaline Phosphata se 67 U/L (40-130) 10/26/23 21:18 Total Protein 7.1 g/dL (6.6-8.7 ) 10/26/23 21:18 Albumin 4.5 g/dL (3.5-5.2 ) 10/26/23 21:18 Globulin 2.6 g/dL (1.3-4.6 ) 10/26/23 21:18 Salicylates < 0.3 mg/dL (3-10 ) L 10/26/23 21:18 Urine Opiates Scre en Negative ng/mL (N egative) 10/26/23 21:22 Acetaminophen < 5.0 ug/mL (10-3 0) L 10/26/23 21:18 Ur Barbiturates Sc reen Negative ng/mL (N egative) 10/26/23 21:22 Ur Phencyclidine S crn Negative ng/mL (N egative) 10/26/23 21:22 Ur Amphetamines Sc reen Negative ng/mL (N egative) 10/26/23 21:22 U Benzodiazepines Scrn Negative ng/mL (N egative) 10/26/23 21:22 Urine Cocaine Scre en Negative ng/mL (N egative) 10/26/23 21:22 U Marijuana (THC) Screen Positive ng/mL (N egative) H 10/26/23 21:22 Ethyl Alcohol < 10 mg/dL (0-10) 10/26/23 21:18 Vitals: Last Vital Signs Temp 98.1 F 11/03/23 13:55 Pulse 72 11/03/23 13:55 Resp 15 11/03/23 13:55 BP 115/62 09/26/24 13:55 Pulse Ox 99 11/03/23 13:55 O2 Del Method Room Air 11/03/23 06:00 Discharge Plan Discharge Patient Disposition: Home Condition: Stable Prescriptions: New escitalopram oxalate 10 mg Tablet 10 mg PO DAILY 30 Days Qty: 30 1RF Continued polyethylene glycol 3350 [Miralax] 17 gram/dose powder 4 g PO DAILY PRN (Reason: constipation) lacosamide [Vimpat] 50 mg Tablet 100 mg PO BID 30 Days Qty: 120 1RF Discharge Orders: Discharge Order (Routine); Ordered 11/03/23 Ordered By: Glen Theodore Referrals: [facility] [Other] [facility] [Other] - 4-7 days [facility] [Outside] - 4-7 days Grace Holliday FNP [Primary Care Provider] - Discharge Diet: Usual diet Discharge Activity: Resume usual activity Patient Instructions: Escitalopram (By mouth) (Lexapro), PTSD (Post Traumatic Stress Disorder) (DC), Help Prevent Suicide (DC), Opioid Safety Discharge Attestations NPU Time Spent in Discharge Care*: less than 30 min Specific Discharge Activities: Specific discharge activities: educating patient, discussing with dependency case manager/social workers/dc planners and documenting/other paperwork 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 Care Code Acute Code for Chg Fwd Diagnoses MDD (major depressive disorder), recurrent, severe, with psychosis F33.3 PTSD (post-traumatic stress disorder) F43.10 Suicidal ideation R45.851 Autism F84.0 Borderline personality disorder F60.3 ADHD F90.9 Acute psychosis F23
== END 2023-11-03 16:57 | disposition home or self-care (01) | DRG 885 ==
LOC: ER 21:15 → NP 21:29
PROVIDERS: Admitting Provider Psychiatry & Neurology Psychiatry; Emergency Provider Emergency Medicine; PCP Nurse Practitioner Family; Visit Provider Psychiatry & Neurology Psychiatry
DX: F33.3 Major depressive disorder, recurrent, severe with psychotic symptoms (principal); R45.851 Suicidal ideations; F23 Brief psychotic disorder; F43.10 Post-traumatic stress disorder, unspecified; F84.0 Autistic disorder; F60.3 Borderline personality disorder; G40.909 Epilepsy, unspecified, not intractable, without status epilepticus; F90.9 Attention-deficit hyperactivity disorder, unspecified type; Z91.148 Patient's other noncompliance with medication regimen for other reason; Z88.8 Allergy status to other drugs, medicaments and biological substances; Z91.041 Radiographic dye allergy status; Z87.891 Personal history of nicotine dependence
CPT/HCPCS: 36415; 80053; 80306; 80307; 85025; 93005; 97150; 97165; 99285

== ENCOUNTER 2023-12-01 21:21 | Emergency (ER) | payer MEDICARE, MEDICAID, SELFPAY ==
[2023-10-03 11:24] VITALS: BP 125/75; BMI 27.5
[2023-12-01 21:28] VITALS: BP 129/79; PULSE 67; RESP 16; TEMP 36.9; O2SAT 97
[2023-12-01] MEDS: orphenadrine 30 mg/mL Inj 2 mL 60 MG IM (22:18)
[2023-12-01] MEDS: ketorolac 60 mg/2 mL INJ IM (22:18)
[2023-12-01 22:49] VITALS: BP 116/64; PULSE 58; RESP 16; O2SAT 99
--- NOTE | 2023-12-01 23:00 | ED_ITS ---
HPI - Extremity Problem General: Chief complaint: Extremity Injury, Lower Stated complaint: Rt Leg Pain Time Seen by Provider: 12/01/23 21:33 Source: patient Mode of arrival: EMS Limitations: no limitations History of Present Illness: Patient is a 33-year-old male who is well-known to the emergency department, presenting with atraumatic right lateral encinas pain this evening. He states he was doing a lot of walking prior to onset of pain, pain reported to be the proximal right lateral encinas. No concerning historical factors consistent with a DVT, no history of DVT. Has not taken anything for pain. Reports pain is mild at this time. MD Complaint: extremity pain Onset (ago): hour(s) Pain Consistency: constant Location: right and lower extremity Radiation: none Exacerbating factors: weight bearing and walking Associated symptoms: Deny chest pain, fever(s) or rash Related Data Home Medications Medication Instructions Recorded Confirmed polyethylene glycol 3350 17 4 g PO DAILY PRN constipation 07/29/22 10/27/23 gram/dose oral powder (Miralax) Previous Rx's Medication Instructions Recorded lacosamide 50 mg tablet (Vimpat) 100 mg (2 x 50 mg) PO BID 30 days 07/15/23 #120 tabs escitalopram oxalate 10 mg tablet 10 mg PO DAILY 30 days #30 tabs 11/03/23 Allergies Allergy/AdvReac Type Severity Reaction Status Date / Time carbamazepine [From Tegretol] Allergy ALGY-Hives Verified 12/01/23 21:31 Iodinated Contrast Media Allergy ALGY-Rash Verified 12/01/23 21:31 Review of Systems General: Reports: 10 or more systems reviewed and unremarkable except in HPI and below Const: Denies: fever(s) or chills Card: Denies: chest pain Resp: Denies: dyspnea or productive cough GI: Denies: abdominal pain, nausea, vomiting or diarrhea : Denies: flank pain Musc: Reports: extremity pain (Right lateral encinas); Denies: neck pain, back pain, extremity swelling, joint pain, joint swelling, joint redness, joint warmth, limited range of motion or muscle weakness Skin/Breast: Denies: rash Neuro: Denies: headache(s), numbness in extremities or weakness in extremities PFS ED PFSH: Medical History ADHD Major depressive disorder with psychotic features History of ADHD Psychiatric care Depression Renal calculi PTSD (post-traumatic stress disorder) Autism Depression Epilepsy Status post extracorporeal shock wave therapy Surgical History Hx of appendectomy Family History Unknown Adopted Social History Smoking and tobacco/nicotine status: former use of tobacco/nicotine Quit status (tobacco/nicotine): has quit using Former quit date comment: quit about 2 months ago Second hand smoke exposure: No Alcohol intake: current Alcohol intake frequency: other Substance/Drug Use: current Substance/Drug use frequency: daily Adopted: Yes Caregiver/support person: Yes (cleans his house, set up meds, general assessment) Lives independently: Yes Household members: none Marital status: Single Highest education level completed: High School Graduate service: No Current occupational status: disabled Pets and animals: No Leisure activites: games and other Estella/Anglican: [employer] Special estella needs: No Agree to transfusion: Yes Physical Exam Const: COMMON NORMALS: no acute distress, patient oriented x3, no limitations, healthy appearing, alert and well nourished HENMT: COMMON NORMALS: normocephalic and atraumatic HEAD & SCALP: normocephalic and atraumatic Neck/C-Spine: COMMON NORMALS: full ROM, supple and no meningeal signs Resp: COMMON NORMALS: normal respiratory effort, No use of accessory muscles and clear to auscultation bilaterally AUSCULTATION: clear to auscultation bilaterally Cardio: COMMON NORMALS: regular rate and regular rhythm RATE: regular rate RHYTHM: regular rhythm Extremity: COMMON NORMALS: normal to inspection, full ROM, capillary refill normal, no joint enlargement and no clubbing, cyanosis or edema NARRATIVE EXTREMITY EXAM: Very mild reproducible tenderness to palpation right proximal lateral encinas, no calf tenderness. Distal pulses intact. No overlying skin changes. Normal knee joint examination. Neuro: COMMON NORMALS: patient oriented x3, moves all extremities, no focal motor deficits and no sensory deficits noted SENSORIUM/ORIENTATION: Yes alert MENINGEAL SIGNS: Yes no meningeal signs Skin: COMMON NORMALS: no rashes or lesions noted GENERAL SKIN EXAM: no rashes or lesions noted Course Vital Signs: Vital signs: Vital Signs Temperature 98.5 F 12/01/23 21:28 Pulse Rate 58 L 12/01/23 22:49 Respiratory Rate 16 12/01/23 22:49 Blood Pressure 116/64 12/01/23 22:49 Pulse Oximetry 99 12/01/23 22:49 Oxygen Delivery Me thod Room Air 12/01/23 21:28 MDM - Extremity (Nontraumatic) Medical Decision Making Atraumatic right leg pain noted, he is well-known to the emergency department and has presented with similar complaints. He did have a lot of walking prior to onset of pain, and does report relief of pain after receiving Norflex and Toradol. I do believe this is musculoskeletal in nature, he has no concerning historical or exam elements of a DVT. He is instructed to return if he starts having calf tenderness, distal skin color changes or swelling, or other concerning symptoms. He is comfortable with discharge home. No radiology studies performed this visit Discharge Plan Discharge Patient Disposition: Home Clinical Impression: Leg pain, right Condition: Stable Prescriptions: No Action polyethylene glycol 3350 [Miralax] 17 gram/dose powder 4 g PO DAILY PRN (Reason: constipation) lacosamide [Vimpat] 50 mg Tablet 100 mg PO BID 30 Days Qty: 120 1RF escitalopram oxalate 10 mg Tablet 10 mg PO DAILY 30 Days Qty: 30 1RF Discharge Orders: Discharge ED (Routine); Ordered 12/01/23 Ordered By: Moisés Jeter Patient Instructions: Leg Pain (ED) Activity Restrictions/Additional Instructions: Tylenol and ibuprofen. Stretching and gentle range of motion exercises. Follow-up with your primary care provider. 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 Care Code ED Environmental Services Manager for [facility] Conklin
== END 2023-12-01 22:50 | disposition home or self-care (01) ==
PROVIDERS: Emergency Provider Physician Assistant
DX: M79.604 Pain in right leg (principal)
CPT/HCPCS: 96372; 99284; J1885; J2360

== ENCOUNTER 2024-01-10 23:10 | Emergency (ER) | payer MEDICARE, MEDICAID, SELFPAY ==
[2023-10-03 11:24] VITALS: BP 125/75; BMI 27.5
[2024-01-10 23:11] VITALS: BP 156/78; PULSE 81; RESP 18; TEMP 36.7; O2SAT 97; BMI 25.7
--- NOTE | 2024-01-10 23:21 | ED_ITS ---
HPI - Back Pain/Injury General: Chief Complaint: Back Pain/Injury Stated Complaint: BACK PAIN Time Seen by Provider: 01/10/24 23:11 History of Present Illness: 33-year-old man with history of seizures who presents emergency room with low back pain from home by ambulance. He says he has not taken anything because he did not have anything at home so he called an ambulance. He says he woke up tonight with low back pain. No saddle numbness, no urinary retention or incontinence, no focal motor deficit, no sensory deficit. no recent fever. no cough. no shortness of breath. no chest pain. no abdominal pain. no nausea or vomiting. no dysuria. no altered mental status. no edema. Related Data Home Medications Medication Instructions Recorded Confirmed polyethylene glycol 3350 17 4 g PO DAILY PRN constipation 07/29/22 10/27/23 gram/dose oral powder (Miralax) Previous Rx's Medication Instructions Recorded lacosamide 50 mg tablet (Vimpat) 100 mg (2 x 50 mg) PO BID 30 days 07/15/23 #120 tabs escitalopram oxalate 10 mg tablet 10 mg PO DAILY 30 days #30 tabs 11/03/23 ibuprofen 800 mg tablet 800 mg PO Q8H PRN pain #30 tabs 01/10/24 Allergies Allergy/AdvReac Type Severity Reaction Status Date / Time carbamazepine [From Tegretol] Allergy ALGY-Hives Verified 01/10/24 23:15 Iodinated Contrast Media Allergy ALGY-Rash Verified 01/10/24 23:15 Review of Systems Narrative: Constitutional symptoms: Negative except as documented in HPI. Skin symptoms: Negative except as documented in HPI. Eye symptoms: Negative except as documented in HPI. ENMT symptoms: Negative except as documented in HPI. Respiratory symptoms: Negative except as documented in HPI. Cardiovascular symptoms: Negative except as documented in HPI. Gastrointestinal symptoms: Negative except as documented in HPI. Genitourinary symptoms: Negative except as documented in HPI. Musculoskeletal symptoms: Negative except as documented in HPI. Neurologic symptoms: Negative except as documented in HPI. Psychiatric symptoms: Negative except as documented in HPI. Endocrine symptoms: Negative except as documented in HPI. PFS ED PFSH: Medical History ADHD Major depressive disorder with psychotic features History of ADHD Psychiatric care Depression Renal calculi PTSD (post-traumatic stress disorder) Autism Depression Epilepsy Status post extracorporeal shock wave therapy Surgical History Hx of appendectomy Family History Unknown Adopted Social History Smoking and tobacco/nicotine status: former use of tobacco/nicotine Quit status (tobacco/nicotine): has quit using Former quit date comment: quit about 2 months ago Second hand smoke exposure: No Alcohol intake: current Alcohol intake frequency: other Substance/Drug Use: current Substance/Drug use frequency: daily Adopted: Yes Caregiver/support person: Yes (cleans his house, set up meds, general assessment) Lives independently: Yes Household members: none Marital status: Single Highest education level completed: High School Graduate service: No Current occupational status: disabled Pets and animals: No Leisure activites: games and other Estella/Episcopalian: Restorationism Special estella needs: No Agree to transfusion: Yes Physical Exam Narrative: EXAM NARRATIVE: General: Alert, no acute distress. Head: Normocephalic Neck: Trachea midline Eye: Extraocular movements are intact. Ears, nose, mouth and throat: Oral mucosa moist Respiratory: Respirations are non-labored Musculoskeletal: Normal ROM Back: no step off, no focal tenderness, some paraspinal muscle tenderness Neurological: Alert and oriented to person, place, time, and situation, No focal neurological deficit observed. Psychiatric: Cooperative, appropriate mood & affect. Course Vital Signs: Vital signs: Vital Signs Temperature 98.0 F 01/10/24 23:11 Pulse Rate 81 01/10/24 23:11 Respiratory Rate 18 01/10/24 23:11 Blood Pressure 156/78 01/10/24 23:11 Pulse Oximetry 97 01/10/24 23:11 Oxygen Delivery Me thod Room Air 01/10/24 23:11 MDM - Back Pain/Injury Medical Decision Making Assessment and plan: Low back pain ?IM Toradol in the emergency room - Discharged home - Discussed plan with patient. Answered any questions. - Evaluation and treatment of this problem were appropriate in the emergency setting. No radiology studies performed this visit Discharge Plan Discharge Patient Disposition: Home Clinical Impression: Low back pain Condition: Stable Prescriptions: New ibuprofen 800 mg tablet 800 mg PO Q8H PRN (Reason: pain) Qty: 30 0RF No Action polyethylene glycol 3350 [Miralax] 17 gram/dose powder 4 g PO DAILY PRN (Reason: constipation) lacosamide [Vimpat] 50 mg Tablet 100 mg PO BID 30 Days Qty: 120 1RF escitalopram oxalate 10 mg Tablet 10 mg PO DAILY 30 Days Qty: 30 1RF Discharge Orders: Discharge ED (Routine); Ordered 01/10/24 Ordered By: Omaira Blanco Discharge Diet: Usual diet Discharge Activity: Increase activity as tolerated Patient Instructions: Acute Low Back Pain (ED), Opioid Safety, Pain Management Activity Restrictions/Additional Instructions: Thank you for choosing [facility] for your healthcare needs today. Please realize this is an emergency room and that we are providing you with a medical screening exam and this may not be complete and all inclusive of all the testing and or work up that you may need to determine your ailment or severity of your illness. You have been screened and evaluated and felt safe for discharge. Health conditions do change or evolve sometimes and as such it is important that you follow up with your Primary Doctor to be re checked, 3-5 days is a general good time frame for follow up. You are always welcome to return to the ED for re assessment if your symptoms are worsening or you have new concerns 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 Care Code ED Hedge Fund Trader for Ky Conklin
[2024-01-10 23:29] VITALS: BP 144/74; PULSE 76; O2SAT 97
[2024-01-10] MEDS: ketorolac 60 mg/2 mL INJ IM (23:30)
== END 2024-01-10 23:30 | disposition home or self-care (01) ==
PROVIDERS: Emergency Provider Emergency Medicine
DX: M54.50 Low back pain, unspecified (principal)
CPT/HCPCS: 96372; 99284; J1885

== ENCOUNTER 2024-09-17 19:30 | Emergency (ER) | payer OTHER, MEDICAID, SELFPAY ==
[2023-10-03 11:24] VITALS: BP 125/75; BMI 27.5
[2024-09-17 19:29] VITALS: BP 145/89; PULSE 96; RESP 18; TEMP 36.8; O2SAT 97; BMI 31.6
--- NOTE | 2024-09-17 19:45 | CTR_ITS ---
PROCEDURE INFORMATION: Exam: CT Abdomen And Pelvis Without Contrast Exam date and time: 09/17/2024 7:56 PM Age: 34 years old Clinical indication: Abdominal pain; Other: Rectal; Additional info: Rectal pain TECHNIQUE: Imaging protocol: Computed tomography of the abdomen and pelvis without contrast. Radiation optimization: All CT scans at this facility use at least one of these dose optimization techniques: automated exposure control; mA and/or kV adjustment per patient size (includes targeted exams where dose is matched to clinical indication); or iterative reconstruction. COMPARISON: CT kidney stone [id number] 11/08/2019 10:27 AM RADIATION DOSE METRICS: Total DLP (mGy-cm): 1014.53 FINDINGS: Liver: Normal. No mass. Gallbladder and biliary ducts: Normal. No calcified stones. No ductal dilation. Pancreas: Normal. No ductal dilation. Spleen: Normal. No splenomegaly. Adrenal glands: Normal. No mass. Kidneys and ureters: Nonobstructing bilateral renal calculi. Stomach and bowel: Mild rectal thickening, presumably related to underdistention though can not exclude mild inflammatory change. Appendix: No evidence of appendicitis. Intraperitoneal space: Unremarkable. No free air. No significant fluid collection. Vasculature: Unremarkable. No abdominal aortic aneurysm. Lymph nodes: Unremarkable. No enlarged lymph nodes. Urinary bladder: Unremarkable as visualized. Reproductive: Unremarkable as visualized. Bones/joints: Unremarkable. No acute fracture. Soft tissues: Unremarkable. Other findings: Motion artifact limits exam. CT/CT abdomen pelvis wo con [id number] IMPRESSION: 1. Mild rectal thickening, presumably related to underdistention though can not exclude mild inflammatory change. 2. Nonobstructing bilateral renal calculi.
[2024-09-17 20:24] LABS: Glucose Urine UA Negative (Normal); Nitrate Urine Negative (Negative); Specific Gravity, Urine 1.030 (1.005-1.030)
[2024-09-17 20:29] LABS: Hematocrit 44.0 % (37-53); Hemoglobin 15.00 g/dL (11.27-16.99); Mean Corpuscular HGB Conc 34.1 g/dL (30-55); Mean Corpuscular Hemoglobin 31.1 pg (27-33); Mean Corpuscular Volume 91.3 fl (82-101); Nucleated Red Blood Cells % 0 %; Platelet Count 267 10^3/cmm (157-399); Red Blood Count 4.82 10^6/uL (3.85-5.65); White Blood Count 9.00 10^3/uL (3.29-11.43)
[2024-09-17 20:30] LABS: Add Urine Microscopic? YES
[2024-09-17 20:46] LABS: Alanine Aminotransferase 45 U/L (0-41); Albumin Level 4.4 g/dL (3.5-5.2); Alkaline Phosphatase 89 U/L (40-130); Anion Gap 14.2 (5-19); Aspartate Amino Transferase 29 U/L (0-40); Blood Urea Nitrogen 16 mg/dL (6-20); Calcium 9.8 mg/dL (8.5-10.5); Carbon Dioxide 24 mmol/L (22-29); Chloride 104 mmol/L (98-107); Creatinine Clr Calc Pharmacy 156.8613; Globulin 3.1 g/dL (1.3-4.6); Glucose 80 mg/dL (65-115); Osmolality Calculated 286 mOsm/kg (285-295); Potassium 4.2 mmol/L (3.5-5.1); Sodium 138 mmol/L (136-145); Total Protein 7.5 g/dL (6.6-8.7)
--- NOTE | 2024-09-17 21:32 | ED_ITS ---
HPI - Skin/Abscess/Foreign Bdy 2 General: Chief complaint: Skin/Abscess/Foreign Body Stated complaint: Hemorrhoids History of Present Illness: Chief complaint is hemorrhoids. Patient states that today he has had some intermittent discomfort when he is sitting on the toilet. He states if he is not on the toilet he is okay. He states is a fullness discomfort in his anal area. He denies fever. Denies having diabetes. Denies anal trauma or anal intercourse or foreign body. He states that he will have some bleeding intermittently with it. Related Data Home Medications ?Medication ?Instructions ?Recorded ?Confirmed polyethylene glycol 3350 17 4 g PO DAILY PRN constipat ion 07/29/22 10/27/23 gram/dose oral powder (Miralax) Previous Rx's ?Medication ?Instructions ?Recorded lacosamide 50 mg tablet (Vimpat) 100 mg (2 x 50 mg) PO BID 30 days 07/15/23 #120 tabs escitalopram oxalate 10 mg tablet 10 mg PO DAILY 30 da ys #30 tabs 11/03/23 ibuprofen 800 mg tablet 800 mg PO Q8H PRN pain #30 t abs 01/10/24 amoxicillin 875 mg-potassium 1 tab PO BID 7 days #14 t abs 09/17/24 clavulanate 125 mg tablet Allergies Allergy/AdvReac Type Severity Reaction Status Date / Time carbamazepine (From Tegretol) Allergy ALGY-Hives Verified 01/10/24 23:15 Iodinated Contrast Media Allergy ALGY-Rash Verified 01/10/24 23:15 [employer] ED 2 PFSH: Medical History (Updated 09/17/24 @ 21:39 by Shakeel Lyles MD) ADHD Major depressive disorder with psychotic features History of ADHD Psychiatric care Depression Renal calculi PTSD (post-traumatic stress disorder) Autism Depression Epilepsy Status post extracorporeal shock wave therapy Surgical History Hx of appendectomy Family History Unknown Adopted Social History Smoking and tobacco/nicotine status: former use of tobacco/nicotine Quit status (tobacco/nicotine): has quit using Former quit date comment: quit about 2 months ago Second hand smoke exposure: No Alcohol intake: current Alcohol intake frequency: other Substance/Drug Use: current Substance/Drug use frequency: daily Adopted: Yes Caregiver/support person: Yes (cleans his house, set up meds, general assessment) Lives independently: Yes Household members: none Marital status: Single Highest education level completed: High School Graduate service: No Current occupational status: disabled Pets and animals: No Leisure activites: games and other Estella/Pentecostal: Buddhist Special estella needs: No Agree to transfusion: Yes Physical Exam 2 Narrative: EXAM NARRATIVE: Patient is alert and oriented. No acute distress. Neck is supple. Heart regular rhythm. Lung sounds clear. Abdomen soft nontender. Extremities warm well-perfused. No icterus. Pupils equal reactive to light full range ocular motion. Extremities warm well-perfused. No calf tenderness or pitting edema. Speech is clear. No drift in his arms. No ataxia. Patient has rash on the buttock groin area consistent with intertrigo. Patient has some mild fullness but no significant tenderness or fluctuance on anal exam. No evident bleeding. No rash otherwise in exposed areas. Course 2 Vital Signs: Vital signs: Vital Signs Temperature 98.3 F 09/17/24 19:29 Pulse Rate 96 09/17/24 19:29 Respiratory Rate 18 09/17/24 19:29 Blood Pressure 121/63 09/17/24 21:38 Pulse Oximetry 97 09/17/24 21:38 Oxygen Delivery Me thod Room Air 09/17/24 19:29 MDM - Skin/Abscess/Foreign Bdy Medicial Decision Making Patient presents complaining that when he sits on the toilet he feels some fullness and discomfort in the anal area. He states that he is not constipated. No vomiting or fever. He denies headache chest pain or shortness of breath. He denies abdominal pain vomiting or diarrhea or black or bloody stools except for he states when he is sitting on the toilet he will have some bright red when he wipes intermittently. He states the discomfort comes and goes. He denies anal intercourse or foreign body. Denies diabetes or immunosuppression. The patient does have some intertrigo. No visible or evident perianal abscess or buttock abscess. Will get a CT scan to evaluate for rectal abscess or other acute process. I ordered CT with contrast and patient told he had no allergy but then on questioning him further he states he did have a rash and trouble breathing with IV contrast when he had appendicitis diagnosed in the past. After informed discussion he does not want to do IV contrast. I advised limits of CT without contrast and premedication as an option versus not doing CT versus doing without contrast. He wanted to do without contrast which is reasonable. This showed some mild thickening of the rectum. No visible abscess reported. Patient did not have significant tenderness or erythema or fluctuance to suggest evident abscess but with the CT findings and his symptoms will cover with antibiotics in case of early infectious process. I advised patient however broad differential. Patient's white count is normal. CBC and CMP P were ordered and urinalysis and urinalysis not suggestive of infection and liver enzymes not elevated. Glucose was not elevated. I advised regarding ways to reduce intertrigo and topical treatments and keeping the area dry and frequent changing of underwear and clothing and follow-up for further testing and evaluation. I advised limits of CT and ED evaluation and signs of developing abscess or worsening infection or hemorrhoids or other potential causes. I advised limits of CT close outpatient follow-up and return instructions. I advised limiting time on toilet and high-fiber diet. Lab Data 09/17/24 20:25 09/17/24 20:25 Radiology Impressions Abdomen/Pelvis CT 09/17/24 19:45 IMPRESSION: 1. Mild rectal thickening, presumably related to underdistention though can not exclude mild inflammatory change. 2. Nonobstructing bilateral renal calculi. Laboratory Results WBC 9.00 10^3/uL (3.29-11.43) 09/17/24: RBC 4.82 10^6/uL (3.85-5.65) 09/17/24 20: Hgb 15.00 g/dL (11.27-16.99) 09/17/24 20: Hct 44.0 % (37-53) 09/17/24 20: MCV 91.3 fl (82-101) 09/17/24: MCH 31.1 pg (27-33) 09/17/24 20: MCHC 34.1 g/dL (30-55) 09/17/24 20: RDW 11.9 % (12.1-15.1) L 09/17/24 20: Plt Count 267 10^3/cmm (157-399) 09/17/24 20:25 MPV 9.3 fL (7.4-10.4) 09/17/24 20:25 Neut % (Auto) 61.4 % 09/17/24 20:25 Lymph % (Auto) 29.0 % 09/17/24 20:25 [place] % (Auto) 7.3 % 09/17/24 20:25 Eos % (Auto) 1.2 % 09/17/24 20: Baso % (Auto) 0.7 % 09/17/24 20:25 Neut # (Auto) 5.52 10^3/uL (1.8-7.7) 09/17/24: Lymph # (Auto) 2.6 10^3/uL (0.8-4.8) 09/17/24 20: [place] # (Auto) 0.7 10^3/uL (0.2-0.9) 09/17/24 20: Eos # (Auto) 0.1 10^3/uL (0.0-0.8) 09/17/24 20:25 Baso # (Auto) 0.1 10^3/uL (0.0-0.1) 09/17/24: Nucleated RBC % (auto) 0 % 09/17/24: Nucleated RBCs # 0.0 /100WBC 09/17/24 20:25 Sodium 138 mmol/L (136-145) 09/17/24 20:25 Potassium 4.2 mmol/L (3.5-5.1) 09/17/24 20:25 Chloride 104 mmol/L (98-107) 09/17/24 20:25 Carbon Dioxide 24 mmol/L (22-29) 09/17/24 20:25 Anion Gap 14.2 (5-19) 09/17/24 20:25 BUN 16 mg/dL (6-20) 09/17/24 20: Creatinine 0.9 mg/dL (0.7-1.2) 09/17/24 20:25 GFR Calculation 97.8 mL/min (90-130) 09/17/24 20:25 Glucose 80 mg/dL (65-115) 09/17/24 20:25 Calculated Osmolality 286 mOsm/kg (285-295) 09/17/24 20:25 Calcium 9.8 mg/dL (8.5-10.5) 09/17/24 20:25 Total Bilirubin 0.5 mg/dL (0.15-1.2) 09/17/24 20:25 AST 29 U/L (0-40) 09/17/24 20:25 ALT 45 U/L (0-41) H 09/17/24 20:25 Alkaline Phosphatase 89 U/L (40-130) 09/17/24 20: Total Protein 7.5 g/dL (6.6-8.7) 09/17/24 20: Albumin 4.4 g/dL (3.5-5.2) 09/17/24 20: Globulin 3.1 g/dL (1.3-4.6) 09/17/24 20:25 Urine Color Yellow (Yellow) 09/17/24 20:12 Urine Appearance Clear (CLEAR) 09/17/24 20:12 Urine pH 5.5 (5-7) 09/17/24 20:12 Ur Specific [place] 1.030 (1.005-1.030) 09/17/24 20:12 Urine Protein Trace (Negative) A 09/17/24 20:12 Urine Glucose (UA) Negative (Normal) 09/17/24 20:12 Urine Ketones Trace (Negative) 09/17/24 20:12 Urine Blood Trace (Negative) A 09/17/24 20:12 Urine Nitrate Negative (Negative) 09/17/24 20:12 Urine Bilirubin Negative (Negative) 09/17/24 20:12 Urine Urobilinogen 0.2 mg/dL (Negative) 09/17/24 20:12 Ur Leukocyte Esterase Negative (Negative) 09/17/24 20:12 Urine RBC 3-5 /hpf (0-2) 09/17/24 20:12 Urine WBC 0-5 /hpf (0-5) 09/17/24 20:12 Ur Squamous Epith Cells 0-5 /hpf (0-5) 09/17/24 20:12 Amorphous Sediment Not Reportable 09/17/24 20:12 Urine Bacteria None seen /hpf (NONE) 09/17/24 20:12 Hyaline Casts 0.40 /lpf 09/17/24 20:12 All radiology interpretation(s) finalized by discharge Discharge Plan Discharge Patient Disposition: Home Clinical Impression: Painful rectal bleeding Condition: Stable Prescriptions: New amoxicillin-pot clavulanate 875-125 mg tablet 1 tab PO BID 7 Days Qty: 14 0RF No Action polyethylene glycol 3350 [Miralax] 17 gram/dose powder 4 g PO DAILY PRN (Reason: constipation) lacosamide [Vimpat] 50 mg Tablet 100 mg PO BID 30 Days Qty: 120 1RF escitalopram oxalate 10 mg Tablet 10 mg PO DAILY 30 Days Qty: 30 1RF ibuprofen 800 mg tablet 800 mg PO Q8H PRN (Reason: pain) Qty: 30 0RF Discharge Orders: Discharge ED (Routine); Ordered 09/17/24 Ordered By: Shakeel Lyles Patient Instructions: Abdominal Pain (ED), Pain Management, Patient Portal & Greg Instructions Activity Restrictions/Additional Instructions: Please come back if you develop increasing or worsening pain, bleeding, abdominal pain, fever, lightheadedness or dizziness, getting worse instead of better, any concerns. Do high-fiber diet with plenty of liquids. Do not use your phone or read on the toilet. Come back if any worse or concerns. Please follow-up on your CT results with your doctor. Recheck with your doctor in 2 to 3 days. 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
[2024-09-17 21:38] VITALS: BP 121/63; O2SAT 97
[2024-09-17 21:46] VITALS: BP 121/63; PULSE 79; RESP 16; O2SAT 94
--- OUTSIDE RECORDS SUMMARY | 2024-09-19 12:30 | XMS_ITS | Patient Health Record ---
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 DO NOT SWALLOW Mouth/Throat 2x daily; Duration: 7 days 08/07/2021 Active Social History Sex Assigned At : Social History Observation Description Sex Assigned At Male Plan Of Treatment No Information Insurance Providers Payer Name Payer Address Payer Phone Subscriber Number Group Number Insured Name Patient Relationship to Insured Coverage Start Date Coverage End Date Medicaid Dental [address] [place] [address] [id number] George Velázquez Self - patient is the insured Medical (General) History Medical History History ICD Code seizures mental disabilities tuberuclosis
== END 2024-09-17 21:47 | disposition home or self-care (01) ==
PROVIDERS: Emergency Provider Emergency Medicine
DX: K62.5 Hemorrhage of anus and rectum (principal); Z87.891 Personal history of nicotine dependence
CPT/HCPCS: 36415; 74176; 80053; 81001; 85025; 99284